=== PATIENT | male | born 1965 | race Caucasian/White ===

== ENCOUNTER 2017-03-19 07:08 | Outpatient (CLI) | payer MEDICAID ==
[2017-03-19 13:24] LABS: BASOPHILS # (AUTO) 0.1 10^3/uL (0.0-0.1); BASOPHILS % (AUTO) 0.8 %; EOSINOPHILS # (AUTO) 0.1 10^3/uL (0.0-0.7); EOSINOPHILS % (AUTO) 1.7 %; HCT - HEMATOCRIT 45.6 % (42.0-52.0); HGB - HEMOGLOBIN 15.3 g/dL (14.0-18.0); LYMPHOCYTES # (AUTO) 2.5 10^3/uL (1.5-3.5); LYMPHOCYTES % (AUTO) 33.4 %; MEAN CORPUSCULAR HEMOGLOBIN 31.2 pg (27.0-31.0); MEAN CORPUSCULAR HGB CONC 33.5 g/dL (32.0-36.0); MEAN CORPUSCULAR VOLUME 93.3 fL (80.0-94.0); MEAN PLATELET VOLUME 8.9 fL (7.4-11.4); MONOCYTES # (AUTO) 0.7 10^3/uL (0.0-1.0); MONOCYTES % (AUTO) 9.2 %; NEUTROPHILS # (AUTO) 4.1 10^3/uL (1.5-6.6); NEUTROPHILS % (AUTO) 54.9 %; NUCLEATED RED BLOOD CELLS AUTO 0.1 /100WBC; RED BLOOD COUNT 4.89 10^6/uL (4.70-6.10); RED CELL DISTRIBUTION WIDTH 14.6 % (12.0-15.0); UNCORRECTED WHITE BLOOD COUNT 7.5 x10^3/uL; WHITE BLOOD COUNT 7.5 x10^3/uL (4.8-10.8)
[2017-03-19 13:40] LABS: ALBUMIN/GLOBULIN RATIO 1.1 (1.0-2.2); BILIRUBIN,TOTAL 0.7 mg/dL (0.2-1.0); BUN - BLOOD UREA NITROGEN 11 mg/dL (6-20); CALCIUM 9.4 mg/dL (8.5-10.3); CARBON DIOXIDE - CO2 25 mmol/L (21-32); CHLORIDE 104 mmol/L (101-111); CHOL/HDL RATIO 7.5 (<5.0); CHOLESTEROL 261 mg/dL; CREATININE 0.8 mg/dL (0.6-1.2); GFR - MDRD 102 (>89); GLUCOSE 102 mg/dL (70-100); HDL CHOLESTEROL 35 mg/dL; LDL/HDL RATIO 5.1 (<3.6); POTASSIUM 4.4 mmol/L (3.5-5.0); SODIUM 137 mmol/L (135-145); TOTAL PROTEIN 8.1 g/dL (6.7-8.2); TRIGLYCERIDES 245 mg/dL; VLDL CHOLESTEROL 49 mg/dL
== END 2017-03-19 07:09 | disposition home or self-care (01) ==
LOC: LAB.N 07:08
PROVIDERS: ATTEND Nurse Practitioner Gerontology
DX: I10 Essential (primary) hypertension (principal)
CPT/HCPCS: 36415; 80053; 80061; 85025

== ENCOUNTER 2018-01-01 08:00 | Outpatient (CLI) | payer MEDICAID ==
[2018-01-01 18:48] LABS: BASOPHILS # (AUTO) 0.1 10^3/uL (0.0-0.1); BASOPHILS % (AUTO) 0.8 %; EOSINOPHILS # (AUTO) 0.2 10^3/uL (0.0-0.7); EOSINOPHILS % (AUTO) 1.9 %; HGB - HEMOGLOBIN 11.6 g/dL (14.0-18.0); LYMPHOCYTES # (AUTO) 4.4 10^3/uL (1.5-3.5); LYMPHOCYTES % (AUTO) 45.2 %; MEAN CORPUSCULAR HEMOGLOBIN 24.3 pg (27.0-31.0); MEAN CORPUSCULAR HGB CONC 32.1 g/dL (32.0-36.0); MEAN CORPUSCULAR VOLUME 75.7 fL (80.0-94.0); MEAN PLATELET VOLUME 8.7 fL (7.4-11.4); MONOCYTES # (AUTO) 0.8 10^3/uL (0.0-1.0); MONOCYTES % (AUTO) 7.9 %; NEUTROPHILS # (AUTO) 4.3 10^3/uL (1.5-6.6); NEUTROPHILS % (AUTO) 44.2 %; PLT - PLATELET COUNT 223 10^3/uL (130-450); RED BLOOD COUNT 4.77 10^6/uL (4.70-6.10); RED CELL DISTRIBUTION WIDTH 21.4 % (12.0-15.0); WHITE BLOOD COUNT 9.6 x10^3/uL (4.8-10.8)
[2018-01-01 19:00] LABS: PLATELET ESTIMATE, MANUAL NORMAL (130-450,000) (NORMAL); PLATELET MORPHOLOGY NORMAL APPEARANCE (NORMAL)
[2018-01-01 19:32] LABS: ALBUMIN 4.2 g/dL (3.2-5.5); ALBUMIN/GLOBULIN RATIO 1.4 (1.0-2.2); ALKALINE PHOSPHATASE 93 IU/L (42-121); ALT ALANINE AMINOTRANSFERASE 20 IU/L (10-60); AST ASPARTATE AMINOTRANSFERASE 24 IU/L (10-42); BILIRUBIN,TOTAL 0.2 mg/dL (0.2-1.0); BUN - BLOOD UREA NITROGEN 12 mg/dL (6-20); CARBON DIOXIDE - CO2 23 mmol/L (21-32); CHLORIDE 102 mmol/L (101-111); CHOL/HDL RATIO 10.8 (<5.0); CHOLESTEROL 280 mg/dL; CREATININE 0.7 mg/dL (0.6-1.2); GFR - MDRD 118 (>89); GLUCOSE 83 mg/dL (70-100); HDL CHOLESTEROL 26 mg/dL; SODIUM 135 mmol/L (135-145); TOTAL PROTEIN 7.2 g/dL (6.7-8.2)
== END 2018-01-01 08:01 | disposition home or self-care (01) ==
LOC: LAB.N 08:00
PROVIDERS: ATTEND Nurse Practitioner Gerontology
DX: I10 Essential (primary) hypertension (principal); E78.5 Hyperlipidemia, unspecified; Z13.9 Encounter for screening, unspecified
CPT/HCPCS: 36415; 80053; 80061; 83721; 84443; 85025

== ENCOUNTER 2021-08-28 16:06 | Inpatient (IN) | payer MEDICARE, MEDICAID ==
[2021-08-28 16:51] LABS: BASOPHILS # (AUTO) 0.1 10^3/uL (0.0-0.1); BASOPHILS % (AUTO) 0.6 %; EOSINOPHILS # (AUTO) 0.3 10^3/uL (0.0-0.7); EOSINOPHILS % (AUTO) 2.6 %; HCT - HEMATOCRIT 45.9 % (42.0-52.0); HGB - HEMOGLOBIN 13.9 g/dL (14.0-18.0); LYMPHOCYTES # (AUTO) 1.5 10^3/uL (1.5-3.5); LYMPHOCYTES % (AUTO) 13.7 %; MEAN CORPUSCULAR HEMOGLOBIN 27.9 pg (27.0-31.0); MEAN CORPUSCULAR HGB CONC 30.3 g/dL (32.0-36.0); MEAN CORPUSCULAR VOLUME 92.2 fL (80.0-94.0); MEAN PLATELET VOLUME 9.8 fL (7.4-11.4); MONOCYTES # (AUTO) 0.8 10^3/uL (0.0-1.0); MONOCYTES % (AUTO) 7.6 %; NEUTROPHILS % (AUTO) 74.7 %; PLT - PLATELET COUNT 244 10^3/uL (130-450); RED BLOOD COUNT 4.98 10^6/uL (4.70-6.10); WHITE BLOOD COUNT 10.8 x10^3/uL (4.8-10.8)
[2021-08-28] MEDS ORDERED: IPRATROPIUM/ALBUTEROL 3 ML NEB INH STA (16:52)
--- NOTE | 2021-08-28 16:54 | ED Physician Documentation ---
PD HPI DYSPNEA - Stated complaint Stated Complaint: SOA/LETHARGIC - Chief complaint Chief Complaint: Resp - History obtained from History obtained from: Patient - History of Present Illness Timing - onset: How many days ago (3) Timing - onset during: Rest Timing - details: Gradual onset Pain level max: 0 Pain level now: 0 Associated symptoms: Wheezing. No: Fever, Chest pain / discomfort, Palpitations, Diaphoresis, Bilateral edema Recently seen: Not recently seen - Additional information Additional information: 55-year-old male presents to the emergency department with several days of worsening shortness of breath. He feels like it is hard to take a deep breath. Not having any pain. No fevers. No chills. He is vaccinated against Covid. Does not have a history of lung issues. Does have a history of HIV and is on medications. Does not believe he has a history of heart failure. Does have a history of coronary artery bypass graft many years ago. He recently came here from [place] and is considering moving here. Review of Systems Constitutional: denies: Fever, Chills Respiratory: denies: Cough GI: denies: Nausea, Vomiting, Diarrhea Skin: denies: Rash Musculoskeletal: denies: Neck pain, Back pain Neurologic: denies: Headache PD PAST MEDICAL HISTORY - Past Medical History Cardiovascular: Coronary artery disease Respiratory: None Endocrine/Autoimmune: None GI: None : None HEENT: None Psych: Depression Musculoskeletal: None, Chronic back pain Derm: None - Past Surgical History Past Surgical History: Yes Ortho: Other Cardiovascular: CABG - Present Medications Home Medications: Ambulatory Orders Medication Instructions Recorded Confirmed Darunavir Ethanolate [Prezista] 800 mg PO DAILY 10/28/14 06/21/16 Oxycodone HCl [Roxicodone] 30 mg PO Q6H PRN 10/28/14 06/21/16 Aspirin 81 mg PO DAILY 11/06/14 06/21/16 Carvedilol [Coreg] 25 mg PO BID 06/21/16 06/21/16 Escitalopram Oxalate [Lexapro] 20 mg PO DAILY 06/21/16 06/21/16 Omeprazole [PriLOSEC] 20 mg PO DAILY 06/21/16 06/21/16 Ritonavir [Norvir] 100 mg PO DAILY 06/21/16 06/21/16 amLODIPine [Norvasc] 5 mg PO DAILY 06/21/16 06/21/16 oxyCODONE ER [OxyCONTIN] 60 mg PO Q8H 06/21/16 06/21/16 tiZANidine [Zanaflex] 4 mg PO Q8H PRN 06/21/16 06/21/16 Nitroglycerin [Nitrostat] 0.4 mg SL Q5MIN PRN #0 tablet 06/22/16 Pravastatin [Pravachol] 80 mg PO QPM tablet 06/22/16 - Allergies Allergies/Adverse Reactions: Allergies Allergy/AdvReac Type Severity Reaction Status Date / Time gabapentin Allergy Intermediate Hives Verified 08/28/21 16:21 nevirapine [From Viramune] Allergy Intermediate Hives Verified 08/28/21 16:21 tramadol Allergy Intermediate Rash Verified 08/28/21 16:21 ketorolac Allergy Itching Verified 08/28/21 16:21 - Social History Does the pt smoke?: Yes Smoking Status: Current every day smoker Does the pt drink ETOH?: No Does the pt have substance abuse?: No - Immunizations Immunizations are current?: Yes - POLST Patient has POLST: Yes PD ED PE NORMAL - Vitals Vital signs reviewed: Yes - General General: Alert and oriented X 3, No acute distress, Well developed/nourished - HEENT HEENT: PERRL, Moist mucous membranes - Neck Neck: Supple, no meningeal sign - Cardiac Cardiac: RRR - Respiratory Respiratory: No respiratory distress, Other (Wheezing bilaterally) - Abdomen Abdomen: Soft, Non tender, Non distended - Derm Derm: Warm and dry - Extremities Extremities: No calf tenderness / cord, Other (Trace edema bilaterally) - Neuro Neuro: Alert and oriented X 3 - Psych Psych: Normal mood, Normal affect Results - Vitals Vitals: Vital Signs - 24 hr 08/28/21 08/28/21 08/28/21 16:18 16:21 16:51 Temperature 37.0 C Heart Rate 68 72 64 Respiratory 20 27 H 27 H Rate Blood Pressure 125/74 122/65 122/85 H O2 Saturation 87 L 97 92 08/28/21 08/28/21 08/28/21 16:59 17:21 17:22 Temperature Heart Rate 62 82 81 Respiratory 22 29 H 26 H Rate Blood Pressure 123/76 123/76 O2 Saturation 87 L 92 08/28/21 08/28/2108/28/21 17:30 18:13 18:36 Temperature Heart Rate 76 70 77 Respiratory 22 20 16 Rate Blood Pressure 100/88 H 131/82 H O2 Saturation 96 95 08/28/21 08/28/21 08/28/21 18:52 19:11 19:27 Temperature 37.3 C Heart Rate 87 Respiratory 17 19 Rate Blood Pressure 128/74 O2 Saturation 88 L 94 Oxygen O2 Source Nasal cannula Oxygen Flow Rate 2 - Labs Labs: Laboratory Tests 08/28/21 08/28/21 08/28/21 16:44 16:44 16:44 WBC 10.8 RBC 4.98 Hgb 13.9 L Hct 45.9 MCV 92.2 MCH 27.9 MCHC 30.3 L RDW 19.0 H Plt Count 244 MPV 9.8 Neut # (Auto) 8.0 H Lymph # (Auto) 1.5 Kane # (Auto) 0.8 Eos # (Auto) 0.3 Baso # (Auto) 0.1 Absolute Nucleated RBC 0.00 Nucleated RBC % 0.0 Sodium 135 Potassium 3.7 Chloride 99 L Carbon Dioxide 25 Anion Gap 11.0 BUN 13 Creatinine 1.1 Estimated GFR (MDRD) 69 L Glucose 138 H Calcium 9.0 Total Bilirubin 0.7 AST 25 ALT 19 Alkaline Phosphatase 83 Troponin I High Sens 6.3 B-Natriuretic Peptide Total Protein 8.0 Albumin 3.5 Globulin 4.5 H Albumin/Globulin Ratio 0.8 L Lipase 25 Nasal Adenovirus (PCR) Nasal B. parapertussis DNA (PCR) Nasal Coronavir 229E PCR Nasal Coronavir HKU1 PCR Nasal Coronavir NL63 PCR Nasal Coronavir OC43 PCR Nasal Enterovir/Rhinovir PCR Nasal Influenza B PCR Nasal Influenza A PCR Nasal Parainfluen 1 PCR Nasal Parainfluen 2 PCR Nasal Parainfluen 3 PCR Nasal Parainfluen 4 PCR Nasal RSV (PCR) Nasal B.pertussis DNA PCR Nasal C.pneumoniae (PCR) [place] Human Metapneumo PCR Nasal M.pneumoniae (PCR) Nasal SARS-CoV-2 (PCR) 08/28/21 08/28/21 16:44 17:08 WBC RBC Hgb Hct MCV MCH MCHC RDW Plt Count MPV Neut # (Auto) Lymph # (Auto) Kane # (Auto) Eos # (Auto) Baso # (Auto) Absolute Nucleated RBC Nucleated RBC % Sodium Potassium Chloride Carbon Dioxide Anion Gap BUN Creatinine Estimated GFR (MDRD) Glucose Calcium Total Bilirubin AST ALT Alkaline Phosphatase Troponin I High Sens B-Natriuretic Peptide 274 H Total Protein Albumin Globulin Albumin/Globulin Ratio Lipase Nasal Adenovirus (PCR) NOT DETECTED Nasal B. parapertussis DNA (PCR) NOT DETECTED Nasal Coronavir 229E PCR NOT DETECTED Nasal Coronavir HKU1 PCR NOT DETECTED Nasal Coronavir NL63 PCR NOT DETECTED Nasal Coronavir OC43 PCR NOT DETECTED Nasal Enterovir/Rhinovir PCR NOT DETECTED Nasal Influenza B PCR NOT DETECTED Nasal Influenza A PCR NOT DETECTED Nasal Parainfluen 1 PCR NOT DETECTED Nasal Parainfluen 2 PCR NOT DETECTED Nasal Parainfluen 3 PCR NOT DETECTED Nasal Parainfluen 4 PCR NOT DETECTED Nasal RSV (PCR) NOT DETECTED Nasal B.pertussis DNA PCR NOT DETECTED Nasal C.pneumoniae (PCR) NOT DETECTED [place] Human Metapneumo PCR NOT DETECTED Nasal M.pneumoniae (PCR) NOT DETECTED Nasal SARS-CoV-2 (PCR) NOT DETECTED - Rads (name of study) cxr Radiology: Final report received, EMP read contemporaneously, See rad report (Bilateral interstitial pulmonary infiltrate reflects infection versus pulmonary edema. ) PD MEDICAL DECISION MAKING - ED course Complexity details: reviewed results, re-evaluated patient, considered differential, d/w patient ED course: 55-year-old male with hypoxia and wheezing. Unclear if this is infectious or cardiac related. His BNP is slightly elevated. He was given Lasix as well as Rocephin, azithromycin and Bactrim. Unlikely to be PJP pneumonia. But we will cover him for this with the Bactrim. Patient continues to require supplemental oxygen and we will place him in observation for further care and to see how he progresses. Covid test is negative. Discussed the case with Dr. Beltran, hospitalist who accepts This document was made in part using voice recognition software. While efforts are made to proofread this document, sound alike and grammatical errors may occur. Departure - Departure Disposition: ED Place in Observation Clinical Impression: Hypoxia Pulmonary edema Qualifiers: Chronicity: acute Qualified Code(s): J81.0 - Acute pulmonary edema HIV (human immunodeficiency virus infection) Qualifiers: HIV symptom status: currently asymptomatic, with history of HIV-related illness Qualified Code(s): B20 - Human immunodeficiency virus [HIV] disease Pneumonia Qualifiers: Pneumonia type: due to unspecified organism Laterality: bilateral Lung location: unspecified part of lung Qualified Code(s): J18.9 - Pneumonia, unspecified organism Condition: Stable Discharge Date/Time: 08/28/21 21:19
[2021-08-28 17:07] LABS: ALBUMIN 3.5 g/dL (3.2-5.5); ALBUMIN/GLOBULIN RATIO 0.8 (1.0-2.2); BILIRUBIN,TOTAL 0.7 mg/dL (0.2-1.0); CREATININE 1.1 mg/dL (0.6-1.2); POTASSIUM 3.7 mmol/L (3.5-5.0)
--- NOTE | 2021-08-28 17:25 | XRAY Report ---
PROCEDURE: Chest 1 View X-Ray INDICATIONS: Chest pain TECHNIQUE: One view of the chest was acquired. COMPARISON: 06/21/2016 FINDINGS: Surgical changes and devices: None. Lungs and pleura: Diffuse bilateral interstitial infiltrate noted. Total space and heart size is norm al. Midline sternotomy wires noted. Low lung volumes accentuate pulmonary interstitium and heart size . Mediastinum: Mediastinal contours appear normal. Heart size is normal. Bones and chest wall: No suspicious bony lesions. Overlying soft tissues appear unremarkable. IMPRESSION: Bilateral interstitial pulmonary infiltrate reflects infection versus pulmonary edema. Low lung volumes accentuate pulmonary interstitium and heart size. Reviewed by: Villa Thorpe MD on 08/28/2021 4:24 PM [place] Approved by: Villa Thorpe MD on 08/28/2021 4:24 PM [facility] Station ID: [id number]
[2021-08-28] MEDS ORDERED: ALBUTEROL NEB 2.5 MG/3 ML INH STA (17:51)
[2021-08-28 18:41] LABS: B. PARAPERTUSSIS- RESP PCR PAN NOT DETECTED; B. PERTUSSIS- RESP PCR PANEL NOT DETECTED; C. PNEUMONIAE- RESP PCR PANEL NOT DETECTED; CORONAVIRUS 229E-RESP PCR NOT DETECTED; CORONAVIRUS HKU1-RESP PCR NOT DETECTED; CORONAVIRUS NL63-RESP PCR NOT DETECTED; CORONAVIRUS OC43-RESP PCR NOT DETECTED; HUMAN METAPNEUMOVIRUS NOT DETECTED; INFLUENZA A- RESP PCR PANEL NOT DETECTED; INFLUENZA B - RESP PCR PANEL NOT DETECTED; M. PNEUMONIAE- RESP PCR PANEL NOT DETECTED; PARAINFLUENZA VIRUS 1 NOT DETECTED; PARAINFLUENZA VIRUS 2 NOT DETECTED; PARAINFLUENZA VIRUS 3 NOT DETECTED; PARAINFLUENZA VIRUS 4 NOT DETECTED; RHINOVIRUS/ENTEROVIRUS NOT DETECTED; RSV- RESP PCR PANEL NOT DETECTED; SARS-CoV-2 -RESP PCR PANEL NOT DETECTED
[2021-08-28] MEDS ORDERED: FUROSEMIDE 40 MG/4 ML VIAL IVP STA (18:52)
[2021-08-28] MEDS ORDERED: AZITHROMYCIN INJ 500 MG in SODIUM CHLORIDE 0.9% 250 ML IV STA (19:45)
[2021-08-28] MEDS ORDERED: cefTRIAXone 1 GM VIAL IVP STA (19:45)
[2021-08-28] MEDS ORDERED: SULFAMETH/TRIMETH DS 800/160 MG TABLET PO STA (19:45)
[2021-08-28] MEDS ORDERED: ONDANSETRON 4 MG/2 ML VIAL IVP PRN (20:00)
[2021-08-28] MEDS ORDERED: AZITHROMYCIN INJ 500 MG in SODIUM CHLORIDE 0.9% 250 ML IV ONE (20:01)
--- NOTE | 2021-08-28 20:14 | HISTORY & PHYSICAL EXAMINATION ---
Chief Complaint - Chief Complaint Chief Complaint: Short of breath History of Present Illness - Admitted From Admitted From:: ED - History Obtained From History obtained from: ED provide, records review and the pt - History of Present Illness HPI Comment/Other: This is a 55-year-old male who has lived on [facility] before, moved to [place] in 2018 and is now planning on moving back and is visiting his brother for Thanksgiving. He has a history of HIV, hypertension, hyperlipidemia, coronary disease with multiple stents done and CABG done in 2012. He flew here from [place] 1 weeka go and presents with worsening shortness of breath and fatigue over 3 days. He denies a fever. He has a non-productive cough and is now getting pleuritic anterior chest pain. He describes 2 days of new orthopnea. He is COVID vaccinated and had the booster 2 mos ago also. All his contacts are COVID vaccinated. He denies anginal pain. He does have chronic back pain which sometimes is in the mid-chest posteriorly. He denies palpitations, leg edema or syncope. He is compliant with his medications. In the ED he was found to be tachypneic and have oxygen saturation of 87% on room air and has been started on supplemental oxygen. His chest x-ray shows interstitial edema consistent with interstitial lung disease versus CHF. He received a nebulizer treatment without much improvement. Because of his positive HIV status, he has received empiric antibiotics of Zithromax, Ceftriaxone and Bactrim, to cover atypical bacteria. He has also received IV Lasix x1. He is presented to the Hospitalist team to place in Observation status for further evaluation of his shortness of breath, abnormal CXR and hypoxia. We discussed his wishes for CODE STATUS and he has a DNR form signed, which is back home in [place]; he wants to be a DNR but intubation is OK. History - Past Medical History Cardiovascular: reports: Coronary artery disease Respiratory: reports: None Neuro: reports: None Endocrine/Autoimmune: reports: Other (Hypertriglyceridemia documented here in 2014 (TG >1000)) GI: reports: None : reports: None HEENT: reports: None Psych: reports: Depression Musculoskeletal: reports: None, Chronic back pain Derm: reports: None MRSA Hx?: No - Past Surgical History Ortho: reports: Other Cardiovascular: reports: CABG - Family & Social History Family History: Mother: Alive and Well, Father: , Brother: Alive and Well, Family History Comment/Other: He is the middle child of 3 children, his younger brother in an accident. He has 1 natural child who lives in [place] and is healthy. His father is , his mother is alive but very ill, and lives in [place]. His older brother is the small engine technician of a [employer] restaurant in [place]. The patient is on disability from HIV, depression and chronic back pain. He lives with his life partner who is also his caregiver. Living arrangement: At home Living Situation: With spouse/s.o. Social History Notes: He quit smoking when he had his CABG in 2012. He drinks no alcohol. No recreational drug use history. - Substance History Use: Uses substance without health or social issues: NONE - POLST Patient has POLST: Yes POLST Status: DNR (Intubation and ventil use is OK) Meds/Allgy - Home Medications Home Medications: Ambulatory Orders Medication Instructions Recorded Confirmed Darunavir Ethanolate [Prezista] 800 mg PO DAILY 10/28/14 06/21/16 Oxycodone HCl [Roxicodone] 30 mg PO Q6H PRN 10/28/14 06/21/16 Aspirin 81 mg PO DAILY 11/06/14 06/21/16 Carvedilol [Coreg] 25 mg PO BID 06/21/16 06/21/16 Escitalopram Oxalate [Lexapro] 20 mg PO DAILY 06/21/16 06/21/16 Omeprazole [PriLOSEC] 20 mg PO DAILY 06/21/16 06/21/16 Ritonavir [Norvir] 100 mg PO DAILY 06/21/16 06/21/16 amLODIPine [Norvasc] 5 mg PO DAILY 06/21/16 06/21/16 oxyCODONE ER [OxyCONTIN] 60 mg PO Q8H 06/21/16 06/21/16 tiZANidine [Zanaflex] 4 mg PO Q8H PRN 06/21/16 06/21/16 Nitroglycerin [Nitrostat] 0.4 mg SL Q5MIN PRN #0 tablet 06/22/16 Pravastatin [Pravachol] 80 mg PO QPM tablet 06/22/16 - Allergies Allergies/Adverse Reactions: Allergies Allergy/AdvReac Type Severity Reaction Status Date / Time gabapentin Allergy Intermediate Hives Verified 08/28/21 16:21 nevirapine [From Viramune] Allergy Intermediate Hives Verified 08/28/21 16:21 tramadol Allergy Intermediate Rash Verified 08/28/21 16:21 ketorolac Allergy Itching Verified 08/28/21 16:21 Review of Systems - Constitutional Constitutional: reports: Fatigue, Malaise, Weakness - Respiratory Respiratory: reports: Cough, Orthopnea, SOB at rest, SOB with exertion, Pleuritic pain - Psychiatric Psychiatric: reports: Depression - All Other Systems All Other Systems: reports: Reviewed and negative Exam - Vital Signs Vital Signs: Vital Signs x48h Temp Pulse Resp BP Pulse Ox 08/28/21 20:03 81 20 97 08/28/21 19:27 37.3 C 19 08/28/21 19:11 87 17 128/74 94 08/28/21 18:52 88 L 08/28/21 18:36 77 16 131/82 H 95 08/28/21 18:13 70 20 08/28/21 17:30 76 22 100/88 H 96 08/28/21 17:22 81 26 H 123/76 92 08/28/21 17:21 82 29 H 123/76 87 L 08/28/21 16:59 62 22 08/28/21 16:51 64 27 H 122/85 H 92 08/28/21 16:21 72 27 H 122/65 97 08/28/21 16:18 37.0 C 68 20 125/74 87 L - Physical Exam General Appearance: positive: Mild distress (Tachypneic with speaking, even on O2 per n.c.) Eyes Bilateral: positive: EOMI ENT: positive: ENT inspection nml, No signs of dehydration Neck: positive: Nml inspection, No JVD Respiratory: positive: Rhonchi (diffuse) Cardiovascular: positive: Regular rate & rhythm Abdomen: positive: Non-tender, No distention Skin: positive: Warm, Dry Extremities: positive: Non-tender, No pedal edema Neurologic/Psychiatric: positive: Oriented x3 (Non-focal) Conclusion/Plan - Problem List (1) Hypoxia Conclusion/Plan: Etiology of his low O2 saturation is not immediately clear but he has an abnormal chest x-ray. Will give supplemental oxygen. Will start with empiric IV diuretics and Echo ordered. Follow BNP, BMP and Mg daily. We will continue with empiric antibiotics to include coverage for atypical organisms, given his HIV positive status Will obtain CTA chest to rule out PE and evaluate the lung parenchyma more>> this showed interstitial infiltrates c/w atypical or viral pneumionia. (2) Abnormal CXR Conclusion/Plan: His chest x-ray is read as having interstitial disease versus CHF. Will treat empirically with IV diuretics first since BNP is mildly elevated. Await Echo to assess for systolic versus diastolic heart failure. We obtain a chest CT for more , to rule out PE and evaluate the lung parenchyma more>> this showed interstitial infiltrates c/w atypical or viral pneumionia. He was tested for Covid in the ED and his respiratory PCR result is all negative. Will re-test for respiratory PCR via nasal swab (in case that one was not deep enough) and treat accordingly. (3) Coronary artery disease Conclusion/Plan: Will place on telemetry. We will continue with his usual aspirin and other cardiac medications once reconciled. We will recheck his fasting lipid panel, especially the triglyceride level Qualifiers: Coronary Disease-Associated Artery/Lesion type: unspecified vessel or lesion type (4) HIV (human immunodeficiency virus infection) Conclusion/Plan: We will continue with his antiviral therapy once it is reconciled Qualifiers: Qualified Code(s): B20 - Human immunodeficiency virus [HIV] disease (5) Depression Conclusion/Plan: We will continue with his home medications once reconciled (6) Back pain Conclusion/Plan: Will give his usual pain medications once they are reconciled. - Lab Results Fish Bones: 08/28/21 16:44 08/28/21 16:44 - Diagnostic Imaging Results Diagnostic Imaging Results: positive: Final report reviewed
[2021-08-28] MEDS ORDERED: IOVERSOL 320 100 ML VIAL IVP ONE ×2 (20:18→21:02)
[2021-08-28] MEDS: ACETAMINOPHEN 325 MG TABLET PO PRN (20:59)
--- NOTE | 2021-08-28 21:45 | CT Report ---
PROCEDURE: ANGIO CHEST W/WO INDICATIONS: Hypoxia, SOB, poss PE CONTRAST: IV CONTRAST: Optiray 320 ml: 80 PO CONTRAST: *NO PO CONTRAST TECHNIQUE: After the administration of intravenous contrast, 2 mm axial images were acquired from the pulmonary apices to the posterior costophrenic angles during the arterial phase. In addition, 1 mm lung kernel and 5 mm soft tissue kernel reconstructions were performed. 3-dimensional coronal oblique maximum int ensity projection (MIP) reformats, 8 mm axial MIP, and 5 mm coronal and sagittal MPR reformats were t hen performed through the thorax. For radiation dose reduction, the following was used: automated exp osure control, adjustment of mA and/or kV according to patient size. COMPARISON: Chest radiograph 08/28/2021 FINDINGS: Image quality: Mildly degraded by respiratory motion. Diagnostic information is obtained. Pulmonary arteries: Pulmonary arteries are normal in size, and demonstrate no intraluminal filling d efects to suggest central pulmonary embolism. Respiratory motion is present, and some of the smaller peripheral subsegmental pulmonary arteries are not well evaluated. Lungs and pleura: Diffuse bilateral patchy groundglass opacities are seen throughout both lungs. No p leural effusions or pneumothorax. Central and peripheral airways are patent. Mediastinum: Post surgical changes are seen from prior CABG. Coronary artery calcifications are pres ent. Heart size is mildly enlarged, without pericardial effusion. No mediastinal or hilar adenopathy . Thoracic aorta is normal in caliber and enhancement. Esophagus is normal in caliber, without hiat al hernia. Bones and chest wall: Poststernotomy changes are seen. No suspicious bony lesions. Ribs and thoracic spine appear intact throughout. No axillary or supraclavicular adenopathy. The thyroid is normal i n size. Abdomen: Visualized upper abdominal solid organs appear normal in the early arterial phase of enhanc ement. IMPRESSION: 1.No acute pulmonary embolism. 2.Diffuse bilateral patchy groundglass opacities are suspicious for pneumonia, including with viral o r atypical agents such as Covid-19. Reviewed by: Gus Flores MD on 08/28/2021 9:44 PM PST Approved by: Gus Flores MD on 08/28/2021 9:44 PM PST Station ID: [id number]
[2021-08-28 23:33] LABS: B. PARAPERTUSSIS- RESP PCR PAN NOT DETECTED; B. PERTUSSIS- RESP PCR PANEL NOT DETECTED; C. PNEUMONIAE- RESP PCR PANEL NOT DETECTED; CORONAVIRUS 229E-RESP PCR NOT DETECTED; CORONAVIRUS HKU1-RESP PCR NOT DETECTED; CORONAVIRUS NL63-RESP PCR NOT DETECTED; CORONAVIRUS OC43-RESP PCR NOT DETECTED; HUMAN METAPNEUMOVIRUS NOT DETECTED; INFLUENZA A- RESP PCR PANEL NOT DETECTED; INFLUENZA B - RESP PCR PANEL NOT DETECTED; M. PNEUMONIAE- RESP PCR PANEL NOT DETECTED; PARAINFLUENZA VIRUS 1 NOT DETECTED; PARAINFLUENZA VIRUS 2 NOT DETECTED; PARAINFLUENZA VIRUS 3 NOT DETECTED; PARAINFLUENZA VIRUS 4 NOT DETECTED; RHINOVIRUS/ENTEROVIRUS NOT DETECTED; RSV- RESP PCR PANEL NOT DETECTED; SARS-CoV-2 -RESP PCR PANEL NOT DETECTED
[2021-08-28] MEDS ORDERED: ACETAMINOPHEN/CODEINE 300 MG/30 MG TABLET PO PRN (23:45)
[2021-08-29] MEDS: SODIUM CHLORIDE FLUSH 0.9% 10 ML SYRINGE IVP SCH ×4 (00:01→23:40)
[2021-08-29] MEDS: guaiFENesin/CODEINE 5 ML UDC PO PRN ×2 (01:42→20:47)
[2021-08-29 06:15] LABS: BASOPHILS # (AUTO) 0.1 10^3/uL (0.0-0.1); BASOPHILS % (AUTO) 0.7 %; EOSINOPHILS # (AUTO) 0.3 10^3/uL (0.0-0.7); EOSINOPHILS % (AUTO) 2.1 %; HCT - HEMATOCRIT 45.2 % (42.0-52.0); HGB - HEMOGLOBIN 13.7 g/dL (14.0-18.0); LYMPHOCYTES # (AUTO) 2.7 10^3/uL (1.5-3.5); LYMPHOCYTES % (AUTO) 22.1 %; MEAN CORPUSCULAR HEMOGLOBIN 27.7 pg (27.0-31.0); MEAN CORPUSCULAR HGB CONC 30.3 g/dL (32.0-36.0); MEAN CORPUSCULAR VOLUME 91.3 fL (80.0-94.0); MEAN PLATELET VOLUME 9.9 fL (7.4-11.4); MONOCYTES # (AUTO) 1.2 10^3/uL (0.0-1.0); NEUTROPHILS # (AUTO) 7.8 10^3/uL (1.5-6.6); NEUTROPHILS % (AUTO) 64.4 %; PLT - PLATELET COUNT 250 10^3/uL (130-450); RED BLOOD COUNT 4.95 10^6/uL (4.70-6.10); RED CELL DISTRIBUTION WIDTH 19.4 % (12.0-15.0); WHITE BLOOD COUNT 12.1 x10^3/uL (4.8-10.8)
[2021-08-29 06:38] LABS: BUN - BLOOD UREA NITROGEN 13 mg/dL (6-20); CALCIUM 8.9 mg/dL (8.5-10.3); CARBON DIOXIDE - CO2 23 mmol/L (21-32); CHLORIDE 101 mmol/L (101-111); CHOL/HDL RATIO 2.8 (<5.0); CHOLESTEROL 126 mg/dL; CREATININE 0.9 mg/dL (0.6-1.2); GFR - MDRD 88 (>89); GLUCOSE 89 mg/dL (70-100); HDL CHOLESTEROL 45 mg/dL; LDL CHOLESTEROL,CALCULATED 59 mg/dL; LDL/HDL RATIO 1.3 (<3.6); MAGNESIUM 1.9 mg/dL (1.7-2.8); POTASSIUM 3.4 mmol/L (3.5-5.0); SODIUM 136 mmol/L (135-145); TRIGLYCERIDES 110 mg/dL; VLDL CHOLESTEROL 22 mg/dL
[2021-08-29] MEDS ORDERED: POTASSIUM CHLORIDE 20 MEQ TABLET PO ONE (08:04)
[2021-08-29] MEDS ORDERED: carvediloL 3.125 MG TABLET PO SCH (09:00)
[2021-08-29] MEDS ORDERED: ASPIRIN EC 81 MG TABLET PO SCH (09:00)
[2021-08-29] MEDS ORDERED: FUROSEMIDE 20 MG/2 ML VIAL IVP SCH (09:00)
[2021-08-29] MEDS ORDERED: ENOXAPARIN 40 MG/0.4 ML SYRINGE SUBQ SCH (09:00)
[2021-08-29] MEDS ORDERED: oxyCODONE 5 MG TABLET PO PRN (09:13)
[2021-08-29] MEDS: AZITHROMYCIN 250 MG TABLET PO SCH (09:43)
[2021-08-29] MEDS: SULFAMETH/TRIMETH DS 800/160 MG TABLET PO SCH ×2 (09:44→20:44)
[2021-08-29] MEDS: oxyCODONE 5 MG TABLET PO PRN ×2 (09:48→14:02)
[2021-08-29] MEDS: cefTRIAXone 2 GM in SODIUM CHLORIDE 0.9% MINIBAG 100 ML IV SCH (10:28)
--- NOTE | 2021-08-29 10:49 | PHARMACY PROGRESS NOTE ---
- Best Possible Medication History Admit Date and Time: 08/28/211999 Processed by: Pharmacy Medication History completed: Yes Patient Interview: Completed Secondary Source(s): Written medication list, Physician records, Pharmacy records (PATIENT PROVIDED MEDICATION LIST ) As the person ultimately responsible for medication therapy, providers are able to order a medication from an existing home medication list in [facility] via the "Reconcile Routine" prior to Confirmation of that medication by it support technician. Such practice is discouraged except when the physician, in their clinical judgment, deems that a medical need exists for a medication without regard to previous use.
[2021-08-29] MEDS: guaiFENesin 600 MG TABLET PO SCH ×2 (11:20→20:47)
[2021-08-29] MEDS ORDERED: NITROGLYCERIN SL 0.4 MG TABLET SL PRN (11:57)
[2021-08-29] MEDS ORDERED: DOLUTEGRAVIR SODIUM 50 MG PO SCH (11:59)
[2021-08-29] MEDS ORDERED: DARUNAVIR ETHANOLATE 600 MG PO SCH ×2 (12:10→17:00)
[2021-08-29] MEDS ORDERED: RITONAVIR 100 MG PO SCH ×2 (12:11→17:00)
[2021-08-29] MEDS: AMIODARONE 200 MG TABLET PO SCH (13:40)
[2021-08-29] MEDS: atenoloL 25 MG TABLET PO SCH (13:40)
[2021-08-29] MEDS: APIXABAN 5 MG TABLET PO SCH ×2 (13:41→20:45)
[2021-08-29] MEDS: CLOPIDOGREL 75 MG TABLET PO SCH (13:41)
--- NOTE | 2021-08-29 14:51 | PROVIDER PROGRESS NOTE ---
Assessment/Plan - Problem List (1) Respiratory failure with hypoxia Assessment/Plan: 08/29 slightly improved. 94% sats on 3 liter of O2 with RR 20. pt had 87% O2 sats on room air at the admission with tachypnea. it is likely caused by Atypical pneumonia with negative COVID-19 test. Patient also has history of HIV. We will continue Azithromycin, Rocephin, Bactrim for prevention of PCP, Continue supplemental oxygen as needed. (2) atypical pneumonia Conclusion/Plan: CTA show no PE, reveals Atypical pneumonia, does not show mucus plugs. Twice COVID-19 test are negative. Patient also has history of HIV. We will treat her pneumonia with azithromycin, Rocephin, Bactrim for prevention of PCP. add mucinex. (3) Coronary artery disease pt has history of CAD. Patient denies chest pain, serial troponin test is negative. We will resume patient home medication Plavix, Eliquis, atenolol, Lasix, imdur. continue tele and vital monitor (4) HIV (human immunodeficiency virus infection) Conclusion/Plan: Patient has a history of HIV, he report he had CD4 over 900 over couple years ago. Unfortunately our hospital cannot test CD4 We will continue with his home antiviral therapy, continue bactrim (5) Depression Conclusion/Plan: We will continue his home medications wellbutrin (6) Back pain Conclusion/Plan: pain control, continue his home Methadone as needed, (7)hypothyroidism TSh is normal, resume home synthroid (8)BPH resume home terazosin - Current Meds Current Meds: Current Medications Generic Name Dose Route Start Last Admin Trade Name Radha PRN Reason Stop Dose Admin Acetaminophen 650 mg 08/28/21 20:00 08/28/21 20:59 Acetaminophen 325 Mg Tablet PO 650 mg Q4HR PRN Administration Pain or Fever > 38C (100.4F) Amiodarone HCl 100 mg 08/29/21 12:00 08/29/21 13:40 Amiodarone 200 Mg Tablet PO 100 mg DAILY TREVER Administration Apixaban 5 mg 08/29/21 12:00 08/29/21 13:41 Apixaban 5 Mg Tablet PO 5 mg BID TREVER Administration Atenolol 50 mg 08/29/21 13:00 08/29/21 13:40 Atenolol 25 Mg Tablet PO 50 mg DAILY TREVER Administration Azithromycin 500 mg 08/29/21 09:00 08/29/21 09:43 Azithromycin 250 Mg Tablet PO 08/31/21 00:01 500 mg DAILY T[facility] Administration Clopidogrel Bisulfate 75 mg 08/29/21 12:00 08/29/21 13:41 Clopidogrel 75 Mg Tablet PO 75 mg DAILY [facility] Administration Guaifenesin 600 mg 08/29/21 11:00 08/29/21 11:20 Guaifenesin 600 Mg Tablet PO 600 mg BID TREVER Administration Guaifenesin/Codeine Phosphate 5 ml 08/28/21 23:47 08/29/21 01:42 Guaifenesin/Codeine 5 Ml Udc PO 5 ml Q6HR PRN Administration Cough Ceftriaxone Sodium 2 gm/ 100 mls @ 200 mls/hr 08/29/21 09:00 08/29/21 11:25 Sodium Chloride IV Infused DAILY TREVER Infusion Oxycodone HCl 10 mg 08/29/21 09:21 08/29/21 14:02 Oxycodone 5 Mg Tablet PO 10 mg Q4HR PRN Administration PAIN Sodium Chloride 10 ml 08/29/21 01:00 08/29/21 10:15 Sodium Chloride Flush 0.9% 10 Ml Syringe IVP 10 ml 0100,0900,1700 [facility] Administration Trimethoprim/Sulfamethoxazole 1 tab 08/29/21 09:00 08/29/21 09:44 Sulfameth/Trimeth Ds 800/160 Mg Tablet PO 1 tab BID TREVER Administration - Lab Result Fish Bone Diagrams: 08/29/21 05:11 08/29/21 05:11 - Additional Planning My Orders: My Active Orders 08/29/21 09:21 oxyCODONE [Roxicodone] 10 mg PO Q4HR PRN 08/29/21 11:00 guaiFENesin [Mucinex] 600 mg PO BID 08/29/21 11:57 Methadone [Methadone Hcl] 10 mg PO TID PRN Nitroglycerin [Nitrostat] 0.4 mg SL Q5MIN PRN methocarbamoL [Robaxin] 500 mg PO TID PRN 08/29/21 11:59 Dolutegravir Sodium [Tivicay] 50 mg PO BID 08/29/21 12:00 Amiodarone [Pacerone] 100 mg PO DAILY Apixaban [Eliquis] 5 mg PO BID Clopidogrel [Plavix] 75 mg PO DAILY 08/29/21 12:10 Darunavir Ethanolate [Prezista] 600 mg PO BIDWM 08/29/21 12:11 Ritonavir [Norvir] 100 mg PO BIDWM 08/29/21 13:00 atenoloL [Tenormin] 50 mg PO DAILY 08/29/21 17:00 Terazosin HCl [Hytrin] 4 mg PO QDDINNER 08/29/21 21:00 Atorvastatin [Lipitor] 40 mg PO QPM Topiramate [Topamax] 50 mg PO BID 08/30/21 06:00 Isosorbide Mononitrate ER [Imdur] 30 mg PO 0600 08/30/21 07:00 Levothyroxine [Synthroid] 25 mcg PO QDAC Pantoprazole [Protonix] 40 mg PO QDAC 08/30/21 09:00 FLUoxetine [PROzac] 40 mg PO DAILY Furosemide [Lasix] 40 mg PO DAILY buPROPion [Wellbutrin Xl] 300 mg PO DAILY Subjective - Subjective Patient Reports: Cough Objective Vital Signs: Vital Signs - 24 hr 08/28/21 08/28/21 08/28/21 16:18 16:21 16:51 Temperature 37.0 C Heart Rate 68 72 64 Heart Rate [ Brachial] Heart Rate [ Monitoring electrodes] Respiratory 20 27 H 27 H Rate Blood Pressure 125/74 122/65 122/85 H Blood Pressure [Left Brachial artery] Blood Pressure [Right Brachial artery] O2 Saturation 87 L 97 92 08/28/21 08/28/21 08/28/21 16:59 17:21 17:22 Temperature Heart Rate 62 82 81 Heart Rate [ Brachial] Heart Rate [ Monitoring electrodes] Respiratory 22 29 H 26 H Rate Blood Pressure 123/76 123/76 Blood Pressure [Left Brachial artery] Blood Pressure [Right Brachial artery] O2 Saturation 87 L 92 08/28/21 08/28/21 08/28/21 17:30 18:13 18:36 Temperature Heart Rate 76 70 77 Heart Rate [ Brachial] Heart Rate [ Monitoring electrodes] Respiratory 22 20 16 Rate Blood Pressure 100/88 H 131/82 H Blood Pressure [Left Brachial artery] Blood Pressure [Right Brachial artery] O2 Saturation 96 95 08/28/21 08/28/21 08/28/21 18:52 19:11 19:27 Temperature 37.3 C Heart Rate 87 Heart Rate [ Brachial] Heart Rate [ Monitoring electrodes] Respiratory 17 19 Rate Blood Pressure 128/74 Blood Pressure [Left Brachial artery] Blood Pressure [Right Brachial artery] O2 Saturation 88 L 94 08/28/21 08/28/21 08/28/21 20:03 20:13 21:00 Temperature 36.6 C 36.9 C Heart Rate 81 78 Heart Rate [ 72 Brachial] Heart Rate [ Monitoring electrodes] Respiratory 20 20 28 H Rate Blood Pressure 125/76 Blood Pressure [Left Brachial artery] Blood Pressure 123/65 [Right Brachial artery] O2 Saturation 97 95 92 08/28/21 08/29/21 08/29/21 23:52 05:00 07:40 Temperature 36.6 C 37.5 C 37.4 C Heart Rate Heart Rate [ 67 66 Brachial] Heart Rate [ 70 Monitoring electrodes] Respiratory 24 24 22 Rate Blood Pressure Blood Pressure 113/70 [Left Brachial artery] Blood Pressure 122/73 119/75 [Right Brachial artery] O2 Saturation 93 95 94 08/29/21 08/29/21 11:44 13:35 Temperature 37.3 C Heart Rate Heart Rate [ 69 Brachial] Heart Rate [ 72 Monitoring electrodes] Respiratory 20 22 Rate Blood Pressure Blood Pressure 128/87 H [Left Brachial artery] Blood Pressure 116/72 [Right Brachial artery] O2 Saturation 94 Oxygen O2 Source Nasal cannula Oxygen Flow Rate 2 I&O (Last 24 Hrs): Intake and Output Totals x24h 08/27/21 08/28/21 08/29/21 23:59 23:59 23:59 Intake Total 610 2020 Output Total 500 1300 Balance 110 720 General: Alert, Oriented x3, Cooperative, Mild distress HEENT: Atraumatic, PERRLA Neck: Supple Lymphatic: no adenopathy Neuro: Alert, Non Focal, Oriented Times 3 Cardiovascular: Regular rate, Normal S1, Normal S2 Respiratory: Chest non-tender, No respiratory distress Abdomen: Normal bowel sounds, Soft Extremities: Normal pulses - Results Results: Laboratory Results WBC 12.1 x10^3/uL (4.8-10.8) H 08/29/21 05:11 RBC 4.95 10^6/uL (4.70-6.10) 08/29/21 05:11 Hgb 13.7 g/dL (14.0-18.0) L 08/29/21 05:11 Hct 45.2 % (42.0-52.0) 08/29/21 05:11 MCV 91.3 fL (80.0-94.0) 08/29/21 05:11 MCH 27.7 pg (27.0-31.0) 08/29/21 05:11 MCHC 30.3 g/dL (32.0-36.0) L 08/29/21 05:11 RDW 19.4 % (12.0-15.0) H 08/29/21 05:11 Plt Count 250 10^3/uL (130-450) 08/29/21 05:11 MPV 9.9 fL (7.4-11.4) 08/29/21 05:11 Neut # (Auto) 7.8 10^3/uL (1.5-6.6) H 08/29/21 05:11 Lymph # (Auto) 2.7 10^3/uL (1.5-3.5) 08/29/21 05:11 [place] # (Auto) 1.2 10^3/uL (0.0-1.0) H 08/29/21 05:11 Eos # (Auto) 0.3 10^3/uL (0.0-0.7) 08/29/21 05:11 Baso # (Auto) 0.1 10^3/uL (0.0-0.1) 08/29/21 05:11 Absolute Nucleated RBC 0.00 x10^3/uL 08/29/21 05:11 Nucleated RBC % 0.0 /100WBC 08/29/21 05:11 Sodium 136 mmol/L (135-145) 08/29/21 05:11 Potassium 3.4 mmol/L (3.5-5.0) L 08/29/21 05:11 Chloride 101 mmol/L (101-111) 08/29/21 05:11 Carbon Dioxide 23 mmol/L (21-32) 08/29/21 05:11 Anion Gap 12.0 (6-13) 08/29/21 05:11 BUN 13 mg/dL (6-20) 08/29/21 05:11 Creatinine 0.9 mg/dL (0.6-1.2) 08/29/21 05:11 Estimated GFR (MDRD) 88 (>89) L 08/29/21 05:11 Glucose 89 mg/dL (70-100) 08/29/21 05:11 Calcium 8.9 mg/dL (8.5-10.3) 08/29/21 05:11 Magnesium 1.9 mg/dL (1.7-2.8) 08/29/21 05:11 Total Bilirubin 0.7 mg/dL (0.2-1.0) 08/28/21 16:44 AST 25 IU/L (10-42) 08/28/21 16:44 ALT 19 IU/L (10-60) 08/28/21 16:44 Alkaline Phosphatase 83 IU/L (42-121) 08/28/21 16:44 Troponin I High Sens 9.1 ng/L (2.3-19.7) 08/29/21 05:11 B-Natriuretic Peptide 275 pg/mL (5-100) H 08/29/21 05:11 Total Protein 8.0 g/dL (6.7-8.2) 08/28/21 16:44 Albumin 3.5 g/dL (3.2-5.5) 08/28/21 16:44 Globulin 4.5 g/dL (2.1-4.2) H 08/28/21 16:44 Albumin/Globulin Ratio 0.8 (1.0-2.2) L 08/28/21 16:44 Triglycerides 110 mg/dL (-149) 08/29/21 05:11 Cholesterol 126 mg/dL (-199) 08/29/21 05:11 LDL Cholesterol, Calc 59 mg/dL (-129) 08/29/21 05:11 VLDL Cholesterol 22 mg/dL 08/29/21 05:11 HDL Cholesterol 45 mg/dL (60-) L 08/29/21 05:11 LDL/HDL Ratio 1.3 (<3.6) 08/29/21 05:11 Cholesterol/HDL Ratio 2.8 (<5.0) 08/29/21 05:11 Lipase 25 U/L (22-51) 08/28/21 16:44 TSH 2.20 uIU/mL (0.34-5.60) 08/29/21 05:11 Nasal Adenovirus (PCR) NOT DETECTED 08/28/21 22:10 Nasal B. parapertussis DNA (PCR) NOT DETECTED 08/28/21 22:10 Nasal Coronavir 229E PCR NOT DETECTED 08/28/21 22:10 Nasal Coronavir HKU1 PCR NOT DETECTED 08/28/21 22:10 Nasal Coronavir NL63 PCR NOT DETECTED 08/28/21 22:10 Nasal Coronavir OC43 PCR NOT DETECTED 08/28/21 22:10 Nasal Enterovir/Rhinovir PCR NOT DETECTED 08/28/21 22:10 Nasal Influenza B PCR NOT DETECTED 08/28/21 22:10 Nasal Influenza A PCR NOT DETECTED 08/28/21 22:10 Nasal Parainfluen 1 PCR NOT DETECTED 08/28/21 22:10 Nasal Parainfluen 2 PCR NOT DETECTED 08/28/21 22:10 Nasal Parainfluen 3 PCR NOT DETECTED 08/28/21 22:10 Nasal Parainfluen 4 PCR NOT DETECTED 08/28/21 22:10 Nasal RSV (PCR) NOT DETECTED 08/28/21 22:10 Nasal B.pertussis DNA PCR NOT DETECTED 08/28/21 22:10 Nasal C.pneumoniae (PCR) NOT DETECTED 08/28/21 22:10 [place] Human Metapneumo PCR NOT DETECTED 08/28/21 22:10 Nasal M.pneumoniae (PCR) NOT DETECTED 08/28/21 22:10 Nasal SARS-CoV-2 (PCR) NOT DETECTED 08/28/21 22:10 ABX Reporting Has patient been on IV antibiotics over the past 48 hours?: Yes Current Medications - Current Medications Current Medications: Active Medications Acetaminophen (Acetaminophen 325 Mg Tablet) 650 mg PO Q4HR PRN PRN Reason: Pain or Fever > 38C (100.4F) Last Admin: 08/28/21 20:59 Dose: 650 mg Documented by: Amiodarone HCl (Amiodarone 200 Mg Tablet) 100 mg PO DAILY [facility] Last Admin: 08/29/21 13:40 Dose: 100 mg Documented by: Apixaban (Apixaban 5 Mg Tablet) 5 mg PO BID [facility] Last Admin: 08/29/21 13:41 Dose: 5 mg Documented by: Atenolol (Atenolol 25 Mg Tablet) 50 mg PO DAILY [facility] Last Admin: 08/29/21 13:40 Dose: 50 mg Documented by: Atorvastatin Calcium (Atorvastatin 40 Mg Tablet) 40 mg PO QPM [facility] Azithromycin (Azithromycin 250 Mg Tablet) 500 mg PO DAILY [facility] Stop: 08/31/21 00:01 Last Admin: 08/29/21 09:43 Dose: 500 mg Documented by: Bupropion HCl (Bupropion Xl 150 Mg Tablet) 300 mg PO DAILY [facility] Clopidogrel Bisulfate (Clopidogrel 75 Mg Tablet) 75 mg PO DAILY [facility] Last Admin: 08/29/21 13:41 Dose: 75 mg Documented by: Fluoxetine HCl (Fluoxetine 10 Mg Capsule) 40 mg PO DAILY [facility] Furosemide (Furosemide 40 Mg Tablet) 40 mg PO DAILY [facility] Guaifenesin (Guaifenesin 600 Mg Tablet) 600 mg PO BID [facility] Last Admin: 08/29/21 11:20 Dose: 600 mg Documented by: Guaifenesin/Codeine Phosphate (Guaifenesin/Codeine 5 Ml Udc) 5 ml PO Q6HR PRN PRN Reason: Cough Last Admin: 08/29/21 01:42 Dose: 5 ml Documented by: Ceftriaxone Sodium 2 gm/ (Sodium Chloride) 100 mls @ 200 mls/hr IV DAILY [facility] Last Infusion: 08/29/21 11:25 Dose: Infused Documented by: Isosorbide Mononitrate (Isosorbide Mononitrate Er 30 Mg Tablet) 30 mg PO 0600 [facility] Levothyroxine Sodium (]) 25 mcg PO QDAC [facility] Methadone HCl (Methadone 5 Mg Tablet) 10 mg PO TID PRN PRN Reason: PAIN Methocarbamol (Methocarbamol 500 Mg Tablet) 500 mg PO TID PRN PRN Reason: Spasms Nitroglycerin (Nitroglycerin Sl 0.4 Mg Tablet) 0.4 mg SL Q5MIN PRN PRN Reason: Chest Pain Pt Own Med ( Dolutegravir Sodium [Tivicay] 50 Mg Tablet) 50 mg PO BID [facility]REVER Pt Own Med ( Darunavir Ethanolate [Prezista] 600 Mg) 600 mg PO BIDWM [facility] Pt Own Med ( Ritonavir [Norvir] 100 Mg) 100 mg PO BIDWM [facility] Ondansetron HCl (Ondansetron 4 Mg/2 Ml Vial) 4 mg IVP Q6HR PRN PRN Reason: Nausea / Vomiting Oxycodone HCl (Oxycodone 5 Mg Tablet) 10 mg PO Q4HR PRN PRN Reason: PAIN Last Admin: 08/29/21 14:02 Dose: 10 mg Documented by: Pantoprazole Sodium (Pantoprazole 40 Mg Tablet) 40 mg PO QDAC [facility] Sodium Chloride (Sodium Chloride Flush 0.9% 10 Ml Syringe) 10 ml IVP PRN PRN PRN Reason: NEEDED PER PROVIDER ORDERS Sodium Chloride (Sodium Chloride Flush 0.9% 10 Ml Syringe) 10 ml IVP 0100,0900,1700 [facility] Last Admin: 08/29/21 10:15 Dose: 10 ml Documented by: Terazosin HCl (Terazosin 2 Mg Capsule) 4 mg PO QDDINNER [facility] Topiramate (Topiramate 25 Mg Tablet) 50 mg PO BID [facility] Trimethoprim/Sulfamethoxazole (Sulfameth/Trimeth Ds 800/160 Mg Tablet) 1 tab PO BID [facility] Last Admin: 08/29/21 09:44 Dose: 1 tab Documented by: Omeprazole [PriLOSEC] 40 mg PO DAILY 06/21/16 Ritonavir [Norvir] 100 mg PO BIDWM 06/21/16 Amiodarone [Pacerone] 100 mg PO DAILY 08/29/21 Apixaban [Eliquis] 5 mg PO BID 08/29/21 Atenolol [Tenormin] 50 mg PO DAILY 08/29/21 Benazepril HCl 10 mg PO DAILY 08/29/21 Clopidogrel [Plavix] 75 mg PO DAILY 08/29/21 Darunavir Ethanolate [Prezista] 600 mg PO BIDWM 08/29/21 Dolutegravir Sodium [Tivicay] 50 mg PO BID 08/29/21 Evolocumab [Repatha Sureclick] 1 ml SQ Q14D 08/29/21 Fluoxetine HCl [Prozac] 40 mg PO DAILY 08/29/21 Furosemide [Lasix] 40 mg PO DAILY 08/29/21 Isosorbide Mononitrate ER [Imdur] 30 mg PO 0600 08/29/21 Levothyroxine Sodium [Levothyroxine] 25 mcg PO DAILY 08/29/21 Methadone [Methadone Hcl] 10 mg PO TID PRN 08/29/21 [place]-3 Acid Ethyl Esters [Lovaza] 2 gm PO BID 08/29/21 Potassium Chloride 10 meq PO DAILY 08/29/21 Rosuvastatin Calcium [Crestor] 20 mg PO DAILY 08/29/21 Terazosin HCl [Hytrin] 4 mg PO QDDINNER 08/29/21 Topiramate [Topamax] 50 mg PO BID 08/29/21 buPROPion HCL [Bupropion Xl] 300 mg PO DAILY 08/29/21 gemfibroziL [Lopid] 600 mg PO BID 08/29/21 methocarbamoL [Methocarbamol] 500 mg PO TID PRN 08/29/21
[2021-08-29] MEDS: TERAZOSIN 2 MG CAPSULE PO SCH (15:57)
[2021-08-29] MEDS: ACETAMINOPHEN 325 MG TABLET PO PRN ×2 (15:59→20:45)
[2021-08-29] MEDS: DARUNAVIR ETHANOLATE 600 MG PO SCH (16:15)
[2021-08-29] MEDS: RITONAVIR 100 MG PO SCH (16:16)
[2021-08-29] MEDS: DOLUTEGRAVIR SODIUM 50 MG PO SCH (16:16)
[2021-08-29] MEDS: METHADONE 5 MG TABLET PO PRN (18:10)
[2021-08-29] MEDS: TOPIRAMATE 25 MG TABLET PO SCH (20:44)
[2021-08-29] MEDS: OMEGA-3 ACID ETHYL ESTERS 1 GM CAPSULE PO SCH (20:45)
[2021-08-29] MEDS: gemfibroziL 600 MG TABLET PO SCH (20:46)
[2021-08-29] MEDS: ATORVASTATIN 40 MG TABLET PO SCH (20:47)
[2021-08-29] MEDS ORDERED: ATORVASTATIN 40 MG TABLET PO SCH (21:00)
[2021-08-29] MEDS: LORazepam 0.5 MG TABLET PO PRN (23:57)
[2021-08-30] MEDS: guaiFENesin/CODEINE 5 ML UDC PO PRN ×3 (02:04→21:36)
[2021-08-30] MEDS: METHADONE 5 MG TABLET PO PRN ×2 (02:04→18:36)
[2021-08-30] MEDS ORDERED: ISOSORBIDE MONONITRATE ER 30 MG TABLET PO SCH (06:00)
[2021-08-30] MEDS: ACETAMINOPHEN 325 MG TABLET PO PRN ×3 (06:04→21:36)
[2021-08-30] MEDS: PANTOPRAZOLE 40 MG TABLET PO SCH (06:04)
[2021-08-30] MEDS: methocarbamoL 500 MG TABLET PO PRN ×2 (06:04→23:57)
[2021-08-30 06:06] LABS: BASOPHILS % (AUTO) 0.3 %; EOSINOPHILS # (AUTO) 0.4 10^3/uL (0.0-0.7); EOSINOPHILS % (AUTO) 2.9 %; HCT - HEMATOCRIT 44.7 % (42.0-52.0); HGB - HEMOGLOBIN 13.6 g/dL (14.0-18.0); LYMPHOCYTES # (AUTO) 2.2 10^3/uL (1.5-3.5); LYMPHOCYTES % (AUTO) 18.5 %; MEAN CORPUSCULAR HEMOGLOBIN 27.7 pg (27.0-31.0); MEAN CORPUSCULAR HGB CONC 30.4 g/dL (32.0-36.0); MEAN PLATELET VOLUME 9.7 fL (7.4-11.4); MONOCYTES % (AUTO) 8.7 %; NEUTROPHILS # (AUTO) 8.2 10^3/uL (1.5-6.6); NEUTROPHILS % (AUTO) 68.8 %; PLT - PLATELET COUNT 248 10^3/uL (130-450); RED BLOOD COUNT 4.91 10^6/uL (4.70-6.10)
[2021-08-30] MEDS: ISOSORBIDE MONONITRATE ER 30 MG TABLET PO SCH (06:10)
[2021-08-30 06:37] LABS: CREATININE 1.1 mg/dL (0.6-1.2); CRP - C-REACTIVE PROTEIN 22.7 mg/dL (0-1.0); POTASSIUM 3.7 mmol/L (3.5-5.0)
[2021-08-30] MEDS: DARUNAVIR ETHANOLATE 600 MG PO SCH ×2 (07:44→16:41)
[2021-08-30] MEDS: RITONAVIR 100 MG PO SCH ×2 (07:44→16:42)
[2021-08-30] MEDS: FLUoxetine 10 MG CAPSULE PO SCH (08:38)
[2021-08-30] MEDS: atenoloL 25 MG TABLET PO SCH (08:38)
[2021-08-30] MEDS: TOPIRAMATE 25 MG TABLET PO SCH ×2 (08:38→21:24)
[2021-08-30] MEDS: SULFAMETH/TRIMETH DS 800/160 MG TABLET PO SCH ×2 (08:38→21:23)
[2021-08-30] MEDS: buPROPion XL 150 MG TABLET PO SCH (08:38)
[2021-08-30] MEDS: APIXABAN 5 MG TABLET PO SCH ×2 (08:38→21:23)
[2021-08-30] MEDS: AMIODARONE 200 MG TABLET PO SCH (08:38)
[2021-08-30] MEDS: AZITHROMYCIN 250 MG TABLET PO SCH (08:38)
[2021-08-30] MEDS: SODIUM CHLORIDE FLUSH 0.9% 10 ML SYRINGE IVP SCH ×3 (08:39→23:57)
[2021-08-30] MEDS: CLOPIDOGREL 75 MG TABLET PO SCH (08:39)
[2021-08-30] MEDS: OMEGA-3 ACID ETHYL ESTERS 1 GM CAPSULE PO SCH ×2 (08:39→21:35)
[2021-08-30] MEDS: gemfibroziL 600 MG TABLET PO SCH ×2 (08:39→21:23)
[2021-08-30] MEDS: guaiFENesin 600 MG TABLET PO SCH ×2 (08:39→21:24)
[2021-08-30] MEDS: DOLUTEGRAVIR SODIUM 50 MG PO SCH ×2 (08:40→21:26)
[2021-08-30] MEDS: cefTRIAXone 2 GM in SODIUM CHLORIDE 0.9% MINIBAG 100 ML IV SCH (08:40)
[2021-08-30] MEDS: FUROSEMIDE 40 MG TABLET PO SCH (08:43)
[2021-08-30] MEDS: LORazepam 0.5 MG TABLET PO PRN ×2 (08:52→18:36)
[2021-08-30] MEDS ORDERED: FUROSEMIDE 40 MG TABLET PO SCH (09:00)
[2021-08-30] MEDS: CHOLECALCIFEROL 25 MCG TABLET PO SCH (11:19)
--- NOTE | 2021-08-30 12:18 | PROVIDER PROGRESS NOTE ---
Assessment/Plan - Problem List (1) Respiratory failure with hypoxia Assessment/Plan: 08/30 pt report he feel slight better for his breathing. Patient had 93% oxygen saturation on 3 L of oxygen, sputum culture show positive for yeast, add fluconazole. pt had normal arrange of liver enzyme. pt has hx of HIV, unknown to his CD4. Azithromycin, Rocephin, Bactrim for prevention of PCP, Continue supplemental oxygen as needed. 08/29 slightly improved. 94% sats on 3 liter of O2 with RR 20. pt had 87% O2 sats on room air at the admission with tachypnea. it is likely caused by Atypical pneumonia with negative COVID-19 test. Patient also has history of HIV. We will continue Azithromycin, Rocephin, Bactrim for prevention of PCP, Continue supplemental oxygen as needed. (2) atypical pneumonia Conclusion/Plan: 08/30 continue Azithromycin, Rocephin, Bactrim for prevention of PCP, Continue supplemental oxygen as needed. add fluconazole. supplemental oxygen as needed. CTA show no PE, reveals Atypical pneumonia, does not show mucus plugs. Twice COVID-19 test are negative. Patient also has history of HIV. We will treat her pneumonia with azithromycin, Rocephin, Bactrim for prevention of PCP. add mucinex. (3) Coronary artery disease 08/30 stable, Plavix, Eliquis, atenolol, Lasix, imdur pt has history of CAD. Patient denies chest pain, serial troponin test is negative. We will resume patient home medication Plavix, Eliquis, atenolol, Lasix, imdur. continue tele and vital monitor (4) HIV (human immunodeficiency virus infection) Conclusion/Plan: 08/30 resume home HIV meds Patient has a history of HIV, he report he had CD4 over 900 over couple years ago. Unfortunately our hospital cannot test CD4 We will continue with his home antiviral therapy, continue bactrim (5) Depression Conclusion/Plan: We will continue his home medications wellbutrin (6) Back pain Conclusion/Plan: pain control, continue his home Methadone as needed, (7)hypothyroidism TSh is normal, resume home synthroid (8)BPH resume home terazosin - Current Meds Current Meds: Current Medications Generic Name Dose Route Start Last Admin Trade Name Freq PRN Reason Stop Dose Admin Acetaminophen 650 mg 08/28/21 20:00 08/30/21 06:04 Acetaminophen 325 Mg Tablet PO 650 mg Q4HR PRN Administration Pain or Fever > 38C (100.4F) Amiodarone HCl 100 mg 08/29/21 12:00 08/30/21 08:38 Amiodarone 200 Mg Tablet PO 100 mg DAILY TREVER Administration Apixaban 5 mg 08/29/21 12:00 08/30/21 08:38 Apixaban 5 Mg Tablet PO 5 mg BID TREVER Administration Atenolol 50 mg 08/29/21 13:00 08/30/21 08:38 Atenolol 25 Mg Tablet PO 50 mg DAILY TREVER Administration Atorvastatin Calcium 40 mg 08/29/21 21:00 08/29/21 20:47 Atorvastatin 40 Mg Tablet PO 40 mg QPM TREVER Administration Azithromycin 500 mg 08/29/21 09:00 08/30/21 08:38 Azithromycin 250 Mg Tablet PO 08/31/21 00:01 500 mg DAILY TREVER Administration Bupropion HCl 300 mg 08/30/21 09:00 08/30/21 08:38 Bupropion Xl 150 Mg Tablet PO 300 mg DAILY TREVER Administration Cholecalciferol 50 mcg 08/30/21 11:00 08/30/21 11:19 Cholecalciferol 25 Mcg Tablet PO 50 mcg DAILY TREVER Administration Clopidogrel Bisulfate 75 mg 08/29/21 12:00 08/30/21 08:39 Clopidogrel 75 Mg Tablet PO 75 mg DAILY TREVER Administration Fluoxetine HCl 40 mg 08/30/21 09:00 08/30/21 08:38 Fluoxetine 10 Mg Capsule PO 40 mg DAILY TREVER Administration Furosemide 20 mg 08/30/21 09:00 08/30/21 08:43 Furosemide 40 Mg Tablet PO 20 mg DAILY TREVER Administration Gemfibrozil 600 mg 08/29/21 21:00 08/30/21 08:39 Gemfibrozil 600 Mg Tablet PO 600 mg BID TREVER Administration Guaifenesin 600 mg 08/29/21 11:00 08/30/21 08:39 Guaifenesin 600 Mg Tablet PO 600 mg BID TREVER Administration Guaifenesin/Codeine Phosphate 5 ml 08/28/21 23:47 08/30/21 02:04 Guaifenesin/Codeine 5 Ml Udc PO 5 ml Q6HR PRN Administration Cough Ceftriaxone Sodium 2 gm/ 100 mls @ 200 mls/hr 08/29/21 09:00 08/30/21 09:10 Sodium Chloride IV Infused DAILY TREVER Infusion Isosorbide Mononitrate 30 mg 08/30/21 06:00 08/30/21 06:10 Isosorbide Mononitrate Er 30 Mg Tablet PO 30 mg 0600 TREVER Administration Levothyroxine Sodium 25 mcg 08/30/21 07:00 08/30/21 06:04 ] PO 25 mcg QDAC TREVER Administration Lorazepam 0.5 mg 08/29/21 23:47 08/30/21 08:52 Lorazepam 0.5 Mg Tablet PO 0.5 mg Q8H PRN Administration Anxiety Methadone HCl 10 mg 08/29/21 11:57 08/30/21 02:04 Methadone 5 Mg Tablet PO 10 mg TID PRN Administration PAIN Methocarbamol 500 mg 08/29/21 11:57 08/30/21 06:04 Methocarbamol 500 Mg Tablet PO 500 mg TID PRN Administration Spasms Pt Own Med ( 50 mg 08/29/21 17:00 08/30/21 08:40 Dolutegravir Sodium PO 50 mg [Tivicay] 50 Mg BID TREVER Administration Tablet) Pt Own Med ( 100 mg 08/29/21 17:00 08/30/21 07:44 Ritonavir [Norvir] PO 100 mg 100 Mg) BIDWM TREVER Administration Pt Own Med ( 600 mg 08/29/21 17:00 08/30/21 07:44 Darunavir Ethanolate PO 600 mg [Prezista] 600 Mg) BIDWM TREVER Administration [id number] Ethyl Esters 2 gm 08/29/21 21:00 08/30/21 08:39 [place]-3 Acid Ethyl Esters 1 Gm Capsule PO 2 gm BID TREVER Administration Pantoprazole Sodium 40 mg 08/30/21 07:00 08/30/21 06:04 Pantoprazole 40 Mg Tablet PO 40 mg QDAC TREVER Administration Sodium Chloride 10 ml 08/29/21 01:00 08/30/21 08:39 Sodium Chloride Flush 0.9% 10 Ml Syringe IVP 10 ml 0100,0900,1700 TREVER Administration Terazosin HCl 4 mg 08/29/21 17:00 08/29/21 15:57 Terazosin 2 Mg Capsule PO 4 mg QDDINNER TREVER Administration Topiramate 50 mg 08/29/21 21:00 08/30/21 08:38 Topiramate 25 Mg Tablet PO 50 mg BID TREVER Administration Trimethoprim/Sulfamethoxazole 1 tab 08/29/21 09:00 08/30/21 08:38 Sulfameth/Trimeth Ds 800/160 Mg Tablet PO 1 tab BID TREVER Administration - Lab Result Fish Bone Diagrams: 08/30/21 05:26 08/30/21 05:26 - Additional Planning My Orders: My Active Orders 08/29/21 11:57 Methadone [Methadone Hcl] 10 mg PO TID PRN Nitroglycerin [Nitrostat] 0.4 mg SL Q5MIN PRN methocarbamoL [Robaxin] 500 mg PO TID PRN 08/29/21 12:00 Amiodarone [Pacerone] 100 mg PO DAILY Apixaban [Eliquis] 5 mg PO BID Clopidogrel [Plavix] 75 mg PO DAILY 08/29/21 13:00 atenoloL [Tenormin] 50 mg PO DAILY 08/29/21 16:44 CUL, RESPIRATORY [RM] Urgent 08/29/21 17:00 Darunavir Ethanolate [Prezista] 600 mg PO BIDWM Dolutegravir Sodium [Tivicay] 50 mg PO BID Ritonavir [Norvir] 100 mg PO BIDWM Terazosin HCl [Hytrin] 4 mg PO QDDINNER 08/29/21 18:17 Telemetry- [RC] Q4HR 08/29/21 21:00 Atorvastatin [Lipitor] 40 mg PO QPM Topiramate [Topamax] 50 mg PO BID 08/30/21 06:00 Isosorbide Mononitrate ER [Imdur] 30 mg PO 0600 08/30/21 07:00 Levothyroxine [Synthroid] 25 mcg PO QDAC Pantoprazole [Protonix] 40 mg PO QDAC 08/30/21 09:00 FLUoxetine [PROzac] 40 mg PO DAILY Furosemide [Lasix] 20 mg PO DAILY buPROPion [Wellbutrin Xl] 300 mg PO DAILY 08/30/21 10:29 Nutrition Consult [CONS] Routine 08/30/21 11:00 Cholecalciferol [Vitamin D3] 50 mcg PO DAILY 08/30/21 21:00 Multivitamin [Theragran] 1 tab PO QPM 08/31/21 05:00 BMP - BASIC METABOLIC PANEL [CHEM] DAILYLAB CBC - COMP BLD CT W/AUTO DIFF [HEME] DAILYLAB CRP - C-REACTIVE PROTEIN [CHEM] DAILYLAB 09/01/21 05:00 BMP - BASIC METABOLIC PANEL [CHEM] DAILYLAB CBC - COMP BLD CT W/AUTO DIFF [HEME] DAILYLAB CRP - C-REACTIVE PROTEIN [CHEM] DAILYLAB 09/02/21 05:00 BMP - BASIC METABOLIC PANEL [CHEM] DAILYLAB CBC - COMP BLD CT W/AUTO DIFF [HEME] DAILYLAB CRP - C-REACTIVE PROTEIN [CHEM] DAILYLAB 09/03/21 05:00 BMP - BASIC METABOLIC PANEL [CHEM] DAILYLAB CBC - COMP BLD CT W/AUTO DIFF [HEME] DAILYLAB CRP - C-REACTIVE PROTEIN [CHEM] DAILYLAB 09/04/21 05:00 BMP - BASIC METABOLIC PANEL [CHEM] DAILYLAB CBC - COMP BLD CT W/AUTO DIFF [HEME] DAILYLAB Subjective - Subjective Patient Reports: Feeling Better Objective Vital Signs: Vital Signs - 24 hr 08/29/21 08/29/21 08/29/21 13:35 16:06 20:42 Temperature 37.3 C 37.2 C Heart Rate [ Brachial] Heart Rate [ 72 65 64 Monitoring electrodes] Respiratory 22 24 24 Rate Blood Pressure 128/87 H [Left Brachial artery] Blood Pressure 118/61 111/65 [Right Brachial artery] O2 Saturation 95 92 08/29/21 08/30/21 08/30/21 23:42 05:25 07:45 Temperature 37.1 C 37.5 C 37 C Heart Rate [ 59 L 72 66 Brachial] Heart Rate [ Monitoring electrodes] Respiratory 18 20 20 Rate Blood Pressure [Left Brachial artery] Blood Pressure 109/58 L 111/71 113/62 [Right Brachial artery] O2 Saturation 92 93 95 08/30/21 08/30/21 08:09 11:22 Temperature 37.1 C Heart Rate [ 58 L Brachial] Heart Rate [ Monitoring electrodes] Respiratory 22 22 Rate Blood Pressure [Left Brachial artery] Blood Pressure 100/62 [Right Brachial artery] O2 Saturation 93 93 Oxygen O2 Source Nasal cannula Oxygen Flow Rate 2 I&O (Last 24 Hrs): Intake and Output Totals x24h 08/28/21 08/29/21 08/30/21 23:59 23:59 23:59 Intake Total 610 2740 740 Output Total 500 1600 300 Balance 110 1140 440 General: Alert, Oriented x3, Cooperative, Mild distress HEENT: Atraumatic Neck: Supple Lymphatic: no adenopathy Neuro: Alert, Non Focal, Oriented Times 3 Cardiovascular: Regular rate, Normal S1, Normal S2 Respiratory: Chest non-tender, No respiratory distress Abdomen: Normal bowel sounds, Soft Extremities: Normal pulses - Results Results: Laboratory Results WBC 12.0 x10^3/uL (4.8-10.8) H 08/30/21 05:26 RBC 4.91 10^6/uL (4.70-6.10) 08/30/21 05:26 Hgb 13.6 g/dL (14.0-18.0) L 08/30/21 05:26 Hct 44.7 % (42.0-52.0) 08/30/21 05:26 MCV 91.0 fL (80.0-94.0) 08/30/21 05:26 MCH 27.7 pg (27.0-31.0) 08/30/21 05:26 MCHC 30.4 g/dL (32.0-36.0) L 08/30/21 05:26 RDW 19.0 % (12.0-15.0) H 08/30/21 05:26 Plt Count 248 10^3/uL (130-450) 08/30/21 05:26 MPV 9.7 fL (7.4-11.4) 08/30/21 05:26 Neut # (Auto) 8.2 10^3/uL (1.5-6.6) H 08/30/21 05:26 Lymph # (Auto) 2.2 10^3/uL (1.5-3.5) 08/30/21 05:26 Shannon # (Auto) 1.0 10^3/uL (0.0-1.0) 08/30/21 05:26 Eos # (Auto) 0.4 10^3/uL (0.0-0.7) 08/30/21 05:26 Baso # (Auto) 0.0 10^3/uL (0.0-0.1) 08/30/21 05:26 Absolute Nucleated RBC 0.00 x10^3/uL 08/30/21 05:26 Nucleated RBC % 0.0 /100WBC 08/30/21 05:26 Sodium 131 mmol/L (135-145) L 08/30/21 05:26 Potassium 3.7 mmol/L (3.5-5.0) 08/30/21 05:26 Chloride 97 mmol/L (101-111) L 08/30/21 05:26 Carbon Dioxide 24 mmol/L (21-32) 08/30/21 05:26 Anion Gap 10.0 (6-13) 08/30/21 05:26 BUN 23 mg/dL (6-20) H 08/30/21 05:26 Creatinine 1.1 mg/dL (0.6-1.2) 08/30/21 05:26 Estimated GFR (MDRD) 69 (>89) L 08/30/21 05:26 Glucose 113 mg/dL (70-100) H 08/30/21 05:26 Calcium 9.0 mg/dL (8.5-10.3) 08/30/21 05:26 Magnesium 1.9 mg/dL (1.7-2.8) 08/29/21 05:11 Total Bilirubin 0.7 mg/dL (0.2-1.0) 08/28/21 16:44 AST 25 IU/L (10-42) 08/28/21 16:44 ALT 19 IU/L (10-60) 08/28/21 16:44 Alkaline Phosphatase 83 IU/L (42-121) 08/28/21 16:44 Troponin I High Sens 9.1 ng/L (2.3-19.7) 08/29/21 05:11 C-Reactive Protein 22.7 mg/dL (0-1.0) H 08/30/21 05:26 B-Natriuretic Peptide 135 pg/mL (5-100) H 08/30/21 05:26 Total Protein 8.0 g/dL (6.7-8.2) 08/28/21 16:44 Albumin 3.5 g/dL (3.2-5.5) 08/28/21 16:44 Globulin 4.5 g/dL (2.1-4.2) H 08/28/21 16:44 Albumin/Globulin Ratio 0.8 (1.0-2.2) L 08/28/21 16:44 Triglycerides 110 mg/dL (-149) 08/29/21 05:11 Cholesterol 126 mg/dL (-199) 08/29/21 05:11 LDL Cholesterol, Calc 59 mg/dL (-129) 08/29/21 05:11 VLDL Cholesterol 22 mg/dL 08/29/21 05:11 HDL Cholesterol 45 mg/dL (60-) L 08/29/21 05:11 LDL/HDL Ratio 1.3 (<3.6) 08/29/21 05:11 Cholesterol/HDL Ratio 2.8 (<5.0) 08/29/21 05:11 Lipase 25 U/L (22-51) 08/28/21 16:44 TSH 2.20 uIU/mL (0.34-5.60) 08/29/21 05:11 Nasal Adenovirus (PCR) NOT DETECTED 08/28/21 22:10 Nasal B. parapertussis DNA (PCR) NOT DETECTED 08/28/21 22:10 Nasal Coronavir 229E PCR NOT DETECTED 08/28/21 22:10 Nasal Coronavir HKU1 PCR NOT DETECTED 08/28/21 22:10 Nasal Coronavir NL63 PCR NOT DETECTED 08/28/21 22:10 Nasal Coronavir OC43 PCR NOT DETECTED 08/28/21 22:10 Nasal Enterovir/Rhinovir PCR NOT DETECTED 08/28/21 22:10 Nasal Influenza B PCR NOT DETECTED 08/28/21 22:10 Nasal Influenza A PCR NOT DETECTED 08/28/21 22:10 Nasal Parainfluen 1 PCR NOT DETECTED 08/28/21 22:10 Nasal Parainfluen 2 PCR NOT DETECTED 08/28/21 22:10 Nasal Parainfluen 3 PCR NOT DETECTED 08/28/21 22:10 Nasal Parainfluen 4 PCR NOT DETECTED 08/28/21 22:10 Nasal RSV (PCR) NOT DETECTED 08/28/21 22:10 Nasal B.pertussis DNA PCR NOT DETECTED 08/28/21 22:10 Nasal C.pneumoniae (PCR) NOT DETECTED 08/28/21 22:10 [place] Human Metapneumo PCR NOT DETECTED 08/28/21 22:10 Nasal M.pneumoniae (PCR) NOT DETECTED 08/28/21 22:10 Nasal SARS-CoV-2 (PCR) NOT DETECTED 08/28/21 22:10 ABX Reporting Has patient been on IV antibiotics over the past 48 hours?: Yes Current Medications - Current Medications Current Medications: Active Medications Acetaminophen (Acetaminophen 325 Mg Tablet) 650 mg PO Q4HR PRN PRN Reason: Pain or Fever > 38C (100.4F) Last Admin: 08/30/21 06:04 Dose: 650 mg Documented by: Amiodarone HCl (Amiodarone 200 Mg Tablet) 100 mg PO DAILY [facility] Last Admin: 08/30/21 08:38 Dose: 100 mg Documented by: Apixaban (Apixaban 5 Mg Tablet) 5 mg PO BID [facility] Last Admin: 08/30/21 08:38 Dose: 5 mg Documented by: Atenolol (Atenolol 25 Mg Tablet) 50 mg PO DAILY [facility] Last Admin: 08/30/21 08:38 Dose: 50 mg Documented by: Atorvastatin Calcium (Atorvastatin 40 Mg Tablet) 40 mg PO QPM [facility] Last Admin: 08/29/21 20:47 Dose: 40 mg Documented by: Azithromycin (Azithromycin 250 Mg Tablet) 500 mg PO DAILY [facility] Stop: 08/31/21 00:01 Last Admin: 08/30/21 08:38 Dose: 500 mg Documented by: Bupropion HCl (Bupropion Xl 150 Mg Tablet) 300 mg PO DAILY [facility] Last Admin: 08/30/21 08:38 Dose: 300 mg Documented by: Cholecalciferol (Cholecalciferol 25 Mcg Tablet) 50 mcg PO DAILY [facility] Last Admin: 08/30/21 11:19 Dose: 50 mcg Documented by: Clopidogrel Bisulfate (Clopidogrel 75 Mg Tablet) 75 mg PO DAILY [facility] Last Admin: 08/30/21 08:39 Dose: 75 mg Documented by: Fluconazole (Fluconazole 100 Mg Tablet) 100 mg PO DAILY [facility] Fluoxetine HCl (Fluoxetine 10 Mg Capsule) 40 mg PO DAILY [facility] Last Admin: 08/30/21 08:38 Dose: 40 mg Documented by: Furosemide (Furosemide 40 Mg Tablet) 20 mg PO DAILY [facility] Last Admin: 08/30/21 08:43 Dose: 20 mg Documented by: Gemfibrozil (Gemfibrozil 600 Mg Tablet) 600 mg PO BID [facility] Last Admin: 08/30/21 08:39 Dose: 600 mg Documented by: Guaifenesin (Guaifenesin 600 Mg Tablet) 600 mg PO BID [facility] Last Admin: 08/30/21 08:39 Dose: 600 mg Documented by: Guaifenesin/Codeine Phosphate (Guaifenesin/Codeine 5 Ml Udc) 5 ml PO Q6HR PRN PRN Reason: Cough Last Admin: 08/30/21 02:04 Dose: 5 ml Documented by: Ceftriaxone Sodium 2 gm/ (Sodium Chloride) 100 mls @ 200 mls/hr IV DAILY [facility] Last Infusion: 08/30/21 09:10 Dose: Infused Documented by: Isosorbide Mononitrate (Isosorbide Mononitrate Er 30 Mg Tablet) 30 mg PO 0600 [facility] Last Admin: 08/30/21 06:10 Dose: 30 mg Documented by: Levothyroxine Sodium (]) 25 mcg PO QDAC [facility] Last Admin: 08/30/21 06:04 Dose: 25 mcg Documented by: Lorazepam (Lorazepam 0.5 Mg Tablet) 0.5 mg PO Q8H PRN PRN Reason: Anxiety Last Admin: 08/30/21 08:52 Dose: 0.5 mg Documented by: Methadone HCl (Methadone 5 Mg Tablet) 10 mg PO TID PRN PRN Reason: PAIN Last Admin: 08/30/21 02:04 Dose: 10 mg Documented by: Methocarbamol (Methocarbamol 500 Mg Tablet) 500 mg PO TID PRN PRN Reason: Spasms Last Admin: 08/30/21 06:04 Dose: 500 mg Documented by: Multivitamins (Multivitamin Tablet) 1 tab PO QPM [facility] Nitroglycerin (Nitroglycerin Sl 0.4 Mg Tablet) 0.4 mg SL Q5MIN PRN PRN Reason: Chest Pain Pt Own Med ( Dolutegravir Sodium [Tivicay] 50 Mg Tablet) 50 mg PO BID [facility] Last Admin: 08/30/21 08:40 Dose: 50 mg Documented by: Pt Own Med ( Ritonavir [Norvir] 100 Mg) 100 mg PO BIDWM [facility] Last Admin: 08/30/21 07:44 Dose: 100 mg Documented by: Pt Own Med ( Darunavir Ethanolate [Prezista] 600 Mg) 600 mg PO BIDWM [facility] Last Admin: 08/30/21 07:44 Dose: 600 mg Documented by: [id number] Ethyl Esters ([place]-3 Acid Ethyl Esters 1 Gm Capsule) 2 gm PO BID [facility] Last Admin: 08/30/21 08:39 Dose: 2 gm Documented by: Ondansetron HCl (Ondansetron 4 Mg/2 Ml Vial) 4 mg IVP Q6HR PRN PRN Reason: Nausea / Vomiting Pantoprazole Sodium (Pantoprazole 40 Mg Tablet) 40 mg PO QDAC [facility] Last Admin: 08/30/21 06:04 Dose: 40 mg Documented by: Sodium Chloride (Sodium Chloride Flush 0.9% 10 Ml Syringe) 10 ml IVP PRN PRN PRN Reason: NEEDED PER PROVIDER ORDERS Sodium Chloride (Sodium Chloride Flush 0.9% 10 Ml Syringe) 10 ml IVP 0100,0900,1700 [facility] Last Admin: 08/30/21 08:39 Dose: 10 ml Documented by: Terazosin HCl (Terazosin 2 Mg Capsule) 4 mg PO QDDINNER [facility] Last Admin: 08/29/21 15:57 Dose: 4 mg Documented by: Topiramate (Topiramate 25 Mg Tablet) 50 mg PO BID [facility] Last Admin: 08/30/21 08:38 Dose: 50 mg Documented by: Trimethoprim/Sulfamethoxazole (Sulfameth/Trimeth Ds 800/160 Mg Tablet) 1 tab PO BID [facility] Last Admin: 08/30/21 08:38 Dose: 1 tab Documented by: Omeprazole [PriLOSEC] 40 mg PO DAILY 06/21/16 Ritonavir [Norvir] 100 mg PO BIDWM 06/21/16 Amiodarone [Pacerone] 100 mg PO DAILY 08/29/21 Apixaban [Eliquis] 5 mg PO BID 08/29/21 Atenolol [Tenormin] 50 mg PO DAILY 08/29/21 Benazepril HCl 10 mg PO DAILY 08/29/21 Clopidogrel [Plavix] 75 mg PO DAILY 08/29/21 Darunavir Ethanolate [Prezista] 600 mg PO BIDWM 08/29/21 Dolutegravir Sodium [Tivicay] 50 mg PO BID 08/29/21 Evolocumab [Repatha Sureclick] 1 ml SQ Q14D 08/29/21 Fluoxetine HCl [Prozac] 40 mg PO DAILY 08/29/21 Furosemide [Lasix] 40 mg PO DAILY 08/29/21 Isosorbide Mononitrate ER [Imdur] 30 mg PO 0600 08/29/21 Levothyroxine Sodium [Levothyroxine] 25 mcg PO DAILY 08/29/21 Methadone [Methadone Hcl] 10 mg PO TID PRN 08/29/21 [place]-3 Acid Ethyl Esters [Lovaza] 2 gm PO BID 08/29/21 Potassium Chloride 10 meq PO DAILY 08/29/21 Rosuvastatin Calcium [Crestor] 20 mg PO DAILY 08/29/21 Terazosin HCl [Hytrin] 4 mg PO QDDINNER 08/29/21 Topiramate [Topamax] 50 mg PO BID 08/29/21 buPROPion HCL [Bupropion Xl] 300 mg PO DAILY 08/29/21 gemfibroziL [Lopid] 600 mg PO BID 08/29/21 methocarbamoL [Methocarbamol] 500 mg PO TID PRN 08/29/21
--- NOTE | 2021-08-30 13:11 | XRAY Report ---
PROCEDURE: Chest 1 View X-Ray INDICATIONS: sob TECHNIQUE: One view of the chest was acquired. COMPARISON: August 28, 2021 FINDINGS: Surgical changes and devices: Midline sternal wires noted. Mediastinal vascular clips present. Lungs and pleura: Patchy bilateral groundglass infiltrates are stable from the prior exam. Pleural sp aces are clear. Mediastinum: Mediastinal contours appear normal. Heart size is normal. Bones and chest wall: No suspicious bony lesions. Overlying soft tissues appear unremarkable. IMPRESSION: Stable patchy bilateral pulmonary interstitial infiltrates. No pleural effusion. Reviewed by: Villa Thorpe MD on 08/30/2021 12:10 PM [facility] Approved by: Villa Thorpe MD on 08/30/2021 12:10 PM [facility] Station ID: [id number]
[2021-08-30] MEDS: FLUCONAZOLE 100 MG TABLET PO SCH (13:20)
[2021-08-30] MEDS: TERAZOSIN 2 MG CAPSULE PO SCH (16:40)
[2021-08-30] MEDS: ATORVASTATIN 40 MG TABLET PO SCH (21:23)
[2021-08-30] MEDS: MULTIVITAMIN TABLET PO SCH (21:23)
[2021-08-31] MEDS: ACETAMINOPHEN 325 MG TABLET PO PRN ×2 (04:56→17:28)
[2021-08-31] MEDS: guaiFENesin/CODEINE 5 ML UDC PO PRN ×3 (04:56→21:12)
[2021-08-31] MEDS: LORazepam 0.5 MG TABLET PO PRN ×3 (05:21→17:28)
[2021-08-31] MEDS: ISOSORBIDE MONONITRATE ER 30 MG TABLET PO SCH (05:21)
[2021-08-31] MEDS: PANTOPRAZOLE 40 MG TABLET PO SCH (06:16)
[2021-08-31 06:32] LABS: BASOPHILS # (AUTO) 0.1 10^3/uL (0.0-0.1); BASOPHILS % (AUTO) 0.6 %; EOSINOPHILS # (AUTO) 0.3 10^3/uL (0.0-0.7); EOSINOPHILS % (AUTO) 3.5 %; HCT - HEMATOCRIT 40.5 % (42.0-52.0); HGB - HEMOGLOBIN 12.4 g/dL (14.0-18.0); LYMPHOCYTES # (AUTO) 1.9 10^3/uL (1.5-3.5); LYMPHOCYTES % (AUTO) 21.4 %; MEAN CORPUSCULAR HEMOGLOBIN 27.6 pg (27.0-31.0); MEAN CORPUSCULAR HGB CONC 30.6 g/dL (32.0-36.0); MEAN CORPUSCULAR VOLUME 90.2 fL (80.0-94.0); MEAN PLATELET VOLUME 9.7 fL (7.4-11.4); MONOCYTES # (AUTO) 0.8 10^3/uL (0.0-1.0); MONOCYTES % (AUTO) 8.7 %; NEUTROPHILS # (AUTO) 5.8 10^3/uL (1.5-6.6); PLT - PLATELET COUNT 242 10^3/uL (130-450); RED BLOOD COUNT 4.49 10^6/uL (4.70-6.10); RED CELL DISTRIBUTION WIDTH 18.4 % (12.0-15.0); WHITE BLOOD COUNT 8.9 x10^3/uL (4.8-10.8)
[2021-08-31 07:03] LABS: CALCIUM 8.6 mg/dL (8.5-10.3); CRP - C-REACTIVE PROTEIN 20.2 mg/dL (0-1.0); POTASSIUM 3.5 mmol/L (3.5-5.0)
[2021-08-31] MEDS: DARUNAVIR ETHANOLATE 600 MG PO SCH ×2 (08:02→17:06)
[2021-08-31] MEDS: RITONAVIR 100 MG PO SCH ×2 (08:02→17:06)
[2021-08-31] MEDS: CHOLECALCIFEROL 25 MCG TABLET PO SCH (08:40)
[2021-08-31] MEDS: atenoloL 25 MG TABLET PO SCH (08:40)
[2021-08-31] MEDS: OMEGA-3 ACID ETHYL ESTERS 1 GM CAPSULE PO SCH ×2 (08:40→21:20)
--- NOTE | 2021-08-31 08:40 | PROVIDER PROGRESS NOTE ---
Assessment/Plan - Problem List (1) Respiratory failure with hypoxia Assessment/Plan: Secondary to pneumonia. Currently on 5 L of oxygen via nasal cannula with oxygen saturation at 95%. (2) Pneumonia Qualifiers: Pneumonia type: due to unspecified organism Laterality: bilateral Lung location: unspecified part of lung Qualified Code(s): J18.9 - Pneumonia, unspecified organism Assessment/Plan: Secondary to bacterial pneumonia. Sputum culture grew ESBL positive E. coli. And yeast. Rocephin was discontinued 08/31/2021. Meropenem 1 g every 8 hours IV initiated on 08/31/2021. Day 1/14 Diflucan 100 mg p.o. daily. Day 2/7 On Bactrim 800/160 po bid. Initiated on 08/29/21 Repeat chest x-ray on 08/31/2021 showed progression of interstitial infiltrates. Given the CT appearance there is still high suspicion for Covid pneumonia. To date the patient has tested negative for Covid on the PCR panel x2. I spoke with infectious disease Dr. Martinez at [facility] on 08/31/2021. She recommended testing Covid serology to include IgG/IgM. She also recommended Fungitell to assess for possible PCP Furthermore she recommended checking HIV viral load and CD4 count. CD4 count of less than 200 will indicate PCP The above studies as send out which have been ordered (3) HIV (human immunodeficiency virus infection) Qualifiers: Qualified Code(s): B20 - Human immunodeficiency virus [HIV] disease Assessment/Plan: On Prezista, Tivicay and Ritonavir Patient reports that his CD4 count was over 900 a couple of years ago. CD4 count and HIV viral load ordered 08/31/2021. (4) Hypothyroidism Assessment/Plan: On Synthroid 25 mcg p.o. daily AC. TSH on 08/29/2021 was 2.20 (5) BPH (benign prostatic hyperplasia) Assessment/Plan: On Terazosin 4 mg p.o. nightly (6) Depression Assessment/Plan: On Prozac 40 mg p.o. daily. (7) Coronary artery disease Qualifiers: Coronary Disease-Associated Artery/Lesion type: unspecified vessel or lesion type Assessment/Plan: On isosorbide mononitrate 30 mg p.o. every morning Lovaza 2 g p.o. twice daily Gemfibrozil 600 mg p.o. twice daily Atorvastatin 40 mg p.o. every afternoon Atenolol 50 mg p.o. daily Eliquis 5 mg p.o. twice daily (8) Back pain Assessment/Plan: Methadone 10 mg p.o. 3 times daily as needed. Tylenol 650 mg p.o. every 4 hours as needed - Current Meds Current Meds: Current Medications Generic Name Dose Route Start Last Admin Trade Name Freharoon PRN Reason Stop Dose Admin Acetaminophen 650 mg 08/28/21 20:00 08/31/21 04:56 Acetaminophen 325 Mg Tablet PO 650 mg Q4HR PRN Administration Pain or Fever > 38C (100.4F) Amiodarone HCl 100 mg 08/29/21 12:00 08/30/21 08:38 Amiodarone 200 Mg Tablet PO 100 mg DAILY TREVER Administration Apixaban 5 mg 08/29/21 12:00 08/30/21 21:23 Apixaban 5 Mg Tablet PO 5 mg BID TREVER Administration Atenolol 50 mg 08/29/21 13:00 08/30/21 08:38 Atenolol 25 Mg Tablet PO 50 mg DAILY TREVER Administration Atorvastatin Calcium 40 mg 08/29/21 21:00 08/30/21 21:23 Atorvastatin 40 Mg Tablet PO 40 mg QPM TREVER Administration Bupropion HCl 300 mg 08/30/21 09:00 08/30/21 08:38 Bupropion Xl 150 Mg Tablet PO 300 mg DAILY TREVER Administration Cholecalciferol 50 mcg 08/30/21 11:00 08/30/21 11:19 Cholecalciferol 25 Mcg Tablet PO 50 mcg DAILY TREVER Administration Clopidogrel Bisulfate 75 mg 08/29/21 12:00 08/30/21 08:39 Clopidogrel 75 Mg Tablet PO 75 mg DAILY TREVER Administration Fluconazole 100 mg 08/30/21 13:00 08/30/21 13:20 Fluconazole 100 Mg Tablet PO 100 mg DAILY TREVER Administration Fluoxetine HCl 40 mg 08/30/21 09:00 08/30/21 08:38 Fluoxetine 10 Mg Capsule PO 40 mg DAILY TREVER Administration Furosemide 20 mg 08/30/21 09:00 08/30/21 08:43 Furosemide 40 Mg Tablet PO 20 mg DAILY TREVER Administration Gemfibrozil 600 mg 08/29/21 21:00 08/30/21 21:23 Gemfibrozil 600 Mg Tablet PO 600 mg BID TREVER Administration Guaifenesin 600 mg 08/29/21 11:00 08/30/21 21:24 Guaifenesin 600 Mg Tablet PO 600 mg BID TREVER Administration Guaifenesin/Codeine Phosphate 5 ml 08/28/21 23:47 08/31/21 04:56 Guaifenesin/Codeine 5 Ml Udc PO 5 ml Q6HR PRN Administration Cough Ceftriaxone Sodium 2 gm/ 100 mls @ 200 mls/hr 08/29/21 09:00 08/30/21 09:10 Sodium Chloride IV Infused DAILY TREVER Infusion Isosorbide Mononitrate 30 mg 08/30/21 06:00 08/31/21 05:21 Isosorbide Mononitrate Er 30 Mg Tablet PO 30 mg 0600 TREVER Administration Levothyroxine Sodium 25 mcg 08/30/21 07:00 08/31/21 06:16 ] PO 25 mcg QDAC TREVER Administration Lorazepam 0.5 mg 08/29/21 23:47 08/31/21 05:28 Lorazepam 0.5 Mg Tablet PO 0.5 mg Q8H PRN Administration Anxiety Methadone HCl 10 mg 08/29/21 11:57 08/30/21 18:36 Methadone 5 Mg Tablet PO 10 mg TID PRN Administration PAIN Methocarbamol 500 mg 08/29/21 11:57 08/30/21 23:57 Methocarbamol 500 Mg Tablet PO 500 mg TID PRN Administration Spasms Multivitamins 1 tab 08/30/21 21:00 08/30/21 21:23 Multivitamin Tablet PO 1 tab QPM TREVER Administration Pt Own Med ( 50 mg 08/29/21 17:00 08/30/21 21:26 Dolutegravir Sodium PO 50 mg [Tivicay] 50 Mg BID TREVER Administration Tablet) Pt Own Med ( 100 mg 08/29/21 17:00 08/31/21 08:02 Ritonavir [Norvir] PO 100 mg 100 Mg) BIDWM TREVER Administration Pt Own Med ( 600 mg 08/29/21 17:00 08/31/21 08:02 Darunavir Ethanolate PO 600 mg [Prezista] 600 Mg) BIDWM TREVER Administration [id number] Ethyl Esters 2 gm 08/29/21 21:00 08/30/21 21:35 [place]-3 Acid Ethyl Esters 1 Gm Capsule PO 2 gm BID TREVER Administration Pantoprazole Sodium 40 mg 08/30/21 07:00 08/31/21 06:16 Pantoprazole 40 Mg Tablet PO 40 mg QDAC TREVER Administration Sodium Chloride 10 ml 08/29/21 01:00 08/30/21 23:57 Sodium Chloride Flush 0.9% 10 Ml Syringe IVP 10 ml 0100,0900,1700 TREVER Administration Terazosin HCl 4 mg 08/29/21 17:00 08/30/21 16:40 Terazosin 2 Mg Capsule PO 4 mg QDDINNER TREVER Administration Topiramate 50 mg 08/29/21 21:00 08/30/21 21:24 Topiramate 25 Mg Tablet PO 50 mg BID TREVER Administration Trimethoprim/Sulfamethoxazole 1 tab 08/29/21 09:00 08/30/21 21:23 Sulfameth/Trimeth Ds 800/160 Mg Tablet PO 1 tab BID TREVER Administration - Lab Result Fish Bone Diagrams: 09/01/21 05:29 09/01/21 05:29 Subjective - Subjective Patient Reports: Other (Patient was very dyspneic at time of exam. He requested his oxygen supply to be increased. He is currently on 5 L of oxygen via nasal cannula with an oxygen saturation of 95%. He sounds significantly rhonchorous on auscultation) Objective Vital Signs: Vital Signs - 24 hr 08/30/21 08/30/21 08/30/21 11:22 12:59 16:23 Temperature 37.1 C 36.7 C 37.3 C Heart Rate [ 58 L 59 L Brachial] Heart Rate [ 62 Monitoring electrodes] Respiratory 22 22 20 Rate Blood Pressure 107/59 L [Left Brachial artery] Blood Pressure 100/62 103/59 L [Right Brachial artery] O2 Saturation 93 90 L 95 08/30/21 08/30/21 08/31/21 21:00 23:36 04:57 Temperature 36.9 C 36.8 C 36.8 C Heart Rate [ 66 69 71 Brachial] Heart Rate [ Monitoring electrodes] Respiratory 22 18 20 Rate Blood Pressure [Left Brachial artery] Blood Pressure 118/66 115/68 109/59 L [Right Brachial artery] O2 Saturation 94 91 L 92 08/31/21 08/31/21 08/31/21 05:10 05:11 05:50 Temperature Heart Rate [ Brachial] Heart Rate [ 67 Monitoring electrodes] Respiratory 26 H 24 20 Rate Blood Pressure [Left Brachial artery] Blood Pressure [Right Brachial artery] O2 Saturation 87 L 93 94 08/31/21 08/31/21 06:23 07:25 Temperature 36.7 C Heart Rate [ 64 Brachial] Heart Rate [ Monitoring electrodes] Respiratory 19 20 Rate Blood Pressure [Left Brachial artery] Blood Pressure 109/59 L [Right Brachial artery] O2 Saturation 94 96 Oxygen O2 Source Nasal cannula Oxygen Flow Rate 2 I&O (Last 24 Hrs): Intake and Output Totals x24h 08/29/21 08/30/21 08/31/21 23:59 23:59 23:59 Intake Total 2740 2570 600 Output Total 1600 1275 650 Balance 1140 1295 -50 General: Alert, Moderate distress (respiratory) HEENT: Atraumatic, PERRLA Neck: Supple, No JVD Neuro: Alert, Non Focal, Oriented Times 3 Cardiovascular: Regular rate, No murmurs Respiratory: Chest non-tender, Rhonchi, Other (Dyspneic) Abdomen: Normal bowel sounds, Soft, No tenderness, No masses Extremities: No clubbing, No cyanosis, No edema, No tenderness/swelling Skin: No rashes, No breakdown, No significant lesion - Results Results: Laboratory Results WBC 8.9 x10^3/uL (4.8-10.8) 08/31/21 06:16 RBC 4.49 10^6/uL (4.70-6.10) L 08/31/21 06:16 Hgb 12.4 g/dL (14.0-18.0) L 08/31/21 06:16 Hct 40.5 % (42.0-52.0) L 08/31/21 06:16 MCV 90.2 fL (80.0-94.0) 08/31/21 06:16 MCH 27.6 pg (27.0-31.0) 08/31/21 06:16 MCHC 30.6 g/dL (32.0-36.0) L 08/31/21 06:16 RDW 18.4 % (12.0-15.0) H 08/31/21 06:16 Plt Count 242 10^3/uL (130-450) 08/31/21 06:16 MPV 9.7 fL (7.4-11.4) 08/31/21 06:16 Neut # (Auto) 5.8 10^3/uL (1.5-6.6) 08/31/21 06:16 Lymph # (Auto) 1.9 10^3/uL (1.5-3.5) 08/31/21 06:16 [place] # (Auto) 0.8 10^3/uL (0.0-1.0) 08/31/21 06:16 Eos # (Auto) 0.3 10^3/uL (0.0-0.7) 08/31/21 06:16 Baso # (Auto) 0.1 10^3/uL (0.0-0.1) 08/31/21 06:16 Absolute Nucleated RBC 0.00 x10^3/uL 08/31/21 06:16 Nucleated RBC % 0.0 /100WBC 08/31/21 06:16 Sodium 132 mmol/L (135-145) L 08/31/21 06:16 Potassium 3.5 mmol/L (3.5-5.0) 08/31/21 06:16 Chloride 97 mmol/L (101-111) L 08/31/21 06:16 Carbon Dioxide 24 mmol/L (21-32) 08/31/21 06:16 Anion Gap 11.0 (6-13) 08/31/21 06:16 BUN 20 mg/dL (6-20) 08/31/21 06:16 Creatinine 1.0 mg/dL (0.6-1.2) 08/31/21 06:16 Estimated GFR (MDRD) 78 (>89) L 08/31/21 06:16 Glucose 119 mg/dL (70-100) H 08/31/21 06:16 Calcium 8.6 mg/dL (8.5-10.3) 08/31/21 06:16 Magnesium 1.9 mg/dL (1.7-2.8) 08/29/21 05:11 Total Bilirubin 0.7 mg/dL (0.2-1.0) 08/28/21 16:44 AST 25 IU/L (10-42) 08/28/21 16:44 ALT 19 IU/L (10-60) 08/28/21 16:44 Alkaline Phosphatase 83 IU/L (42-121) 08/28/21 16:44 Troponin I High Sens 6.0 ng/L (2.3-19.7) 08/30/21 15:47 C-Reactive Protein 20.2 mg/dL (0-1.0) H 08/31/21 06:16 B-Natriuretic Peptide 135 pg/mL (5-100) H 08/30/21 05:26 Total Protein 8.0 g/dL (6.7-8.2) 08/28/21 16:44 Albumin 3.5 g/dL (3.2-5.5) 08/28/21 16:44 Globulin 4.5 g/dL (2.1-4.2) H 08/28/21 16:44 Albumin/Globulin Ratio 0.8 (1.0-2.2) L 08/28/21 16:44 Triglycerides 110 mg/dL (-149) 08/29/21 05:11 Cholesterol 126 mg/dL (-199) 08/29/21 05:11 LDL Cholesterol, Calc 59 mg/dL (-129) 08/29/21 05:11 VLDL Cholesterol 22 mg/dL 08/29/21 05:11 HDL Cholesterol 45 mg/dL (60-) L 08/29/21 05:11 LDL/HDL Ratio 1.3 (<3.6) 08/29/21 05:11 Cholesterol/HDL Ratio 2.8 (<5.0) 08/29/21 05:11 Lipase 25 U/L (22-51) 08/28/21 16:44 TSH 2.20 uIU/mL (0.34-5.60) 08/29/21 05:11 Nasal Adenovirus (PCR) NOT DETECTED 08/28/21 22:10 Nasal B. parapertussis DNA (PCR) NOT DETECTED 08/28/21 22:10 Nasal Coronavir 229E PCR NOT DETECTED 08/28/21 22:10 Nasal Coronavir HKU1 PCR NOT DETECTED 08/28/21 22:10 Nasal Coronavir NL63 PCR NOT DETECTED 08/28/21 22:10 Nasal Coronavir OC43 PCR NOT DETECTED 08/28/21 22:10 Nasal Enterovir/Rhinovir PCR NOT DETECTED 08/28/21 22:10 Nasal Influenza B PCR NOT DETECTED 08/28/21 22:10 Nasal Influenza A PCR NOT DETECTED 08/28/21 22:10 Nasal Parainfluen 1 PCR NOT DETECTED 08/28/21 22:10 Nasal Parainfluen 2 PCR NOT DETECTED 08/28/21 22:10 Nasal Parainfluen 3 PCR NOT DETECTED 08/28/21 22:10 Nasal Parainfluen 4 PCR NOT DETECTED 08/28/21 22:10 Nasal RSV (PCR) NOT DETECTED 08/28/21 22:10 Nasal B.pertussis DNA PCR NOT DETECTED 08/28/21 22:10 Nasal C.pneumoniae (PCR) NOT DETECTED 08/28/21 22:10 [place] Human Metapneumo PCR NOT DETECTED 08/28/21 22:10 Nasal M.pneumoniae (PCR) NOT DETECTED 08/28/21 22:10 Nasal SARS-CoV-2 (PCR) NOT DETECTED 08/28/21 22:10 ABX Reporting Has patient been on IV antibiotics over the past 48 hours?: Yes
[2021-08-31] MEDS: APIXABAN 5 MG TABLET PO SCH ×2 (08:41→21:20)
[2021-08-31] MEDS: AMIODARONE 200 MG TABLET PO SCH (08:41)
[2021-08-31] MEDS: guaiFENesin 600 MG TABLET PO SCH ×2 (08:41→21:20)
[2021-08-31] MEDS: CLOPIDOGREL 75 MG TABLET PO SCH (08:41)
[2021-08-31] MEDS: SULFAMETH/TRIMETH DS 800/160 MG TABLET PO SCH ×2 (08:41→21:20)
[2021-08-31] MEDS: SODIUM CHLORIDE FLUSH 0.9% 10 ML SYRINGE IVP SCH ×3 (08:41→21:14)
[2021-08-31] MEDS: buPROPion XL 150 MG TABLET PO SCH (08:41)
[2021-08-31] MEDS: DOLUTEGRAVIR SODIUM 50 MG PO SCH ×2 (08:42→21:20)
[2021-08-31] MEDS: TOPIRAMATE 25 MG TABLET PO SCH ×2 (08:42→21:20)
[2021-08-31] MEDS: FLUoxetine 10 MG CAPSULE PO SCH (08:42)
[2021-08-31] MEDS: gemfibroziL 600 MG TABLET PO SCH ×2 (08:42→21:20)
[2021-08-31] MEDS: FLUCONAZOLE 100 MG TABLET PO SCH (08:42)
[2021-08-31] MEDS: cefTRIAXone 2 GM in SODIUM CHLORIDE 0.9% MINIBAG 100 ML IV SCH (08:43)
[2021-08-31] MEDS: FUROSEMIDE 40 MG TABLET PO SCH (08:45)
[2021-08-31] MEDS: MEROPENEM 1 GM in SODIUM CHLORIDE 0.9% MINIBAG 100 ML IV SCH ×2 (11:55→21:13)
--- NOTE | 2021-08-31 12:11 | XRAY Report ---
PROCEDURE: Chest 1 View X-Ray INDICATIONS: dyspnea TECHNIQUE: One view of the chest was acquired. COMPARISON: 08/30/2021, 08/28/2021. Correlation is also made with chest CT, 08/28/2021. FINDINGS: Surgical changes and devices: Post CABG changes are seen. Lungs and pleura: No pleural effusions or pneumothorax. Generalized interstitial infiltrates are see n, which are overall slightly more prominent on the current study than on the prior. Low lung volumes can be seen, causing a crowded appearance to the lung markings. No pneumothorax or pleural effusions can be seen. Mediastinum: Mediastinal contours appear normal. Heart size is at the upper limits of normal. Bones and chest wall: No suspicious bony lesions. Age-appropriate degenerative changes are seen. O verlying soft tissues appear unremarkable. IMPRESSION: Progression of interstitial infiltrates. Given the CT appearance, this is highly suspicious for COVID pneumonia. Postoperative and degenerative changes are seen. Reviewed by: Arturo Langley MD on 08/31/2021 11:09 AM [facility] Approved by: Arturo Langley MD on 08/31/2021 11:09 AM [facility] Station ID: [id number]
[2021-08-31] MEDS: ALBUTEROL 1 PUFF INH PRN ×2 (12:57→18:07)
[2021-08-31] MEDS: METHADONE 5 MG TABLET PO PRN (13:38)
[2021-08-31] MEDS: TERAZOSIN 2 MG CAPSULE PO SCH (17:05)
[2021-08-31] MEDS: ATORVASTATIN 40 MG TABLET PO SCH (21:20)
[2021-08-31] MEDS: MULTIVITAMIN TABLET PO SCH (21:20)
[2021-09-01] MEDS: LORazepam 0.5 MG TABLET PO PRN ×2 (01:07→17:19)
[2021-09-01] MEDS: MEROPENEM 1 GM in SODIUM CHLORIDE 0.9% MINIBAG 100 ML IV SCH ×3 (04:33→21:02)
[2021-09-01] MEDS: guaiFENesin/CODEINE 5 ML UDC PO PRN ×2 (04:33→21:02)
[2021-09-01] MEDS: SODIUM CHLORIDE FLUSH 0.9% 10 ML SYRINGE IVP SCH ×3 (04:35→21:12)
[2021-09-01] MEDS: ACETAMINOPHEN 325 MG TABLET PO PRN ×2 (04:47→17:19)
[2021-09-01] MEDS: ISOSORBIDE MONONITRATE ER 30 MG TABLET PO SCH (05:36)
[2021-09-01] MEDS: PANTOPRAZOLE 40 MG TABLET PO SCH (05:36)
[2021-09-01 05:59] LABS: BASOPHILS % (AUTO) 0.4 %; EOSINOPHILS # (AUTO) 0.3 10^3/uL (0.0-0.7); EOSINOPHILS % (AUTO) 3.7 %; HCT - HEMATOCRIT 40.2 % (42.0-52.0); HGB - HEMOGLOBIN 12.5 g/dL (14.0-18.0); LYMPHOCYTES # (AUTO) 1.7 10^3/uL (1.5-3.5); LYMPHOCYTES % (AUTO) 19.1 %; MEAN CORPUSCULAR HEMOGLOBIN 28.1 pg (27.0-31.0); MEAN CORPUSCULAR HGB CONC 31.1 g/dL (32.0-36.0); MEAN CORPUSCULAR VOLUME 90.3 fL (80.0-94.0); MEAN PLATELET VOLUME 10.2 fL (7.4-11.4); MONOCYTES # (AUTO) 0.7 10^3/uL (0.0-1.0); MONOCYTES % (AUTO) 7.5 %; NEUTROPHILS # (AUTO) 6.2 10^3/uL (1.5-6.6); NEUTROPHILS % (AUTO) 68.5 %; PLT - PLATELET COUNT 253 10^3/uL (130-450); RED BLOOD COUNT 4.45 10^6/uL (4.70-6.10); RED CELL DISTRIBUTION WIDTH 18.4 % (12.0-15.0); WHITE BLOOD COUNT 9.1 x10^3/uL (4.8-10.8)
[2021-09-01 06:22] LABS: CALCIUM 8.6 mg/dL (8.5-10.3); CRP - C-REACTIVE PROTEIN 15.4 mg/dL (0-1.0); POTASSIUM 3.6 mmol/L (3.5-5.0)
--- NOTE | 2021-09-01 07:36 | PROVIDER PROGRESS NOTE ---
Assessment/Plan - Problem List (1) Respiratory failure with hypoxia Assessment/Plan: Secondary to pneumonia. Currently on 30% at 30L/min of oxygen via high marcelo with oxygen saturation at 95%. Patient is rhonchous. Lasix 40mg IV X1 given (2) Pneumonia Qualifiers: Pneumonia type: due to unspecified organism Laterality: bilateral Lung location: unspecified part of lung Qualified Code(s): J18.9 - Pneumonia, unspecified organism Assessment/Plan: Secondary to bacterial pneumonia. Sputum culture grew ESBL positive E. coli. And yeast. Rocephin was discontinued 08/31/2021. Meropenem 1 g every 8 hours IV initiated on 08/31/2021. Day 1/14 Diflucan 100 mg p.o. daily. Day 2/7 On Bactrim 800/160 po bid. Initiated on 08/29/21 Repeat chest x-ray on 08/31/2021 showed progression of interstitial infiltrates. Given the CT appearance there is still high suspicion for Covid pneumonia. To date the patient has tested negative for Covid on the PCR panel x2. I spoke with infectious disease Dr. Martinez at [facility] on 08/31/2021. She recommended testing Covid serology to include IgG/IgM. She also recommended Fungitell to assess for possible PCP Furthermore she recommended checking HIV viral load and CD4 count. CD4 count of less than 200 will indicate PCP The above studies as send out which have been ordered (3) HIV (human immunodeficiency virus infection) Qualifiers: Qualified Code(s): B20 - Human immunodeficiency virus [HIV] disease Assessment/Plan: On Prezista, Tivicay and Ritonavir Patient reports that his CD4 count was over 900 a couple of years ago. CD4 count and HIV viral load ordered 08/31/2021. (4) Hypothyroidism Assessment/Plan: On Synthroid 25 mcg p.o. daily AC. TSH on 08/29/2021 was 2.20 (5) BPH (benign prostatic hyperplasia) Assessment/Plan: On Terazosin 4 mg p.o. nightly (6) Depression Assessment/Plan: On Prozac 40 mg p.o. daily. (7) Coronary artery disease Qualifiers: Coronary Disease-Associated Artery/Lesion type: unspecified vessel or lesion type Assessment/Plan: On isosorbide mononitrate 30 mg p.o. every morning Lovaza 2 g p.o. twice daily Gemfibrozil 600 mg p.o. twice daily Atorvastatin 40 mg p.o. every afternoon Atenolol 50 mg p.o. daily Eliquis 5 mg p.o. twice daily (8) Back pain Assessment/Plan: Methadone 10 mg p.o. 3 times daily as needed. Tylenol 650 mg p.o. every 4 hours as needed (2) Pneumonia Qualifiers: Pneumonia type: due to unspecified organism Laterality: bilateral Lung location: unspecified part of lung Qualified Code(s): J18.9 - Pneumonia, unspecified organism (3) HIV (human immunodeficiency virus infection) Qualifiers: Qualified Code(s): B20 - Human immunodeficiency virus [HIV] disease (7) Coronary artery disease Qualifiers: Coronary Disease-Associated Artery/Lesion type: unspecified vessel or lesion type - Current Meds Current Meds: Current Medications Generic Name Dose Route Start Last Admin Trade Name Freq PRN Reason Stop Dose Admin Acetaminophen 650 mg 08/28/21 20:00 09/01/21 04:47 Acetaminophen 325 Mg Tablet PO 650 mg Q4HR PRN Administration Pain or Fever > 38C (100.4F) Albuterol 2 puffs 08/31/21 11:33 08/31/21 18:07 Albuterol 1 Puff INH 2 puffs Q4H PRN Administration Dyspnea Amiodarone HCl 100 mg 08/29/21 12:00 08/31/21 08:41 Amiodarone 200 Mg Tablet PO 100 mg DAILY TREVER Administration Apixaban 5 mg 08/29/21 12:00 08/31/21 21:20 Apixaban 5 Mg Tablet PO 5 mg BID TREVER Administration Atenolol 50 mg 08/29/21 13:00 08/31/21 08:40 Atenolol 25 Mg Tablet PO 50 mg DAILY TREVER Administration Atorvastatin Calcium 40 mg 08/29/21 21:00 08/31/21 21:20 Atorvastatin 40 Mg Tablet PO 40 mg QPM TREVER Administration Bupropion HCl 300 mg 08/30/21 09:00 08/31/21 08:41 Bupropion Xl 150 Mg Tablet PO 300 mg DAILY TREVER Administration Cholecalciferol 50 mcg 08/30/21 11:00 08/31/21 08:40 Cholecalciferol 25 Mcg Tablet PO 50 mcg DAILY TREVER Administration Clopidogrel Bisulfate 75 mg 08/29/21 12:00 08/31/21 08:41 Clopidogrel 75 Mg Tablet PO 75 mg DAILY TREVER Administration Fluconazole 100 mg 08/30/21 13:00 08/31/21 08:42 Fluconazole 100 Mg Tablet PO 09/05/21 09:01 100 mg DAILY TREVER Administration Fluoxetine HCl 40 mg 08/30/21 09:00 08/31/21 08:42 Fluoxetine 10 Mg Capsule PO 40 mg DAILY TREVER Administration Furosemide 20 mg 08/30/21 09:00 08/31/21 08:45 Furosemide 40 Mg Tablet PO 20 mg DAILY TREVER Administration Gemfibrozil 600 mg 08/29/21 21:00 08/31/21 21:20 Gemfibrozil 600 Mg Tablet PO 600 mg BID TREVER Administration Guaifenesin 600 mg 08/29/21 11:00 08/31/21 21:20 Guaifenesin 600 Mg Tablet PO 600 mg BID TREVER Administration Guaifenesin/Codeine Phosphate 5 ml 08/28/21 23:47 09/01/21 04:33 Guaifenesin/Codeine 5 Ml Udc PO 5 ml Q6HR PRN Administration Cough Meropenem 1 gm/ Sodium 100 mls @ 200 mls/hr 08/31/21 12:00 09/01/21 05:03 Chloride IV Infused Q8H TREVER Infusion Isosorbide Mononitrate 30 mg 08/30/21 06:00 09/01/21 05:36 Isosorbide Mononitrate Er 30 Mg Tablet PO 30 mg 0600 TREVER Administration Levothyroxine Sodium 25 mcg 08/30/21 07:00 09/01/21 05:36 ] PO 25 mcg QDAC TREVER Administration Lorazepam 0.5 mg 08/29/21 23:47 09/01/21 01:07 Lorazepam 0.5 Mg Tablet PO 0.5 mg Q8H PRN Administration Anxiety Methadone HCl 10 mg 08/29/21 11:57 08/31/21 13:38 Methadone 5 Mg Tablet PO 10 mg TID PRN Administration PAIN Methocarbamol 500 mg 08/29/21 11:57 08/30/21 23:57 Methocarbamol 500 Mg Tablet PO 500 mg TID PRN Administration Spasms Multivitamins 1 tab 08/30/21 21:00 08/31/21 21:20 Multivitamin Tablet PO 1 tab QPM TERVER Administration Pt Own Med ( 50 mg 08/29/21 17:00 08/31/21 21:20 Dolutegravir Sodium PO 50 mg [Tivicay] 50 Mg BID TREVER Administration Tablet) Pt Own Med ( 100 mg 08/29/21 17:00 08/31/21 17:06 Ritonavir [Norvir] PO 100 mg 100 Mg) BIDWM TREEVR Administration Pt Own Med ( 600 mg 08/29/21 17:00 08/31/21 17:06 Darunavir Ethanolate PO 600 mg [Prezista] 600 Mg) BIDWM TREVER Administration Jmuze-5-Omno Ethyl Esters 2 gm 08/29/21 21:00 08/31/21 21:20 [place]-3 Acid Ethyl Esters 1 Gm Capsule PO 2 gm BID TREVER Administration Pantoprazole Sodium 40 mg 08/30/21 07:00 09/01/21 05:36 Pantoprazole 40 Mg Tablet PO 40 mg QDAC TREVER Administration Sodium Chloride 10 ml 08/29/21 01:00 09/01/21 04:35 Sodium Chloride Flush 0.9% 10 Ml Syringe IVP 10 ml 0100,0900,1700 TREVER Administration Terazosin HCl 4 mg 08/29/21 17:00 08/31/21 17:05 Terazosin 2 Mg Capsule PO 4 mg QDDINNER TREVER Administration Topiramate 50 mg 08/29/21 21:00 08/31/21 21:20 Topiramate 25 Mg Tablet PO 50 mg BID TREVER Administration Trimethoprim/Sulfamethoxazole 1 tab 08/29/21 09:00 08/31/21 21:20 Sulfameth/Trimeth Ds 800/160 Mg Tablet PO 1 tab BID TREVER Administration - Lab Result Fish Bone Diagrams: 09/01/21 05:29 09/01/21 05:29 - Additional Planning My Orders: My Active Orders 08/31/21 11:33 Mdi: Albuterol 2 puffs INH Q4H PRN 08/31/21 11:35 Nebulizer/MDI Tx. [RC] .q4prn Resp Teach Nebulizer/MDI [RC] .ONCE 08/31/21 12:00 Meropenem [Merrem] 1 gm Sodium Chloride 0.9% Minibag [Normal Saline 0.9% Minibag] 100 ml IV Q8H 08/31/21 13:06 Miscellaneous Laboratory Order [LAB] Urgent 08/31/21 13:10 Miscellaneous Laboratory Order [LAB] Urgent 08/31/21 13:11 Miscellaneous Laboratory Order [LAB] Urgent Subjective - Subjective Patient Reports: Other (Patient reports breathing better today. Currently on 30% at 30L on high marcelo. Still very rhonchous on auscultation.) Objective Vital Signs: Vital Signs - 24 hr 08/31/21 08/31/21 08/31/21 11:53 17:00 18:08 Temperature 36.8 C 36.7 C Heart Rate 22 L Heart Rate [ 64 58 L Brachial] Heart Rate [ Monitoring electrodes] Respiratory 22 21 Rate Blood Pressure 105/55 L [Right Brachial artery] O2 Saturation 95 96 08/31/21 08/31/21 09/01/21 20:25 21:00 00:52 Temperature 36.7 C 37.1 C Heart Rate 60 Heart Rate [ 66 Brachial] Heart Rate [ 60 Monitoring electrodes] Respiratory 20 18 Rate Blood Pressure 100/62 114/60 [Right Brachial artery] O2 Saturation 95 96 09/01/21 09/01/21 04:48 07:22 Temperature 36.6 C 36.8 C Heart Rate Heart Rate [ 66 Brachial] Heart Rate [ 63 Monitoring electrodes] Respiratory 19 Rate Blood Pressure 104/70 106/63 [Right Brachial artery] O2 Saturation 95 95 Oxygen O2 Source HHFNC Oxygen Flow Rate 2 I&O (Last 24 Hrs): Intake and Output Totals x24h 08/30/21 08/31/21 09/01/21 23:59 23:59 23:59 Intake Total 2570 3560 200 Output Total 1275 2580 500 Balance 1295 980 -300 - Results Results: Laboratory Results WBC 9.1 x10^3/uL (4.8-10.8) 09/01/21 05:29 RBC 4.45 10^6/uL (4.70-6.10) L 09/01/21 05:29 Hgb 12.5 g/dL (14.0-18.0) L 09/01/21 05:29 Hct 40.2 % (42.0-52.0) L 09/01/21 05:29 MCV 90.3 fL (80.0-94.0) 09/01/21 05:29 MCH 28.1 pg (27.0-31.0) 09/01/21 05:29 MCHC 31.1 g/dL (32.0-36.0) L 09/01/21 05:29 RDW 18.4 % (12.0-15.0) H 09/01/21 05:29 Plt Count 253 10^3/uL (130-450) 09/01/21 05:29 MPV 10.2 fL (7.4-11.4) 09/01/21 05:29 Neut # (Auto) 6.2 10^3/uL (1.5-6.6) 09/01/21 05:29 Lymph # (Auto) 1.7 10^3/uL (1.5-3.5) 09/01/21 05:29 [place] # (Auto) 0.7 10^3/uL (0.0-1.0) 09/01/21 05:29 Eos # (Auto) 0.3 10^3/uL (0.0-0.7) 09/01/21 05:29 Baso # (Auto) 0.0 10^3/uL (0.0-0.1) 09/01/21 05:29 Absolute Nucleated RBC 0.00 x10^3/uL 09/01/21 05:29 Nucleated RBC % 0.0 /100WBC 09/01/21 05:29 Sodium 132 mmol/L (135-145) L 09/01/21 05:29 Potassium 3.6 mmol/L (3.5-5.0) 09/01/21 05:29 Chloride 99 mmol/L (101-111) L 09/01/21 05:29 Carbon Dioxide 24 mmol/L (21-32) 09/01/21 05:29 Anion Gap 9.0 (6-13) 09/01/21 05:29 BUN 19 mg/dL (6-20) 09/01/21 05:29 Creatinine 1.0 mg/dL (0.6-1.2) 09/01/21 05:29 Estimated GFR (MDRD) 78 (>89) L 09/01/21 05:29 Glucose 102 mg/dL (70-100) H 09/01/21 05:29 Calcium 8.6 mg/dL (8.5-10.3) 09/01/21 05:29 Magnesium 1.9 mg/dL (1.7-2.8) 08/29/21 05:11 Total Bilirubin 0.7 mg/dL (0.2-1.0) 08/28/21 16:44 AST 25 IU/L (10-42) 08/28/21 16:44 ALT 19 IU/L (10-60) 08/28/21 16:44 Alkaline Phosphatase 83 IU/L (42-121) 08/28/21 16:44 Lactate Dehydrogenase 314 IU/L (91-225) H 08/31/21 16:00 Troponin I High Sens 6.0 ng/L (2.3-19.7) 08/30/21 15:47 C-Reactive Protein 15.4 mg/dL (0-1.0) H 09/01/21 05:29 B-Natriuretic Peptide 135 pg/mL (5-100) H 08/30/21 05:26 Total Protein 8.0 g/dL (6.7-8.2) 08/28/21 16:44 Albumin 3.5 g/dL (3.2-5.5) 08/28/21 16:44 Globulin 4.5 g/dL (2.1-4.2) H 08/28/21 16:44 Albumin/Globulin Ratio 0.8 (1.0-2.2) L 08/28/21 16:44 Triglycerides 110 mg/dL (-149) 08/29/21 05:11 Cholesterol 126 mg/dL (-199) 08/29/21 05:11 LDL Cholesterol, Calc 59 mg/dL (-129) 08/29/21 05:11 VLDL Cholesterol 22 mg/dL 08/29/21 05:11 HDL Cholesterol 45 mg/dL (60-) L 08/29/21 05:11 LDL/HDL Ratio 1.3 (<3.6) 08/29/21 05:11 Cholesterol/HDL Ratio 2.8 (<5.0) 08/29/21 05:11 Lipase 25 U/L (22-51) 08/28/21 16:44 TSH 2.20 uIU/mL (0.34-5.60) 08/29/21 05:11 Nasal Adenovirus (PCR) NOT DETECTED 08/28/21 22:10 Nasal B. parapertussis DNA (PCR) NOT DETECTED 08/28/21 22:10 Nasal Coronavir 229E PCR NOT DETECTED 08/28/21 22:10 Nasal Coronavir HKU1 PCR NOT DETECTED 08/28/21 22:10 Nasal Coronavir NL63 PCR NOT DETECTED 08/28/21 22:10 Nasal Coronavir OC43 PCR NOT DETECTED 08/28/21 22:10 Nasal Enterovir/Rhinovir PCR NOT DETECTED 08/28/21 22:10 Nasal Influenza B PCR NOT DETECTED 08/28/21 22:10 Nasal Influenza A PCR NOT DETECTED 08/28/21 22:10 Nasal Parainfluen 1 PCR NOT DETECTED 08/28/21 22:10 Nasal Parainfluen 2 PCR NOT DETECTED 08/28/21 22:10 Nasal Parainfluen 3 PCR NOT DETECTED 08/28/21 22:10 Nasal Parainfluen 4 PCR NOT DETECTED 08/28/21 22:10 Nasal RSV (PCR) NOT DETECTED 08/28/21 22:10 Nasal B.pertussis DNA PCR NOT DETECTED 08/28/21 22:10 Nasal C.pneumoniae (PCR) NOT DETECTED 08/28/21 22:10 [place] Human Metapneumo PCR NOT DETECTED 08/28/21 22:10 Nasal M.pneumoniae (PCR) NOT DETECTED 08/28/21 22:10 Nasal SARS-CoV-2 (PCR) NOT DETECTED 08/28/21 22:10 Coronavirus (PCR) NEGATIVE 08/31/21 13:30 ABX Reporting Has patient been on IV antibiotics over the past 48 hours?: Yes
[2021-09-01] MEDS: RITONAVIR 100 MG PO SCH ×2 (08:16→17:23)
[2021-09-01] MEDS: DARUNAVIR ETHANOLATE 600 MG PO SCH ×2 (08:16→17:23)
[2021-09-01] MEDS: AMIODARONE 200 MG TABLET PO SCH (08:17)
[2021-09-01] MEDS: FLUCONAZOLE 100 MG TABLET PO SCH (08:17)
[2021-09-01] MEDS: FLUoxetine 10 MG CAPSULE PO SCH (08:17)
[2021-09-01] MEDS: CHOLECALCIFEROL 25 MCG TABLET PO SCH (08:17)
[2021-09-01] MEDS: buPROPion XL 150 MG TABLET PO SCH (08:17)
[2021-09-01] MEDS: TOPIRAMATE 25 MG TABLET PO SCH ×2 (08:17→21:03)
[2021-09-01] MEDS: OMEGA-3 ACID ETHYL ESTERS 1 GM CAPSULE PO SCH ×2 (08:18→21:02)
[2021-09-01] MEDS: guaiFENesin 600 MG TABLET PO SCH ×2 (08:18→21:03)
[2021-09-01] MEDS: FUROSEMIDE 40 MG TABLET PO SCH (08:18)
[2021-09-01] MEDS: APIXABAN 5 MG TABLET PO SCH ×2 (08:18→21:03)
[2021-09-01] MEDS: atenoloL 25 MG TABLET PO SCH (08:18)
[2021-09-01] MEDS: gemfibroziL 600 MG TABLET PO SCH ×2 (08:18→21:02)
[2021-09-01] MEDS: SULFAMETH/TRIMETH DS 800/160 MG TABLET PO SCH ×2 (08:19→21:03)
[2021-09-01] MEDS: DOLUTEGRAVIR SODIUM 50 MG PO SCH ×2 (08:19→21:08)
[2021-09-01] MEDS: CLOPIDOGREL 75 MG TABLET PO SCH (08:19)
[2021-09-01] MEDS ORDERED: FUROSEMIDE 40 MG/4 ML VIAL IVP STA ×2 (10:34→11:03)
[2021-09-01] MEDS: TERAZOSIN 2 MG CAPSULE PO SCH (17:23)
[2021-09-01] MEDS: MULTIVITAMIN TABLET PO SCH (21:03)
[2021-09-01] MEDS: ATORVASTATIN 40 MG TABLET PO SCH (21:03)
[2021-09-02] MEDS: LORazepam 0.5 MG TABLET PO PRN ×2 (01:52→17:28)
[2021-09-02] MEDS: ALBUTEROL 1 PUFF INH PRN (02:30)
[2021-09-02] MEDS: MEROPENEM 1 GM in SODIUM CHLORIDE 0.9% MINIBAG 100 ML IV SCH ×3 (04:38→21:39)
[2021-09-02] MEDS: SODIUM CHLORIDE FLUSH 0.9% 10 ML SYRINGE IVP SCH ×3 (04:38→21:41)
[2021-09-02] MEDS: ISOSORBIDE MONONITRATE ER 30 MG TABLET PO SCH (05:37)
[2021-09-02] MEDS: BENZOCAINE/MENTHOL LOZENGE MM PRN ×2 (05:39→09:01)
[2021-09-02] MEDS: PANTOPRAZOLE 40 MG TABLET PO SCH (05:39)
[2021-09-02] MEDS: METHADONE 5 MG TABLET PO PRN ×2 (05:45→21:50)
[2021-09-02 06:27] LABS: BASOPHILS # (AUTO) 0.1 10^3/uL (0.0-0.1); BASOPHILS % (AUTO) 0.9 %; EOSINOPHILS # (AUTO) 0.3 10^3/uL (0.0-0.7); EOSINOPHILS % (AUTO) 3.6 %; HCT - HEMATOCRIT 40.9 % (42.0-52.0); HGB - HEMOGLOBIN 12.6 g/dL (14.0-18.0); LYMPHOCYTES # (AUTO) 2.1 10^3/uL (1.5-3.5); LYMPHOCYTES % (AUTO) 28.3 %; MEAN CORPUSCULAR HEMOGLOBIN 27.7 pg (27.0-31.0); MEAN CORPUSCULAR HGB CONC 30.8 g/dL (32.0-36.0); MEAN CORPUSCULAR VOLUME 89.9 fL (80.0-94.0); MEAN PLATELET VOLUME 9.8 fL (7.4-11.4); MONOCYTES # (AUTO) 0.6 10^3/uL (0.0-1.0); MONOCYTES % (AUTO) 8.5 %; NEUTROPHILS # (AUTO) 4.3 10^3/uL (1.5-6.6); NEUTROPHILS % (AUTO) 57.9 %; PLT - PLATELET COUNT 296 10^3/uL (130-450); RED BLOOD COUNT 4.55 10^6/uL (4.70-6.10); RED CELL DISTRIBUTION WIDTH 18.6 % (12.0-15.0); WHITE BLOOD COUNT 7.4 x10^3/uL (4.8-10.8)
[2021-09-02 06:44] LABS: CALCIUM 8.6 mg/dL (8.5-10.3); CREATININE 1.2 mg/dL (0.6-1.2); CRP - C-REACTIVE PROTEIN 9.2 mg/dL (0-1.0); POTASSIUM 3.4 mmol/L (3.5-5.0)
[2021-09-02] MEDS ORDERED: POTASSIUM CHLORIDE 20 MEQ TABLET PO ONE (07:57)
[2021-09-02] MEDS: polyethylene glycoL 3350 17 GM PACKET PO SCH (07:57)
--- NOTE | 2021-09-02 07:59 | PROVIDER PROGRESS NOTE ---
Assessment/Plan - Problem List (1) Respiratory failure with hypoxia Assessment/Plan: 09/02/21 Secondary to pneumonia. Patient reported significant improvement in his respiratory status. He is currently on 2 L of oxygen via nasal cannula with oxygen saturation at 96% and respiratory rate of 18. Lasix 40mg IV X1 repeated 09/02/21 09/01/21 Secondary to pneumonia. Currently on 30% at 30L/min of oxygen via high marcelo with oxygen saturation at 95%. Patient is rhonchous. Lasix 40mg IV X1 given (2) Pneumonia Qualifiers: Pneumonia type: due to unspecified organism Laterality: bilateral Lung location: unspecified part of lung Qualified Code(s): J18.9 - Pneumonia, unspecified organism Assessment/Plan: Secondary to bacterial pneumonia. Sputum culture grew ESBL positive E. coli. And yeast. Rocephin was discontinued 08/31/2021. Meropenem 1 g every 8 hours IV initiated on 08/31/2021. Day 3/14 Diflucan 100 mg p.o. daily. Day 4/7 On Bactrim 800/160 po bid. Initiated on 08/29/21 Repeat chest x-ray on 08/31/2021 showed progression of interstitial infiltrates. Given the CT appearance there is still high suspicion for Covid pneumonia. To date the patient has tested negative for Covid on the PCR panel x2. I spoke with infectious disease Dr. Martinez at [facility] on 08/31/2021. She recommended testing Covid serology to include IgG/IgM. She also recommended Fungitell to assess for possible PCP Furthermore she recommended checking HIV viral load and CD4 count. CD4 count of less than 200 will indicate PCP The above studies as send out which have been ordered (3) HIV (human immunodeficiency virus infection) Qualifiers: Qualified Code(s): B20 - Human immunodeficiency virus [HIV] disease Assessment/Plan: On Prezista, Tivicay and Ritonavir Patient reports that his CD4 count was over 900 a couple of years ago. CD4 count and HIV viral load ordered 08/31/2021. (4) Hypothyroidism Assessment/Plan: On Synthroid 25 mcg p.o. daily AC. TSH on 08/29/2021 was 2.20 (5) BPH (benign prostatic hyperplasia) Assessment/Plan: On Terazosin 4 mg p.o. nightly (6) Depression Assessment/Plan: On Prozac 40 mg p.o. daily. (7) Coronary artery disease Qualifiers: Coronary Disease-Associated Artery/Lesion type: unspecified vessel or lesion type Assessment/Plan: On isosorbide mononitrate 30 mg p.o. every morning Lovaza 2 g p.o. twice daily Gemfibrozil 600 mg p.o. twice daily Atorvastatin 40 mg p.o. every afternoon Atenolol 50 mg p.o. daily Eliquis 5 mg p.o. twice daily (8) Back pain Assessment/Plan: Methadone 10 mg p.o. 3 times daily as needed. Tylenol 650 mg p.o. every 4 hours as needed (2) Pneumonia Qualifiers: Pneumonia type: due to unspecified organism Laterality: bilateral Lung location: unspecified part of lung Qualified Code(s): J18.9 - Pneumonia, unspecified organism (3) HIV (human immunodeficiency virus infection) Qualifiers: Qualified Code(s): B20 - Human immunodeficiency virus [HIV] disease (7) Coronary artery disease Qualifiers: Coronary Disease-Associated Artery/Lesion type: unspecified vessel or lesion type - Current Meds Current Meds: Current Medications Generic Name Dose Route Start Last Admin Trade Name Freq PRN Reason Stop Dose Admin Acetaminophen 650 mg 08/28/21 20:00 09/01/21 17:19 Acetaminophen 325 Mg Tablet PO 650 mg Q4HR PRN Administration Pain or Fever > 38C (100.4F) Albuterol 2 puffs 08/31/21 11:33 09/02/21 02:30 Albuterol 1 Puff INH 2 puffs Q4H PRN Administration Dyspnea Amiodarone HCl 100 mg 08/29/21 12:00 09/01/21 08:17 Amiodarone 200 Mg Tablet PO 100 mg DAILY TREVER Administration Apixaban 5 mg 08/29/21 12:00 09/01/21 21:03 Apixaban 5 Mg Tablet PO 5 mg BID TREVER Administration Atenolol 50 mg 08/29/21 13:00 09/01/21 08:18 Atenolol 25 Mg Tablet PO 50 mg DAILY TREVER Administration Atorvastatin Calcium 40 mg 08/29/21 21:00 09/01/21 21:03 Atorvastatin 40 Mg Tablet PO 40 mg QPM TREVER Administration Bupropion HCl 300 mg 08/30/21 09:00 09/01/21 08:17 Bupropion Xl 150 Mg Tablet PO 300 mg DAILY TREVER Administration Cholecalciferol 50 mcg 08/30/21 11:00 09/01/21 08:17 Cholecalciferol 25 Mcg Tablet PO 50 mcg DAILY TREVER Administration Clopidogrel Bisulfate 75 mg 08/29/21 12:00 09/01/21 08:19 Clopidogrel 75 Mg Tablet PO 75 mg DAILY TREVER Administration Fluconazole 100 mg 08/30/21 13:00 09/01/21 08:17 Fluconazole 100 Mg Tablet PO 09/05/21 09:01 100 mg DAILY TREVER Administration Fluoxetine HCl 40 mg 08/30/21 09:00 09/01/21 08:17 Fluoxetine 10 Mg Capsule PO 40 mg DAILY TREVER Administration Furosemide 20 mg 08/30/21 09:00 09/01/21 08:18 Furosemide 40 Mg Tablet PO 20 mg DAILY TREVER Administration Gemfibrozil 600 mg 08/29/21 21:00 09/01/21 21:02 Gemfibrozil 600 Mg Tablet PO 600 mg BID TREVER Administration Guaifenesin 600 mg 08/29/21 11:00 09/01/21 21:03 Guaifenesin 600 Mg Tablet PO 600 mg BID TREVER Administration Guaifenesin/Codeine Phosphate 5 ml 08/28/21 23:47 09/01/21 21:02 Guaifenesin/Codeine 5 Ml Udc PO 5 ml Q6HR PRN Administration Cough Meropenem 1 gm/ Sodium 100 mls @ 200 mls/hr 08/31/21 12:00 09/02/21 05:08 Chloride IV Infused Q8H TREVER Infusion Isosorbide Mononitrate 30 mg 08/30/21 06:00 09/02/21 05:37 Isosorbide Mononitrate Er 30 Mg Tablet PO 30 mg 0600 TREVER Administration Levothyroxine Sodium 25 mcg 08/30/21 07:00 09/02/21 05:39 ] PO 25 mcg QDAC TREVER Administration Lorazepam 0.5 mg 08/29/21 23:47 09/02/21 01:52 Lorazepam 0.5 Mg Tablet PO 0.5 mg Q8H PRN Administration Anxiety Methadone HCl 10 mg 08/29/21 11:57 09/02/21 05:45 Methadone 5 Mg Tablet PO 10 mg TID PRN Administration PAIN Methocarbamol 500 mg 08/29/21 11:57 08/30/21 23:57 Methocarbamol 500 Mg Tablet PO 500 mg TID PRN Administration Spasms Multivitamins 1 tab 08/30/21 21:00 09/01/21 21:03 Multivitamin Tablet PO 1 tab QPM TREVER Administration Pt Own Med ( 50 mg 08/29/21 17:00 09/01/21 21:08 Dolutegravir Sodium PO 50 mg [Tivicay] 50 Mg BID TREVER Administration Tablet) Pt Own Med ( 100 mg 08/29/21 17:00 09/01/21 17:23 Ritonavir [Norvir] PO 100 mg 100 Mg) BIDWM TREVER Administration Pt Own Med ( 600 mg 08/29/21 17:00 09/01/21 17:23 Darunavir Ethanolate PO 600 mg [Prezista] 600 Mg) BIDWM TREVER Administration Iypzg-0-Agho Ethyl Esters 2 gm 08/29/21 21:00 09/01/21 21:02 [place]-3 Acid Ethyl Esters 1 Gm Capsule PO 2 gm BID TREVER Administration Pantoprazole Sodium 40 mg 08/30/21 07:00 09/02/21 05:39 Pantoprazole 40 Mg Tablet PO 40 mg QDAC TREVER Administration Polyethylene Glycol 17 gm 09/02/21 09:00 09/02/21 07:57 Polyethylene Glycol 3350 17 Gm Packet PO Not Given DAILY TREVER Sodium Chloride 10 ml 08/29/21 01:00 09/02/21 04:38 Sodium Chloride Flush 0.9% 10 Ml Syringe IVP 10 ml 0100,0900,1700 TREVER Administration Terazosin HCl 4 mg 08/29/21 17:00 09/01/21 17:23 Terazosin 2 Mg Capsule PO 4 mg QDDINNER TREVER Administration Throat Lozenges 1 lozenge 09/02/21 04:55 09/02/21 05:39 Benzocaine/Menthol Lozenge MM 1 lozenge Q2HR PRN Administration Throat pain Topiramate 50 mg 08/29/21 21:00 09/01/21 21:03 Topiramate 25 Mg Tablet PO 50 mg BID TREVER Administration Trimethoprim/Sulfamethoxazole 1 tab 08/29/21 09:00 09/01/21 21:03 Sulfameth/Trimeth Ds 800/160 Mg Tablet PO 1 tab BID TREVER Administration - Lab Result Fish Bone Diagrams: 09/02/21 06:22 09/02/21 06:22 - Additional Planning My Orders: My Active Orders 09/02/21 07:57 Potassium Chloride [K-Dur] 40 meq PO ONCE ONE Subjective - Subjective Patient Reports: Other (Patient reports breathing much better today. Oxygen requirement decreased from high flow to 2 L of oxygen via nasal cannula with oxygen saturation at 96%. He is still rhonchorous on auscultation.) Objective Vital Signs: Vital Signs - 24 hr 09/01/21 09/01/21 09/01/21 09:04 12:43 17:00 Temperature 36.8 C 36.4 C L 37.0 C Heart Rate 66 Heart Rate [ 55 L 55 L Brachial] Heart Rate [ Monitoring electrodes] Respiratory 24 20 20 Rate Blood Pressure 108/64 103/61 [Right Brachial artery] O2 Saturation 94 97 97 09/01/21 09/02/21 09/02/21 21:00 00:40 02:30 Temperature 36.7 C 36.3 C L Heart Rate 69 Heart Rate [ 55 L Brachial] Heart Rate [ 60 Monitoring electrodes] Respiratory 16 16 20 Rate Blood Pressure 103/65 103/56 L [Right Brachial artery] O2 Saturation 96 96 09/02/21 04:51 Temperature 36.6 C Heart Rate Heart Rate [ 64 Brachial] Heart Rate [ Monitoring electrodes] Respiratory 20 Rate Blood Pressure 118/67 [Right Brachial artery] O2 Saturation 96 Oxygen O2 Source HHFNC Oxygen Flow Rate 2 I&O (Last 24 Hrs): Intake and Output Totals x24h 08/31/21 09/01/21 09/02/21 23:59 23:59 23:59 Intake Total 3560 1960 600 Output Total 2580 2450 300 Balance 980 -490 300 General: Alert, Oriented x3, Mild distress (mild resp distress) HEENT: PERRLA, EOMI Neck: Supple, No JVD Cardiovascular: Regular rate, No murmurs Respiratory: Chest non-tender, Rhonchi Abdomen: Normal bowel sounds, Soft, No tenderness, No masses Extremities: No clubbing, No edema, No tenderness/swelling Skin: No rashes, No breakdown - Results Results: Laboratory Results WBC 7.4 x10^3/uL (4.8-10.8) 09/02/21 06:22 RBC 4.55 10^6/uL (4.70-6.10) L 09/02/21 06:22 Hgb 12.6 g/dL (14.0-18.0) L 09/02/21 06:22 Hct 40.9 % (42.0-52.0) L 09/02/21 06:22 MCV 89.9 fL (80.0-94.0) 09/02/21 06:22 MCH 27.7 pg (27.0-31.0) 09/02/21 06:22 MCHC 30.8 g/dL (32.0-36.0) L 09/02/21 06:22 RDW 18.6 % (12.0-15.0) H 09/02/21 06:22 Plt Count 296 10^3/uL (130-450) 09/02/21 06:22 MPV 9.8 fL (7.4-11.4) 09/02/21 06:22 Neut # (Auto) 4.3 10^3/uL (1.5-6.6) 09/02/21 06:22 Lymph # (Auto) 2.1 10^3/uL (1.5-3.5) 09/02/21 06:22 [place] # (Auto) 0.6 10^3/uL (0.0-1.0) 09/02/21 06:22 Eos # (Auto) 0.3 10^3/uL (0.0-0.7) 09/02/21 06:22 Baso # (Auto) 0.1 10^3/uL (0.0-0.1) 09/02/21 06:22 Absolute Nucleated RBC 0.00 x10^3/uL 09/02/21 06:22 Nucleated RBC % 0.0 /100WBC 09/02/21 06:22 Sodium 132 mmol/L (135-145) L 09/02/21 06:22 Potassium 3.4 mmol/L (3.5-5.0) L 09/02/21 06:22 Chloride 99 mmol/L (101-111) L 09/02/21 06:22 Carbon Dioxide 23 mmol/L (21-32) 09/02/21 06:22 Anion Gap 10.0 (6-13) 09/02/21 06:22 BUN 19 mg/dL (6-20) 09/02/21 06:22 Creatinine 1.2 mg/dL (0.6-1.2) 09/02/21 06:22 Estimated GFR (MDRD) 63 (>89) L 09/02/21 06:22 Glucose 87 mg/dL (70-100) 09/02/21 06:22 Calcium 8.6 mg/dL (8.5-10.3) 09/02/21 06:22 Magnesium 1.9 mg/dL (1.7-2.8) 08/29/21 05:11 Total Bilirubin 0.7 mg/dL (0.2-1.0) 08/28/21 16:44 AST 25 IU/L (10-42) 08/28/21 16:44 ALT 19 IU/L (10-60) 08/28/21 16:44 Alkaline Phosphatase 83 IU/L (42-121) 08/28/21 16:44 Lactate Dehydrogenase 314 IU/L (91-225) H 08/31/21 16:00 Troponin I High Sens 6.0 ng/L (2.3-19.7) 08/30/21 15:47 C-Reactive Protein 9.2 mg/dL (0-1.0) H 09/02/21 06:22 B-Natriuretic Peptide 135 pg/mL (5-100) H 08/30/21 05:26 Total Protein 8.0 g/dL (6.7-8.2) 08/28/21 16:44 Albumin 3.5 g/dL (3.2-5.5) 08/28/21 16:44 Globulin 4.5 g/dL (2.1-4.2) H 08/28/21 16:44 Albumin/Globulin Ratio 0.8 (1.0-2.2) L 08/28/21 16:44 Triglycerides 110 mg/dL (-149) 08/29/21 05:11 Cholesterol 126 mg/dL (-199) 08/29/21 05:11 LDL Cholesterol, Calc 59 mg/dL (-129) 08/29/21 05:11 VLDL Cholesterol 22 mg/dL 08/29/21 05:11 HDL Cholesterol 45 mg/dL (60-) L 08/29/21 05:11 LDL/HDL Ratio 1.3 (<3.6) 08/29/21 05:11 Cholesterol/HDL Ratio 2.8 (<5.0) 08/29/21 05:11 Lipase 25 U/L (22-51) 08/28/21 16:44 TSH 2.20 uIU/mL (0.34-5.60) 08/29/21 05:11 Nasal Adenovirus (PCR) NOT DETECTED 08/28/21 22:10 Nasal B. parapertussis DNA (PCR) NOT DETECTED 08/28/21 22:10 Nasal Coronavir 229E PCR NOT DETECTED 08/28/21 22:10 Nasal Coronavir HKU1 PCR NOT DETECTED 08/28/21 22:10 Nasal Coronavir NL63 PCR NOT DETECTED 08/28/21 22:10 Nasal Coronavir OC43 PCR NOT DETECTED 08/28/21 22:10 Nasal Enterovir/Rhinovir PCR NOT DETECTED 08/28/21 22:10 Nasal Influenza B PCR NOT DETECTED 08/28/21 22:10 Nasal Influenza A PCR NOT DETECTED 08/28/21 22:10 Nasal Parainfluen 1 PCR NOT DETECTED 08/28/21 22:10 Nasal Parainfluen 2 PCR NOT DETECTED 08/28/21 22:10 Nasal Parainfluen 3 PCR NOT DETECTED 08/28/21 22:10 Nasal Parainfluen 4 PCR NOT DETECTED 08/28/21 22:10 Nasal RSV (PCR) NOT DETECTED 08/28/21 22:10 Nasal B.pertussis DNA PCR NOT DETECTED 08/28/21 22:10 Nasal C.pneumoniae (PCR) NOT DETECTED 08/28/21 22:10 [place] Human Metapneumo PCR NOT DETECTED 08/28/21 22:10 Nasal M.pneumoniae (PCR) NOT DETECTED 08/28/21 22:10 Nasal SARS-CoV-2 (PCR) NOT DETECTED 08/28/21 22:10 Coronavirus (PCR) NEGATIVE 08/31/21 13:30 ABX Reporting Has patient been on IV antibiotics over the past 48 hours?: Yes
[2021-09-02] MEDS: APIXABAN 5 MG TABLET PO SCH ×2 (09:01→21:42)
[2021-09-02] MEDS: buPROPion XL 150 MG TABLET PO SCH (09:01)
[2021-09-02] MEDS: CLOPIDOGREL 75 MG TABLET PO SCH (09:01)
[2021-09-02] MEDS: guaiFENesin 600 MG TABLET PO SCH ×2 (09:01→21:41)
[2021-09-02] MEDS: gemfibroziL 600 MG TABLET PO SCH ×2 (09:01→21:41)
[2021-09-02] MEDS: FUROSEMIDE 40 MG TABLET PO SCH (09:02)
[2021-09-02] MEDS: methocarbamoL 500 MG TABLET PO PRN (09:02)
[2021-09-02] MEDS: atenoloL 25 MG TABLET PO SCH (09:03)
[2021-09-02] MEDS: FLUCONAZOLE 100 MG TABLET PO SCH (09:03)
[2021-09-02] MEDS: TOPIRAMATE 25 MG TABLET PO SCH ×2 (09:03→21:41)
[2021-09-02] MEDS: SULFAMETH/TRIMETH DS 800/160 MG TABLET PO SCH ×2 (09:03→21:42)
[2021-09-02] MEDS: AMIODARONE 200 MG TABLET PO SCH (09:04)
[2021-09-02] MEDS: CHOLECALCIFEROL 25 MCG TABLET PO SCH (09:04)
[2021-09-02] MEDS: DOLUTEGRAVIR SODIUM 50 MG PO SCH ×2 (09:10→21:43)
[2021-09-02] MEDS: RITONAVIR 100 MG PO SCH ×2 (09:11→17:08)
[2021-09-02] MEDS: DARUNAVIR ETHANOLATE 600 MG PO SCH ×2 (09:12→17:08)
[2021-09-02] MEDS: guaiFENesin/CODEINE 5 ML UDC PO PRN ×2 (09:12→21:42)
[2021-09-02] MEDS: OMEGA-3 ACID ETHYL ESTERS 1 GM CAPSULE PO SCH ×2 (09:26→21:42)
[2021-09-02] MEDS: FLUoxetine 10 MG CAPSULE PO SCH (09:27)
[2021-09-02] MEDS ORDERED: FUROSEMIDE 40 MG/4 ML VIAL IVP STA (14:35)
[2021-09-02] MEDS: TERAZOSIN 2 MG CAPSULE PO SCH (17:09)
[2021-09-02] MEDS: SACCHAROMYCES BOULARDII 250 MG CAPSULE PO SCH (17:09)
[2021-09-02] MEDS: MULTIVITAMIN TABLET PO SCH (21:41)
[2021-09-02] MEDS: ATORVASTATIN 40 MG TABLET PO SCH (21:42)
[2021-09-03] MEDS: methocarbamoL 500 MG TABLET PO PRN (00:45)
[2021-09-03 05:01] LABS: BASOPHILS # (AUTO) 0.1 10^3/uL (0.0-0.1); BASOPHILS % (AUTO) 0.8 %; EOSINOPHILS # (AUTO) 0.3 10^3/uL (0.0-0.7); EOSINOPHILS % (AUTO) 3.7 %; HCT - HEMATOCRIT 43.5 % (42.0-52.0); HGB - HEMOGLOBIN 13.3 g/dL (14.0-18.0); LYMPHOCYTES # (AUTO) 2.3 10^3/uL (1.5-3.5); LYMPHOCYTES % (AUTO) 31.1 %; MEAN CORPUSCULAR HEMOGLOBIN 27.3 pg (27.0-31.0); MEAN CORPUSCULAR HGB CONC 30.6 g/dL (32.0-36.0); MEAN CORPUSCULAR VOLUME 89.3 fL (80.0-94.0); MEAN PLATELET VOLUME 9.2 fL (7.4-11.4); MONOCYTES # (AUTO) 0.5 10^3/uL (0.0-1.0); MONOCYTES % (AUTO) 6.7 %; NEUTROPHILS # (AUTO) 4.1 10^3/uL (1.5-6.6); PLT - PLATELET COUNT 311 10^3/uL (130-450); RED BLOOD COUNT 4.87 10^6/uL (4.70-6.10); RED CELL DISTRIBUTION WIDTH 18.8 % (12.0-15.0); WHITE BLOOD COUNT 7.3 x10^3/uL (4.8-10.8)
[2021-09-03] MEDS: MEROPENEM 1 GM in SODIUM CHLORIDE 0.9% MINIBAG 100 ML IV SCH ×3 (05:06→20:48)
[2021-09-03 05:18] LABS: CREATININE 1.1 mg/dL (0.6-1.2); POTASSIUM 3.8 mmol/L (3.5-5.0)
[2021-09-03] MEDS: guaiFENesin/CODEINE 5 ML UDC PO PRN (05:18)
[2021-09-03] MEDS: LORazepam 0.5 MG TABLET PO PRN ×2 (05:19→14:24)
[2021-09-03] MEDS: ISOSORBIDE MONONITRATE ER 30 MG TABLET PO SCH (05:22)
[2021-09-03] MEDS: PANTOPRAZOLE 40 MG TABLET PO SCH (05:22)
[2021-09-03] MEDS: DARUNAVIR ETHANOLATE 600 MG PO SCH ×2 (10:17→18:10)
[2021-09-03] MEDS: DOLUTEGRAVIR SODIUM 50 MG PO SCH ×2 (10:18→20:54)
[2021-09-03] MEDS: RITONAVIR 100 MG PO SCH ×2 (10:18→18:11)
[2021-09-03] MEDS: polyethylene glycoL 3350 17 GM PACKET PO SCH (10:21)
[2021-09-03] MEDS: SACCHAROMYCES BOULARDII 250 MG CAPSULE PO SCH ×2 (10:24→18:11)
[2021-09-03] MEDS: AMIODARONE 200 MG TABLET PO SCH (10:25)
[2021-09-03] MEDS: CHOLECALCIFEROL 25 MCG TABLET PO SCH (10:27)
[2021-09-03] MEDS: atenoloL 25 MG TABLET PO SCH (10:28)
[2021-09-03] MEDS: FLUCONAZOLE 100 MG TABLET PO SCH (10:28)
[2021-09-03] MEDS: TOPIRAMATE 25 MG TABLET PO SCH ×2 (10:29→20:53)
[2021-09-03] MEDS: FLUoxetine 10 MG CAPSULE PO SCH (10:29)
[2021-09-03] MEDS: FUROSEMIDE 20 MG TABLET PO SCH (10:30)
[2021-09-03] MEDS: gemfibroziL 600 MG TABLET PO SCH ×2 (10:31→20:52)
[2021-09-03] MEDS: guaiFENesin 600 MG TABLET PO SCH ×2 (10:31→20:52)
[2021-09-03] MEDS: APIXABAN 5 MG TABLET PO SCH ×2 (10:31→20:51)
[2021-09-03] MEDS: SULFAMETH/TRIMETH DS 800/160 MG TABLET PO SCH ×2 (10:31→20:52)
[2021-09-03] MEDS: CLOPIDOGREL 75 MG TABLET PO SCH (10:32)
[2021-09-03] MEDS: buPROPion XL 150 MG TABLET PO SCH (10:32)
[2021-09-03] MEDS: SODIUM CHLORIDE FLUSH 0.9% 10 ML SYRINGE IVP SCH ×2 (10:33→16:11)
[2021-09-03] MEDS: OMEGA-3 ACID ETHYL ESTERS 1 GM CAPSULE PO SCH ×2 (10:48→20:52)
[2021-09-03] MEDS: METHADONE 5 MG TABLET PO PRN ×2 (10:49→20:59)
--- NOTE | 2021-09-03 12:48 | ANESTHESIA PROCEDURE NOTE ---
Anesth Central Line Template - Central Line Central Line Preparation: Consent Obtained, Time out completed, Ultrasound used, Sterile prep and drape Central line location: Right Basilic Central line type: PICC Single Lumen Central line catheter tip site resides: Superior vena cava (SVC) Central line aftercare: Secured, Placement confirmed, No complications, Bundle checklist complete, Pt tolerated well
--- NOTE | 2021-09-03 13:02 | XRAY Report ---
PROCEDURE: Chest for Line Placement INDICATIONS: PICC line placements TECHNIQUE: One view of the chest was acquired. COMPARISON: 08/31/2021 FINDINGS: Surgical changes and devices: Median sternotomy. Right arm PICC is present, tip of which is at the ca voatrial junction. Lungs and pleura: No pleural effusions or pneumothorax. Moderate diffuse reticulonodular pulmonary o pacity, as before. Mediastinum: Mediastinal contours appear normal. Heart size is normal. Bones and chest wall: No suspicious bony lesions. Overlying soft tissues appear unremarkable. IMPRESSION: No change in moderate atypical pneumonia. Reviewed by: Osorio Santos MD on 09/03/2021 1:00 PM [facility] Approved by: Osorio Santos MD on 09/03/2021 1:00 PM [facility] Station ID: [id number]
--- NOTE | 2021-09-03 14:13 | PROVIDER PROGRESS NOTE ---
Assessment/Plan - Problem List (1) Respiratory failure with hypoxia Assessment/Plan: significant improvement in his respiratory status. pt has no acute respiratory distress. pt had 98% O2 sat on 2 liter of O2, we will try wane off O2 supplement as pt tolerated. continue IV of Meropenem, Fluconazole, Bactrim, continue home Lasix PO (2) Pneumonia significant improvement. pt has no acute respiratory distress. pt had 98% O2 sat on 2 liter of O2. pt's CRP continue to trended down, WBC is at normal arrange although pt is HIV positive for 8 yrs per pt's report. pt has been medical treated with HIV. continue IV of Meropenem, Fluconazole, Bactrim, continue home Lasix PO. pt had PICC line, per ID, will continue to have total 14 dasy IV of meropenem. (3) HIV (human immunodeficiency virus infection) CD4 count and HIV RNA load copies test are pending. Patient reports that his CD4 count was over 900 a couple of years ago. pt is On Prezista, Tivicay and Ritonavir (4) Hypothyroidism Assessment/Plan: continue Synthroid 25 mcg p.o. daily AC. TSH on 08/29/2021 was 2.20 (5) BPH (benign prostatic hyperplasia) Assessment/Plan: continue On Terazosin 4 mg p.o. nightly (6) Depression Assessment/Plan: stable, On Prozac 40 mg p.o. daily. (7) Coronary artery disease stable, continue On isosorbide mononitrate 30 mg p.o. every morning, Lovaza 2 g p.o. twice daily, Gemfibrozil 600 mg p.o. twice daily, Atorvastatin 40 mg p.o. every afternoon, Atenolol 50 mg p.o. daily and Eliquis 5 mg p.o. twice daily (8) Back pain Assessment/Plan: Methadone 10 mg p.o. 3 times daily as needed. Tylenol 650 mg p.o. every 4 hours as needed - Current Meds Current Meds: Current Medications Generic Name Dose Route Start Last Admin Trade Name Freq PRN Reason Stop Dose Admin Acetaminophen 650 mg 08/28/21 20:00 09/01/21 17:19 Acetaminophen 325 Mg Tablet PO 650 mg Q4HR PRN Administration Pain or Fever > 38C (100.4F) Albuterol 2 puffs 08/31/21 11:33 09/02/21 02:30 Albuterol 1 Puff INH 2 puffs Q4H PRN Administration Dyspnea Amiodarone HCl 100 mg 08/29/21 12:00 09/03/21 10:25 Amiodarone 200 Mg Tablet PO 100 mg DAILY TREVER Administration Apixaban 5 mg 08/29/21 12:00 09/03/21 10:31 Apixaban 5 Mg Tablet PO 5 mg BID TREVER Administration Atenolol 50 mg 08/29/21 13:00 09/03/21 10:28 Atenolol 25 Mg Tablet PO 50 mg DAILY TREVER Administration Atorvastatin Calcium 40 mg 08/29/21 21:00 09/02/21 21:42 Atorvastatin 40 Mg Tablet PO 40 mg QPM TREVER Administration Bupropion HCl 300 mg 08/30/21 09:00 09/03/21 10:32 Bupropion Xl 150 Mg Tablet PO 300 mg DAILY TREVER Administration Cholecalciferol 50 mcg 08/30/21 11:00 09/03/21 10:27 Cholecalciferol 25 Mcg Tablet PO 50 mcg DAILY TREVER Administration Clopidogrel Bisulfate 75 mg 08/29/21 12:00 09/03/21 10:32 Clopidogrel 75 Mg Tablet PO 75 mg DAILY TREVER Administration Fluconazole 100 mg 08/30/21 13:00 09/03/21 10:28 Fluconazole 100 Mg Tablet PO 09/05/21 09:01 100 mg DAILY TREVER Administration Fluoxetine HCl 40 mg 08/30/21 09:00 09/03/21 10:29 Fluoxetine 10 Mg Capsule PO 40 mg DAILY TREVER Administration Furosemide 20 mg 09/03/21 10:00 09/03/21 10:30 Furosemide 20 Mg Tablet PO 20 mg DAILY TREVER Administration Gemfibrozil 600 mg 08/29/21 21:00 09/03/21 10:31 Gemfibrozil 600 Mg Tablet PO 600 mg BID TREVER Administration Guaifenesin 600 mg 08/29/21 11:00 09/03/21 10:31 Guaifenesin 600 Mg Tablet PO 600 mg BID TREVER Administration Guaifenesin/Codeine Phosphate 5 ml 08/28/21 23:47 09/03/21 05:18 Guaifenesin/Codeine 5 Ml Udc PO 5 ml Q6HR PRN Administration Cough Meropenem 1 gm/ Sodium 100 mls @ 200 mls/hr 08/31/21 12:00 09/03/21 05:36 Chloride IV Infused Q8H TREVER Infusion Isosorbide Mononitrate 30 mg 08/30/21 06:00 09/03/21 05:22 Isosorbide Mononitrate Er 30 Mg Tablet PO 30 mg 0600 T[facility] Administration Levothyroxine Sodium 25 mcg 08/30/21 07:00 09/03/21 05:22 ] PO 25 mcg QDAC TREVER Administration Lorazepam 0.5 mg 08/29/21 23:47 09/03/21 05:19 Lorazepam 0.5 Mg Tablet PO 0.5 mg Q8H PRN Administration Anxiety Methadone HCl 10 mg 08/29/21 11:57 09/03/21 10:49 Methadone 5 Mg Tablet PO 10 mg TID PRN Administration PAIN Methocarbamol 500 mg 08/29/21 11:57 09/03/21 00:45 Methocarbamol 500 Mg Tablet PO 500 mg TID PRN Administration Spasms Multivitamins 1 tab 08/30/21 21:00 09/02/21 21:41 Multivitamin Tablet PO 1 tab QPM TREVER Administration Pt Own Med ( 50 mg 08/29/21 17:00 09/03/21 10:18 Dolutegravir Sodium PO 50 mg [Tivicay] 50 Mg BID TREVER Administration Tablet) Pt Own Med ( 100 mg 08/29/21 17:00 09/03/21 10:18 Ritonavir [Norvir] PO 100 mg 100 Mg) BIDWM TREVER Administration Pt Own Med ( 600 mg 08/29/21 17:00 09/03/21 10:17 Darunavir Ethanolate PO 600 mg [Prezista] 600 Mg) BIDWM TREVER Administration [id number] Ethyl Esters 2 gm 08/29/21 21:00 09/03/21 10:48 [place]-3 Acid Ethyl Esters 1 Gm Capsule PO 2 gm BID TREVER Administration Pantoprazole Sodium 40 mg 08/30/21 07:00 09/03/21 05:22 Pantoprazole 40 Mg Tablet PO 40 mg QDAC TRE[facility] Administration Polyethylene Glycol 17 gm 09/02/21 09:00 09/03/21 10:21 Polyethylene Glycol 3350 17 Gm Packet PO Not Given DAILY TREVER Saccharomyces Boulardii 250 mg 09/02/21 17:00 09/03/21 10:24 Saccharomyces Boulardii 250 Mg Capsule PO 250 mg BIDWM [facility]RE[facility] Administration Sodium Chloride 10 ml 08/29/21 01:00 09/03/21 10:33 Sodium Chloride Flush 0.9% 10 Ml Syringe IVP 10 ml 0100,0900,1700 TRE[facility] Administration Terazosin HCl 4 mg 08/29/21 17:00 09/02/21 17:09 Terazosin 2 Mg Capsule PO 4 mg QDDINNER [facility] Administration Throat Lozenges 1 lozenge 09/02/21 04:55 09/02/21 09:01 Benzocaine/Menthol Lozenge MM 1 lozenge Q2HR PRN Administration Throat pain Topiramate 50 mg 08/29/21 21:00 09/03/21 10:29 Topiramate 25 Mg Tablet PO 50 mg BID TREVER Administration Trimethoprim/Sulfamethoxazole 1 tab 08/29/21 09:00 09/03/21 10:31 Sulfameth/Trimeth Ds 800/160 Mg Tablet PO 1 tab BID TREVER Administration - Lab Result Fish Bone Diagrams: 09/03/21 04:50 09/03/21 04:50 - Additional Planning My Orders: My Active Orders 09/03/21 Social Work Consult [CONS] Routine 09/03/21 08:11 PICC Line Care [RC] Q7D PICC Line Insert [RC] .ONCE 09/03/21 10:00 Furosemide [Lasix] 20 mg PO DAILY 09/04/21 05:00 BMP - BASIC METABOLIC PANEL [CHEM] DAILYLAB CBC - COMP BLD CT W/AUTO DIFF [HEME] DAILYLAB Subjective - Subjective Patient Reports: Feeling Better, Resting Comfortably Objective Vital Signs: Vital Signs - 24 hr 09/02/21 09/02/21 09/03/21 16:03 21:00 00:30 Temperature 36.7 C 36.7 C 36.9 C Heart Rate [ 59 L 59 L 60 Brachial] Respiratory 18 21 16 Rate Blood Pressure 107/63 [Left Brachial artery] Blood Pressure 108/59 L 101/67 [Right Brachial artery] O2 Saturation 96 96 95 09/03/21 09/03/21 09/03/21 05:12 07:44 08:55 Temperature 36.8 C 37.1 C Heart Rate [ 57 L 58 L 62 Brachial] Respiratory 16 16 18 Rate Blood Pressure [Left Brachial artery] Blood Pressure 112/67 112/72 [Right Brachial artery] O2 Saturation 96 93 95 09/03/21 09/03/21 09/03/21 08:56 08:57 10:03 Temperature Heart Rate [ 65 66 71 Brachial] Respiratory 18 18 21 Rate Blood Pressure [Left Brachial artery] Blood Pressure [Right Brachial artery] O2 Saturation 92 91 L 09/03/21 09/03/21 12:48 13:55 Temperature 36.6 C Heart Rate [ 61 58 L Brachial] Respiratory 18 18 Rate Blood Pressure 112/72 [Left Brachial artery] Blood Pressure [Right Brachial artery] O2 Saturation 98 98 Oxygen O2 Source Nasal cannula Oxygen Flow Rate 2 I&O (Last 24 Hrs): Intake and Output Totals x24h 09/01/21 09/02/21 09/03/21 23:59 23:59 23:59 Intake Total 1960 2850 1530 Output Total 2450 2375 400 Balance -885 085 2236 General: Alert, Oriented x3, Cooperative, No acute distress HEENT: Atraumatic, PERRLA Neck: Supple Lymphatic: no adenopathy Neuro: Alert, Non Focal, Oriented Times 3 Cardiovascular: Regular rate, Normal S1, Normal S2 Respiratory: Chest non-tender, No respiratory distress Abdomen: Normal bowel sounds, Soft, No tenderness Extremities: Normal pulses - Results Results: Laboratory Results WBC 7.3 x10^3/uL (4.8-10.8) 09/03/21 04:50 RBC 4.87 10^6/uL (4.70-6.10) 09/03/21 04:50 Hgb 13.3 g/dL (14.0-18.0) L 09/03/21 04:50 Hct 43.5 % (42.0-52.0) 09/03/21 04:50 MCV 89.3 fL (80.0-94.0) 09/03/21 04:50 MCH 27.3 pg (27.0-31.0) 09/03/21 04:50 MCHC 30.6 g/dL (32.0-36.0) L 09/03/21 04:50 RDW 18.8 % (12.0-15.0) H 09/03/21 04:50 Plt Count 311 10^3/uL (130-450) 09/03/21 04:50 MPV 9.2 fL (7.4-11.4) 09/03/21 04:50 Neut # (Auto) 4.1 10^3/uL (1.5-6.6) 09/03/21 04:50 Lymph # (Auto) 2.3 10^3/uL (1.5-3.5) 09/03/21 04:50 [place] # (Auto) 0.5 10^3/uL (0.0-1.0) 09/03/21 04:50 Eos # (Auto) 0.3 10^3/uL (0.0-0.7) 09/03/21 04:50 Baso # (Auto) 0.1 10^3/uL (0.0-0.1) 09/03/21 04:50 Absolute Nucleated RBC 0.00 x10^3/uL 09/03/21 04:50 Nucleated RBC % 0.0 /100WBC 09/03/21 04:50 Sodium 134 mmol/L (135-145) L 09/03/21 04:50 Potassium 3.8 mmol/L (3.5-5.0) 09/03/21 04:50 Chloride 101 mmol/L (101-111) 09/03/21 04:50 Carbon Dioxide 23 mmol/L (21-32) 09/03/21 04:50 Anion Gap 10.0 (6-13) 09/03/21 04:50 BUN 21 mg/dL (6-20) H 09/03/21 04:50 Creatinine 1.1 mg/dL (0.6-1.2) 09/03/21 04:50 Estimated GFR (MDRD) 69 (>89) L 09/03/21 04:50 Glucose 123 mg/dL (70-100) H 09/03/21 04:50 Calcium 9.0 mg/dL (8.5-10.3) 09/03/21 04:50 Magnesium 1.9 mg/dL (1.7-2.8) 08/29/21 05:11 Total Bilirubin 0.7 mg/dL (0.2-1.0) 08/28/21 16:44 AST 25 IU/L (10-42) 08/28/21 16:44 ALT 19 IU/L (10-60) 08/28/21 16:44 Alkaline Phosphatase 83 IU/L (42-121) 08/28/21 16:44 Lactate Dehydrogenase 314 IU/L (91-225) H 08/31/21 16:00 Troponin I High Sens 6.0 ng/L (2.3-19.7) 08/30/21 15:47 C-Reactive Protein 5.0 mg/dL (0-1.0) H 09/03/21 04:50 B-Natriuretic Peptide 135 pg/mL (5-100) H 08/30/21 05:26 Total Protein 8.0 g/dL (6.7-8.2) 08/28/21 16:44 Albumin 3.5 g/dL (3.2-5.5) 08/28/21 16:44 Globulin 4.5 g/dL (2.1-4.2) H 08/28/21 16:44 Albumin/Globulin Ratio 0.8 (1.0-2.2) L 08/28/21 16:44 Triglycerides 110 mg/dL (-149) 08/29/21 05:11 Cholesterol 126 mg/dL (-199) 08/29/21 05:11 LDL Cholesterol, Calc 59 mg/dL (-129) 08/29/21 05:11 VLDL Cholesterol 22 mg/dL 08/29/21 05:11 HDL Cholesterol 45 mg/dL (60-) L 08/29/21 05:11 LDL/HDL Ratio 1.3 (<3.6) 08/29/21 05:11 Cholesterol/HDL Ratio 2.8 (<5.0) 08/29/21 05:11 Lipase 25 U/L (22-51) 08/28/21 16:44 TSH 2.20 uIU/mL (0.34-5.60) 08/29/21 05:11 Nasal Adenovirus (PCR) NOT DETECTED 08/28/21 22:10 Nasal B. parapertussis DNA (PCR) NOT DETECTED 08/28/21 22:10 Nasal Coronavir 229E PCR NOT DETECTED 08/28/21 22:10 Nasal Coronavir HKU1 PCR NOT DETECTED 08/28/21 22:10 Nasal Coronavir NL63 PCR NOT DETECTED 08/28/21 22:10 Nasal Coronavir OC43 PCR NOT DETECTED 08/28/21 22:10 Nasal Enterovir/Rhinovir PCR NOT DETECTED 08/28/21 22:10 Nasal Influenza B PCR NOT DETECTED 08/28/21 22:10 Nasal Influenza A PCR NOT DETECTED 08/28/21 22:10 Nasal Parainfluen 1 PCR NOT DETECTED 08/28/21 22:10 Nasal Parainfluen 2 PCR NOT DETECTED 08/28/21 22:10 Nasal Parainfluen 3 PCR NOT DETECTED 08/28/21 22:10 Nasal Parainfluen 4 PCR NOT DETECTED 08/28/21 22:10 Nasal RSV (PCR) NOT DETECTED 08/28/21 22:10 Nasal B.pertussis DNA PCR NOT DETECTED 08/28/21 22:10 Nasal C.pneumoniae (PCR) NOT DETECTED 08/28/21 22:10 [place] Human Metapneumo PCR NOT DETECTED 08/28/21 22:10 Nasal M.pneumoniae (PCR) NOT DETECTED 08/28/21 22:10 Nasal SARS-CoV-2 (PCR) NOT DETECTED 08/28/21 22:10 Coronavirus (PCR) NEGATIVE 08/31/21 13:30 SARS-CoV-2 IgG Ab >150.00 index (<1.00) H 08/31/21 16:00 ABX Reporting Has patient been on IV antibiotics over the past 48 hours?: Yes Current Medications - Current Medications Current Medications: Active Medications Acetaminophen (Acetaminophen 325 Mg Tablet) 650 mg PO Q4HR PRN PRN Reason: Pain or Fever > 38C (100.4F) Last Admin: 09/01/21 17:19 Dose: 650 mg Documented by: Albuterol (Albuterol 1 Puff) 2 puffs INH Q4H PRN PRN Reason: Dyspnea Last Admin: 09/02/21 02:30 Dose: 2 puffs Documented by: Amiodarone HCl (Amiodarone 200 Mg Tablet) 100 mg PO DAILY [facility] Last Admin: 09/03/21 10:25 Dose: 100 mg Documented by: Apixaban (Apixaban 5 Mg Tablet) 5 mg PO BID [facility] Last Admin: 09/03/21 10:31 Dose: 5 mg Documented by: Atenolol (Atenolol 25 Mg Tablet) 50 mg PO DAILY [facility] Last Admin: 09/03/21 10:28 Dose: 50 mg Documented by: Atorvastatin Calcium (Atorvastatin 40 Mg Tablet) 40 mg PO QPM [facility] Last Admin: 09/02/21 21:42 Dose: 40 mg Documented by: Bupropion HCl (Bupropion Xl 150 Mg Tablet) 300 mg PO DAILY [facility] Last Admin: 09/03/21 10:32 Dose: 300 mg Documented by: Cholecalciferol (Cholecalciferol 25 Mcg Tablet) 50 mcg PO DAILY [facility] Last Admin: 09/03/21 10:27 Dose: 50 mcg Documented by: Clopidogrel Bisulfate (Clopidogrel 75 Mg Tablet) 75 mg PO DAILY [facility] Last Admin: 09/03/21 10:32 Dose: 75 mg Documented by: Fluconazole (Fluconazole 100 Mg Tablet) 100 mg PO DAILY [facility] Stop: 09/05/21 09:01 Last Admin: 09/03/21 10:28 Dose: 100 mg Documented by: Fluoxetine HCl (Fluoxetine 10 Mg Capsule) 40 mg PO DAILY [facility] Last Admin: 09/03/21 10:29 Dose: 40 mg Documented by: Furosemide (Furosemide 20 Mg Tablet) 20 mg PO DAILY [facility] Last Admin: 09/03/21 10:30 Dose: 20 mg Documented by: Gemfibrozil (Gemfibrozil 600 Mg Tablet) 600 mg PO BID [facility] Last Admin: 09/03/21 10:31 Dose: 600 mg Documented by: Guaifenesin (Guaifenesin 600 Mg Tablet) 600 mg PO BID [facility] Last Admin: 09/03/21 10:31 Dose: 600 mg Documented by: Guaifenesin/Codeine Phosphate (Guaifenesin/Codeine 5 Ml Udc) 5 ml PO Q6HR PRN PRN Reason: Cough Last Admin: 09/03/21 05:18 Dose: 5 ml Documented by: Meropenem 1 gm/ Sodium (Chloride) 100 mls @ 200 mls/hr IV Q8H [facility] Last Admin: 09/03/21 14:06 Dose: 200 mls/hr Documented by: Isosorbide Mononitrate (Isosorbide Mononitrate Er 30 Mg Tablet) 30 mg PO 0600 [facility] Last Admin: 09/03/21 05:22 Dose: 30 mg Documented by: Levothyroxine Sodium (]) 25 mcg PO QDAC [facility] Last Admin: 09/03/21 05:22 Dose: 25 mcg Documented by: Lorazepam (Lorazepam 0.5 Mg Tablet) 0.5 mg PO Q8H PRN PRN Reason: Anxiety Last Admin: 09/03/21 14:24 Dose: 0.5 mg Documented by: Methadone HCl (Methadone 5 Mg Tablet) 10 mg PO TID PRN PRN Reason: PAIN Last Admin: 09/03/21 10:49 Dose: 10 mg Documented by: Methocarbamol (Methocarbamol 500 Mg Tablet) 500 mg PO TID PRN PRN Reason: Spasms Last Admin: 09/03/21 00:45 Dose: 500 mg Documented by: Multivitamins (Multivitamin Tablet) 1 tab PO QPM [facility] Last Admin: 09/02/21 21:41 Dose: 1 tab Documented by: Nitroglycerin (Nitroglycerin Sl 0.4 Mg Tablet) 0.4 mg SL Q5MIN PRN PRN Reason: Chest Pain Pt Own Med ( Dolutegravir Sodium [Tivicay] 50 Mg Tablet) 50 mg PO BID [facility] Last Admin: 09/03/21 10:18 Dose: 50 mg Documented by: Pt Own Med ( Ritonavir [Norvir] 100 Mg) 100 mg PO BIDWM [facility] Last Admin: 09/03/21 10:18 Dose: 100 mg Documented by: Pt Own Med ( Darunavir Ethanolate [Prezista] 600 Mg) 600 mg PO BIDWM [facility] Last Admin: 09/03/21 10:17 Dose: 600 mg Documented by: [id number] Ethyl Esters ([place]-3 Acid Ethyl Esters 1 Gm Capsule) 2 gm PO BID [facility] Last Admin: 09/03/21 10:48 Dose: 2 gm Documented by: Ondansetron HCl (Ondansetron 4 Mg/2 Ml Vial) 4 mg IVP Q6HR PRN PRN Reason: Nausea / Vomiting Pantoprazole Sodium (Pantoprazole 40 Mg Tablet) 40 mg PO QDAC [facility] Last Admin: 09/03/21 05:22 Dose: 40 mg Documented by: Polyethylene Glycol (Polyethylene Glycol 3350 17 Gm Packet) 17 gm PO DAILY [facility] Last Admin: 09/03/21 10:21 Dose: Not Given Documented by: Saccharomyces Boulardii (Saccharomyces Boulardii 250 Mg Capsule) 250 mg PO BIDWM [facility] Last Admin: 09/03/21 10:24 Dose: 250 mg Documented by: Sodium Chloride (Sodium Chloride Flush 0.9% 10 Ml Syringe) 10 ml IVP PRN PRN PRN Reason: NEEDED PER PROVIDER ORDERS Sodium Chloride (Sodium Chloride Flush 0.9% 10 Ml Syringe) 10 ml IVP 0100,0900,1700 [facility] Last Admin: 09/03/21 10:33 Dose: 10 ml Documented by: Terazosin HCl (Terazosin 2 Mg Capsule) 4 mg PO QDDINNER [facility] Last Admin: 09/02/21 17:09 Dose: 4 mg Documented by: Throat Lozenges (Benzocaine/Menthol Lozenge) 1 lozenge MM Q2HR PRN PRN Reason: Throat pain Last Admin: 09/02/21 09:01 Dose: 1 lozenge Documented by: Topiramate (Topiramate 25 Mg Tablet) 50 mg PO BID [facility] Last Admin: 09/03/21 10:29 Dose: 50 mg Documented by: Trimethoprim/Sulfamethoxazole (Sulfameth/Trimeth Ds 800/160 Mg Tablet) 1 tab PO BID [facility] Last Admin: 09/03/21 10:31 Dose: 1 tab Documented by: Omeprazole [PriLOSEC] 40 mg PO DAILY 06/21/16 Ritonavir [Norvir] 100 mg PO BIDWM 06/21/16 Amiodarone [Pacerone] 100 mg PO DAILY 08/29/21 Apixaban [Eliquis] 5 mg PO BID 08/29/21 Atenolol [Tenormin] 50 mg PO DAILY 08/29/21 Benazepril HCl 10 mg PO DAILY 08/29/21 Clopidogrel [Plavix] 75 mg PO DAILY 08/29/21 Darunavir Ethanolate [Prezista] 600 mg PO BIDWM 08/29/21 Dolutegravir Sodium [Tivicay] 50 mg PO BID 08/29/21 Evolocumab [Repatha Sureclick] 1 ml SQ Q14D 08/29/21 Fluoxetine HCl [Prozac] 40 mg PO DAILY 08/29/21 Furosemide [Lasix] 40 mg PO DAILY 08/29/21 Isosorbide Mononitrate ER [Imdur] 30 mg PO 0600 08/29/21 Levothyroxine Sodium [Levothyroxine] 25 mcg PO DAILY 08/29/21 Methadone [Methadone Hcl] 10 mg PO TID PRN 08/29/21 [place]-3 Acid Ethyl Esters [Lovaza] 2 gm PO BID 08/29/21 Potassium Chloride 10 meq PO DAILY 08/29/21 Rosuvastatin Calcium [Crestor] 20 mg PO DAILY 08/29/21 Terazosin HCl [Hytrin] 4 mg PO QDDINNER 08/29/21 Topiramate [Topamax] 50 mg PO BID 08/29/21 buPROPion HCL [Bupropion Xl] 300 mg PO DAILY 08/29/21 gemfibroziL [Lopid] 600 mg PO BID 08/29/21 methocarbamoL [Methocarbamol] 500 mg PO TID PRN 08/29/21
[2021-09-03] MEDS: TERAZOSIN 2 MG CAPSULE PO SCH (18:11)
[2021-09-03] MEDS: ATORVASTATIN 40 MG TABLET PO SCH (20:51)
[2021-09-03] MEDS: MULTIVITAMIN TABLET PO SCH (20:52)
[2021-09-04] MEDS: methocarbamoL 500 MG TABLET PO PRN ×2 (01:36→16:25)
[2021-09-04] MEDS: SODIUM CHLORIDE FLUSH 0.9% 10 ML SYRINGE IVP SCH ×3 (01:36→16:25)
[2021-09-04] MEDS: LORazepam 0.5 MG TABLET PO PRN ×3 (01:48→17:17)
[2021-09-04] MEDS: MEROPENEM 1 GM in SODIUM CHLORIDE 0.9% MINIBAG 100 ML IV SCH ×2 (04:33→12:36)
[2021-09-04] MEDS: SODIUM CHLORIDE FLUSH 0.9% 10 ML SYRINGE IVP PRN ×2 (04:37→12:30)
[2021-09-04] MEDS: PANTOPRAZOLE 40 MG TABLET PO SCH (05:53)
[2021-09-04] MEDS: ISOSORBIDE MONONITRATE ER 30 MG TABLET PO SCH (05:53)
[2021-09-04 06:31] LABS: BASOPHILS # (AUTO) 0.1 10^3/uL (0.0-0.1); BASOPHILS % (AUTO) 0.6 %; EOSINOPHILS # (AUTO) 0.3 10^3/uL (0.0-0.7); EOSINOPHILS % (AUTO) 3.2 %; HGB - HEMOGLOBIN 13.5 g/dL (14.0-18.0); LYMPHOCYTES # (AUTO) 2.5 10^3/uL (1.5-3.5); LYMPHOCYTES % (AUTO) 32.4 %; MEAN CORPUSCULAR HEMOGLOBIN 27.7 pg (27.0-31.0); MEAN CORPUSCULAR HGB CONC 30.7 g/dL (32.0-36.0); MEAN CORPUSCULAR VOLUME 90.2 fL (80.0-94.0); MEAN PLATELET VOLUME 9.4 fL (7.4-11.4); MONOCYTES # (AUTO) 0.8 10^3/uL (0.0-1.0); MONOCYTES % (AUTO) 10.1 %; NEUTROPHILS # (AUTO) 4.1 10^3/uL (1.5-6.6); NEUTROPHILS % (AUTO) 52.9 %; PLT - PLATELET COUNT 332 10^3/uL (130-450); RED BLOOD COUNT 4.88 10^6/uL (4.70-6.10); RED CELL DISTRIBUTION WIDTH 18.5 % (12.0-15.0); WHITE BLOOD COUNT 7.7 x10^3/uL (4.8-10.8)
[2021-09-04 06:40] LABS: CALCIUM 8.8 mg/dL (8.5-10.3); CREATININE 1.1 mg/dL (0.6-1.2); POTASSIUM 3.9 mmol/L (3.5-5.0)
[2021-09-04] MEDS: guaiFENesin 600 MG TABLET PO SCH (09:11)
[2021-09-04] MEDS: FLUCONAZOLE 100 MG TABLET PO SCH (09:11)
[2021-09-04] MEDS: SACCHAROMYCES BOULARDII 250 MG CAPSULE PO SCH ×2 (09:11→16:25)
[2021-09-04] MEDS: APIXABAN 5 MG TABLET PO SCH (09:12)
[2021-09-04] MEDS: atenoloL 25 MG TABLET PO SCH (09:12)
[2021-09-04] MEDS: FUROSEMIDE 20 MG TABLET PO SCH (09:12)
[2021-09-04] MEDS: TOPIRAMATE 25 MG TABLET PO SCH (09:12)
[2021-09-04] MEDS: AMIODARONE 200 MG TABLET PO SCH (09:12)
[2021-09-04] MEDS: CHOLECALCIFEROL 25 MCG TABLET PO SCH (09:12)
[2021-09-04] MEDS: gemfibroziL 600 MG TABLET PO SCH (09:13)
[2021-09-04] MEDS: CLOPIDOGREL 75 MG TABLET PO SCH (09:13)
[2021-09-04] MEDS: SULFAMETH/TRIMETH DS 800/160 MG TABLET PO SCH (09:13)
[2021-09-04] MEDS: FLUoxetine 10 MG CAPSULE PO SCH (09:13)
[2021-09-04] MEDS: buPROPion XL 150 MG TABLET PO SCH (09:13)
[2021-09-04] MEDS: OMEGA-3 ACID ETHYL ESTERS 1 GM CAPSULE PO SCH (09:14)
[2021-09-04] MEDS: polyethylene glycoL 3350 17 GM PACKET PO SCH (09:14)
[2021-09-04] MEDS: RITONAVIR 100 MG PO SCH ×2 (09:15→16:28)
[2021-09-04] MEDS: DARUNAVIR ETHANOLATE 600 MG PO SCH ×2 (09:16→16:27)
[2021-09-04] MEDS: DOLUTEGRAVIR SODIUM 50 MG PO SCH (12:46)
[2021-09-04] MEDS: METHADONE 5 MG TABLET PO PRN ×2 (13:18→17:16)
--- NOTE | 2021-09-04 16:21 | PROVIDER PROGRESS NOTE ---
Assessment/Plan - Problem List (1) Respiratory failure with hypoxia Assessment/Plan: 09/04 pt has no acute respiratory distress. he had stable 92-94 % O2 sat on room air. consult with licensed social worker, and plan d/c pt to hospital swing bed on tomorrow, pt is required to have another 9 days IV of Meropenem significant improvement in his respiratory status. pt has no acute respiratory distress. pt had 98% O2 sat on 2 liter of O2, we will try wane off O2 supplement as pt tolerated. continue IV of Meropenem, Fluconazole, Bactrim, continue home Lasix PO (2) Pneumonia 09/04 he had stable 92-94 % O2 sat on room air, his cough is controlled. continue antibiotics, plan to d/c to Swing bed on tomorrow. significant improvement. pt has no acute respiratory distress. pt had 98% O2 sat on 2 liter of O2. pt's CRP continue to trended down, WBC is at normal arrange although pt is HIV positive for 8 yrs per pt's report. pt has been medical treated with HIV. continue IV of Meropenem, Fluconazole, Bactrim, continue home Lasix PO. pt had PICC line, per ID, will continue to have total 14 dasy IV of meropenem. (3) HIV (human immunodeficiency virus infection) CD4 count and HIV RNA load copies test are pending. Patient reports that his CD4 count was over 900 a couple of years ago. pt is On Prezista, Tivicay and Ritonavir (4) Hypothyroidism Assessment/Plan: continue Synthroid 25 mcg p.o. daily AC. TSH on 08/29/2021 was 2.20 (5) BPH (benign prostatic hyperplasia) Assessment/Plan: continue On Terazosin 4 mg p.o. nightly (6) Depression Assessment/Plan: stable, On Prozac 40 mg p.o. daily. (7) Coronary artery disease stable, continue On isosorbide mononitrate 30 mg p.o. every morning, Lovaza 2 g p.o. twice daily, Gemfibrozil 600 mg p.o. twice daily, Atorvastatin 40 mg p.o. every afternoon, Atenolol 50 mg p.o. daily and Eliquis 5 mg p.o. twice daily (8) Back pain Assessment/Plan: Methadone 10 mg p.o. 3 times daily as needed. Tylenol 650 mg p.o. every 4 hours as needed - Current Meds Current Meds: Current Medications Generic Name Dose Route Start Last Admin Trade Name Radha PRN Reason Stop Dose Admin Acetaminophen 650 mg 08/28/21 20:00 09/01/21 17:19 Acetaminophen 325 Mg Tablet PO 650 mg Q4HR PRN Administration Pain or Fever > 38C (100.4F) Albuterol 2 puffs 08/31/21 11:33 09/02/21 02:30 Albuterol 1 Puff INH 2 puffs Q4H PRN Administration Dyspnea Amiodarone HCl 100 mg 08/29/21 12:00 09/04/21 09:12 Amiodarone 200 Mg Tablet PO 100 mg DAILY TREVER Administration Apixaban 5 mg 08/29/21 12:00 09/04/21 09:12 Apixaban 5 Mg Tablet PO 5 mg BID TREVER Administration Atenolol 50 mg 08/29/21 13:00 09/04/21 09:12 Atenolol 25 Mg Tablet PO 50 mg DAILY TREVER Administration Atorvastatin Calcium 40 mg 08/29/21 21:00 09/03/21 20:51 Atorvastatin 40 Mg Tablet PO 40 mg QPM TREVER Administration Bupropion HCl 300 mg 08/30/21 09:00 09/04/21 09:13 Bupropion Xl 150 Mg Tablet PO 300 mg DAILY TREVER Administration Cholecalciferol 50 mcg 08/30/21 11:00 09/04/21 09:12 Cholecalciferol 25 Mcg Tablet PO 50 mcg DAILY TREVER Administration Clopidogrel Bisulfate 75 mg 08/29/21 12:00 09/04/21 09:13 Clopidogrel 75 Mg Tablet PO 75 mg DAILY TREVER Administration Fluconazole 100 mg 08/30/21 13:00 09/04/21 09:11 Fluconazole 100 Mg Tablet PO 09/05/21 09:01 100 mg DAILY TREVER Administration Fluoxetine HCl 40 mg 08/30/21 09:00 09/04/21 09:13 Fluoxetine 10 Mg Capsule PO 40 mg DAILY TREVER Administration Furosemide 20 mg 09/03/21 10:00 09/04/21 09:12 Furosemide 20 Mg Tablet PO 20 mg DAILY TREVER Administration Gemfibrozil 600 mg 08/29/21 21:00 09/04/21 09:13 Gemfibrozil 600 Mg Tablet PO 600 mg BID TREVER Administration Guaifenesin 600 mg 08/29/21 11:00 09/04/21 09:11 Guaifenesin 600 Mg Tablet PO 600 mg BID TREVER Administration Guaifenesin/Codeine Phosphate 5 ml 08/28/21 23:47 09/03/21 05:18 Guaifenesin/Codeine 5 Ml Udc PO 5 ml Q6HR PRN Administration Cough Meropenem 1 gm/ Sodium 100 mls @ 200 mls/hr 08/31/21 12:00 09/04/21 13:10 Chloride IV Infused Q8H TREVER Infusion Isosorbide Mononitrate 30 mg 08/30/21 06:00 09/04/21 05:53 Isosorbide Mononitrate Er 30 Mg Tablet PO 30 mg 0600 TREVER Administration Levothyroxine Sodium 25 mcg 08/30/21 07:00 09/04/21 05:53 ] PO 25 mcg QDAC TREVER Administration Lorazepam 0.5 mg 08/29/21 23:47 09/04/21 10:26 Lorazepam 0.5 Mg Tablet PO 0.5 mg Q8H PRN Administration Anxiety Methadone HCl 10 mg 08/29/21 11:57 09/04/21 13:18 Methadone 5 Mg Tablet PO 10 mg TID PRN Administration PAIN Methocarbamol 500 mg 08/29/21 11:57 09/04/21 01:36 Methocarbamol 500 Mg Tablet PO 500 mg TID PRN Administration Spasms Multivitamins 1 tab 08/30/21 21:00 09/03/21 20:52 Multivitamin Tablet PO 1 tab QPM TREVER Administration Pt Own Med ( 50 mg 08/29/21 17:00 09/04/21 12:46 Dolutegravir Sodium PO Not Given [Tivicay] 50 Mg BID TREVER Tablet) Pt Own Med ( 100 mg 08/29/21 17:00 09/04/21 09:15 Ritonavir [Norvir] PO 100 mg 100 Mg) BIDWM TREVER Administration Pt Own Med ( 600 mg 08/29/21 17:00 09/04/21 09:16 Darunavir Ethanolate PO 600 mg [Prezista] 600 Mg) BIDWM TREVER Administration Afdee-1-Cofm Ethyl Esters 2 gm 08/29/21 21:00 09/04/21 09:14 [place]-3 Acid Ethyl Esters 1 Gm Capsule PO 2 gm BID TREVER Administration Pantoprazole Sodium 40 mg 08/30/21 07:00 09/04/21 05:53 Pantoprazole 40 Mg Tablet PO 40 mg QDAC TREVER Administration Polyethylene Glycol 17 gm 09/02/21 09:00 09/04/21 09:14 Polyethylene Glycol 3350 17 Gm Packet PO Not Given DAILY TREVER Saccharomyces Boulardii 250 mg 09/02/21 17:00 09/04/21 09:11 Saccharomyces Boulardii 250 Mg Capsule PO 250 mg BIDWM TREVER Administration Sodium Chloride 10 ml 08/28/21 20:00 09/04/21 12:30 Sodium Chloride Flush 0.9% 10 Ml Syringe IVP 10 ml PRN PRN Administration NEEDED PER PROVIDER ORDERS Sodium Chloride 10 ml 08/29/21 01:00 09/04/21 09:14 Sodium Chloride Flush 0.9% 10 Ml Syringe IVP 10 ml 0100,0900,1700 TREVER Administration Terazosin HCl 4 mg 08/29/21 17:00 09/03/21 18:11 Terazosin 2 Mg Capsule PO 4 mg QDDINNER TREVER Administration Throat Lozenges 1 lozenge 09/02/21 04:55 09/02/21 09:01 Benzocaine/Menthol Lozenge MM 1 lozenge Q2HR PRN Administration Throat pain Topiramate 50 mg 08/29/21 21:00 09/04/21 09:12 Topiramate 25 Mg Tablet PO 50 mg BID TREVER Administration Trimethoprim/Sulfamethoxazole 1 tab 08/29/21 09:00 09/04/21 09:13 Sulfameth/Trimeth Ds 800/160 Mg Tablet PO 1 tab BID TREVER Administration - Lab Result Fish Bone Diagrams: 09/04/21 06:25 09/04/21 06:25 - Additional Planning My Orders: My Active Orders 09/04/21 16:00 Vital Signs [RC] Q8HR Objective Vital Signs: Vital Signs - 24 hr 09/03/21 09/03/21 09/04/21 16:16 21:00 00:23 Temperature 36.6 C 36.7 C Heart Rate [ 61 55 L Brachial] Respiratory 20 16 Rate Blood Pressure 116/73 113/66 [Left Brachial artery] O2 Saturation 97 93 94 09/04/21 09/04/21 09/04/21 05:00 08:07 09:10 Temperature 36.5 C 36.8 C Heart Rate [ 63 63 67 Brachial] Respiratory 12 15 Rate Blood Pressure 110/59 L 102/61 122/68 [Left Brachial artery] O2 Saturation 92 92 09/04/21 09/04/21 13:00 16:06 Temperature 36.6 C 36.8 C Heart Rate [ 59 L 55 L Brachial] Respiratory 16 16 Rate Blood Pressure 105/59 L 114/64 [Left Brachial artery] O2 Saturation 93 94 Oxygen O2 Source Room air Oxygen Flow Rate 2 I&O (Last 24 Hrs): Intake and Output Totals x24h 09/02/21 09/03/21 09/04/21 23:59 23:59 23:59 Intake Total 2850 2170 1550 Output Total 2375 975 900 Balance 475 1195 650 - Results Results: Laboratory Results WBC 7.7 x10^3/uL (4.8-10.8) 09/04/21 06:25 RBC 4.88 10^6/uL (4.70-6.10) 09/04/21 06:25 Hgb 13.5 g/dL (14.0-18.0) L 09/04/21 06:25 Hct 44.0 % (42.0-52.0) 09/04/21 06:25 MCV 90.2 fL (80.0-94.0) 09/04/21 06:25 MCH 27.7 pg (27.0-31.0) 09/04/21 06:25 MCHC 30.7 g/dL (32.0-36.0) L 09/04/21 06:25 RDW 18.5 % (12.0-15.0) H 09/04/21 06:25 Plt Count 332 10^3/uL (130-450) 09/04/21 06:25 MPV 9.4 fL (7.4-11.4) 09/04/21 06:25 Neut # (Auto) 4.1 10^3/uL (1.5-6.6) 09/04/21 06:25 Lymph # (Auto) 2.5 10^3/uL (1.5-3.5) 09/04/21 06:25 [place] # (Auto) 0.8 10^3/uL (0.0-1.0) 09/04/21 06:25 Eos # (Auto) 0.3 10^3/uL (0.0-0.7) 09/04/21 06:25 Baso # (Auto) 0.1 10^3/uL (0.0-0.1) 09/04/21 06:25 Absolute Nucleated RBC 0.00 x10^3/uL 09/04/21 06:25 Nucleated RBC % 0.0 /100WBC 09/04/21 06:25 Sodium 132 mmol/L (135-145) L 09/04/21 06:25 Potassium 3.9 mmol/L (3.5-5.0) 09/04/21 06:25 Chloride 101 mmol/L (101-111) 09/04/21 06:25 Carbon Dioxide 20 mmol/L (21-32) L 09/04/21 06:25 Anion Gap 11.0 (6-13) 09/04/21 06:25 BUN 20 mg/dL (6-20) 09/04/21 06:25 Creatinine 1.1 mg/dL (0.6-1.2) 09/04/21 06:25 Estimated GFR (MDRD) 69 (>89) L 09/04/21 06:25 Glucose 113 mg/dL (70-100) H 09/04/21 06:25 Calcium 8.8 mg/dL (8.5-10.3) 09/04/21 06:25 Magnesium 1.9 mg/dL (1.7-2.8) 08/29/21 05:11 Total Bilirubin 0.7 mg/dL (0.2-1.0) 08/28/21 16:44 AST 25 IU/L (10-42) 08/28/21 16:44 ALT 19 IU/L (10-60) 08/28/21 16:44 Alkaline Phosphatase 83 IU/L (42-121) 08/28/21 16:44 Lactate Dehydrogenase 314 IU/L (91-225) H 08/31/21 16:00 Troponin I High Sens 6.0 ng/L (2.3-19.7) 08/30/21 15:47 C-Reactive Protein 5.0 mg/dL (0-1.0) H 09/03/21 04:50 B-Natriuretic Peptide 135 pg/mL (5-100) H 08/30/21 05:26 Total Protein 8.0 g/dL (6.7-8.2) 08/28/21 16:44 Albumin 3.5 g/dL (3.2-5.5) 08/28/21 16:44 Globulin 4.5 g/dL (2.1-4.2) H 08/28/21 16:44 Albumin/Globulin Ratio 0.8 (1.0-2.2) L 08/28/21 16:44 Triglycerides 110 mg/dL (-149) 08/29/21 05:11 Cholesterol 126 mg/dL (-199) 08/29/21 05:11 LDL Cholesterol, Calc 59 mg/dL (-129) 08/29/21 05:11 VLDL Cholesterol 22 mg/dL 08/29/21 05:11 HDL Cholesterol 45 mg/dL (60-) L 08/29/21 05:11 LDL/HDL Ratio 1.3 (<3.6) 08/29/21 05:11 Cholesterol/HDL Ratio 2.8 (<5.0) 08/29/21 05:11 Lipase 25 U/L (22-51) 08/28/21 16:44 TSH 2.20 uIU/mL (0.34-5.60) 08/29/21 05:11 Nasal Adenovirus (PCR) NOT DETECTED 08/28/21 22:10 Nasal B. parapertussis DNA (PCR) NOT DETECTED 08/28/21 22:10 Nasal Coronavir 229E PCR NOT DETECTED 08/28/21 22:10 Nasal Coronavir HKU1 PCR NOT DETECTED 08/28/21 22:10 Nasal Coronavir NL63 PCR NOT DETECTED 08/28/21 22:10 Nasal Coronavir OC43 PCR NOT DETECTED 08/28/21 22:10 Nasal Enterovir/Rhinovir PCR NOT DETECTED 08/28/21 22:10 Nasal Influenza B PCR NOT DETECTED 08/28/21 22:10 Nasal Influenza A PCR NOT DETECTED 08/28/21 22:10 Nasal Parainfluen 1 PCR NOT DETECTED 08/28/21 22:10 Nasal Parainfluen 2 PCR NOT DETECTED 08/28/21 22:10 Nasal Parainfluen 3 PCR NOT DETECTED 08/28/21 22:10 Nasal Parainfluen 4 PCR NOT DETECTED 08/28/21 22:10 Nasal RSV (PCR) NOT DETECTED 08/28/21 22:10 Nasal B.pertussis DNA PCR NOT DETECTED 08/28/21 22:10 Nasal C.pneumoniae (PCR) NOT DETECTED 08/28/21 22:10 [place] Human Metapneumo PCR NOT DETECTED 08/28/21 22:10 Nasal M.pneumoniae (PCR) NOT DETECTED 08/28/21 22:10 Nasal SARS-CoV-2 (PCR) NOT DETECTED 08/28/21 22:10 Coronavirus (PCR) NEGATIVE 08/31/21 13:30 SARS-CoV-2 IgG Ab >150.00 index (<1.00) H 08/31/21 16:00 Ref Lab Test Result REPORT 08/31/21 16:00 ABX Reporting Has patient been on IV antibiotics over the past 48 hours?: Yes
[2021-09-04] MEDS: ACETAMINOPHEN 325 MG TABLET PO PRN (16:25)
[2021-09-04 16:33] VITALS: BP 112/64
--- NOTE | 2021-09-04 16:35 | Discharge Plan ---
Discharge Plan Problem Reviewed?: Yes Disposition: 61 Swing Bed DC/Xfer Condition: Stable Prescriptions: Sulfamethox/Trimeth 800/160 [Bactrim Ds] 1 tab PO BID #20 tablet Fluconazole [Diflucan] 100 mg PO DAILY #10 tablet Saccharomyces Boulardii [Florastor] 250 mg PO BIDWM #20 cap Meropenem [Merrem] 1 gm IV Q8H #27 vial Diet: Regular Activity Restrictions: Activity as Tolerated Shower Restrictions: No (fall precaution) Instruction Topics: Pneumonia Health Concerns: pt may continue to finish another 9 days IV of Meropenem at Swing bed per ID recommendation. Pt's CD4 count and Fungitell test are still pending, but HIV RNA loading test is undetectable. Pt's Bactrim and fluconazole may be adjusted or hold according to CD4 count and Fungitell test result. Plan of Treatment: as the above Care Goals: stabilization and resolve/control of pt's pneumonia and shortness of breath. Assessment: explained and discussed the care plan with pt. Pt state he appreciate our help, and understood we tried to help him and agreed to stay Swing bed to finish the treatment course. No Smoking: If you smoke, Please STOP! Call for help. Follow-up with: MARIO TABOR PA-C [Primary Care Provider] -
--- NOTE | 2021-09-04 16:54 | DISCHARGE SUMMARY ---
Discharge Summary Admit Date: 08/28/21 Discharge Date: 09/04/21 Discharging Provider: Angel Guzman Primary Care Provider: not set up yet Condition at Discharge: Stable Discharge Disposition: 61 Swing Bed DC/Xfer Discharge Facility [facility]: [facility] bed [facility] - DIAGNOSES Discharge Diagnoses with Status of Each Condition: (1) Respiratory failure with hypoxia pt had stable 92-94% O2 sat on room air without acute respiratory distress. pt i s d/c to Swing bed to finish the treatment course of IV Meropenem for another 9 days. pt had PICC line now. (2) Pneumonia significant improvement. pt had stable 92-94% O2 sat on room air without acute respiratory distress, and his cough is controlled. pt had PICC line, pt will continue to have another 9 days IV of meropenem at Swing bed. CD4 count and Fugnitell test are still pending. pt may continue to have fluconazole and bactrim until we have CD4 count and Fugnitell test result, then adjust fluconazole and bactrim meds as needed. (3) HIV (human immunodeficiency virus infection) CD4 count are still pending. HIV RNA load copies are undetectable. continue pt's home Prezista, Tivicay and Ritonavir (4) Hypothyroidism TSH is normal arrange, resume home meds (5) BPH (benign prostatic hyperplasia) resume home Terazosin (6) anxiety and Depression resume home Prozac. pt present anxiety, prescribed Ativan PRN (7) Coronary artery disease stable, resume home meds isosorbide mononitrate, Lovaza, Gemfibrozil, Atorvastatin, Atenolol, Eliquis. (8) Back pain resume home meds Methadone PRN. - HPI History of Present Illness: refer from Dr. Letitia Tapia's HPI on 08/28/21 This is a 55-year-old male who has lived on [facility] before, moved to [place] in 2018 and is now planning on moving back and is visiting his brother for Thanksgiving. He has a history of HIV, hypertension, hyperlipidemia, coronary disease with multiple stents done and CABG done in 2012. He flew here from [place] 1 weeka go and presents with worsening shortness of breath and fatigue over 3 days. He denies a fever. He has a non-productive cough and is now getting pleuritic anterior chest pain. He describes 2 days of new orthopnea. He is COVID vaccinated and had the booster 2 mos ago also. All his contacts are COVID vaccinated. He denies anginal pain. He does have chronic back pain which sometimes is in the mid-chest posteriorly. He denies palpitations, leg edema or syncope. He is compliant with his medications. In the ED he was found to be tachypneic and have oxygen saturation of 87% on room air and has been started on supplemental oxygen. His chest x-ray shows interstitial edema consistent with interstitial lung disease versus CHF. He received a nebulizer treatment without much improvement. Because of his positive HIV status, he has received empiric antibiotics of Zithromax, Ceftriaxone and Bactrim, to cover atypical bacteria. He has also received IV Lasix x1. He is presented to the Hospitalist team to place in Observation status for further evaluation of his shortness of breath, abnormal CXR and hypoxia. We discussed his wishes for CODE STATUS and he has a DNR form signed, which is back home in [place]; he wants to be a DNR but intubation is OK. - HOSPITAL COURSE Hospital Course: Patient was admitted for worsening shortness of breath. CTA of the chest show no acute PE, Show diffuse bilaterally patch groundglass opacities suspicion for pneumonia including viral or Atypical agents such as COVID-19. Twice COVID-[address] was negative. Patient had COVID-19 vaccination. Initially patient was treated azithromycin, Rocephin for atypical pneumonia and bactrim for prevention of PCP. but Patient's clinical condition was not improved but worsening. Then patient needed high flow of oxygen to support his oxygen saturation. Sputum culture come back to show positive for yeast and ESBL which show only sensitivity to gentami juliane and imipenem. Another provider call ID in [facility]. patient had CD4 count, HIV RNA loading PCR, Fungitell test, Recommend patient had meropenem for 2 weeks, Patient also was prescribed fluconazole. After switched to Meropenem antibiotics, and add fluconazole, Clinically patient had a significantly improved, patient has no more acute respiratory distress, patient had 92 to 94% oxygen saturation on room air. [place] just come [place], [place] trail [place] worker was consulted to set up Swing bed for pt at our hospital. - ALLERGIES Allergies/Adverse Reactions: Allergies Allergy/AdvReac Type Severity Reaction Status Date / Time gabapentin Allergy Intermediate Hives Verified 08/28/21 16:21 nevirapine [From Viramune] Allergy Intermediate Hives Verified 08/28/21 16:21 tramadol Allergy Intermediate Rash Verified 08/28/21 16:21 ketorolac Allergy Itching Verified 08/28/21 16:21 - MEDICATIONS Home Medications: Ambulatory Orders Medication Instructions Recorded Confirmed Omeprazole [PriLOSEC] 40 mg PO DAILY 06/21/16 08/29/21 Ritonavir [Norvir] 100 mg PO BIDWM 06/21/16 08/29/21 Nitroglycerin [Nitrostat] 0.4 mg SL Q5MIN PRN #0 tablet 06/22/16 08/29/21 Amiodarone [Pacerone] 100 mg PO DAILY 08/29/21 08/29/21 Apixaban [Eliquis] 5 mg PO BID 08/29/21 08/29/21 Atenolol [Tenormin] 50 mg PO DAILY 08/29/21 08/29/21 Benazepril HCl 10 mg PO DAILY 08/29/21 08/29/21 Clopidogrel [Plavix] 75 mg PO DAILY 08/29/21 08/29/21 Darunavir Ethanolate [Prezista] 600 mg PO BIDWM 08/29/21 08/29/21 Dolutegravir Sodium [Tivicay] 50 mg PO BID 08/29/21 08/29/21 Evolocumab [Repatha Sureclick] 1 ml SQ Q14D 08/29/21 08/29/21 Fluoxetine HCl [Prozac] 40 mg PO DAILY 08/29/21 08/29/21 Furosemide [Lasix] 40 mg PO DAILY 08/29/21 08/29/21 Isosorbide Mononitrate ER [Imdur] 30 mg PO 0600 08/29/21 08/29/21 Levothyroxine Sodium 25 mcg PO DAILY 08/29/21 08/29/21 [Levothyroxine] Methadone [Methadone Hcl] 10 mg PO TID PRN 08/29/21 08/29/21 [place]-3 Acid Ethyl Esters [Lovaza] 2 gm PO BID 08/29/21 08/29/21 Potassium Chloride 10 meq PO DAILY 08/29/21 08/29/21 Rosuvastatin Calcium [Crestor] 20 mg PO DAILY 08/29/21 08/29/21 Terazosin HCl [Hytrin] 4 mg PO QDDINNER 08/29/21 08/29/21 Topiramate [Topamax] 50 mg PO BID 08/29/21 08/29/21 buPROPion HCL [Bupropion Xl] 300 mg PO DAILY 08/29/21 08/29/21 gemfibroziL [Lopid] 600 mg PO BID 08/29/21 08/29/21 methocarbamoL [Methocarbamol] 500 mg PO TID PRN 08/29/21 08/29/21 Fluconazole [Diflucan] 100 mg PO DAILY #10 tablet 09/04/21 LORazepam [Ativan] 0.5 mg PO Q8H PRN #15 tablet 09/04/21 Meropenem [Merrem] 1 gm IV Q8H #27 vial 09/04/21 Saccharomyces Boulardii [Florastor] 250 mg PO BIDWM #20 cap 09/04/21 Sulfamethox/Trimeth 800/160 1 tab PO BID #20 tablet 09/04/21 [Bactrim Ds] - PHYSICAL EXAM AT DISCHARGE General Appearance: positive: No acute distress, Alert. negative: Lethargic Eyes Bilateral: positive: Normal inspection, No lid inflammation ENT: positive: ENT inspection nml, No signs of dehydration. negative: Purulent nasal drainage Neck: positive: Nml inspection, Trachea midline. negative: Tracheal deviation Respiratory: positive: Chest non-tender, No respiratory distress. negative: Wheezes Cardiovascular: positive: Regular rate & rhythm. negative: Tachycardia, Bradycardia, Systolic murmur Peripheral Pulses: positive: 2+ Abdomen: positive: Non-tender, Nml bowel sounds, No distention. negative: Tenderness Back: positive: Nml inspection Skin: positive: Color nml, Warm, Dry. negative: Cyanosis Extremities: positive: Non-tender, Full ROM, Nml appearance Neurologic/Psychiatric: positive: Oriented x3, Motor nml, Sensation nml. negati ve: Weakness, Sensory loss, Facial droop, Slurred/abnml speech, Depressed mood/affect - LABS Result Diagrams: 09/04/21 06:25 09/04/21 06:25 - FOLLOW UP Follow Up: pt may continue to finish another 9 days IV of Meropenem at Swing bed per ID recommendation. Pt's CD4 count and Fungitell test are still pending, but HIV RNA loading test is undetectable. Pt's Bactrim and fluconazole may be adjusted or hold according to CD4 count and Fungitell test result. - TIME SPENT Time Spent in Discharge (Minutes): 30
[2021-09-04] MEDS: TERAZOSIN 2 MG CAPSULE PO SCH (17:16)
== END 2021-09-04 17:23 | disposition swing bed (61) | DRG 189 ==
LOC: ED 16:06 → MS2 20:00 → OBSVTOIN 08-29 10:27
PROVIDERS: ADMIT Internal Medicine; ATTEND Nurse Practitioner Gerontology
PROC: 02HV33Z Insertion of Infusion Device into Superior Vena Cava, Percutaneous Approach (ICD-10-PCS; principal; 2021-09-03)
DX: J18.9 Pneumonia, unspecified organism (principal); R09.02 Hypoxemia; J81.0 Acute pulmonary edema; J96.01 Acute respiratory failure with hypoxia; Z21 Asymptomatic human immunodeficiency virus [HIV] infection status; J15.5 Pneumonia due to Escherichia coli; B20 Human immunodeficiency virus [HIV] disease; E03.9 Hypothyroidism, unspecified; N40.0 Benign prostatic hyperplasia without lower urinary tract symptoms; F41.9 Anxiety disorder, unspecified; F32.9 Major depressive disorder, single episode, unspecified; I25.10 Atherosclerotic heart disease of native coronary artery without angina pectoris; Z95.1 Presence of aortocoronary bypass graft; Z95.5 Presence of coronary angioplasty implant and graft; M54.9 Dorsalgia, unspecified; G89.29 Other chronic pain; I10 Essential (primary) hypertension; E78.5 Hyperlipidemia, unspecified; Z66 Do not resuscitate; E78.1 Pure hyperglyceridemia; Z87.891 Personal history of nicotine dependence; Z79.899 Other long term (current) drug therapy; Z20.822 Contact with and (suspected) exposure to COVID-19
CPT/HCPCS: 36415; 71045; 71275; 80048; 80053; 80061; 81599; 83615; 83690; 83735; 83880; 84443; 84484; 85025; 86140; 86769; 87070; 87077; 87181; 87205; 87631; 93005; 93306; 94640; 96365; 96366; 96372; 96375; 96376; 99284; 99285; A9270; G0378; J1650; J2185; Q9967; U0004; 0202U; 83721; J8499

== ENCOUNTER 2021-09-04 14:49 | Inpatient (IN) | payer MEDICARE, MEDICAID ==
[2021-09-04] MEDS ORDERED: NITROGLYCERIN SL 0.4 MG TABLET SL PRN (18:01)
[2021-09-04] MEDS ORDERED: MEROPENEM 1 GM VIAL IV SCH (19:00)
[2021-09-04] MEDS: APIXABAN 5 MG TABLET PO SCH (21:25)
[2021-09-04] MEDS: SULFAMETH/TRIMETH DS 800/160 MG TABLET PO SCH (21:25)
[2021-09-04] MEDS: gemfibroziL 600 MG TABLET PO SCH (21:25)
[2021-09-04] MEDS: ATORVASTATIN 40 MG TABLET PO SCH (21:25)
[2021-09-04] MEDS: MEROPENEM 1 GM in SODIUM CHLORIDE 0.9% MINIBAG 100 ML IV SCH (21:30)
[2021-09-05] MEDS: LEVOTHYROXINE 25 MCG TABLET PO SCH (06:15)
[2021-09-05] MEDS: MEROPENEM 1 GM in SODIUM CHLORIDE 0.9% MINIBAG 100 ML IV SCH ×3 (06:15→21:39)
[2021-09-05] MEDS: PANTOPRAZOLE 40 MG TABLET PO SCH (06:15)
[2021-09-05] MEDS: ISOSORBIDE MONONITRATE ER 30 MG TABLET PO SCH (06:15)
--- NOTE | 2021-09-05 07:51 | PHARMACY PROGRESS NOTE ---
- Best Possible Medication History Admit Date and Time: 09/04/21 5112 Processed by: Pharmacy Medication History completed: Yes Secondary Source(s): Previous admit records As the person ultimately responsible for medication therapy, providers are able to order a medication from an existing home medication list in [facility] via the "Reconcile Routine" prior to Confirmation of that medication by collection support specialist. Such practice is discouraged except when the physician, in their clinical judgment, deems that a medical need exists for a medication without regard to previous use.
[2021-09-05] MEDS: METHADONE 5 MG TABLET PO PRN ×3 (08:06→23:19)
[2021-09-05] MEDS: methocarbamoL 500 MG TABLET PO PRN ×2 (08:06→21:41)
[2021-09-05] MEDS: PATIENT OWN MED PO SCH ×2 (08:10→17:27)
--- NOTE | 2021-09-05 08:19 | HISTORY & PHYSICAL EXAMINATION ---
Chief Complaint - Chief Complaint Chief Complaint: Cough History of Present Illness - Admitted From Admitted From:: [facility] - History Obtained From Records Reviewed: Yes History obtained from: Patient, EMR - History of Present Illness HPI Comment/Other: This is a 55-year-old male with a past medical history significant for coronary artery disease, HIV, depression who will now be admitted to our swing bed facility for IV antibiotics. He was admitted to our facility on August 28 for respiratory failure secondary to pneumonia. He underwent a CT angios showed no evidence of PE but did suggest pneumonia which is likely viral. He was tested twice for Covid and both of these were negative. He was treated empirically with ceftriaxone and azithromycin IV. He was also started on Bactrim for possible P DEISI. He had a decline in his oxygen requirements and was placed on high flow nasal cannula. Sputum culture ultimately grew ESBL and yeast. He was started on meropenem and fluconazole. Infectious disease at [facility] was contacted who recommended treating the ESBL E. coli pneumonia with meropenem for 2 weeks. The patient improved after the addition of meropenem and is now on room air. Given he requires IV antibiotics for another 9 days, he will be admitted to a swing bed facility. The patient today reports feeling well. Denies any dyspnea. Still has a cough which is now becoming productive. He feels better overall. Has no chest pain, fever, chills. History - Past Medical History Cardiovascular: reports: Coronary artery disease, Atrial fibrillation Neuro: reports: None GI: reports: None : reports: None HEENT: reports: None Psych: reports: Depression Musculoskeletal: reports: None, Chronic back pain Derm: reports: None MRSA Hx?: No - Past Surgical History Cardiovascular: reports: CABG, Coronary stent - Family & Social History Family History: Mother: Alive and Well, Father: , Brother: Alive and Well, Family History Comment/Other: Both of his parents are . His mother had a history of coronary artery disease. Living arrangement: At home Living Situation: With spouse/s.o. Social History Notes: He just moved back to [facility] 1 week ago after previously living in [place] for a few years. He denies any alcohol use. He quit smoking after a myocardial infarction in 2012. He pretty smoked on and off for 10 years and it was only a few cigarettes at a time. - Substance History Use: Uses substance without health or social issues: NONE - POLST Patient has POLST: Yes POLST Status: DNR (Intubation and ventil use is OK) Meds/Allgy - Home Medications Home Medications: Ambulatory Orders Medication Instructions Recorded Confirmed Omeprazole [PriLOSEC] 40 mg PO DAILY 06/21/16 09/05/21 Ritonavir [Norvir] 100 mg PO BIDWM 06/21/16 09/05/21 Nitroglycerin [Nitrostat] 0.4 mg SL Q5MIN PRN #0 tablet 06/22/16 09/05/21 Amiodarone [Pacerone] 100 mg PO DAILY 08/29/21 09/05/21 Apixaban [Eliquis] 5 mg PO BID 08/29/21 09/05/21 Atenolol [Tenormin] 50 mg PO DAILY 08/29/21 09/05/21 Benazepril HCl 10 mg PO DAILY 08/29/21 09/05/21 Clopidogrel [Plavix] 75 mg PO DAILY 08/29/21 09/05/21 Darunavir Ethanolate [Prezista] 600 mg PO BIDWM 08/29/21 09/05/21 Dolutegravir Sodium [Tivicay] 50 mg PO BID 08/29/21 09/05/21 Evolocumab [Repatha Sureclick] 1 ml SQ Q14D 08/29/21 09/05/21 Fluoxetine HCl [Prozac] 40 mg PO DAILY 08/29/21 09/05/21 Furosemide [Lasix] 40 mg PO DAILY 08/29/21 09/05/21 Isosorbide Mononitrate ER [Imdur] 30 mg PO 0600 08/29/21 09/05/21 Levothyroxine Sodium 25 mcg PO DAILY 08/29/21 09/05/21 [Levothyroxine] Methadone [Methadone Hcl] 10 mg PO TID PRN 08/29/21 09/05/21 [place]-3 Acid Ethyl Esters [Lovaza] 2 gm PO BID 08/29/21 09/05/21 Potassium Chloride 10 meq PO DAILY 08/29/21 09/05/21 Rosuvastatin Calcium [Crestor] 20 mg PO DAILY 08/29/21 09/05/21 Terazosin HCl [Hytrin] 4 mg PO QDDINNER 08/29/21 09/05/21 Topiramate [Topamax] 50 mg PO BID 08/29/21 09/05/21 buPROPion HCL [Bupropion Xl] 300 mg PO DAILY 08/29/21 09/05/21 gemfibroziL [Lopid] 600 mg PO BID 08/29/21 09/05/21 methocarbamoL [Methocarbamol] 500 mg PO TID PRN 08/29/21 09/05/21 Fluconazole [Diflucan] 100 mg PO DAILY #10 tablet 09/04/21 09/05/21 LORazepam [Ativan] 0.5 mg PO Q8H PRN #15 tablet 09/04/21 09/05/21 Meropenem [Merrem] 1 gm IV Q8H #27 vial 09/04/21 09/05/21 Saccharomyces Boulardii [Florastor] 250 mg PO BIDWM #20 cap 09/04/21 09/05/21 Sulfamethox/Trimeth 800/160 1 tab PO BID #20 tablet 09/04/21 09/05/21 [Bactrim Ds] - Allergies Allergies/Adverse Reactions: Allergies Allergy/AdvReac Type Severity Reaction Status Date / Time gabapentin Allergy Intermediate Hives Verified 08/28/21 16:21 nevirapine [From Viramune] Allergy Intermediate Hives Verified 08/28/21 16:21 tramadol Allergy Intermediate Rash Verified 08/28/21 16:21 ketorolac Allergy Itching Verified 08/28/21 16:21 Review of Systems - Constitutional Constitutional: denies: Fatigue, Fever, Chills - Eyes Eyes: denies: Blurred vision - Ears, Nose & Throat Ears, Nose & Throat: denies: Nasal discharge, Nasal congestion - Cardiovascular Cariovascular: denies: Chest pain, Edema, Exertional dyspnea, Decr. exercise tolerance - Respiratory Respiratory: reports: Cough, Sputum production. denies: SOB at rest, SOB with exertion - Gastrointestinal Gastrointestinal: denies: Abdominal pain, Diarrhea, Nausea, Vomiting - Genitourinary Genitourinary: denies: Dysuria, Frequency, Urgency, Hematuria - Neurological Neurological: denies: General weakness, Focal weakness, Headache, Dizziness - All Other Systems All Other Systems: reports: Reviewed and negative Prior Level of Functionality: Independent with his ADLs. Exam - Vital Signs Reviewed Vital Signs: Yes Vital Signs: Vital Signs x48h Temp Pulse Resp BP Pulse Ox 09/05/21 07:28 36.4 C L 61 16 119/64 93 - Physical Exam General Appearance: positive: No acute distress, Alert Eyes Bilateral: positive: Normal inspection, Conjunctivae nml ENT: positive: ENT inspection nml Neck: positive: Nml inspection Respiratory: positive: No respiratory distress, Rhonchi (Faint rhonci in bases.). negative: Wheezes, Rales Cardiovascular: positive: Regular rate & rhythm, No murmur. negative: Tachycardia Abdomen: positive: Non-tender, No distention. negative: Tenderness Skin: positive: Warm, Dry Extremities: positive: No pedal edema Neurologic/Psychiatric: positive: Motor nml. negative: Disoriented to person, Disoriented to place, Disoriented to time Conclusion/Plan - Problem List (1) Pneumonia due to escherichia coli (E. coli) Conclusion/Plan: This was the cause of his respiratory failure which resolved. Culture grew ESBL E. coli. He will remain on meropenem for nine more days to complete 14 days of therapy. We will obtain weekly labs while he is on IV antibiotics. We will also continue Diflucan as culture also grew yeast. Today will be the last day of this which will complete 1 week of therapy (2) HIV (human immunodeficiency virus infection) Conclusion/Plan: His viral load was not detectable. We are still awaiting his CD4 count. In the interim, we will continue Bactrim for prophylaxis until we have a CD4 count available. We will continue his home antiviral medications. (3) Coronary artery disease Conclusion/Plan: Stable. His history of stenting and CABG. We will continue his home beta- debra, Eliquis, Lipitor and Plavix. (4) Chronic pain Conclusion/Plan: Continue methadone. (5) Depression Conclusion/Plan: Stable. Continue home fluoxetine and wellbutrin. (6) Hypothyroidism Conclusion/Plan: Stable. Continue home levothyroxine. Core Measures - Anticipated LOS I expect patient to be DC'd or transferred within 96 hours.: Yes - Issues Hospital Issues and Management Plan: 55-year-old male admitted to our swing bed for continuation of IV antibiotics for ESBL E. coli pneumonia. - DVT/VTE - Prophylaxis VTE/DVT Device ordered at admit?: No VTE/DVT Prophylaxis med ordered at admit?: Yes
[2021-09-05] MEDS ORDERED: FLUoxetine 10 MG CAPSULE PO SCH (09:00)
[2021-09-05] MEDS ORDERED: FLUCONAZOLE 100 MG TABLET PO SCH (09:00)
[2021-09-05] MEDS: LORazepam 0.5 MG TABLET PO PRN ×2 (10:33→21:41)
[2021-09-05] MEDS: lisinopriL 5 MG TABLET PO SCH (10:35)
[2021-09-05] MEDS: APIXABAN 5 MG TABLET PO SCH ×2 (10:36→21:38)
[2021-09-05] MEDS: AMIODARONE 200 MG TABLET PO SCH (10:36)
[2021-09-05] MEDS: buPROPion XL 150 MG TABLET PO SCH (10:39)
[2021-09-05] MEDS: atenoloL 25 MG TABLET PO SCH (10:40)
[2021-09-05] MEDS: SULFAMETH/TRIMETH DS 800/160 MG TABLET PO SCH ×2 (10:41→21:38)
[2021-09-05] MEDS: CLOPIDOGREL 75 MG TABLET PO SCH (10:43)
[2021-09-05] MEDS: SACCHAROMYCES BOULARDII 250 MG CAPSULE PO SCH ×2 (10:43→17:25)
[2021-09-05] MEDS: FUROSEMIDE 40 MG TABLET PO SCH (10:45)
[2021-09-05] MEDS: gemfibroziL 600 MG TABLET PO SCH ×2 (10:45→21:38)
[2021-09-05] MEDS ORDERED: TERAZOSIN 2 MG CAPSULE PO SCH (17:00)
[2021-09-05] MEDS: POTASSIUM CHLORIDE 10 MEQ CAPSULE PO SCH (17:25)
[2021-09-05] MEDS: ATORVASTATIN 40 MG TABLET PO SCH (21:38)
[2021-09-06] MEDS: MEROPENEM 1 GM in SODIUM CHLORIDE 0.9% MINIBAG 100 ML IV SCH ×3 (06:32→22:52)
[2021-09-06] MEDS: methocarbamoL 500 MG TABLET PO PRN (06:35)
[2021-09-06] MEDS: ISOSORBIDE MONONITRATE ER 30 MG TABLET PO SCH (06:35)
[2021-09-06] MEDS: PANTOPRAZOLE 40 MG TABLET PO SCH (06:35)
[2021-09-06] MEDS: LORazepam 0.5 MG TABLET PO PRN ×3 (06:35→20:07)
[2021-09-06] MEDS: LEVOTHYROXINE 25 MCG TABLET PO SCH (06:35)
[2021-09-06] MEDS: CLOPIDOGREL 75 MG TABLET PO SCH (08:14)
[2021-09-06] MEDS: SACCHAROMYCES BOULARDII 250 MG CAPSULE PO SCH ×2 (08:14→17:52)
[2021-09-06] MEDS: lisinopriL 5 MG TABLET PO SCH (08:15)
[2021-09-06] MEDS: POTASSIUM CHLORIDE 10 MEQ CAPSULE PO SCH (08:15)
[2021-09-06] MEDS: buPROPion XL 150 MG TABLET PO SCH (08:17)
[2021-09-06] MEDS: AMIODARONE 200 MG TABLET PO SCH (08:17)
[2021-09-06] MEDS: gemfibroziL 600 MG TABLET PO SCH ×2 (08:18→20:06)
[2021-09-06] MEDS: FUROSEMIDE 40 MG TABLET PO SCH (08:18)
[2021-09-06] MEDS: SULFAMETH/TRIMETH DS 800/160 MG TABLET PO SCH ×2 (08:18→20:07)
[2021-09-06] MEDS: APIXABAN 5 MG TABLET PO SCH ×2 (08:19→20:06)
[2021-09-06] MEDS: atenoloL 25 MG TABLET PO SCH (08:19)
[2021-09-06] MEDS: PATIENT OWN MED PO SCH ×2 (08:19→17:49)
[2021-09-06] MEDS: FLUoxetine 10 MG CAPSULE PO SCH (08:22)
[2021-09-06] MEDS: METHADONE 5 MG TABLET PO PRN ×2 (12:14→20:07)
[2021-09-06] MEDS: ATORVASTATIN 40 MG TABLET PO SCH (20:06)
[2021-09-06] MEDS: SODIUM CHLORIDE FLUSH 0.9% 10 ML SYRINGE IVP PRN (22:52)
[2021-09-07] MEDS: methocarbamoL 500 MG TABLET PO PRN (00:05)
[2021-09-07] MEDS: PANTOPRAZOLE 40 MG TABLET PO SCH (06:54)
[2021-09-07] MEDS: MEROPENEM 1 GM in SODIUM CHLORIDE 0.9% MINIBAG 100 ML IV SCH ×3 (06:55→20:49)
[2021-09-07] MEDS: LEVOTHYROXINE 25 MCG TABLET PO SCH (06:55)
[2021-09-07] MEDS: ISOSORBIDE MONONITRATE ER 30 MG TABLET PO SCH (06:55)
[2021-09-07] MEDS: LORazepam 0.5 MG TABLET PO PRN ×2 (07:36→17:10)
[2021-09-07] MEDS: PATIENT OWN MED PO SCH ×2 (07:36→17:09)
[2021-09-07] MEDS: SACCHAROMYCES BOULARDII 250 MG CAPSULE PO SCH ×2 (07:36→17:09)
[2021-09-07] MEDS: METHADONE 5 MG TABLET PO PRN ×2 (07:37→17:10)
[2021-09-07] MEDS: atenoloL 25 MG TABLET PO SCH (10:02)
[2021-09-07] MEDS: AMIODARONE 200 MG TABLET PO SCH (10:02)
[2021-09-07] MEDS: APIXABAN 5 MG TABLET PO SCH ×2 (10:02→20:49)
[2021-09-07] MEDS: CLOPIDOGREL 75 MG TABLET PO SCH (10:03)
[2021-09-07] MEDS: buPROPion XL 150 MG TABLET PO SCH (10:03)
[2021-09-07] MEDS: FUROSEMIDE 40 MG TABLET PO SCH (10:04)
[2021-09-07] MEDS: FLUoxetine 10 MG CAPSULE PO SCH (10:04)
[2021-09-07] MEDS: lisinopriL 5 MG TABLET PO SCH (10:05)
[2021-09-07] MEDS: gemfibroziL 600 MG TABLET PO SCH ×2 (10:05→20:49)
[2021-09-07] MEDS: POTASSIUM CHLORIDE 10 MEQ CAPSULE PO SCH (10:06)
[2021-09-07] MEDS: SULFAMETH/TRIMETH DS 800/160 MG TABLET PO SCH ×2 (10:06→20:49)
[2021-09-07] MEDS: ATORVASTATIN 40 MG TABLET PO SCH (20:49)
[2021-09-07] MEDS: SODIUM CHLORIDE FLUSH 0.9% 10 ML SYRINGE IVP SCH (20:49)
[2021-09-07] MEDS: ACETAMINOPHEN 325 MG TABLET PO PRN (20:51)
[2021-09-08] MEDS: methocarbamoL 500 MG TABLET PO PRN ×3 (00:27→21:40)
[2021-09-08] MEDS: SODIUM CHLORIDE FLUSH 0.9% 10 ML SYRINGE IVP SCH ×3 (00:27→18:05)
[2021-09-08] MEDS: METHADONE 5 MG TABLET PO PRN ×3 (01:14→17:56)
[2021-09-08] MEDS: LORazepam 0.5 MG TABLET PO PRN ×3 (01:14→19:27)
[2021-09-08] MEDS: LEVOTHYROXINE 25 MCG TABLET PO SCH (05:34)
[2021-09-08] MEDS: ACETAMINOPHEN 325 MG TABLET PO PRN (05:34)
[2021-09-08] MEDS: MEROPENEM 1 GM in SODIUM CHLORIDE 0.9% MINIBAG 100 ML IV SCH ×3 (05:34→21:40)
[2021-09-08] MEDS: SODIUM CHLORIDE FLUSH 0.9% 10 ML SYRINGE IVP PRN (05:34)
[2021-09-08] MEDS: ISOSORBIDE MONONITRATE ER 30 MG TABLET PO SCH (05:34)
[2021-09-08] MEDS: PANTOPRAZOLE 40 MG TABLET PO SCH (05:34)
[2021-09-08] MEDS: PATIENT OWN MED PO SCH ×2 (10:00→18:02)
[2021-09-08] MEDS: SACCHAROMYCES BOULARDII 250 MG CAPSULE PO SCH ×2 (10:01→17:55)
[2021-09-08] MEDS: APIXABAN 5 MG TABLET PO SCH ×2 (10:02→21:40)
[2021-09-08] MEDS: AMIODARONE 200 MG TABLET PO SCH (10:02)
[2021-09-08] MEDS: atenoloL 25 MG TABLET PO SCH (10:03)
[2021-09-08] MEDS: buPROPion XL 150 MG TABLET PO SCH (10:21)
[2021-09-08] MEDS: FUROSEMIDE 40 MG TABLET PO SCH (10:21)
[2021-09-08] MEDS: FLUoxetine 10 MG CAPSULE PO SCH (10:21)
[2021-09-08] MEDS: gemfibroziL 600 MG TABLET PO SCH ×2 (10:21→21:40)
[2021-09-08] MEDS: CLOPIDOGREL 75 MG TABLET PO SCH (10:21)
[2021-09-08] MEDS: lisinopriL 5 MG TABLET PO SCH (10:22)
[2021-09-08] MEDS: SULFAMETH/TRIMETH DS 800/160 MG TABLET PO SCH ×2 (10:23→21:40)
[2021-09-08] MEDS: POTASSIUM CHLORIDE 10 MEQ CAPSULE PO SCH (10:23)
[2021-09-08] MEDS: ATORVASTATIN 40 MG TABLET PO SCH (21:40)
[2021-09-09] MEDS: METHADONE 5 MG TABLET PO PRN ×3 (00:12→18:56)
[2021-09-09] MEDS: ISOSORBIDE MONONITRATE ER 30 MG TABLET PO SCH (06:00)
[2021-09-09] MEDS: LORazepam 0.5 MG TABLET PO PRN ×3 (06:06→22:37)
[2021-09-09] MEDS: methocarbamoL 500 MG TABLET PO PRN ×2 (06:07→18:56)
[2021-09-09] MEDS: MEROPENEM 1 GM in SODIUM CHLORIDE 0.9% MINIBAG 100 ML IV SCH ×3 (06:13→22:32)
[2021-09-09] MEDS: PANTOPRAZOLE 40 MG TABLET PO SCH (06:37)
[2021-09-09] MEDS: LEVOTHYROXINE 25 MCG TABLET PO SCH (06:37)
[2021-09-09] MEDS: SODIUM CHLORIDE FLUSH 0.9% 10 ML SYRINGE IVP SCH ×3 (06:56→18:05)
[2021-09-09] MEDS: PATIENT OWN MED PO SCH ×2 (10:28→18:02)
[2021-09-09] MEDS: SACCHAROMYCES BOULARDII 250 MG CAPSULE PO SCH ×2 (10:30→18:01)
[2021-09-09] MEDS: AMIODARONE 200 MG TABLET PO SCH (10:31)
[2021-09-09] MEDS: APIXABAN 5 MG TABLET PO SCH ×2 (10:31→21:05)
[2021-09-09] MEDS: buPROPion XL 150 MG TABLET PO SCH (10:31)
[2021-09-09] MEDS: CLOPIDOGREL 75 MG TABLET PO SCH (10:32)
[2021-09-09] MEDS: FUROSEMIDE 40 MG TABLET PO SCH (10:32)
[2021-09-09] MEDS: FLUoxetine 10 MG CAPSULE PO SCH (10:32)
[2021-09-09] MEDS: atenoloL 25 MG TABLET PO SCH (10:32)
[2021-09-09] MEDS: lisinopriL 5 MG TABLET PO SCH (10:33)
[2021-09-09] MEDS: gemfibroziL 600 MG TABLET PO SCH ×2 (10:33→21:05)
[2021-09-09] MEDS: POTASSIUM CHLORIDE 10 MEQ CAPSULE PO SCH (10:33)
[2021-09-09] MEDS: SULFAMETH/TRIMETH DS 800/160 MG TABLET PO SCH ×2 (10:34→21:05)
[2021-09-09] MEDS: ATORVASTATIN 40 MG TABLET PO SCH (21:05)
[2021-09-09] MEDS: SODIUM CHLORIDE FLUSH 0.9% 10 ML SYRINGE IVP PRN (23:17)
[2021-09-10] MEDS: METHADONE 5 MG TABLET PO PRN ×3 (02:01→21:26)
[2021-09-10] MEDS: methocarbamoL 500 MG TABLET PO PRN ×2 (02:02→10:30)
[2021-09-10] MEDS: LORazepam 0.5 MG TABLET PO PRN ×3 (05:31→21:27)
[2021-09-10] MEDS: MEROPENEM 1 GM in SODIUM CHLORIDE 0.9% MINIBAG 100 ML IV SCH ×3 (05:31→21:25)
[2021-09-10] MEDS: ISOSORBIDE MONONITRATE ER 30 MG TABLET PO SCH (05:32)
[2021-09-10] MEDS: LEVOTHYROXINE 25 MCG TABLET PO SCH (06:26)
[2021-09-10] MEDS: PANTOPRAZOLE 40 MG TABLET PO SCH (06:26)
[2021-09-10] MEDS: SODIUM CHLORIDE FLUSH 0.9% 10 ML SYRINGE IVP SCH ×3 (07:29→17:20)
[2021-09-10] MEDS: SACCHAROMYCES BOULARDII 250 MG CAPSULE PO SCH ×2 (10:33→17:19)
[2021-09-10] MEDS: AMIODARONE 200 MG TABLET PO SCH (10:33)
[2021-09-10] MEDS: APIXABAN 5 MG TABLET PO SCH (10:34)
[2021-09-10] MEDS: atenoloL 25 MG TABLET PO SCH (10:35)
[2021-09-10] MEDS: CLOPIDOGREL 75 MG TABLET PO SCH (10:35)
[2021-09-10] MEDS: buPROPion XL 150 MG TABLET PO SCH (10:35)
[2021-09-10] MEDS: FLUoxetine 10 MG CAPSULE PO SCH (10:35)
[2021-09-10] MEDS: gemfibroziL 600 MG TABLET PO SCH ×2 (10:36→21:27)
[2021-09-10] MEDS: POTASSIUM CHLORIDE 10 MEQ CAPSULE PO SCH (10:36)
[2021-09-10] MEDS: lisinopriL 5 MG TABLET PO SCH (10:36)
[2021-09-10] MEDS: FUROSEMIDE 40 MG TABLET PO SCH (10:36)
[2021-09-10] MEDS: SULFAMETH/TRIMETH DS 800/160 MG TABLET PO SCH ×2 (10:37→21:27)
[2021-09-10] MEDS: PATIENT OWN MED PO SCH ×2 (10:38→17:19)
[2021-09-10] MEDS: ACETAMINOPHEN 325 MG TABLET PO PRN (13:49)
[2021-09-11] MEDS: SODIUM CHLORIDE FLUSH 0.9% 10 ML SYRINGE IVP SCH ×3 (01:19→17:47)
[2021-09-11] MEDS: METHADONE 5 MG TABLET PO PRN ×2 (05:00→20:31)
[2021-09-11] MEDS: MEROPENEM 1 GM in SODIUM CHLORIDE 0.9% MINIBAG 100 ML IV SCH ×3 (06:41→21:41)
[2021-09-11] MEDS: ISOSORBIDE MONONITRATE ER 30 MG TABLET PO SCH (06:42)
[2021-09-11] MEDS: PANTOPRAZOLE 40 MG TABLET PO SCH (06:42)
[2021-09-11] MEDS: LEVOTHYROXINE 25 MCG TABLET PO SCH (06:42)
[2021-09-11] MEDS: LORazepam 0.5 MG TABLET PO PRN ×2 (06:49→15:01)
[2021-09-11] MEDS: FUROSEMIDE 40 MG TABLET PO SCH (09:39)
[2021-09-11] MEDS: AMIODARONE 200 MG TABLET PO SCH (09:39)
[2021-09-11] MEDS: APIXABAN 5 MG TABLET PO SCH ×2 (09:40→20:32)
[2021-09-11] MEDS: buPROPion XL 150 MG TABLET PO SCH (09:40)
[2021-09-11] MEDS: atenoloL 25 MG TABLET PO SCH (09:40)
[2021-09-11] MEDS: FLUoxetine 10 MG CAPSULE PO SCH (09:41)
[2021-09-11] MEDS: POTASSIUM CHLORIDE 10 MEQ CAPSULE PO SCH (09:41)
[2021-09-11] MEDS: SULFAMETH/TRIMETH DS 800/160 MG TABLET PO SCH ×2 (09:41→20:32)
[2021-09-11] MEDS: CLOPIDOGREL 75 MG TABLET PO SCH (09:41)
[2021-09-11] MEDS: SACCHAROMYCES BOULARDII 250 MG CAPSULE PO SCH ×2 (09:42→17:46)
[2021-09-11] MEDS: gemfibroziL 600 MG TABLET PO SCH ×2 (09:42→20:31)
[2021-09-11] MEDS: lisinopriL 5 MG TABLET PO SCH (09:42)
[2021-09-11] MEDS: PATIENT OWN MED PO SCH ×2 (09:44→17:47)
[2021-09-11] MEDS: SODIUM CHLORIDE FLUSH 0.9% 10 ML SYRINGE IVP PRN ×2 (13:24→21:42)
--- NOTE | 2021-09-11 15:25 | PROVIDER PROGRESS NOTE ---
Assessment/Plan - Problem List (1) Pneumonia due to escherichia coli (E. coli) Assessment/Plan: He is on IV antibiotics for ESBL-producing E. coli in the sputum. This is due to continue through 09-14-21. Continue with good respiratory toilet. (2) HIV (human immunodeficiency virus infection) Conclusion/Plan: His viral load was not detectable. His CD4 count is Low at 29%, thus we are continuing Bactrim for prophylaxis. And we are continuing his home antiviral medications. (3) Coronary artery disease Conclusion/Plan: Stable. He has history of stenting and CABG. We are continuing his home beta- debra, Eliquis, Lipitor and Plavix. (4) Chronic pain Conclusion/Plan: Continue methadone. (5) Depression Conclusion/Plan: Stable. Continue home fluoxetine and wellbutrin. (6) Hypothyroidism Conclusion/Plan: Stable. Continue home levothyroxine. - Current Meds Current Meds: Current Medications Generic Name Dose Route Start Last Admin Trade Name Freq PRN Reason Stop Dose Admin Acetaminophen 650 mg 09/04/21 18:01 09/10/21 13:49 Acetaminophen 325 Mg Tablet PO 650 mg Q4HR PRN Administration Pain 1 to 4 Amiodarone HCl 100 mg 09/05/21 09:00 09/11/21 09:39 Amiodarone 200 Mg Tablet PO 100 mg DAILY TREVER Administration Apixaban 5 mg 09/04/21 21:00 09/11/21 09:40 Apixaban 5 Mg Tablet PO 5 mg BID TREVER Administration Atenolol 50 mg 09/05/21 09:00 09/11/21 09:40 Atenolol 25 Mg Tablet PO 50 mg DAILY TREVER Administration Atorvastatin Calcium 40 mg 09/04/21 21:00 09/09/21 21:05 Atorvastatin 40 Mg Tablet PO 40 mg QPM TREVER Administration Bupropion HCl 300 mg 09/05/21 09:00 09/11/21 09:40 Bupropion Xl 150 Mg Tablet PO 300 mg DAILY TREVER Administration Clopidogrel Bisulfate 75 mg 09/05/21 09:00 09/11/21 09:41 Clopidogrel 75 Mg Tablet PO 75 mg DAILY TREVER Administration Fluoxetine HCl 40 mg 09/06/21 09:00 09/11/21 09:41 Fluoxetine 10 Mg Capsule PO 40 mg DAILY TREVER Administration Furosemide 40 mg 09/05/21 09:00 09/11/21 09:39 Furosemide 40 Mg Tablet PO 40 mg DAILY TREVER Administration Gemfibrozil 600 mg 09/04/21 21:00 09/11/21 09:42 Gemfibrozil 600 Mg Tablet PO 600 mg BID TREVER Administration Meropenem 1 gm/ Sodium 100 mls @ 200 mls/hr 09/04/21 22:00 09/11/21 14:00 Chloride IV 09/14/21 06:29 Infused TID TREVER Infusion Isosorbide Mononitrate 30 mg 09/05/21 06:00 09/11/21 06:42 Isosorbide Mononitrate Er 30 Mg Tablet PO 30 mg 0600 TREVER Administration Levothyroxine Sodium 25 mcg 09/05/21 07:00 09/11/21 06:42 Levothyroxine 25 Mcg Tablet PO 25 mcg QDAC TREVER Administration Lisinopril 10 mg 09/05/21 09:00 09/11/21 09:42 Lisinopril 5 Mg Tablet PO 10 mg DAILY TREVER Administration Lorazepam 0.5 mg 09/04/21 18:01 09/11/21 15:01 Lorazepam 0.5 Mg Tablet PO 0.5 mg Q8H PRN Administration Anxiety Methadone HCl 10 mg 09/04/21 18:01 09/11/21 05:00 Methadone 5 Mg Tablet PO 10 mg TID PRN Administration PAIN Methocarbamol 500 mg 09/04/21 18:01 09/10/21 10:30 Methocarbamol 500 Mg Tablet PO 500 mg TID PRN Administration Spasms Pantoprazole Sodium 40 mg 09/05/21 07:00 09/11/21 06:42 Pantoprazole 40 Mg Tablet PO 40 mg QDAC TREVER Administration Darunavir Ethanolate 1 each 09/05/21 08:00 09/11/21 09:43 [Prezista] 600 Mg PO 1 each Tablet BIDWM TREVER Administration Dolutegravir Sodium 1 each 09/04/21 21:00 09/11/21 13:26 [Tivicay] 50 Mg PO 1 each Tablet BID TREVER Administration Patient Own Medication 1 each 09/05/21 08:00 09/11/21 09:44 Patient Own Med PO 1 each BIDWM TREVER Administration Potassium Chloride 10 meq 09/05/21 09:00 09/11/21 09:41 Potassium Chloride 10 Meq Capsule PO 10 meq DAILY TREVER Administration Saccharomyces Boulardii 250 mg 09/05/21 08:00 09/11/21 09:42 Saccharomyces Boulardii 250 Mg Capsule PO 250 mg BIDWM TREVER Administration Sodium Chloride 10 ml 09/06/21 18:35 09/11/21 13:24 Sodium Chloride Flush 0.9% 10 Ml Syringe IVP 10 ml PRN PRN Administration Per Line Care protocol Sodium Chloride 10 ml 09/07/21 17:00 09/11/21 09:43 Sodium Chloride Flush 0.9% 10 Ml Syringe IVP 10 ml 0100,0900,1700 TREVER Administration Trimethoprim/Sulfamethoxazole 1 tab 09/04/21 21:00 09/11/21 09:41 Sulfameth/Trimeth Ds 800/160 Mg Tablet PO 1 tab BID TREVER Administration Subjective - Subjective Patient Reports: Feeling Better (since admitted, with no SOB, but is still coughing. Has more energy.) Objective Vital Signs: Vital Signs - 24 hr 09/10/21 09/11/21 09/11/21 15:36 07:58 09:40 Temperature 36.9 C 37 C Heart Rate [ 68 70 78 Brachial] Respiratory 20 18 Rate Blood Pressure 108/59 L 111/65 114/66 [Left Brachial artery] O2 Saturation 94 92 Oxygen O2 Source Room air I&O (Last 24 Hrs): Intake and Output Totals x24h 09/09/21 09/10/21 09/11/21 23:59 23:59 23:59 Intake Total 3540 2230 1380 Output Total 2025 1200 2050 Balance 1515 1030 -670 General: Alert, Oriented x3 HEENT: Mucous membr. moist/pink, Other (Nasal congestion) Neuro: Alert, Non Focal Cardiovascular: Regular rate, No murmurs Respiratory: Rales (Bilateral course rales posteriorly) Abdomen: Normal bowel sounds, Soft Extremities: No edema
[2021-09-11] MEDS: ATORVASTATIN 40 MG TABLET PO SCH (20:32)
[2021-09-11] MEDS: methocarbamoL 500 MG TABLET PO PRN (21:41)
[2021-09-12] MEDS: SODIUM CHLORIDE FLUSH 0.9% 10 ML SYRINGE IVP SCH ×4 (01:00→23:46)
[2021-09-12] MEDS: METHADONE 5 MG TABLET PO PRN ×4 (02:32→23:43)
[2021-09-12] MEDS: SODIUM CHLORIDE FLUSH 0.9% 10 ML SYRINGE IVP PRN ×2 (06:12→20:33)
[2021-09-12] MEDS: MEROPENEM 1 GM in SODIUM CHLORIDE 0.9% MINIBAG 100 ML IV SCH ×3 (06:12→20:32)
[2021-09-12] MEDS: PANTOPRAZOLE 40 MG TABLET PO SCH (06:16)
[2021-09-12] MEDS: ISOSORBIDE MONONITRATE ER 30 MG TABLET PO SCH (06:17)
[2021-09-12] MEDS: LEVOTHYROXINE 25 MCG TABLET PO SCH (06:17)
[2021-09-12] MEDS: LORazepam 0.5 MG TABLET PO PRN ×3 (06:20→23:43)
[2021-09-12] MEDS: lisinopriL 5 MG TABLET PO SCH (10:30)
[2021-09-12] MEDS: SACCHAROMYCES BOULARDII 250 MG CAPSULE PO SCH ×2 (10:30→16:10)
[2021-09-12] MEDS: FLUoxetine 10 MG CAPSULE PO SCH (10:30)
[2021-09-12] MEDS: FUROSEMIDE 40 MG TABLET PO SCH (10:30)
[2021-09-12] MEDS: SULFAMETH/TRIMETH DS 800/160 MG TABLET PO SCH ×2 (10:30→20:28)
[2021-09-12] MEDS: AMIODARONE 200 MG TABLET PO SCH (10:30)
[2021-09-12] MEDS: APIXABAN 5 MG TABLET PO SCH ×2 (10:30→20:28)
[2021-09-12] MEDS: CLOPIDOGREL 75 MG TABLET PO SCH (10:30)
[2021-09-12] MEDS: atenoloL 25 MG TABLET PO SCH (10:31)
[2021-09-12] MEDS: gemfibroziL 600 MG TABLET PO SCH ×2 (10:31→20:28)
[2021-09-12] MEDS: POTASSIUM CHLORIDE 10 MEQ CAPSULE PO SCH (10:31)
[2021-09-12] MEDS: methocarbamoL 500 MG TABLET PO PRN ×2 (10:31→20:26)
[2021-09-12] MEDS: buPROPion XL 150 MG TABLET PO SCH ×2 (10:33→10:51)
[2021-09-12] MEDS: PATIENT OWN MED PO SCH ×2 (10:33→16:12)
[2021-09-12] MEDS: ACETAMINOPHEN 325 MG TABLET PO PRN ×2 (14:47→20:27)
[2021-09-12] MEDS: ATORVASTATIN 40 MG TABLET PO SCH (20:28)
[2021-09-13] MEDS: PANTOPRAZOLE 40 MG TABLET PO SCH (06:21)
[2021-09-13] MEDS: LEVOTHYROXINE 25 MCG TABLET PO SCH (06:21)
[2021-09-13] MEDS: ISOSORBIDE MONONITRATE ER 30 MG TABLET PO SCH (06:21)
[2021-09-13] MEDS: MEROPENEM 1 GM in SODIUM CHLORIDE 0.9% MINIBAG 100 ML IV SCH ×3 (06:22→21:45)
[2021-09-13] MEDS: METHADONE 5 MG TABLET PO PRN ×3 (06:22→18:21)
[2021-09-13] MEDS: SODIUM CHLORIDE FLUSH 0.9% 10 ML SYRINGE IVP PRN (06:23)
[2021-09-13] MEDS: SACCHAROMYCES BOULARDII 250 MG CAPSULE PO SCH ×2 (10:01→17:30)
[2021-09-13] MEDS: POTASSIUM CHLORIDE 10 MEQ CAPSULE PO SCH (10:01)
[2021-09-13] MEDS: FLUoxetine 10 MG CAPSULE PO SCH (10:01)
[2021-09-13] MEDS: gemfibroziL 600 MG TABLET PO SCH ×2 (10:01→21:48)
[2021-09-13] MEDS: methocarbamoL 500 MG TABLET PO PRN ×2 (10:02→17:30)
[2021-09-13] MEDS: lisinopriL 5 MG TABLET PO SCH (10:02)
[2021-09-13] MEDS: CLOPIDOGREL 75 MG TABLET PO SCH (10:02)
[2021-09-13] MEDS: atenoloL 25 MG TABLET PO SCH (10:02)
[2021-09-13] MEDS: ACETAMINOPHEN 325 MG TABLET PO PRN ×2 (10:03→17:31)
[2021-09-13] MEDS: APIXABAN 5 MG TABLET PO SCH ×2 (10:03→21:48)
[2021-09-13] MEDS: FUROSEMIDE 40 MG TABLET PO SCH (10:03)
[2021-09-13] MEDS: SULFAMETH/TRIMETH DS 800/160 MG TABLET PO SCH ×2 (10:03→21:48)
[2021-09-13] MEDS: AMIODARONE 200 MG TABLET PO SCH (10:03)
[2021-09-13] MEDS: SODIUM CHLORIDE FLUSH 0.9% 10 ML SYRINGE IVP SCH ×2 (10:04→16:22)
[2021-09-13] MEDS: PATIENT OWN MED PO SCH ×2 (10:08→17:33)
[2021-09-13] MEDS: LORazepam 0.5 MG TABLET PO PRN ×2 (10:20→18:22)
[2021-09-13] MEDS: ATORVASTATIN 40 MG TABLET PO SCH (21:48)
[2021-09-13] MEDS ORDERED: guaiFENesin/DEXTROMETHORPHAN 10 ML UDC PO PRN (22:19)
[2021-09-14] MEDS: SODIUM CHLORIDE FLUSH 0.9% 10 ML SYRINGE IVP SCH ×2 (02:26→08:53)
[2021-09-14] MEDS: METHADONE 5 MG TABLET PO PRN ×2 (04:15→12:06)
[2021-09-14] MEDS: LORazepam 0.5 MG TABLET PO PRN (04:15)
[2021-09-14] MEDS: ISOSORBIDE MONONITRATE ER 30 MG TABLET PO SCH (05:42)
[2021-09-14] MEDS: MEROPENEM 1 GM in SODIUM CHLORIDE 0.9% MINIBAG 100 ML IV SCH (05:42)
[2021-09-14] MEDS: LEVOTHYROXINE 25 MCG TABLET PO SCH (05:42)
[2021-09-14] MEDS: PANTOPRAZOLE 40 MG TABLET PO SCH (05:42)
--- NOTE | 2021-09-14 07:54 | DISCHARGE SUMMARY ---
Discharge Summary Admit Date: 09/05/21 Discharge Date: 09/14/21 Discharging Provider: Dr Letitia Beltran Primary Care Provider: Dr Román Matta Code Status: Attempt Resuscitation Condition at Discharge: Stable Discharge Disposition: 01 Home, Self Care - [facility] History of Present Illness: From the admission H&P of Dr Tramaine Johnson: This is a 55-year-old male with a past medical history significant for coronary artery disease, HIV, depression who will now be admitted to our swing bed facility for IV antibiotics. He was admitted to our facility on August 28 for respiratory failure secondary to pneumonia. He underwent a CT angios showed no evidence of PE but did suggest pneumonia which is likely viral. He was tested twice for Covid and both of these were negative. He was treated empirically with ceftriaxone and azithromycin IV. He was also started on Bactrim for possible P DEISI. He had a decline in his oxygen requirements and was placed on high flow nasal cannula. Sputum culture ultimately grew ESBL and yeast. He was started on meropenem and fluconazole. Infectious disease at [facility] was contacted who recommended treating the ESBL E. coli pneumonia with meropenem for 2 weeks. The patient improved after the addition of meropenem and is now on room air. Given he requires IV antibiotics for another 9 days, he will be admitted to a swing bed facility. The patient today reports feeling well. Denies any dyspnea. Still has a cough which is now becoming productive. He feels better overall. Has no chest pain, fever, chills. - HOSPITAL COURSE Hospital Course: (1) Pneumonia due to escherichia coli (E. coli) After hospitalization here for pneumonia, he was admitted to "Swing Bed" status (SNF of [facility]) to complete a 2-week total course of iv Meropenem to treat the ESBL-producing strain of E. coli bacteria in sputum. He also received Flagyl for yeast growing in the sputum and was on Bactrim for PCP prophylaxis. His supplemental oxygen needs decreased to room air. On the day of discharge, a Covid test was negative (done for informing his caregiver). He should have a follow-up appointment with the Walk-In Clinic in about a week, and with his new Primary Care Provider (Dr Matta) on October 31, 2021. (2) CHF exacerbation On the day of discharge, his exam revealed bilateral rales. His O2 saturation was 89% on room air. Chest x-ray was done and showed persistent interstitial infiltrates versus interstitial fluid consistent with CHF. He was given a dose of Lasix 20 mg IV and had diuresis. His O2 saturation improved to 92% on room air with no desaturations with walking. He was told to use Lasix at double the dose for the next 2 days after discharge, then resume 40 mg daily and to continue all his other usual cardiac medications after discharge. (3) HIV (human immunodeficiency virus infection) His viral load was not detectable. His CD4 count came back Low at 29%, thus we continued Bactrim for prophylaxis, but the total CD4 count was 490, therefore he was not discharged on Bactrim. We also did continue his 3 home antiviral medications. (4) Coronary artery disease He has history of coronary stenting and CABG. We continued his home beta-bloc ker, Amiodarone, Eliquis, Lipitor and Plavix. (5) Chronic pain We continued his methadone. (6) Depression Stable. We continued his home fluoxetine and wellbutrin. (7) Hypothyroidism Stable. We continued his home levothyroxine. - ALLERGIES Allergies/Adverse Reactions: Allergies Allergy/AdvReac Type Severity Reaction Status Date / Time gabapentin Allergy Intermediate Hives Verified 08/28/21 16:21 nevirapine [From Viramune] Allergy Intermediate Hives Verified 08/28/21 16:21 tramadol Allergy Intermediate Rash Verified 08/28/21 16:21 ketorolac Allergy Itching Verified 08/28/21 16:21 - MEDICATIONS Home Medications: Ambulatory Orders Medication Instructions Recorded Confirmed Omeprazole [PriLOSEC] 40 mg PO DAILY 06/21/16 09/05/21 Ritonavir [Norvir] 100 mg PO BIDWM 06/21/16 09/05/21 Nitroglycerin [Nitrostat] 0.4 mg SL Q5MIN PRN #0 tablet 06/22/16 09/05/21 Amiodarone [Pacerone] 100 mg PO DAILY 08/29/21 09/05/21 Apixaban [Eliquis] 5 mg PO BID 08/29/21 09/05/21 Atenolol [Tenormin] 50 mg PO DAILY 08/29/21 09/05/21 Benazepril HCl 10 mg PO DAILY 08/29/21 09/05/21 Clopidogrel [Plavix] 75 mg PO DAILY 08/29/21 09/05/21 Darunavir Ethanolate [Prezista] 600 mg PO BIDWM 08/29/21 09/05/21 Dolutegravir Sodium [Tivicay] 50 mg PO BID 08/29/21 09/05/21 Evolocumab [Repatha Sureclick] 1 ml SQ Q14D 08/29/21 09/05/21 Fluoxetine HCl [Prozac] 40 mg PO DAILY 08/29/21 09/05/21 Furosemide [Lasix] 40 mg PO DAILY 08/29/21 09/05/21 Isosorbide Mononitrate ER [Imdur] 30 mg PO 0600 08/29/21 09/05/21 Levothyroxine Sodium 25 mcg PO DAILY 08/29/21 09/05/21 [Levothyroxine] Methadone [Methadone Hcl] 10 mg PO TID PRN 08/29/21 09/05/21 [place]-3 Acid Ethyl Esters [Lovaza] 2 gm PO BID 08/29/21 09/05/21 Potassium Chloride 10 meq PO DAILY 08/29/21 09/05/21 Rosuvastatin Calcium [Crestor] 20 mg PO DAILY 08/29/21 09/05/21 Terazosin HCl [Hytrin] 4 mg PO QDDINNER 08/29/21 09/05/21 Topiramate [Topamax] 50 mg PO BID 08/29/21 09/05/21 buPROPion HCL [Bupropion Xl] 300 mg PO DAILY 08/29/21 09/05/21 gemfibroziL [Lopid] 600 mg PO BID 08/29/21 09/05/21 methocarbamoL [Methocarbamol] 500 mg PO TID PRN 08/29/21 09/05/21 Fluconazole [Diflucan] 100 mg PO DAILY #10 tablet 09/04/21 09/05/21 LORazepam [Ativan] 0.5 mg PO Q8H PRN #15 tablet 09/04/21 09/05/21 Meropenem [Merrem] 1 gm IV Q8H #27 vial 09/04/21 09/05/21 Saccharomyces Boulardii [Florastor] 250 mg PO BIDWM #20 cap 09/04/21 09/05/21 Sulfamethox/Trimeth 800/160 1 tab PO BID #20 tablet 09/04/21 09/05/21 [Bactrim Ds] Acetaminophen [Tylenol] 650 mg PO Q4HR PRN tablet 09/14/21 guaiFENesin/DEXTROMETHORPHAN 10 ml PO Q6HR PRN 09/14/21 [Robitussin Dm] - PHYSICAL EXAM AT DISCHARGE General Appearance: positive: No acute distress, Alert Eyes Bilateral: positive: Normal inspection, EOMI ENT: positive: ENT inspection nml, No signs of dehydration Neck: positive: Nml inspection, Thyroid nml, No JVD Respiratory: positive: Rales Cardiovascular: positive: Regular rate & rhythm, No murmur Abdomen: positive: Non-tender, Nml bowel sounds, No distention Skin: positive: Warm, Dry Extremities: positive: Non-tender, No pedal edema Neurologic/Psychiatric: positive: Oriented x3 (Non-focal) - FOLLOW UP Follow Up: Plan for patient to be seen in walk-in clinic in 1 week and then to establish with a new PCP (Dr. Matta) on October 31, 2021. - TIME SPENT Time Spent in Discharge (Minutes): 60
--- NOTE | 2021-09-14 07:55 | Discharge Plan ---
Discharge Plan Problem Reviewed?: Yes Disposition: Home, Self Care Condition: Stable Diet: Cardiac Activity Restrictions: Activity as Tolerated Shower Restrictions: No Driving Restrictions: No Instruction Topics: Pneumonia Dc Health Concerns: After you were hospitalized here for pneumonia, you were then in "Swing Bed" status of [facility] (the equivalent of a [facility] Facility), to complete 9 more days of IV antibiotics. You received a 2-week total course of iv Meropenem to treat a strain of E. coli bacteria, which was found growing in your sputum. You also received Flagyl for yeast growing in the sputum, and you were getting Bactrim for potential Pneumocystis pneumonia, because of your HIV status. Your CD4 count reveals that you do not have full- blown AIDS. You are being discharged today and advised to resume all your pre-hospital medications. To treat the fluid in the lungs (congestive heart failure), please take your Furosemide (Lasix) 40 mg dose, by taking 2 tablets in the morning for the next 2 days and then go back to the usual 1 tabler a day dose. All your other medications can remain the same. You were tested for needing oxygen and you do not. Please have a follow-up appointment with the walk-in clinic in about a week, and with your new Primary Care Provider (Dr Matta) on October 31, 2021 (all these details were reviewed with you by our discharge nurse). Plan of Treatment: As above. Care Goals: Improvement in symptoms and stabilization of the goals. Assessment: The patient understands and is agreeable with the plan. Additional Instructions or Follow Up instructions: If you have new or worsening symptoms before seeing your PCP, go to an Urgent Care/Walk-in clinic or come to the ER. Follow-Up Care: [facility] - CHF Classes (You qualify to attend the congestive heart failure classes here, a referral was sent and staff will call you.) No Smoking: If you smoke, Please STOP! Call for help. Follow-up with: Román Matta MD [Credentialed Staff Provider] -
[2021-09-14] MEDS: FLUoxetine 10 MG CAPSULE PO SCH (08:51)
[2021-09-14] MEDS: gemfibroziL 600 MG TABLET PO SCH (08:51)
[2021-09-14] MEDS: buPROPion XL 150 MG TABLET PO SCH (08:51)
[2021-09-14] MEDS: SULFAMETH/TRIMETH DS 800/160 MG TABLET PO SCH (08:51)
[2021-09-14] MEDS: CLOPIDOGREL 75 MG TABLET PO SCH (08:52)
[2021-09-14] MEDS: POTASSIUM CHLORIDE 10 MEQ CAPSULE PO SCH (08:52)
[2021-09-14] MEDS: SACCHAROMYCES BOULARDII 250 MG CAPSULE PO SCH (08:52)
[2021-09-14] MEDS: APIXABAN 5 MG TABLET PO SCH (08:52)
[2021-09-14] MEDS: PATIENT OWN MED PO SCH (08:56)
--- NOTE | 2021-09-14 09:18 | XRAY Report ---
PROCEDURE: Chest 1 View X-Ray INDICATIONS: Bilateral velcro rales TECHNIQUE: One view of the chest was acquired. COMPARISON: 09/03/21, 08/31/21, 08/30/21, 06/22/16. FINDINGS: Surgical changes and devices: Right upper extremity PICC line stable in position. Postsurgical change s are redemonstrated in the mediastinum. Lungs and pleura: There are persistent patchy indistinct bilateral airspace opacities with a periphe ral and basilar predominance. There is also persistent pulmonary edema. Findings are similar to the p rior study but slightly decreased from the 08/31 study. No pleural effusions or pneumothorax. Mediastinum: Mediastinal contours appear unchanged. Heart size is normal. Bones and chest wall: No suspicious bony lesions. Overlying soft tissues appear unremarkable. IMPRESSION: 1. Persistent bilateral indistinct airspace opacities with a peripheral and basilar predominance cons istent with atypical pneumonia. Findings are similar to the prior study. 2. Persistent pulmonary edema also appears similar to the prior exam and decreased compared to previo us recent studies. Reviewed by: Jose Vasques MD on 09/14/2021 8:17 AM [facility] Approved by: Jose Vasques MD on 09/14/2021 8:17 AM [facility] Station ID: [id number]
[2021-09-14] MEDS: FUROSEMIDE 40 MG TABLET PO SCH (09:47)
[2021-09-14] MEDS: atenoloL 25 MG TABLET PO SCH (09:47)
[2021-09-14] MEDS: AMIODARONE 200 MG TABLET PO SCH (09:47)
[2021-09-14] MEDS: lisinopriL 5 MG TABLET PO SCH (09:47)
[2021-09-14 10:04] LABS: B. PARAPERTUSSIS- RESP PCR PAN NOT DETECTED; B. PERTUSSIS- RESP PCR PANEL NOT DETECTED; C. PNEUMONIAE- RESP PCR PANEL NOT DETECTED; CORONAVIRUS 229E-RESP PCR NOT DETECTED; CORONAVIRUS HKU1-RESP PCR NOT DETECTED; CORONAVIRUS NL63-RESP PCR NOT DETECTED; CORONAVIRUS OC43-RESP PCR NOT DETECTED; HUMAN METAPNEUMOVIRUS NOT DETECTED; INFLUENZA A- RESP PCR PANEL NOT DETECTED; INFLUENZA B - RESP PCR PANEL NOT DETECTED; M. PNEUMONIAE- RESP PCR PANEL NOT DETECTED; PARAINFLUENZA VIRUS 1 NOT DETECTED; PARAINFLUENZA VIRUS 2 NOT DETECTED; PARAINFLUENZA VIRUS 3 NOT DETECTED; PARAINFLUENZA VIRUS 4 NOT DETECTED; RHINOVIRUS/ENTEROVIRUS NOT DETECTED; RSV- RESP PCR PANEL NOT DETECTED; SARS-CoV-2 -RESP PCR PANEL NOT DETECTED
[2021-09-14] MEDS ORDERED: FUROSEMIDE 20 MG/2 ML VIAL IVP STA (10:21)
[2021-09-14] MEDS: SODIUM CHLORIDE FLUSH 0.9% 10 ML SYRINGE IVP PRN (10:35)
[2021-09-14 11:52] VITALS: BP 126/86
== END 2021-09-14 14:10 | disposition home or self-care (01) | DRG 976 ==
LOC: MS2 17:25
PROVIDERS: ADMIT Internal Medicine; ATTEND Internal Medicine
DX: J15.5 Pneumonia due to Escherichia coli (principal); B20 Human immunodeficiency virus [HIV] disease; Z20.822 Contact with and (suspected) exposure to COVID-19; I11.0 Hypertensive heart disease with heart failure; I50.9 Heart failure, unspecified; I25.10 Atherosclerotic heart disease of native coronary artery without angina pectoris; Z95.1 Presence of aortocoronary bypass graft; G89.29 Other chronic pain; F32.A Depression, unspecified; E03.9 Hypothyroidism, unspecified; Z95.5 Presence of coronary angioplasty implant and graft; Z87.891 Personal history of nicotine dependence; Z66 Do not resuscitate; Z79.891 Long term (current) use of opiate analgesic; Z79.899 Other long term (current) drug therapy
CPT/HCPCS: 0202U; 94761; J8499

== ENCOUNTER 2021-09-24 16:01 | Outpatient (CLI) | payer MEDICARE, MEDICAID ==
--- NOTE | 2021-09-24 16:51 | XRAY Report ---
PROCEDURE: Chest 2 View X-Ray INDICATIONS: PNEUMONIA TECHNIQUE: 2 views of the chest. COMPARISON: Chest radiographs 09/14/2021 and 09/03/2021. FINDINGS: Surgical changes and devices: Prior right PICC has been removed. Sternotomy wires and mediastinal cl ips are again seen. Lungs and pleura: Diffuse bilateral interstitial prominence appears mildly decreased in severity when compared to the radiographs from 09/14/2021. No pleural effusion or pneumothorax. Mediastinum: Mediastinal contours are normal. Heart size is normal. Bones and chest wall: No suspicious bony abnormalities. Soft tissues appear unremarkable. IMPRESSION: Mildly decreased bilateral pulmonary opacities. Reviewed by: Gus Flores MD on 09/24/2021 4:49 PM PST Approved by: Gsu Flores MD on 09/24/2021 4:49 PM PST Station ID: [id number]
== END 2021-09-24 23:59 | disposition home or self-care (01) ==
LOC: DI.N 16:01
PROVIDERS: ATTEND Family Medicine
DX: J18.9 Pneumonia, unspecified organism (principal)

== ENCOUNTER 2021-09-24 18:40 | Inpatient (IN) | payer MEDICARE, MEDICAID ==
[2021-09-24 19:34] LABS: BASOPHILS # (AUTO) 0.1 10^3/uL (0.0-0.1); EOSINOPHILS # (AUTO) 0.2 10^3/uL (0.0-0.7); EOSINOPHILS % (AUTO) 2.1 %; HCT - HEMATOCRIT 45.3 % (42.0-52.0); HGB - HEMOGLOBIN 14.2 g/dL (14.0-18.0); LYMPHOCYTES # (AUTO) 2.4 10^3/uL (1.5-3.5); LYMPHOCYTES % (AUTO) 27.9 %; MEAN CORPUSCULAR HEMOGLOBIN 27.7 pg (27.0-31.0); MEAN CORPUSCULAR HGB CONC 31.3 g/dL (32.0-36.0); MEAN CORPUSCULAR VOLUME 88.3 fL (80.0-94.0); MEAN PLATELET VOLUME 9.4 fL (7.4-11.4); MONOCYTES # (AUTO) 1.2 10^3/uL (0.0-1.0); MONOCYTES % (AUTO) 13.4 %; NEUTROPHILS # (AUTO) 4.8 10^3/uL (1.5-6.6); NEUTROPHILS % (AUTO) 55.1 %; PLT - PLATELET COUNT 206 10^3/uL (130-450); RED BLOOD COUNT 5.13 10^6/uL (4.70-6.10); RED CELL DISTRIBUTION WIDTH 17.5 % (12.0-15.0); WHITE BLOOD COUNT 8.8 x10^3/uL (4.8-10.8)
[2021-09-24 19:39] LABS: ALBUMIN 3.2 g/dL (3.2-5.5); ALBUMIN/GLOBULIN RATIO 0.7 (1.0-2.2); BILIRUBIN,TOTAL 0.5 mg/dL (0.2-1.0); CREATININE 1.1 mg/dL (0.6-1.2); POTASSIUM 3.4 mmol/L (3.5-5.0); TOTAL PROTEIN 7.6 g/dL (6.7-8.2)
--- NOTE | 2021-09-24 19:44 | ED Physician Documentation ---
PD HPI DYSPNEA - Stated complaint Stated Complaint: SOA - Chief complaint Chief Complaint: Resp - History obtained from History obtained from: Patient - History of Present Illness Timing - onset: Today (this morning) Timing - details: Gradual onset Pain level now: 0 Improved by: Rest Worsened by: Exertion, Coughing Associated symptoms: Cough. No: Fever, Hemoptysis, Chest pain / discomfort, Bilateral edema, Unilateral edema Similar symptoms before: Diagnosis (pnemonia) Recently seen: Admitted - Additional information Additional information: admitted to [facility] for pneumonia 08/29, transitioned to swing bed 09/04 and discharged 09/14. sputum culture yielded yeast as well as ESBL-producing E.Coli which was sensitive to carbopenems (imipenem, ertapenem). He says he began to have recurrence of dyspnea this morning that worsened during the course of the day. he was evaluated in outpatient setting and was advised to come to ED for further evaluation, noted to be hypoxic in the outpatient evaluation. Patient is COVID vaccinated. Denies fever. He is HIV positive Review of Systems Constitutional: reports: Fatigue. denies: Fever, Chills, Sweats Cardiac: reports: Reviewed and negative Respiratory: reports: Dyspnea, Cough. denies: Hemoptysis, Wheezing GI: reports: Reviewed and negative : reports: Reviewed and negative Skin: reports: Reviewed and negative Musculoskeletal: reports: Reviewed and negative Neurologic: reports: Reviewed and negative Immunocompromised: reports: HIV/AIDS PD PAST MEDICAL HISTORY - Past Medical History Cardiovascular: Coronary artery disease, Atrial fibrillation Respiratory: Pneumonia Neuro: None Endocrine/Autoimmune: Other GI: None : None HEENT: None Psych: Depression Musculoskeletal: None, Chronic back pain Derm: None - Past Surgical History Past Surgical History: Yes Ortho: Other Cardiovascular: CABG, Coronary stent - Present Medications Home Medications: Ambulatory Orders Medication Instructions Recorded Confirmed Omeprazole [PriLOSEC] 40 mg PO DAILY 06/21/16 09/05/21 Ritonavir [Norvir] 100 mg PO BIDWM 06/21/16 09/05/21 Nitroglycerin [Nitrostat] 0.4 mg SL Q5MIN PRN #0 tablet 06/22/16 09/05/21 Amiodarone [Pacerone] 100 mg PO DAILY 08/29/21 09/05/21 Apixaban [Eliquis] 5 mg PO BID 08/29/21 09/05/21 Atenolol [Tenormin] 50 mg PO DAILY 08/29/21 09/05/21 Benazepril HCl 10 mg PO DAILY 08/29/21 09/05/21 Clopidogrel [Plavix] 75 mg PO DAILY 08/29/21 09/05/21 Darunavir Ethanolate [Prezista] 600 mg PO BIDWM 08/29/21 09/05/21 Dolutegravir Sodium [Tivicay] 50 mg PO BID 08/29/21 09/05/21 Evolocumab [Repatha Sureclick] 1 ml SQ Q14D 08/29/21 09/05/21 Fluoxetine HCl [Prozac] 40 mg PO DAILY 08/29/21 09/05/21 Furosemide [Lasix] 40 mg PO DAILY 08/29/21 09/05/21 Isosorbide Mononitrate ER [Imdur] 30 mg PO 0600 08/29/21 09/05/21 Levothyroxine Sodium 25 mcg PO DAILY 08/29/21 09/05/21 [Levothyroxine] Methadone [Methadone Hcl] 10 mg PO TID PRN 08/29/21 09/05/21 [place]-3 Acid Ethyl Esters [Lovaza] 2 gm PO BID 08/29/21 09/05/21 Potassium Chloride 10 meq PO DAILY 08/29/21 09/05/21 Rosuvastatin Calcium [Crestor] 20 mg PO DAILY 08/29/21 09/05/21 Terazosin HCl [Hytrin] 4 mg PO QDDINNER 08/29/21 09/05/21 Topiramate [Topamax] 50 mg PO BID 08/29/21 09/05/21 buPROPion HCL [Bupropion Xl] 300 mg PO DAILY 08/29/21 09/05/21 gemfibroziL [Lopid] 600 mg PO BID 08/29/21 09/05/21 methocarbamoL [Methocarbamol] 500 mg PO TID PRN 08/29/21 09/05/21 Fluconazole [Diflucan] 100 mg PO DAILY #10 tablet 09/04/21 09/05/21 LORazepam [Ativan] 0.5 mg PO Q8H PRN #15 tablet 09/04/21 09/05/21 Meropenem [Merrem] 1 gm IV Q8H #27 vial 09/04/21 09/05/21 Saccharomyces Boulardii [Florastor] 250 mg PO BIDWM #20 cap 09/04/21 09/05/21 Sulfamethox/Trimeth 800/160 1 tab PO BID #20 tablet 09/04/21 09/05/21 [Bactrim Ds] Acetaminophen [Tylenol] 650 mg PO Q4HR PRN tablet 09/14/21 guaiFENesin/DEXTROMETHORPHAN 10 ml PO Q6HR PRN 09/14/21 [Robitussin Dm] - Allergies Allergies/Adverse Reactions: Allergies Allergy/AdvReac Type Severity Reaction Status Date / Time gabapentin Allergy Intermediate Hives Verified 09/24/21 18:47 nevirapine [From Viramune] Allergy Intermediate Hives Verified 09/24/21 18:47 tramadol Allergy Intermediate Rash Verified 09/24/21 18:47 ketorolac Allergy Itching Verified 09/24/21 18:47 - Social History Does the pt smoke?: Yes Smoking Status: Current every day smoker Does the pt drink ETOH?: No Does the pt have substance abuse?: No - Immunizations Immunizations are current?: Yes - POLST Patient has POLST: Yes POLST Status: DNR (Intubation and ventil use is OK) PD ED PE NORMAL - Vitals Vital signs reviewed: Yes - General General: Alert and oriented X 3, No acute distress, Well developed/nourished - HEENT HEENT: Moist mucous membranes - Neck Neck: Supple, no meningeal sign - Cardiac Cardiac: RRR, No murmur - Respiratory Respiratory: No respiratory distress - Abdomen Abdomen: Soft, Non tender - Derm Derm: Normal color, Warm and dry - Extremities Extremities: No edema PD ED PE EXPANDED - Respiratory Respiratory: Rhonchi (bilaterally), Rales Results - Vitals Vitals: Vital Signs - 24 hr 09/24/21 09/24/21 09/24/21 18:47 18:58 19:30 Temperature 36.9 C 36.9 C Heart Rate 83 86 70 Respiratory 24 24 18 Rate Blood Pressure 137/72 H 137/72 H 122/68 O2 Saturation 86 L 86 L 98 09/24/21 09/24/21 09/24/21 20:00 20:30 21:00 Temperature Heart Rate 68 66 78 Respiratory 18 16 19 Rate Blood Pressure 117/74 126/63 114/75 O2 Saturation 91 L 94 92 09/24/21 09/24/21 09/24/21 21:30 22:00 22:30 Temperature Heart Rate 67 61 62 Respiratory 16 17 15 Rate Blood Pressure 125/88 H 117/73 114/79 O2 Saturation 93 96 96 09/24/21 09/25/21 09/25/21 23:00 00:01 01:30 Temperature Heart Rate 67 63 58 L Respiratory 22 18 16 Rate Blood Pressure 122/80 127/80 127/59 L O2 Saturation 97 95 94 09/25/21 09/25/21 09/25/21 02:00 02:30 03:29 Temperature Heart Rate 57 L 68 58 L Respiratory 12 23 17 Rate Blood Pressure 112/74 127/82 H 124/83 H O2 Saturation 93 92 93 09/25/21 09/25/21 09/25/21 03:30 04:00 04:24 Temperature 36.4 C L Heart Rate 57 L 69 56 L Respiratory 15 19 18 Rate Blood Pressure 112/57 L 116/81 H 116/81 H O2 Saturation 94 91 L 96 09/25/21 09/25/21 09/25/21 04:30 05:31 05:46 Temperature Heart Rate 63 58 L Respiratory 13 16 16 Rate Blood Pressure 121/71 132/83 H O2 Saturation 95 92 09/25/21 09/25/21 09/25/21 06:00 08:26 10:45 Temperature 36.4 C L Heart Rate 55 L 60 55 L Respiratory 11 L 27 H 15 Rate Blood Pressure 136/62 H 123/79 121/81 H O2 Saturation 93 94 95 Oxygen O2 Source Room air Oxygen Flow Rate 2 - EKG (time done) No standard instances Rate: Rate (enter#) (70) Rhythm: NSR Markesan: LAD Ischemia: Normal ST segments Other comments: Other comments (PVCs) - Labs Labs: Laboratory Tests 09/24/21 09/24/21 09/24/21 19:00 19:00 19:00 WBC 8.8 RBC 5.13 Hgb 14.2 Hct 45.3 MCV 88.3 MCH 27.7 MCHC 31.3 L RDW 17.5 H Plt Count 206 MPV 9.4 Neut # (Auto) 4.8 Lymph # (Auto) 2.4 Story # (Auto) 1.2 H Eos # (Auto) 0.2 Baso # (Auto) 0.1 Absolute Nucleated RBC 0.00 Nucleated RBC % 0.0 PT 15.3 H INR 1.4 H Sodium 132 L Potassium 3.4 L Chloride 97 L Carbon Dioxide 23 Anion Gap 12.0 BUN 23 H Creatinine 1.1 Estimated GFR (MDRD) 69 L Glucose 112 H Lactic Acid Calcium 9.0 Magnesium Total Bilirubin 0.5 AST 27 ALT 19 Alkaline Phosphatase 103 Troponin I High Sens C-Reactive Protein B-Natriuretic Peptide Total Protein 7.6 Albumin 3.2 Globulin 4.4 H Albumin/Globulin Ratio 0.7 L Lipase 23 Urine Color Urine Clarity Urine pH Ur Specific Triangle Urine Protein Urine Glucose (UA) Urine Ketones Urine Occult Blood Urine Nitrite Urine Bilirubin Urine Urobilinogen Ur Leukocyte Esterase Ur Microscopic Review Urine Culture Comments Nasal Adenovirus (PCR) Nasal B. parapertussis DNA (PCR) Nasal Coronavir 229E PCR Nasal Coronavir HKU1 PCR Nasal Coronavir NL63 PCR Nasal Coronavir OC43 PCR Nasal Enterovir/Rhinovir PCR Nasal Influenza B PCR Nasal Influenza A PCR Nasal Parainfluen 1 PCR Nasal Parainfluen 2 PCR Nasal Parainfluen 3 PCR Nasal Parainfluen 4 PCR Nasal RSV (PCR) Nasal B.pertussis DNA PCR Nasal C.pneumoniae (PCR) [place] Human Metapneumo PCR Nasal M.pneumoniae (PCR) Nasal SARS-CoV-2 (PCR) 09/24/21 09/24/21 09/24/21 19:00 19:00 19:00 WBC RBC Hgb Hct MCV MCH MCHC RDW Plt Count MPV Neut # (Auto) Lymph # (Auto) Story # (Auto) Eos # (Auto) Baso # (Auto) Absolute Nucleated RBC Nucleated RBC % PT INR Sodium Potassium Chloride Carbon Dioxide Anion Gap BUN Creatinine Estimated GFR (MDRD) Glucose Lactic Acid 1.8 Calcium Magnesium Total Bilirubin AST ALT Alkaline Phosphatase Troponin I High Sens 5.9 C-Reactive Protein B-Natriuretic Peptide 179 H Total Protein Albumin Globulin Albumin/Globulin Ratio Lipase Urine Color Urine Clarity Urine pH Ur Specific Triangle Urine Protein Urine Glucose (UA) Urine Ketones Urine Occult Blood Urine Nitrite Urine Bilirubin Urine Urobilinogen Ur Leukocyte Esterase Ur Microscopic Review Urine Culture Comments Nasal Adenovirus (PCR) Nasal B. parapertussis DNA (PCR) Nasal Coronavir 229E PCR Nasal Coronavir HKU1 PCR Nasal Coronavir NL63 PCR Nasal Coronavir OC43 PCR Nasal Enterovir/Rhinovir PCR Nasal Influenza B PCR Nasal Influenza A PCR Nasal Parainfluen 1 PCR Nasal Parainfluen 2 PCR Nasal Parainfluen 3 PCR Nasal Parainfluen 4 PCR Nasal RSV (PCR) Nasal B.pertussis DNA PCR Nasal C.pneumoniae (PCR) [place] Human Metapneumo PCR Nasal M.pneumoniae (PCR) Nasal SARS-CoV-2 (PCR) 09/24/21 09/25/21 09/25/21 21:13 00:10 02:16 WBC 7.6 RBC 4.87 Hgb 13.3 L Hct 42.1 MCV 86.4 MCH 27.3 MCHC 31.6 L RDW 17.7 H Plt Count 175 MPV 9.3 Neut # (Auto) 3.9 Lymph # (Auto) 2.2 Story # (Auto) 1.1 H Eos # (Auto) 0.2 Baso # (Auto) 0.1 Absolute Nucleated RBC 0.00 Nucleated RBC % 0.0 PT INR Sodium Potassium Chloride Carbon Dioxide Anion Gap BUN Creatinine Estimated GFR (MDRD) Glucose Lactic Acid Calcium Magnesium Total Bilirubin AST ALT Alkaline Phosphatase Troponin I High Sens C-Reactive Protein B-Natriuretic Peptide Total Protein Albumin Globulin Albumin/Globulin Ratio Lipase Urine Color YELLOW Urine Clarity CLEAR Urine pH 6.5 Ur Specific Triangle 1.020 Urine Protein NEGATIVE Urine Glucose (UA) NEGATIVE Urine Ketones NEGATIVE Urine Occult Blood NEGATIVE Urine Nitrite NEGATIVE Urine Bilirubin NEGATIVE Urine Urobilinogen 0.2 (NORMAL) Ur Leukocyte Esterase NEGATIVE Ur Microscopic Review NOT INDICATED Urine Culture Comments NOT INDICATED Nasal Adenovirus (PCR) NOT DETECTED Nasal B. parapertussis DNA (PCR) NOT DETECTED Nasal Coronavir 229E PCR NOT DETECTED Nasal Coronavir HKU1 PCR NOT DETECTED Nasal Coronavir NL63 PCR NOT DETECTED Nasal Coronavir OC43 PCR NOT DETECTED Nasal Enterovir/Rhinovir PCR NOT DETECTED Nasal Influenza B PCR NOT DETECTED Nasal Influenza A PCR NOT DETECTED Nasal Parainfluen 1 PCR NOT DETECTED Nasal Parainfluen 2 PCR NOT DETECTED Nasal Parainfluen 3 PCR NOT DETECTED Nasal Parainfluen 4 PCR NOT DETECTED Nasal RSV (PCR) NOT DETECTED Nasal B.pertussis DNA PCR NOT DETECTED Nasal C.pneumoniae (PCR) NOT DETECTED [place] Human Metapneumo PCR NOT DETECTED Nasal M.pneumoniae (PCR) NOT DETECTED Nasal SARS-CoV-2 (PCR) NOT DETECTED 12/15/21 12/15/21 12/15/21 02:16 05:36 05:36 WBC 8.0 RBC 4.92 Hgb 13.6 L Hct 42.7 MCV 86.8 MCH 27.6 MCHC 31.9 L RDW 17.6 H Plt Count 177 MPV 9.4 Neut # (Auto) 4.3 Lymph # (Auto) 2.3 Story # (Auto) 1.1 H Eos # (Auto) 0.2 Baso # (Auto) 0.1 Absolute Nucleated RBC 0.00 Nucleated RBC % 0.0 PT INR Sodium 136 134 L Potassium 3.6 3.7 Chloride 101 100 L Carbon Dioxide 24 24 Anion Gap 11.0 10.0 BUN 20 18 Creatinine 0.9 0.8 Estimated GFR (MDRD) 88 L 100 Glucose 81 85 Lactic Acid Calcium 8.9 8.8 Magnesium 1.9 1.9 Total Bilirubin AST ALT Alkaline Phosphatase Troponin I High Sens C-Reactive Protein 6.1 H 6.4 H B-Natriuretic Peptide Total Protein Albumin Globulin Albumin/Globulin Ratio Lipase Urine Color Urine Clarity Urine pH Ur Specific Triangle Urine Protein Urine Glucose (UA) Urine Ketones Urine Occult Blood Urine Nitrite Urine Bilirubin Urine Urobilinogen Ur Leukocyte Esterase Ur Microscopic Review Urine Culture Comments Nasal Adenovirus (PCR) Nasal B. parapertussis DNA (PCR) Nasal Coronavir 229E PCR Nasal Coronavir HKU1 PCR Nasal Coronavir NL63 PCR Nasal Coronavir OC43 PCR Nasal Enterovir/Rhinovir PCR Nasal Influenza B PCR Nasal Influenza A PCR Nasal Parainfluen 1 PCR Nasal Parainfluen 2 PCR Nasal Parainfluen 3 PCR Nasal Parainfluen 4 PCR Nasal RSV (PCR) Nasal B.pertussis DNA PCR Nasal C.pneumoniae (PCR) [place] Human Metapneumo PCR Nasal M.pneumoniae (PCR) Nasal SARS-CoV-2 (PCR) - Rads (name of study) chest xray Radiology: Prelim report reviewed, See rad report PD MEDICAL DECISION MAKING - ED course Complexity details: reviewed old records, reviewed results, re-evaluated patient, considered differential, d/w patient ED course: hypoxia on room air (86% on arrival), improves to lower 90s with 2 liters NC. On my initial H+P, he is already on 2 liters NC and I turned this off and proceeded with HPI/ROS, but had to restart the NC oxygen at 2 liters due to desaturation to 87% within 1-2 minutes of turning off the oxygen (increasing dyspnea noted as his pulse ox dropped). CXR again demonstrates bilateral interstitial and airspace infiltrates compatible with pulmonary edema or bilateral pneumonia. He is given IV meropenem and accepted by hospitalist to [facility], but held in ED overnight pending bed availability Departure - Departure Disposition: ED Place in Observation Clinical Impression: Pneumonia Qualifiers: Pneumonia type: due to unspecified organism Laterality: bilateral Lung location: unspecified part of lung Qualified Code(s): J18.9 - Pneumonia, unspecified organism Condition: Stable
[2021-09-24 19:53] LABS: INR 1.4 (0.8-1.2); PT - PROTHROMBIN TIME 15.3 secs (9.9-12.6)
--- NOTE | 2021-09-24 20:28 | XRAY Report ---
PROCEDURE: Chest 1 View X-Ray INDICATIONS: Chest Pain TECHNIQUE: One view of the chest was acquired. COMPARISON: Chest x-ray 2 views, 09/24/2021 FINDINGS: Surgical changes and devices: Sternotomy and CABG. Lungs and pleura: Bilateral interstitial and airspace infiltrates consistent with edema or bilateral pneumonia. No pleural effusions or pneumothorax. Mediastinum: Mediastinal contours appear normal. Heart size is normal. Bones and chest wall: No suspicious bony lesions. Overlying soft tissues appear unremarkable. IMPRESSION: Bilateral interstitial and airspace infiltrates compatible with pulmonary edema or bilateral pneumoni a. Reviewed by: Kendrick Mireles MD on 09/24/2021 8:26 PM PST Approved by: Kendrick Mireles MD on 09/24/2021 8:26 PM PST Station ID: [id number]
[2021-09-24] MEDS ORDERED: MEROPENEM 1 GM in SODIUM CHLORIDE 0.9% MINIBAG 100 ML IV STA (20:33)
[2021-09-24 22:18] LABS: B. PARAPERTUSSIS- RESP PCR PAN NOT DETECTED; B. PERTUSSIS- RESP PCR PANEL NOT DETECTED; C. PNEUMONIAE- RESP PCR PANEL NOT DETECTED; CORONAVIRUS 229E-RESP PCR NOT DETECTED; CORONAVIRUS HKU1-RESP PCR NOT DETECTED; CORONAVIRUS NL63-RESP PCR NOT DETECTED; CORONAVIRUS OC43-RESP PCR NOT DETECTED; HUMAN METAPNEUMOVIRUS NOT DETECTED; INFLUENZA A- RESP PCR PANEL NOT DETECTED; INFLUENZA B - RESP PCR PANEL NOT DETECTED; M. PNEUMONIAE- RESP PCR PANEL NOT DETECTED; PARAINFLUENZA VIRUS 1 NOT DETECTED; PARAINFLUENZA VIRUS 2 NOT DETECTED; PARAINFLUENZA VIRUS 3 NOT DETECTED; PARAINFLUENZA VIRUS 4 NOT DETECTED; RHINOVIRUS/ENTEROVIRUS NOT DETECTED; RSV- RESP PCR PANEL NOT DETECTED; SARS-CoV-2 -RESP PCR PANEL NOT DETECTED
[2021-09-24] MEDS ORDERED: SODIUM CHLORIDE FLUSH 0.9% 10 ML SYRINGE IVP PRN (22:19)
[2021-09-24] MEDS ORDERED: ONDANSETRON 4 MG/2 ML VIAL IVP PRN (22:19)
[2021-09-24] MEDS ORDERED: ACETAMINOPHEN 325 MG TABLET PO PRN (22:19)
--- NOTE | 2021-09-24 22:53 | HISTORY & PHYSICAL EXAMINATION ---
Chief Complaint - Chief Complaint Chief Complaint: dyspnea, and sent in by Dr Meek for oxygen desaturation History of Present Illness - Admitted From Admitted From:: ED - History Obtained From History obtained from: ED provider and the patient - History of Present Illness HPI Comment/Other: This is a 55-year-old male with a history of HIV on 3 antiviral agents, he has a history of coronary disease with CABG in the past and takes Plavix and nitrates. He has a history of Hypothyroidism on replacement, prior A. fib and is on Atenolol, Amiodarone and Eliquis. The patient was admitted here about 4 weeks ago with dyspnea on exertion and found to have bilateral interstitial infiltrates, was Covid negative. An Echo done during that admission showed normal LVEF and stable valve function and PA pressure. He was started on empiric antibiotics. His sputum culture grew yeast and also ESBL-producing E. coli. He was started on Bactrim DS empirically, Fluconazole and also put on Meropenem (for the ESBL-E coli) via PICC line and was discharged into the [facility] ([facility]) to complete a course of IV Meropenem and was then discharged home. He was Covid negative on day of discharge from [facility]. Also, at the time of discharge, he did have coarse rales and had mild hypoxia. He received IV diuretic on the day of discharge and was told to double his usual Lasix dose for several days then resume the previous dose. Patient went to see Dr. Meek today for a scheduled walk-in clinic visit, 1 week after the hospitalization (before his first PCP appointment with Dr Matta, which is arranged for 10/31/21) and complained of shortness of breath, was found to be desaturating and a chest x-ray was done that showed minimally improved bilateral interstitial infiltrates. Patient was advised to come to the ED. He complains of continued shortness of breath. His exam is significant for tachypnea, coarse bilateral rales and desaturation of 86% on room air and he appears dyspneic when speaking. He is compliant with his medications. He is again testing Covid negative. He will be placed in Observation status for diuretic treatment, supplemental oxygen treatment, and to resume Bactrim DS for possible PCP pneumonia and to start steroids for managing possible interstitial lung disease. Amiodarone will be stopped as it could be contributing to this lung disease. History - Past Medical History Cardiovascular: reports: Coronary artery disease, Atrial fibrillation Respiratory: reports: Pneumonia Neuro: reports: None Endocrine/Autoimmune: reports: Other GI: reports: None : reports: None HEENT: reports: None Psych: reports: Depression Musculoskeletal: reports: None, Chronic back pain Derm: reports: None MRSA Hx?: No - Past Surgical History Ortho: reports: Other Cardiovascular: reports: CABG, Coronary stent - Family & Social History Family History: Mother: Alive and Well, Father: , Brother: Alive and Well, Family History Comment/Other: Both of his parents are . His mother had a history of coronary artery disease. Living arrangement: At home Living Situation: With spouse/s.o. Social History Notes: He recently moved back to [facility] after previously living in [place] for a few years. He denies any alcohol use. He quit smoking after a myocardial infarction in 2012. - Substance History Use: Uses substance without health or social issues: NONE - POLST Patient has POLST: Yes POLST Status: DNR (Intubation and ventil use is OK) Meds/Allgy - Home Medications Home Medications: Ambulatory Orders Medication Instructions Recorded Confirmed Omeprazole [PriLOSEC] 40 mg PO DAILY 06/21/16 09/05/21 Ritonavir [Norvir] 100 mg PO BIDWM 06/21/16 09/05/21 Nitroglycerin [Nitrostat] 0.4 mg SL Q5MIN PRN #0 tablet 06/22/16 09/05/21 Amiodarone [Pacerone] 100 mg PO DAILY 08/29/21 09/05/21 Apixaban [Eliquis] 5 mg PO BID 08/29/21 09/05/21 Atenolol [Tenormin] 50 mg PO DAILY 08/29/21 09/05/21 Benazepril HCl 10 mg PO DAILY 08/29/21 09/05/21 Clopidogrel [Plavix] 75 mg PO DAILY 08/29/21 09/05/21 Darunavir Ethanolate [Prezista] 600 mg PO BIDWM 08/29/21 09/05/21 Dolutegravir Sodium [Tivicay] 50 mg PO BID 08/29/21 09/05/21 Evolocumab [Repatha Sureclick] 1 ml SQ Q14D 08/29/21 09/05/21 Fluoxetine HCl [Prozac] 40 mg PO DAILY 08/29/21 09/05/21 Furosemide [Lasix] 40 mg PO DAILY 08/29/21 09/05/21 Isosorbide Mononitrate ER [Imdur] 30 mg PO 0600 08/29/21 09/05/21 Levothyroxine Sodium 25 mcg PO DAILY 08/29/21 09/05/21 [Levothyroxine] Methadone [Methadone Hcl] 10 mg PO TID PRN 08/29/21 09/05/21 [place]-3 Acid Ethyl Esters [Lovaza] 2 gm PO BID 08/29/21 09/05/21 Potassium Chloride 10 meq PO DAILY 08/29/21 09/05/21 Rosuvastatin Calcium [Crestor] 20 mg PO DAILY 08/29/21 09/05/21 Terazosin HCl [Hytrin] 4 mg PO QDDINNER 08/29/21 09/05/21 Topiramate [Topamax] 50 mg PO BID 08/29/21 09/05/21 buPROPion HCL [Bupropion Xl] 300 mg PO DAILY 08/29/21 09/05/21 gemfibroziL [Lopid] 600 mg PO BID 08/29/21 09/05/21 methocarbamoL [Methocarbamol] 500 mg PO TID PRN 08/29/21 09/05/21 Fluconazole [Diflucan] 100 mg PO DAILY #10 tablet 09/04/21 09/05/21 LORazepam [Ativan] 0.5 mg PO Q8H PRN #15 tablet 09/04/21 09/05/21 Meropenem [Merrem] 1 gm IV Q8H #27 vial 09/04/21 09/05/21 Saccharomyces Boulardii [Florastor] 250 mg PO BIDWM #20 cap 09/04/21 09/05/21 Sulfamethox/Trimeth 800/160 1 tab PO BID #20 tablet 09/04/21 09/05/21 [Bactrim Ds] Acetaminophen [Tylenol] 650 mg PO Q4HR PRN tablet 09/14/21 guaiFENesin/DEXTROMETHORPHAN 10 ml PO Q6HR PRN 09/14/21 [Robitussin Dm] - Allergies Allergies/Adverse Reactions: Allergies Allergy/AdvReac Type Severity Reaction Status Date / Time gabapentin Allergy Intermediate Hives Verified 09/24/21 18:47 nevirapine [From Viramune] Allergy Intermediate Hives Verified 09/24/21 18:47 tramadol Allergy Intermediate Rash Verified 09/24/21 18:47 ketorolac Allergy Itching Verified 09/24/21 18:47 Review of Systems - Constitutional Constitutional: reports: Weakness - Respiratory Respiratory: reports: SOB at rest, SOB with exertion - All Other Systems All Other Systems: reports: Reviewed and negative Exam - Vital Signs Vital Signs: Vital Signs x48h Temp Pulse Resp BP Pulse Ox 09/24/21 22:00 61 17 117/73 96 09/24/21 21:30 67 16 125/88 H 93 09/24/21 21:00 78 19 114/75 92 09/24/21 20:30 66 16 126/63 94 09/24/21 20:00 68 18 117/74 91 L 09/24/21 19:30 70 18 122/68 98 09/24/21 18:58 36.9 C 86 24 137/72 H 86 L 09/24/21 18:47 36.9 C 83 24 137/72 H 86 L - Physical Exam General Appearance: positive: Alert, Mild distress (Tachypneic) Eyes Bilateral: positive: Normal inspection ENT: positive: No signs of dehydration Neck: positive: Nml inspection, No JVD Respiratory: positive: Rales (Course rales) Cardiovascular: positive: Regular rate & rhythm Abdomen: positive: Non-tender, No distention Skin: positive: Warm, Dry Extremities: positive: No pedal edema Neurologic/Psychiatric: positive: Oriented x3 (Non-focal) Conclusion/Plan - Problem List (1) Respiratory failure with hypoxia Conclusion/Plan: Will place in Observation status and treat for possible pulmonary edema versus ILD and give supplemental oxygen. Will try to wean oxygen versus discharge on new home oxygen with a walking desat study. Qualifiers: Chronicity: acute Qualified Code(s): J96.01 - Acute respiratory failure with hypoxia (2) Abnormal CXR Conclusion/Plan: The chest x-ray has been read repeatedly as having interstitial infiltrates, consistent with either pulmonary edema versus interstitial pneumonia. When he had the CT chest a few weeks ago at the last recent admission, this specifically described "groundglass" interstitial changes. Will treat with diuretics empirically using Lasix 20 mg iv bid, will continue his Potassium and follow BNP and Mg daily. Will order a sputum culture. We will also start empiric treatment of interstitial lung disease using Bactrim DS (in HIV patients), plus start high dose Prednisone 40 mg po bid (as per Up-to-Date). He has completed a course of iv Meropenem for the ESBL-producing E. coli, and this will not be restarted He will need referral to pulmonary for possible bronchoscopy and further lung work-up and then follow-up, but he will need a referral from his PCP, who he has not yet started to see until 10/31/21. Because Amiodarone could be adding to his lung disease, it will be discontinued. (3) HIV (human immunodeficiency virus infection) Conclusion/Plan: Because of this HIV history, we will resume treatment empirically for Pneumocyst is pneumonia using Bactrim DS 1 p.o. twice daily. We will continue with his usual 3 antivirus treatments (patient's own meds can be used, after the list is reconciled by pharmacy). (4) Hypothyroidism Conclusion/Plan: Continue the patient's home dose of thyroid replacement medicine (5) Afib Conclusion/Plan: His Atenolol and Eliquis will be continued. He is in sinus rhythm this admission and was in sinus during his last admission. The Amiodarone was maintaining sinus rhythm. Because Amiodarone could be the cause of his lung disease, it will be stopped however. Amiodarone's half-life is many days therefore there is will still be a serum affect for many days. (6) Coronary artery disease Conclusion/Plan: Will conit ue with the patient's usual cardiac medications in order cardiac diet. (7) Chronic pain Conclusion/Plan: We will continue with his usual pain management meds and protocol (8) Depression Conclusion/Plan: We will continue with his usual home medications for this - Lab Results Fish Bones: 09/24/21 19:00 09/24/21 19:00
[2021-09-25] MEDS: SULFAMETH/TRIMETH DS 800/160 MG TABLET PO SCH ×3 (00:11→20:44)
[2021-09-25] MEDS: APIXABAN 5 MG TABLET PO SCH ×3 (00:11→20:41)
[2021-09-25 00:26] LABS: BILIRUBIN,URINE NEGATIVE (NEGATIVE); GLUCOSE, URINE (UA) NEGATIVE (NEGATIVE); KETONES,URINE (UA) NEGATIVE (NEGATIVE); LEUKOCYTE ESTERASE, URINE NEGATIVE (NEGATIVE); NITRITE,URINE NEGATIVE (NEGATIVE); OCCULT BLOOD,URINE NEGATIVE (NEGATIVE); PH,URINE 6.5 PH (5.0-7.5); PROTEIN,URINE NEGATIVE (NEGATIVE); UROBILINOGEN,URINE 0.2 (NORMAL) E.U./dL (NORMAL)
[2021-09-25 00:28] LABS: CLARITY,URINE CLEAR (CLEAR)
[2021-09-25] MEDS: SODIUM CHLORIDE FLUSH 0.9% 10 ML SYRINGE IVP SCH ×3 (01:14→17:05)
[2021-09-25 02:23] LABS: BASOPHILS # (AUTO) 0.1 10^3/uL (0.0-0.1); BASOPHILS % (AUTO) 1.1 %; EOSINOPHILS # (AUTO) 0.2 10^3/uL (0.0-0.7); EOSINOPHILS % (AUTO) 3.2 %; HCT - HEMATOCRIT 42.1 % (42.0-52.0); HGB - HEMOGLOBIN 13.3 g/dL (14.0-18.0); LYMPHOCYTES # (AUTO) 2.2 10^3/uL (1.5-3.5); LYMPHOCYTES % (AUTO) 28.8 %; MEAN CORPUSCULAR HEMOGLOBIN 27.3 pg (27.0-31.0); MEAN CORPUSCULAR HGB CONC 31.6 g/dL (32.0-36.0); MEAN CORPUSCULAR VOLUME 86.4 fL (80.0-94.0); MEAN PLATELET VOLUME 9.3 fL (7.4-11.4); MONOCYTES # (AUTO) 1.1 10^3/uL (0.0-1.0); MONOCYTES % (AUTO) 15.1 %; NEUTROPHILS # (AUTO) 3.9 10^3/uL (1.5-6.6); NEUTROPHILS % (AUTO) 51.3 %; PLT - PLATELET COUNT 175 10^3/uL (130-450); RED BLOOD COUNT 4.87 10^6/uL (4.70-6.10); RED CELL DISTRIBUTION WIDTH 17.7 % (12.0-15.0); WHITE BLOOD COUNT 7.6 x10^3/uL (4.8-10.8)
[2021-09-25 02:41] LABS: CALCIUM 8.9 mg/dL (8.5-10.3); CREATININE 0.9 mg/dL (0.6-1.2); CRP - C-REACTIVE PROTEIN 6.1 mg/dL (0-1.0); MAGNESIUM 1.9 mg/dL (1.7-2.8); POTASSIUM 3.6 mmol/L (3.5-5.0)
[2021-09-25 05:48] LABS: BASOPHILS # (AUTO) 0.1 10^3/uL (0.0-0.1); EOSINOPHILS # (AUTO) 0.2 10^3/uL (0.0-0.7); EOSINOPHILS % (AUTO) 2.9 %; HCT - HEMATOCRIT 42.7 % (42.0-52.0); HGB - HEMOGLOBIN 13.6 g/dL (14.0-18.0); LYMPHOCYTES # (AUTO) 2.3 10^3/uL (1.5-3.5); LYMPHOCYTES % (AUTO) 28.6 %; MEAN CORPUSCULAR HEMOGLOBIN 27.6 pg (27.0-31.0); MEAN CORPUSCULAR HGB CONC 31.9 g/dL (32.0-36.0); MEAN CORPUSCULAR VOLUME 86.8 fL (80.0-94.0); MEAN PLATELET VOLUME 9.4 fL (7.4-11.4); MONOCYTES # (AUTO) 1.1 10^3/uL (0.0-1.0); MONOCYTES % (AUTO) 13.2 %; NEUTROPHILS # (AUTO) 4.3 10^3/uL (1.5-6.6); PLT - PLATELET COUNT 177 10^3/uL (130-450); RED BLOOD COUNT 4.92 10^6/uL (4.70-6.10); RED CELL DISTRIBUTION WIDTH 17.6 % (12.0-15.0)
[2021-09-25 06:00] LABS: CALCIUM 8.8 mg/dL (8.5-10.3); CREATININE 0.8 mg/dL (0.6-1.2); CRP - C-REACTIVE PROTEIN 6.4 mg/dL (0-1.0); MAGNESIUM 1.9 mg/dL (1.7-2.8); POTASSIUM 3.7 mmol/L (3.5-5.0)
[2021-09-25] MEDS: LEVOTHYROXINE 25 MCG TABLET PO SCH (08:30)
[2021-09-25] MEDS: PANTOPRAZOLE 40 MG TABLET PO SCH (08:30)
[2021-09-25] MEDS: buPROPion XL 150 MG TABLET PO SCH (08:32)
[2021-09-25] MEDS: atenoloL 25 MG TABLET PO SCH (08:32)
[2021-09-25] MEDS: FLUoxetine 10 MG CAPSULE PO SCH (08:33)
[2021-09-25] MEDS: CLOPIDOGREL 75 MG TABLET PO SCH (08:33)
[2021-09-25] MEDS: POTASSIUM CHLORIDE 10 MEQ CAPSULE PO SCH (08:34)
[2021-09-25] MEDS: METHADONE 5 MG TABLET PO PRN ×2 (08:35→17:13)
--- NOTE | 2021-09-25 08:51 | PROVIDER PROGRESS NOTE ---
Assessment/Plan - Problem List (1) Respiratory failure with hypoxia Qualifiers: Chronicity: acute Qualified Code(s): J96.01 - Acute respiratory failure with hypoxia Assessment/Plan: Etiology undetermined. Differential Includes interstitial lung disease, possibly related to amiodarone and/or pulmonary edema. Patient was given Lasix IV in the ED. We will increase patient's home dose of Lasix from 40 mg to 40 mg p.o. twice daily. Prednisone 20 mg p.o. daily ordered. Patient had completed treatment because for pneumonia secondary to ESBL produc ing E. coli. He was on meropenem for 14 days. Currently patient is afebrile and does not have an elevated white count. Suspicion for infection is low. Will not start any new antibiotic. However we will continue Bactrim DS prophylactically. Will refer patient to pulmonary in the outpatient setting (2) Afib Assessment/Plan: On atenolol and Eliquis. Amiodarone was held because of potential to contribute to his lung disease. (3) HIV (human immunodeficiency virus infection) Assessment/Plan: We will continue patient's antiretrovirals. This include ritonavir, dolutegravir and darunavir During last admission patient's T-cell count was 490 (4) Chronic pain Assessment/Plan: Continue patient's methadone (5) Depression Assessment/Plan: On Prozac 40 mg p.o. daily (6) Hypothyroidism Assessment/Plan: On Synthroid 25 mcg p.o. daily AC (7) Coronary artery disease Assessment/Plan: On Plavix 75 mg p.o. daily, Atorvastatin 40 mg p.o. every afternoon, atenolol 50 mg p.o. daily and Eliquis 5 mg p.o. twice daily - Current Meds Current Meds: Current Medications Generic Name Dose Route Start Last Admin Trade Name Freq PRN Reason Stop Dose Admin Acetaminophen 650 mg 09/24/21 22:19 09/25/21 08:35 Acetaminophen 325 Mg Tablet PO 650 mg Q4HR PRN Administration Pain or Fever > 38C (100.4F) Amiodarone HCl 100 mg 09/25/21 09:00 09/25/21 08:31 Amiodarone 200 Mg Tablet PO 100 mg DAILY TREVER Administration Apixaban 5 mg 09/24/21 23:00 09/25/21 08:31 Apixaban 5 Mg Tablet PO 5 mg BID TREVER Administration Atenolol 50 mg 09/25/21 09:00 09/25/21 08:32 Atenolol 25 Mg Tablet PO 50 mg DAILY TREVER Administration Bupropion HCl 300 mg 09/25/21 09:00 09/25/21 08:32 Bupropion Xl 150 Mg Tablet PO 300 mg DAILY TREVER Administration Clopidogrel Bisulfate 75 mg 09/25/21 09:00 09/25/21 08:33 Clopidogrel 75 Mg Tablet PO 75 mg DAILY TREVER Administration Fluoxetine HCl 40 mg 09/25/21 09:00 09/25/21 08:33 Fluoxetine 10 Mg Capsule PO 40 mg DAILY TREVER Administration Levothyroxine Sodium 25 mcg 09/25/21 07:00 09/25/21 08:30 Levothyroxine 25 Mcg Tablet PO 25 mcg QDAC TREVER Administration Methadone HCl 10 mg 09/24/21 22:30 09/25/21 08:35 Methadone 5 Mg Tablet PO 10 mg TID PRN Administration PAIN Pantoprazole Sodium 40 mg 09/25/21 07:00 09/25/21 08:30 Pantoprazole 40 Mg Tablet PO 40 mg QDAC TREVER Administration Potassium Chloride 20 meq 09/25/21 09:00 09/25/21 08:34 Potassium Chloride 10 Meq Capsule PO 20 meq DAILY TREVER Administration Sodium Chloride 10 ml 09/25/21 01:00 09/25/21 08:40 Sodium Chloride Flush 0.9% 10 Ml Syringe IVP 10 ml 0100,0900,1700 TREVER Administration Trimethoprim/Sulfamethoxazole 1 tab 09/24/21 23:00 09/25/21 08:34 Sulfameth/Trimeth Ds 800/160 Mg Tablet PO 1 tab BID TREVER Administration - Lab Result Fish Bone Diagrams: 09/25/21 05:36 09/25/21 05:36 Subjective - Subjective Patient Reports: Other (Patient was resting comfortably in bed at time of exam. He appeared very exhausted. Had crackles on auscultation of lung. Denied chest pain. No lower extremity edema.) Objective Vital Signs: Vital Signs - 24 hr 09/24/21 09/24/21 09/24/21 18:47 18:58 19:30 Temperature 36.9 C 36.9 C Heart Rate 83 86 70 Respiratory 24 24 18 Rate Blood Pressure 137/72 H 137/72 H 122/68 O2 Saturation 86 L 86 L 98 09/24/21 09/24/21 09/24/21 20:00 20:30 21:00 Temperature Heart Rate 68 66 78 Respiratory 18 16 19 Rate Blood Pressure 117/74 126/63 114/75 O2 Saturation 91 L 94 92 09/24/21 09/24/21 09/24/21 21:30 22:00 22:30 Temperature Heart Rate 67 61 62 Respiratory 16 17 15 Rate Blood Pressure 125/88 H 117/73 114/79 O2 Saturation 93 96 96 09/24/21 09/25/21 09/25/21 23:00 00:01 01:30 Temperature Heart Rate 67 63 58 L Respiratory 22 18 16 Rate Blood Pressure 122/80 127/80 127/59 L O2 Saturation 97 95 94 09/25/21 09/25/21 09/25/21 02:00 02:30 03:29 Temperature Heart Rate 57 L 68 58 L Respiratory 12 23 17 Rate Blood Pressure 112/74 127/82 H 124/83 H O2 Saturation 93 92 93 09/25/21 09/25/21 09/25/21 03:30 04:00 04:24 Temperature 36.4 C L Heart Rate 57 L 69 56 L Respiratory 15 19 18 Rate Blood Pressure 112/57 L 116/81 H 116/81 H O2 Saturation 94 91 L 96 09/25/21 09/25/21 09/25/21 04:30 05:31 05:46 Temperature Heart Rate 63 58 L Respiratory 13 16 16 Rate Blood Pressure 121/71 132/83 H O2 Saturation 95 92 09/25/21 09/25/21 06:00 08:26 Temperature 36.4 C L Heart Rate 55 L 60 Respiratory 11 L 27 H Rate Blood Pressure 136/62 H 123/79 O2 Saturation 93 94 Oxygen O2 Source Nasal cannula Oxygen Flow Rate 2 I&O (Last 24 Hrs): Intake and Output Totals x24h 09/23/21 09/24/21 09/25/21 23:59 23:59 23:59 Intake Total 100 Output Total 800 Balance 100 -800 General: Alert, Oriented x3, No acute distress, Other (Weak/ fatigue) HEENT: PERRLA, EOMI Neck: Supple, No JVD Neuro: Alert, Non Focal, Oriented Times 3 Cardiovascular: Regular rate, No murmurs Respiratory: Chest non-tender, Other (Mild to moderate crackles, Mild respiratory distress) Abdomen: Normal bowel sounds, Soft, No tenderness, No masses Extremities: No clubbing, No cyanosis, No edema, No tenderness/swelling Skin: No rashes, No breakdown, No significant lesion - Results Results: Laboratory Results WBC 8.0 x10^3/uL (4.8-10.8) 09/25/21 05:36 RBC 4.92 10^6/uL (4.70-6.10) 09/25/21 05:36 Hgb 13.6 g/dL (14.0-18.0) L 09/25/21 05:36 Hct 42.7 % (42.0-52.0) 09/25/21 05:36 MCV 86.8 fL (80.0-94.0) 09/25/21 05:36 MCH 27.6 pg (27.0-31.0) 09/25/21 05:36 MCHC 31.9 g/dL (32.0-36.0) L 09/25/21 05:36 RDW 17.6 % (12.0-15.0) H 09/25/21 05:36 Plt Count 177 10^3/uL (130-450) 09/25/21 05:36 MPV 9.4 fL (7.4-11.4) 09/25/21 05:36 Neut # (Auto) 4.3 10^3/uL (1.5-6.6) 09/25/21 05:36 Lymph # (Auto) 2.3 10^3/uL (1.5-3.5) 09/25/21 05:36 [place] # (Auto) 1.1 10^3/uL (0.0-1.0) H 09/25/21 05:36 Eos # (Auto) 0.2 10^3/uL (0.0-0.7) 09/25/21 05:36 Baso # (Auto) 0.1 10^3/uL (0.0-0.1) 09/25/21 05:36 Absolute Nucleated RBC 0.00 x10^3/uL 09/25/21 05:36 Nucleated RBC % 0.0 /100WBC 09/25/21 05:36 PT 15.3 secs (9.9-12.6) H 09/24/21 19:00 INR 1.4 (0.8-1.2) H 09/24/21 19:00 Sodium 134 mmol/L (135-145) L 09/25/21 05:36 Potassium 3.7 mmol/L (3.5-5.0) 09/25/21 05:36 Chloride 100 mmol/L (101-111) L 09/25/21 05:36 Carbon Dioxide 24 mmol/L (21-32) 09/25/21 05:36 Anion Gap 10.0 (6-13) 09/25/21 05:36 BUN 18 mg/dL (6-20) 09/25/21 05:36 Creatinine 0.8 mg/dL (0.6-1.2) 09/25/21 05:36 Estimated GFR (MDRD) 100 (>89) 09/25/21 05:36 Glucose 85 mg/dL (70-100) 09/25/21 05:36 Lactic Acid 1.8 mmol/L (0.5-2.2) 09/24/21 19:00 Calcium 8.8 mg/dL (8.5-10.3) 09/25/21 05:36 Magnesium 1.9 mg/dL (1.7-2.8) 09/25/21 05:36 Total Bilirubin 0.5 mg/dL (0.2-1.0) 09/24/21 19:00 AST 27 IU/L (10-42) 09/24/21 19:00 ALT 19 IU/L (10-60) 09/24/21 19:00 Alkaline Phosphatase 103 IU/L (42-121) 09/24/21 19:00 Troponin I High Sens 5.9 ng/L (2.3-19.7) 09/24/21 19:00 C-Reactive Protein 6.4 mg/dL (0-1.0) H 09/25/21 05:36 B-Natriuretic Peptide 179 pg/mL (5-100) H 09/24/21 19:00 Total Protein 7.6 g/dL (6.7-8.2) 09/24/21 19:00 Albumin 3.2 g/dL (3.2-5.5) 09/24/21 19:00 Globulin 4.4 g/dL (2.1-4.2) H 09/24/21 19:00 Albumin/Globulin Ratio 0.7 (1.0-2.2) L 09/24/21 19:00 Lipase 23 U/L (22-51) 09/24/21 19:00 Urine Color YELLOW 09/25/21 00:10 Urine Clarity CLEAR (CLEAR) 09/25/21 00:10 Urine pH 6.5 PH (5.0-7.5) 09/25/21 00:10 Ur Specific [place] 1.020 (1.002-1.030) 09/25/21 00:10 Urine Protein NEGATIVE mg/dL (NEGATIVE) 09/25/21 00:10 Urine Glucose (UA) NEGATIVE mg/dL (NEGATIVE) 09/25/21 00:10 Urine Ketones NEGATIVE mg/dL (NEGATIVE) 09/25/21 00:10 Urine Occult Blood NEGATIVE (NEGATIVE) 09/25/21 00:10 Urine Nitrite NEGATIVE (NEGATIVE) 09/25/21 00:10 Urine Bilirubin NEGATIVE (NEGATIVE) 09/25/21 00:10 Urine Urobilinogen 0.2 (NORMAL) E.U./dL (NORMAL) 09/25/21 00:10 Ur Leukocyte Esterase NEGATIVE (NEGATIVE) 09/25/21 00:10 Ur Microscopic Review NOT INDICATED 09/25/21 00:10 Urine Culture Comments NOT INDICATED 09/25/21 00:10 Nasal Adenovirus (PCR) NOT DETECTED 09/24/21 21:13 Nasal B. parapertussis DNA (PCR) NOT DETECTED 09/24/21 21:13 Nasal Coronavir 229E PCR NOT DETECTED 09/24/21 21:13 Nasal Coronavir HKU1 PCR NOT DETECTED 09/24/21 21:13 Nasal Coronavir NL63 PCR NOT DETECTED 09/24/21 21:13 Nasal Coronavir OC43 PCR NOT DETECTED 09/24/21 21:13 Nasal Enterovir/Rhinovir PCR NOT DETECTED 09/24/21 21:13 Nasal Influenza B PCR NOT DETECTED 09/24/21 21:13 Nasal Influenza A PCR NOT DETECTED 09/24/21 21:13 Nasal Parainfluen 1 PCR NOT DETECTED 09/24/21 21:13 Nasal Parainfluen 2 PCR NOT DETECTED 09/24/21 21:13 Nasal Parainfluen 3 PCR NOT DETECTED 09/24/21 21:13 Nasal Parainfluen 4 PCR NOT DETECTED 09/24/21 21:13 Nasal RSV (PCR) NOT DETECTED 09/24/21 21:13 Nasal B.pertussis DNA PCR NOT DETECTED 09/24/21 21:13 Nasal C.pneumoniae (PCR) NOT DETECTED 09/24/21 21:13 [place] Human Metapneumo PCR NOT DETECTED 09/24/21 21:13 Nasal M.pneumoniae (PCR) NOT DETECTED 09/24/21 21:13 Nasal SARS-CoV-2 (PCR) NOT DETECTED 09/24/21 21:13 - Procedures Procedures: Procedures INSERTION OF INFUSION DEV INTO SUP VENA CAVA, PERC APPROACH (08/29/21) ABX Reporting Has patient been on IV antibiotics over the past 48 hours?: No
[2021-09-25] MEDS ORDERED: AMIODARONE 200 MG TABLET PO SCH (09:00)
[2021-09-25] MEDS ORDERED: predniSONE 20 MG TABLET PO SCH ×2 (12:30→21:00)
[2021-09-25] MEDS: ACETAMINOPHEN 325 MG TABLET PO PRN ×2 (12:57→20:44)
[2021-09-25] MEDS: LORazepam 0.5 MG TABLET PO PRN (14:05)
[2021-09-25] MEDS ORDERED: NITROGLYCERIN SL 0.4 MG TABLET SL PRN (15:59)
--- NOTE | 2021-09-25 16:22 | PHARMACY PROGRESS NOTE ---
- Best Possible Medication History Admit Date and Time: 09/25/21 1518 Processed by: Pharmacy Medication History completed: Yes Patient Interview: Completed (PATIENT ABLE TO CONFIRM HOME MEDICATIONS) As the person ultimately responsible for medication therapy, providers are able to order a medication from an existing home medication list in [facility] via the "Reconcile Routine" prior to Confirmation of that medication by sales support coordinator. Such practice is discouraged except when the physician, in their clinical judgment, deems that a medical need exists for a medication without regard to previous use.
[2021-09-25] MEDS ORDERED: TERAZOSIN 2 MG CAPSULE PO SCH (17:00)
[2021-09-25] MEDS: FUROSEMIDE 40 MG TABLET PO SCH (17:03)
[2021-09-25] MEDS: DARUNAVIR ETHANOLATE 600 MG PO SCH (17:04)
[2021-09-25] MEDS: RITONAVIR 100 MG PO SCH (17:05)
[2021-09-25] MEDS: ATORVASTATIN 40 MG TABLET PO SCH (20:41)
[2021-09-25] MEDS: OMEGA-3 ACID ETHYL ESTERS 1 GM CAPSULE PO SCH (20:43)
[2021-09-25] MEDS: gemfibroziL 600 MG TABLET PO SCH (20:43)
[2021-09-25] MEDS: DOLUTEGRAVIR SODIUM 50 MG PO SCH (20:43)
[2021-09-25] MEDS: methocarbamoL 500 MG TABLET PO PRN (20:44)
[2021-09-25] MEDS: TOPIRAMATE 25 MG TABLET PO SCH (20:44)
[2021-09-26] MEDS: ACETAMINOPHEN 325 MG TABLET PO PRN ×2 (00:23→18:59)
[2021-09-26] MEDS: LORazepam 0.5 MG TABLET PO PRN ×3 (00:23→18:59)
[2021-09-26] MEDS: SODIUM CHLORIDE FLUSH 0.9% 10 ML SYRINGE IVP SCH ×3 (06:04→17:12)
[2021-09-26] MEDS: ISOSORBIDE MONONITRATE ER 30 MG TABLET PO SCH (06:35)
[2021-09-26] MEDS: PANTOPRAZOLE 40 MG TABLET PO SCH (06:35)
[2021-09-26] MEDS: FUROSEMIDE 40 MG TABLET PO SCH ×2 (06:35→14:46)
[2021-09-26] MEDS: LEVOTHYROXINE 25 MCG TABLET PO SCH (06:35)
--- NOTE | 2021-09-26 07:35 | PROVIDER PROGRESS NOTE ---
Assessment/Plan - Problem List (1) Respiratory failure with hypoxia Qualifiers: Chronicity: acute Qualified Code(s): J96.01 - Acute respiratory failure with hypoxia Assessment/Plan: Etiology undetermined. Differential Includes interstitial lung disease, possibly related to amiodarone and/or pulmonary edema. Patient was given Lasix IV in the ED. On Lasix 40 mg p.o. twice daily. Prednisone 40 mg p.o. daily Patient encouraged to ambulate today. Will assess his oxygen need with activity Anticipate discharge tomorrow Patient had completed treatment for pneumonia secondary to ESBL producing E. coli. He was on meropenem for 14 days. Currently patient is afebrile and does not have an elevated white count. Suspicion for infection is low. Will not start any new antibiotic. However we will continue Bactrim DS prophylactically. Will refer patient to pulmonary in the outpatient setting (2) Afib Assessment/Plan: On atenolol and Eliquis. Amiodarone was held because of potential to contribute to his lung disease. (3) HIV (human immunodeficiency virus infection) Assessment/Plan: On ritonavir, dolutegravir and darunavir During last admission patient's T-cell count was 490 (4) Chronic pain Assessment/Plan: On methadone (5) Depression Assessment/Plan: On Prozac 40 mg p.o. daily (6) Hypothyroidism Assessment/Plan: On Synthroid 25 mcg p.o. daily AC (7) Coronary artery disease Assessment/Plan: On Plavix 75 mg p.o. daily, Atorvastatin 40 mg p.o. every afternoon, atenolol 50 mg p.o. daily and Eliquis 5 mg p.o. twice daily - Current Meds Current Meds: Current Medications Generic Name Dose Route Start Last Admin Trade Name Freq PRN Reason Stop Dose Admin Acetaminophen 650 mg 09/24/21 22:30 09/26/21 00:23 Acetaminophen 325 Mg Tablet PO 650 mg Q4HR PRN Administration Pain 1 to 4 Apixaban 5 mg 09/24/21 23:00 09/25/21 20:41 Apixaban 5 Mg Tablet PO 5 mg BID TREVER Administration Atenolol 50 mg 09/25/21 09:00 09/25/21 08:32 Atenolol 25 Mg Tablet PO 50 mg DAILY TREVER Administration Atorvastatin Calcium 40 mg 09/25/21 21:00 09/25/21 20:41 Atorvastatin 40 Mg Tablet PO 40 mg QPM TREVER Administration Bupropion HCl 300 mg 09/25/21 09:00 09/25/21 08:32 Bupropion Xl 150 Mg Tablet PO 300 mg DAILY TREVER Administration Clopidogrel Bisulfate 75 mg 09/25/21 09:00 09/25/21 08:33 Clopidogrel 75 Mg Tablet PO 75 mg DAILY TREVER Administration Fluoxetine HCl 40 mg 09/25/21 09:00 09/25/21 08:33 Fluoxetine 10 Mg Capsule PO 40 mg DAILY TREVER Administration Furosemide 40 mg 09/25/21 17:00 09/26/21 06:35 Furosemide 40 Mg Tablet PO 40 mg BIDDIURETIC TREVER Administration Gemfibrozil 600 mg 09/25/21 21:00 09/25/21 20:43 Gemfibrozil 600 Mg Tablet PO 600 mg BID TREVER Administration Isosorbide Mononitrate 30 mg 09/26/21 06:00 09/26/21 06:35 Isosorbide Mononitrate Er 30 Mg Tablet PO 30 mg 0600 TREVER Administration Levothyroxine Sodium 25 mcg 09/25/21 07:00 09/26/21 06:35 Levothyroxine 25 Mcg Tablet PO 25 mcg QDAC TREVER Administration Lorazepam 0.5 mg 09/24/21 22:30 09/26/21 00:23 Lorazepam 0.5 Mg Tablet PO 0.5 mg Q8H PRN Administration Anxiety Methadone HCl 10 mg 09/24/21 22:30 09/25/21 17:13 Methadone 5 Mg Tablet PO 10 mg TID PRN Administration PAIN Methocarbamol 500 mg 09/25/21 15:59 09/25/21 20:44 Methocarbamol 500 Mg Tablet PO 500 mg TID PRN Administration Spasms Pt Own Med ( 600 mg 09/25/21 17:00 09/25/21 17:04 Darunavir Ethanolate PO 600 mg [Prezista] 600 Mg BIDWM TREVER Administration Tablet) Pt Own Med ( 50 mg 09/25/21 21:00 09/25/21 20:43 Dolutegravir Sodium PO 50 mg [Tivicay] 50 Mg BID TREVER Administration Tablet) Pt Own Med ( 100 mg 09/25/21 17:00 09/25/21 17:05 Ritonavir [Norvir] PO 100 mg 100 Mg Capsule) BIDWM TREVER Administration [id number] Ethyl Esters 2 gm 09/25/21 21:00 09/25/21 20:43 [place]-3 Acid Ethyl Esters 1 Gm Capsule PO 2 gm BID TREVER Administration Pantoprazole Sodium 40 mg 09/25/21 07:00 09/26/21 06:35 Pantoprazole 40 Mg Tablet PO 40 mg QDAC TREVER Administration Potassium Chloride 20 meq 09/25/21 09:00 09/25/21 08:34 Potassium Chloride 10 Meq Capsule PO 20 meq DAILY TREVER Administration Sodium Chloride 10 ml 09/25/21 01:00 09/26/21 06:04 Sodium Chloride Flush 0.9% 10 Ml Syringe IVP 10 ml 0100,0900,1700 TREVER Administration Terazosin HCl 4 mg 09/25/21 17:00 09/25/21 17:08 Terazosin 2 Mg Capsule PO 4 mg QDDINNER TREVER Administration Topiramate 50 mg 09/25/21 21:00 09/25/21 20:44 Topiramate 25 Mg Tablet PO 50 mg BID TREVER Administration Trimethoprim/Sulfamethoxazole 1 tab 09/24/21 23:00 09/25/21 20:44 Sulfameth/Trimeth Ds 800/160 Mg Tablet PO 1 tab BID TREVER Administration - Lab Result Fish Bone Diagrams: 09/26/21 07:58 09/25/21 05:36 - Additional Planning My Orders: My Active Orders 09/25/21 15:59 Nitroglycerin [Nitrostat] 0.4 mg SL Q5MIN PRN methocarbamoL [Robaxin] 500 mg PO TID PRN 09/25/21 17:00 Darunavir Ethanolate [Prezista] 600 mg PO BIDWM Furosemide [Lasix] 40 mg PO BIDDIURETIC Ritonavir [Norvir] 100 mg PO BIDWM Terazosin HCl [Hytrin] 4 mg PO QDDINNER 09/25/21 21:00 Atorvastatin [Lipitor] 40 mg PO QPM Dolutegravir Sodium [Tivicay] 50 mg PO BID [place]-3 Acid Ethyl Esters [Lovaza] 2 gm PO BID Topiramate [Topamax] 50 mg PO BID gemfibroziL [Lopid] 600 mg PO BID 09/26/21 06:00 Isosorbide Mononitrate ER [Imdur] 30 mg PO 0600 09/26/21 07:32 BMP - BASIC METABOLIC PANEL [CHEM] Routine CBC - COMP BLD CT W/AUTO DIFF [HEME] Routine 09/26/21 09:00 lisinopriL [Zestril] 10 mg PO DAILY 09/27/21 05:00 BMP - BASIC METABOLIC PANEL [CHEM] DAILYLAB CBC - COMP BLD CT W/AUTO DIFF [HEME] DAILYLAB 09/28/21 05:00 BMP - BASIC METABOLIC PANEL [CHEM] DAILYLAB CBC - COMP BLD CT W/AUTO DIFF [HEME] DAILYLAB 09/29/21 05:00 BMP - BASIC METABOLIC PANEL [CHEM] DAILYLAB CBC - COMP BLD CT W/AUTO DIFF [HEME] DAILYLAB Subjective - Subjective Patient Reports: Other (Patient reports that his breathing is better today than the previous day. However he still appeared tired/weak. He was on 2 L of oxygen with oxygen saturation at 93%. He is rhonchorous on auscultation.) Objective Vital Signs: Vital Signs - 24 hr 09/25/21 09/25/21 09/25/21 08:26 10:45 14:06 Temperature 36.4 C L 37 C Heart Rate 60 55 L 55 L Heart Rate [ Brachial] Respiratory 27 H 15 27 H Rate Blood Pressure 123/79 121/81 H 102/48 L Blood Pressure [Left Brachial artery] Blood Pressure [Right Brachial artery] O2 Saturation 94 95 96 09/25/21 09/25/21 09/26/21 16:00 20:38 00:10 Temperature 36.5 C 36.6 C 36.9 C Heart Rate Heart Rate [ 66 59 L 64 Brachial] Respiratory 20 18 18 Rate Blood Pressure Blood Pressure 94/56 L 108/64 [Left Brachial artery] Blood Pressure 121/72 [Right Brachial artery] O2 Saturation 93 94 93 09/26/21 05:26 Temperature 36.6 C Heart Rate Heart Rate [ 62 Brachial] Respiratory 18 Rate Blood Pressure Blood Pressure 111/65 [Left Brachial artery] Blood Pressure [Right Brachial artery] O2 Saturation 92 Oxygen O2 Source Nasal cannula Oxygen Flow Rate 2 I&O (Last 24 Hrs): Intake and Output Totals x24h 09/24/21 09/25/21 09/26/21 23:59 23:59 23:59 Intake Total 624 034 0933 Output Total 1325 750 Balance 100 -775 385 Comments/Notes: General: Alert, Oriented x3, No acute distress, Other (Weak/ fatigue) HEENT: PERRLA, EOMI Neck: Supple, No JVD Neuro: Alert, Non Focal, Oriented Times 3 Cardiovascular: Regular rate, No murmurs Respiratory: Chest non-tender, Other (Mild crackles (improved), Mild respiratory distress) Abdomen: Normal bowel sounds, Soft, No tenderness, No masses Extremities: No clubbing, No cyanosis, No edema, No tenderness/swelling Skin: No rashes, No breakdown, No significant lesion - Results Results: Laboratory Results WBC 8.0 x10^3/uL (4.8-10.8) 09/25/21 05:36 RBC 4.92 10^6/uL (4.70-6.10) 09/25/21 05:36 Hgb 13.6 g/dL (14.0-18.0) L 09/25/21 05:36 Hct 42.7 % (42.0-52.0) 09/25/21 05:36 MCV 86.8 fL (80.0-94.0) 09/25/21 05:36 MCH 27.6 pg (27.0-31.0) 09/25/21 05:36 MCHC 31.9 g/dL (32.0-36.0) L 09/25/21 05:36 RDW 17.6 % (12.0-15.0) H 09/25/21 05:36 Plt Count 177 10^3/uL (130-450) 09/25/21 05:36 MPV 9.4 fL (7.4-11.4) 09/25/21 05:36 Neut # (Auto) 4.3 10^3/uL (1.5-6.6) 09/25/21 05:36 Lymph # (Auto) 2.3 10^3/uL (1.5-3.5) 09/25/21 05:36 [place] # (Auto) 1.1 10^3/uL (0.0-1.0) H 09/25/21 05:36 Eos # (Auto) 0.2 10^3/uL (0.0-0.7) 09/25/21 05:36 Baso # (Auto) 0.1 10^3/uL (0.0-0.1) 09/25/21 05:36 Absolute Nucleated RBC 0.00 x10^3/uL 09/25/21 05:36 Nucleated RBC % 0.0 /100WBC 09/25/21 05:36 PT 15.3 secs (9.9-12.6) H 09/24/21 19:00 INR 1.4 (0.8-1.2) H 09/24/21 19:00 Sodium 134 mmol/L (135-145) L 09/25/21 05:36 Potassium 3.7 mmol/L (3.5-5.0) 09/25/21 05:36 Chloride 100 mmol/L (101-111) L 09/25/21 05:36 Carbon Dioxide 24 mmol/L (21-32) 09/25/21 05:36 Anion Gap 10.0 (6-13) 09/25/21 05:36 BUN 18 mg/dL (6-20) 09/25/21 05:36 Creatinine 0.8 mg/dL (0.6-1.2) 09/25/21 05:36 Estimated GFR (MDRD) 100 (>89) 09/25/21 05:36 Glucose 85 mg/dL (70-100) 09/25/21 05:36 Lactic Acid 1.8 mmol/L (0.5-2.2) 09/24/21 19:00 Calcium 8.8 mg/dL (8.5-10.3) 09/25/21 05:36 Magnesium 1.9 mg/dL (1.7-2.8) 09/25/21 05:36 Total Bilirubin 0.5 mg/dL (0.2-1.0) 09/24/21 19:00 AST 27 IU/L (10-42) 09/24/21 19:00 ALT 19 IU/L (10-60) 09/24/21 19:00 Alkaline Phosphatase 103 IU/L (42-121) 09/24/21 19:00 Troponin I High Sens 5.9 ng/L (2.3-19.7) 09/24/21 19:00 C-Reactive Protein 6.4 mg/dL (0-1.0) H 09/25/21 05:36 B-Natriuretic Peptide 179 pg/mL (5-100) H 09/24/21 19:00 Total Protein 7.6 g/dL (6.7-8.2) 09/24/21 19:00 Albumin 3.2 g/dL (3.2-5.5) 09/24/21 19:00 Globulin 4.4 g/dL (2.1-4.2) H 09/24/21 19:00 Albumin/Globulin Ratio 0.7 (1.0-2.2) L 09/24/21 19:00 Lipase 23 U/L (22-51) 09/24/21 19:00 Urine Color YELLOW 09/25/21 00:10 Urine Clarity CLEAR (CLEAR) 09/25/21 00:10 Urine pH 6.5 PH (5.0-7.5) 09/25/21 00:10 Ur Specific [place] 1.020 (1.002-1.030) 09/25/21 00:10 Urine Protein NEGATIVE mg/dL (NEGATIVE) 09/25/21 00:10 Urine Glucose (UA) NEGATIVE mg/dL (NEGATIVE) 09/25/21 00:10 Urine Ketones NEGATIVE mg/dL (NEGATIVE) 09/25/21 00:10 Urine Occult Blood NEGATIVE (NEGATIVE) 09/25/21 00:10 Urine Nitrite NEGATIVE (NEGATIVE) 09/25/21 00:10 Urine Bilirubin NEGATIVE (NEGATIVE) 09/25/21 00:10 Urine Urobilinogen 0.2 (NORMAL) E.U./dL (NORMAL) 09/25/21 00:10 Ur Leukocyte Esterase NEGATIVE (NEGATIVE) 09/25/21 00:10 Ur Microscopic Review NOT INDICATED 09/25/21 00:10 Urine Culture Comments NOT INDICATED 09/25/21 00:10 Nasal Adenovirus (PCR) NOT DETECTED 09/24/21 21:13 Nasal B. parapertussis DNA (PCR) NOT DETECTED 09/24/21 21:13 Nasal Coronavir 229E PCR NOT DETECTED 09/24/21 21:13 Nasal Coronavir HKU1 PCR NOT DETECTED 09/24/21 21:13 Nasal Coronavir NL63 PCR NOT DETECTED 09/24/21 21:13 Nasal Coronavir OC43 PCR NOT DETECTED 09/24/21 21:13 Nasal Enterovir/Rhinovir PCR NOT DETECTED 09/24/21 21:13 Nasal Influenza B PCR NOT DETECTED 09/24/21 21:13 Nasal Influenza A PCR NOT DETECTED 09/24/21 21:13 Nasal Parainfluen 1 PCR NOT DETECTED 09/24/21 21:13 Nasal Parainfluen 2 PCR NOT DETECTED 09/24/21 21:13 Nasal Parainfluen 3 PCR NOT DETECTED 09/24/21 21:13 Nasal Parainfluen 4 PCR NOT DETECTED 09/24/21 21:13 Nasal RSV (PCR) NOT DETECTED 09/24/21 21:13 Nasal B.pertussis DNA PCR NOT DETECTED 09/24/21 21:13 Nasal C.pneumoniae (PCR) NOT DETECTED 09/24/21 21:13 [place] Human Metapneumo PCR NOT DETECTED 09/24/21 21:13 Nasal M.pneumoniae (PCR) NOT DETECTED 09/24/21 21:13 Nasal SARS-CoV-2 (PCR) NOT DETECTED 09/24/21 21:13 - Procedures Procedures: Procedures INSERTION OF INFUSION DEV INTO SUP VENA CAVA, PERC APPROACH (08/29/21) ABX Reporting Has patient been on IV antibiotics over the past 48 hours?: No
[2021-09-26 09:10] LABS: HCT - HEMATOCRIT 41.1 % (42.0-52.0); HGB - HEMOGLOBIN 12.9 g/dL (14.0-18.0); MEAN CORPUSCULAR HEMOGLOBIN 27.6 pg (27.0-31.0); MEAN CORPUSCULAR HGB CONC 31.4 g/dL (32.0-36.0); RED BLOOD COUNT 4.67 10^6/uL (4.70-6.10); RED CELL DISTRIBUTION WIDTH 17.8 % (12.0-15.0); WHITE BLOOD COUNT 9.7 x10^3/uL (4.8-10.8)
[2021-09-26 09:11] LABS: BASOPHILS % (AUTO) 0.4 %; EOSINOPHILS # (AUTO) 0.1 10^3/uL (0.0-0.7); EOSINOPHILS % (AUTO) 0.8 %; LYMPHOCYTES # (AUTO) 2.3 10^3/uL (1.5-3.5); LYMPHOCYTES % (AUTO) 23.7 %; MEAN PLATELET VOLUME 9.9 fL (7.4-11.4); MONOCYTES # (AUTO) 0.9 10^3/uL (0.0-1.0); MONOCYTES % (AUTO) 9.2 %; NEUTROPHILS # (AUTO) 6.4 10^3/uL (1.5-6.6); NEUTROPHILS % (AUTO) 65.5 %; PLT - PLATELET COUNT 181 10^3/uL (130-450)
[2021-09-26] MEDS: buPROPion XL 150 MG TABLET PO SCH (09:18)
[2021-09-26] MEDS: TOPIRAMATE 25 MG TABLET PO SCH ×2 (09:19→21:01)
[2021-09-26] MEDS: FLUoxetine 10 MG CAPSULE PO SCH (09:20)
[2021-09-26] MEDS: CLOPIDOGREL 75 MG TABLET PO SCH (09:21)
[2021-09-26] MEDS: APIXABAN 5 MG TABLET PO SCH ×2 (09:21→21:00)
[2021-09-26] MEDS: SULFAMETH/TRIMETH DS 800/160 MG TABLET PO SCH ×2 (09:21→21:01)
[2021-09-26] MEDS: POTASSIUM CHLORIDE 10 MEQ CAPSULE PO SCH (09:21)
[2021-09-26] MEDS: gemfibroziL 600 MG TABLET PO SCH ×2 (09:22→21:01)
[2021-09-26] MEDS: predniSONE 20 MG TABLET PO SCH (09:22)
[2021-09-26] MEDS: DARUNAVIR ETHANOLATE 600 MG PO SCH ×2 (09:23→17:11)
[2021-09-26] MEDS: DOLUTEGRAVIR SODIUM 50 MG PO SCH ×2 (09:24→21:00)
[2021-09-26] MEDS: RITONAVIR 100 MG PO SCH ×2 (09:25→17:12)
[2021-09-26] MEDS: polyethylene glycoL 3350 17 GM PACKET PO SCH (09:28)
[2021-09-26] MEDS: OMEGA-3 ACID ETHYL ESTERS 1 GM CAPSULE PO SCH ×2 (09:30→21:01)
[2021-09-26] MEDS: atenoloL 25 MG TABLET PO SCH (10:26)
[2021-09-26] MEDS: lisinopriL 5 MG TABLET PO SCH (10:26)
[2021-09-26 13:04] LABS: CREATININE 0.9 mg/dL (0.6-1.2); POTASSIUM 3.4 mmol/L (3.5-5.0)
[2021-09-26 13:05] LABS: CALCIUM 8.8 mg/dL (8.5-10.3)
[2021-09-26] MEDS: CHOLECALCIFEROL 25 MCG TABLET PO SCH (17:11)
[2021-09-26] MEDS: LACTOBACILLUS RHAMNOSUS GG CAPSULE PO SCH (17:12)
[2021-09-26] MEDS: methocarbamoL 500 MG TABLET PO PRN (19:00)
[2021-09-26] MEDS: ATORVASTATIN 40 MG TABLET PO SCH (21:00)
[2021-09-26] MEDS: METHADONE 5 MG TABLET PO PRN (21:02)
[2021-09-27] MEDS: methocarbamoL 500 MG TABLET PO PRN (03:20)
[2021-09-27] MEDS: ACETAMINOPHEN 325 MG TABLET PO PRN (03:20)
[2021-09-27] MEDS: LORazepam 0.5 MG TABLET PO PRN ×2 (03:20→22:16)
[2021-09-27] MEDS: SODIUM CHLORIDE FLUSH 0.9% 10 ML SYRINGE IVP SCH ×3 (03:25→18:42)
[2021-09-27] MEDS: FUROSEMIDE 40 MG TABLET PO SCH (05:42)
[2021-09-27] MEDS: LEVOTHYROXINE 25 MCG TABLET PO SCH (05:42)
[2021-09-27] MEDS: PANTOPRAZOLE 40 MG TABLET PO SCH (05:43)
[2021-09-27] MEDS: METHADONE 5 MG TABLET PO PRN ×2 (05:43→22:15)
[2021-09-27 06:30] LABS: BASOPHILS % (AUTO) 0.3 %; EOSINOPHILS % (AUTO) 0.2 %; HCT - HEMATOCRIT 41.4 % (42.0-52.0); HGB - HEMOGLOBIN 13.1 g/dL (14.0-18.0); LYMPHOCYTES # (AUTO) 2.2 10^3/uL (1.5-3.5); LYMPHOCYTES % (AUTO) 20.7 %; MEAN CORPUSCULAR HEMOGLOBIN 27.7 pg (27.0-31.0); MEAN CORPUSCULAR HGB CONC 31.6 g/dL (32.0-36.0); MEAN CORPUSCULAR VOLUME 87.5 fL (80.0-94.0); MEAN PLATELET VOLUME 9.9 fL (7.4-11.4); MONOCYTES # (AUTO) 1.1 10^3/uL (0.0-1.0); MONOCYTES % (AUTO) 10.2 %; NEUTROPHILS # (AUTO) 7.1 10^3/uL (1.5-6.6); NEUTROPHILS % (AUTO) 68.3 %; PLT - PLATELET COUNT 187 10^3/uL (130-450); RED BLOOD COUNT 4.73 10^6/uL (4.70-6.10); WHITE BLOOD COUNT 10.5 x10^3/uL (4.8-10.8)
[2021-09-27 06:40] LABS: CALCIUM 8.6 mg/dL (8.5-10.3); POTASSIUM 3.5 mmol/L (3.5-5.0)
--- NOTE | 2021-09-27 07:37 | PROVIDER PROGRESS NOTE ---
Assessment/Plan - Problem List (1) Respiratory failure with hypoxia Qualifiers: Chronicity: acute Qualified Code(s): J96.01 - Acute respiratory failure with hypoxia Assessment/Plan: Etiology undetermined. Differential Includes interstitial lung disease, possibly related to amiodarone and/or pulmonary edema. Patient was given Lasix IV in the ED. On Lasix 40 mg p.o. twice daily. Prednisone 40 mg p.o. daily On desaturation study today patient required 6 L of oxygen via nasal cannula to keep his oxygen saturation greater than 90%. Chest x-ray showed no significant change from previous chest x-ray done 3 days ago. A reported diffuse bilateral interstitial and airspace opacities. Patient encouraged to ambulate today. Will reassess his oxygen need with activity tomorrow 09/28/21 Anticipate discharge tomorrow Patient had completed treatment for pneumonia secondary to ESBL producing E. coli. He was on meropenem for 14 days. Currently patient is afebrile and does not have an elevated white count. Suspicion for infection is low. Will not start any new antibiotic. However we will continue Bactrim DS prophylactically. Patient has an appointment scheduled with his primary care physician on 10/01/2021. It is expected that his primary care physician Dr. Matta will refer him to pulmonary as soon as possible. (2) Afib Assessment/Plan: On atenolol and Eliquis. Amiodarone was held because of potential to contribute to his lung disease. (3) HIV (human immunodeficiency virus infection) Assessment/Plan: On ritonavir, dolutegravir and darunavir During last admission patient's T-cell count was 490 (4) Chronic pain Assessment/Plan: On methadone (5) Depression Assessment/Plan: On Prozac 40 mg p.o. daily (6) Hypothyroidism Assessment/Plan: On Synthroid 25 mcg p.o. daily AC (7) Coronary artery disease Assessment/Plan: On Plavix 75 mg p.o. daily, Atorvastatin 40 mg p.o. every afternoon, atenolol 50 mg p.o. daily and Eliquis 5 mg p.o. twice daily - Current Meds Current Meds: Current Medications Generic Name Dose Route Start Last Admin Trade Name Freq PRN Reason Stop Dose Admin Acetaminophen 650 mg 09/24/21 22:30 09/27/21 03:20 Acetaminophen 325 Mg Tablet PO 650 mg Q4HR PRN Administration Pain 1 to 4 Apixaban 5 mg 09/24/21 23:00 09/26/21 21:00 Apixaban 5 Mg Tablet PO 5 mg BID TREVER Administration Atenolol 50 mg 09/25/21 09:00 09/26/21 10:26 Atenolol 25 Mg Tablet PO 50 mg DAILY TREVER Administration Atorvastatin Calcium 40 mg 09/25/21 21:00 09/26/21 21:00 Atorvastatin 40 Mg Tablet PO 40 mg QPM TREVER Administration Bupropion HCl 300 mg 09/25/21 09:00 09/26/21 09:18 Bupropion Xl 150 Mg Tablet PO 300 mg DAILY TREVER Administration Cholecalciferol 50 mcg 09/26/21 17:00 09/26/21 17:11 Cholecalciferol 25 Mcg Tablet PO 50 mcg DAILY TREVER Administration Clopidogrel Bisulfate 75 mg 09/25/21 09:00 09/26/21 09:21 Clopidogrel 75 Mg Tablet PO 75 mg DAILY TREVER Administration Fluoxetine HCl 40 mg 09/25/21 09:00 09/26/21 09:20 Fluoxetine 10 Mg Capsule PO 40 mg DAILY TREVER Administration Furosemide 40 mg 09/25/21 17:00 09/27/21 05:42 Furosemide 40 Mg Tablet PO 40 mg BIDDIURETIC TREVER Administration Gemfibrozil 600 mg 09/25/21 21:00 09/26/21 21:01 Gemfibrozil 600 Mg Tablet PO 600 mg BID TREVER Administration Isosorbide Mononitrate 30 mg 09/26/21 06:00 09/26/21 06:35 Isosorbide Mononitrate Er 30 Mg Tablet PO 30 mg 0600 TREVER Administration Lactobacillus Rhamnosus 1 cap 09/26/21 17:00 09/26/21 17:12 Lactobacillus Rhamnosus Gg Capsule PO 1 cap DAILY TREVER Administration Levothyroxine Sodium 25 mcg 09/25/21 07:00 09/27/21 05:42 Levothyroxine 25 Mcg Tablet PO 25 mcg QDAC TREVER Administration Lisinopril 10 mg 09/26/21 09:00 09/26/21 10:26 Lisinopril 5 Mg Tablet PO 10 mg DAILY TREVER Administration Lorazepam 0.5 mg 09/24/21 22:30 09/27/21 03:20 Lorazepam 0.5 Mg Tablet PO 0.5 mg Q8H PRN Administration Anxiety Methadone HCl 10 mg 09/24/21 22:30 09/27/21 05:43 Methadone 5 Mg Tablet PO 10 mg TID PRN Administration PAIN Methocarbamol 500 mg 09/25/21 15:59 09/27/21 03:20 Methocarbamol 500 Mg Tablet PO 500 mg TID PRN Administration Spasms Pt Own Med ( 600 mg 09/25/21 17:00 09/26/21 17:11 Darunavir Ethanolate PO 600 mg [Prezista] 600 Mg BIDWM TREVER Administration Tablet) Pt Own Med ( 50 mg 09/25/21 21:00 09/26/21 21:00 Dolutegravir Sodium PO 50 mg [Tivicay] 50 Mg BID TREVER Administration Tablet) Pt Own Med ( 100 mg 09/25/21 17:00 09/26/21 17:12 Ritonavir [Norvir] PO 100 mg 100 Mg Capsule) BIDWM TREVER Administration Sqkep-1-Cumt Ethyl Esters 2 gm 09/25/21 21:00 09/26/21 21:01 [place]-3 Acid Ethyl Esters 1 Gm Capsule PO 2 gm BID TREVER Administration Pantoprazole Sodium 40 mg 09/25/21 07:00 09/27/21 05:43 Pantoprazole 40 Mg Tablet PO 40 mg QDAC TREVER Administration Polyethylene Glycol 17 gm 09/26/21 09:00 09/26/21 09:28 Polyethylene Glycol 3350 17 Gm Packet PO 17 gm DAILY TREVER Administration Potassium Chloride 20 meq 09/25/21 09:00 09/26/21 09:21 Potassium Chloride 10 Meq Capsule PO 20 meq DAILY TREVER Administration Prednisone 40 mg 09/26/21 09:00 09/26/21 09:22 Prednisone 20 Mg Tablet PO 40 mg DAILY TREVER Administration Sodium Chloride 10 ml 09/25/21 01:00 09/27/21 03:25 Sodium Chloride Flush 0.9% 10 Ml Syringe IVP 10 ml 0100,0900,1700 TREVER Administration Topiramate 50 mg 09/25/21 21:00 09/26/21 21:01 Topiramate 25 Mg Tablet PO 50 mg BID TREVER Administration Trimethoprim/Sulfamethoxazole 1 tab 09/24/21 23:00 09/26/21 21:01 Sulfameth/Trimeth Ds 800/160 Mg Tablet PO 1 tab BID TREVER Administration - Lab Result Fish Bone Diagrams: 09/27/21 05:47 09/27/21 05:47 - Additional Planning My Orders: My Active Orders 09/26/21 09:00 lisinopriL [Zestril] 10 mg PO DAILY 09/26/21 16:56 Telemetry- [RC] Q4HR 09/26/21 17:00 Cholecalciferol [Vitamin D3] 50 mcg PO DAILY Lactobacillus Rhamnosus GG [Culturelle] 1 cap PO DAILY 09/27/21 07:34 Chest 1 View X-Ray [XR] Stat 09/28/21 05:00 BMP - BASIC METABOLIC PANEL [CHEM] DAILYLAB CBC - COMP BLD CT W/AUTO DIFF [HEME] DAILYLAB 09/29/21 05:00 BMP - BASIC METABOLIC PANEL [CHEM] DAILYLAB CBC - COMP BLD CT W/AUTO DIFF [HEME] DAILYLAB Subjective - Subjective Patient Reports: Other (Patient reports Feeling better. However on oxygen desaturation study today he required 6 L of oxygen to keep his oxygen saturation greater than 90 while ambulating. Dry cough. He is mildly rhonchorous on auscultation.) Objective Vital Signs: Vital Signs - 24 hr 09/26/21 09/26/21 09/26/21 07:50 10:29 14:25 Temperature 36.3 C L Heart Rate [ 62 69 61 Brachial] Respiratory 18 Rate Blood Pressure 104/48 L 89/51 L [Left Brachial artery] Blood Pressure 93/53 L [Right Brachial artery] O2 Saturation 93 09/26/21 09/26/21 09/26/21 14:42 16:00 19:37 Temperature 37.1 C 36.7 C Heart Rate [ 72 62 63 Brachial] Respiratory 16 20 Rate Blood Pressure 98/55 L 93/59 L [Left Brachial artery] Blood Pressure 104/57 L [Right Brachial artery] O2 Saturation 92 92 09/27/21 09/27/21 09/27/21 00:00 05:33 07:34 Temperature 36.7 C 36.4 C L 36.5 C Heart Rate [ 79 64 62 Brachial] Respiratory 20 16 18 Rate Blood Pressure [Left Brachial artery] Blood Pressure 106/64 104/65 100/55 L [Right Brachial artery] O2 Saturation 92 96 92 Oxygen O2 Source Nasal cannula Oxygen Flow Rate 2 I&O (Last 24 Hrs): Intake and Output Totals x24h 09/25/21 09/26/21 09/27/21 23:59 23:59 23:59 Intake Total 550 2975 945 Output Total 1325 3120 750 Balance -775 825 195 Comments/Notes: General: Alert, Oriented x3, No acute distress, Other (Weak/ fatigue) HEENT: PERRLA, EOMI Neck: Supple, No JVD Neuro: Alert, Non Focal, Oriented Times 3 Cardiovascular: Regular rate, No murmurs Respiratory: Chest non-tender, Other (Mild crackles (improved), Mild respiratory distress) Abdomen: Normal bowel sounds, Soft, No tenderness, No masses Extremities: No clubbing, No cyanosis, No edema, No tenderness/swelling Skin: No rashes, No breakdown, No significant lesion - Results Results: Laboratory Results WBC 10.5 x10^3/uL (4.8-10.8) 09/27/21 05:47 RBC 4.73 10^6/uL (4.70-6.10) 09/27/21 05:47 Hgb 13.1 g/dL (14.0-18.0) L 09/27/21 05:47 Hct 41.4 % (42.0-52.0) L 09/27/21 05:47 MCV 87.5 fL (80.0-94.0) 09/27/21 05:47 MCH 27.7 pg (27.0-31.0) 09/27/21 05:47 MCHC 31.6 g/dL (32.0-36.0) L 09/27/21 05:47 RDW 18.0 % (12.0-15.0) H 09/27/21 05:47 Plt Count 187 10^3/uL (130-450) 09/27/21 05:47 MPV 9.9 fL (7.4-11.4) 09/27/21 05:47 Neut # (Auto) 7.1 10^3/uL (1.5-6.6) H 09/27/21 05:47 Lymph # (Auto) 2.2 10^3/uL (1.5-3.5) 09/27/21 05:47 [place] # (Auto) 1.1 10^3/uL (0.0-1.0) H 09/27/21 05:47 Eos # (Auto) 0.0 10^3/uL (0.0-0.7) 09/27/21 05:47 Baso # (Auto) 0.0 10^3/uL (0.0-0.1) 09/27/21 05:47 Absolute Nucleated RBC 0.00 x10^3/uL 09/27/21 05:47 Nucleated RBC % 0.0 /100WBC 09/27/21 05:47 PT 15.3 secs (9.9-12.6) H 09/24/21 19:00 INR 1.4 (0.8-1.2) H 09/24/21 19:00 Sodium 132 mmol/L (135-145) L 09/27/21 05:47 Potassium 3.5 mmol/L (3.5-5.0) 09/27/21 05:47 Chloride 98 mmol/L (101-111) L 09/27/21 05:47 Carbon Dioxide 23 mmol/L (21-32) 09/27/21 05:47 Anion Gap 11.0 (6-13) 09/27/21 05:47 BUN 19 mg/dL (6-20) 09/27/21 05:47 Creatinine 1.0 mg/dL (0.6-1.2) 09/27/21 05:47 Estimated GFR (MDRD) 78 (>89) L 09/27/21 05:47 Glucose 114 mg/dL (70-100) H 09/27/21 05:47 Lactic Acid 1.8 mmol/L (0.5-2.2) 09/24/21 19:00 Calcium 8.6 mg/dL (8.5-10.3) 09/27/21 05:47 Magnesium 1.9 mg/dL (1.7-2.8) 09/25/21 05:36 Total Bilirubin 0.5 mg/dL (0.2-1.0) 09/24/21 19:00 AST 27 IU/L (10-42) 09/24/21 19:00 ALT 19 IU/L (10-60) 09/24/21 19:00 Alkaline Phosphatase 103 IU/L (42-121) 09/24/21 19:00 Troponin I High Sens 5.9 ng/L (2.3-19.7) 09/24/21 19:00 C-Reactive Protein 6.4 mg/dL (0-1.0) H 09/25/21 05:36 B-Natriuretic Peptide 179 pg/mL (5-100) H 09/24/21 19:00 Total Protein 7.6 g/dL (6.7-8.2) 09/24/21 19:00 Albumin 3.2 g/dL (3.2-5.5) 09/24/21 19:00 Globulin 4.4 g/dL (2.1-4.2) H 09/24/21 19:00 Albumin/Globulin Ratio 0.7 (1.0-2.2) L 09/24/21 19:00 Lipase 23 U/L (22-51) 09/24/21 19:00 Urine Color YELLOW 09/25/21 00:10 Urine Clarity CLEAR (CLEAR) 09/25/21 00:10 Urine pH 6.5 PH (5.0-7.5) 09/25/21 00:10 Ur Specific [place] 1.020 (1.002-1.030) 09/25/21 00:10 Urine Protein NEGATIVE mg/dL (NEGATIVE) 09/25/21 00:10 Urine Glucose (UA) NEGATIVE mg/dL (NEGATIVE) 09/25/21 00:10 Urine Ketones NEGATIVE mg/dL (NEGATIVE) 09/25/21 00:10 Urine Occult Blood NEGATIVE (NEGATIVE) 09/25/21 00:10 Urine Nitrite NEGATIVE (NEGATIVE) 09/25/21 00:10 Urine Bilirubin NEGATIVE (NEGATIVE) 09/25/21 00:10 Urine Urobilinogen 0.2 (NORMAL) E.U./dL (NORMAL) 09/25/21 00:10 Ur Leukocyte Esterase NEGATIVE (NEGATIVE) 09/25/21 00:10 Ur Microscopic Review NOT INDICATED 09/25/21 00:10 Urine Culture Comments NOT INDICATED 09/25/21 00:10 Nasal Adenovirus (PCR) NOT DETECTED 09/24/21 21:13 Nasal B. parapertussis DNA (PCR) NOT DETECTED 09/24/21 21:13 Nasal Coronavir 229E PCR NOT DETECTED 09/24/21 21:13 Nasal Coronavir HKU1 PCR NOT DETECTED 09/24/21 21:13 Nasal Coronavir NL63 PCR NOT DETECTED 09/24/21 21:13 Nasal Coronavir OC43 PCR NOT DETECTED 09/24/21 21:13 Nasal Enterovir/Rhinovir PCR NOT DETECTED 09/24/21 21:13 Nasal Influenza B PCR NOT DETECTED 09/24/21 21:13 Nasal Influenza A PCR NOT DETECTED 09/24/21 21:13 Nasal Parainfluen 1 PCR NOT DETECTED 09/24/21 21:13 Nasal Parainfluen 2 PCR NOT DETECTED 09/24/21 21:13 Nasal Parainfluen 3 PCR NOT DETECTED 09/24/21 21:13 Nasal Parainfluen 4 PCR NOT DETECTED 09/24/21 21:13 Nasal RSV (PCR) NOT DETECTED 09/24/21 21:13 Nasal B.pertussis DNA PCR NOT DETECTED 09/24/21 21:13 Nasal C.pneumoniae (PCR) NOT DETECTED 09/24/21 21:13 [place] Human Metapneumo PCR NOT DETECTED 09/24/21 21:13 Nasal M.pneumoniae (PCR) NOT DETECTED 09/24/21 21:13 Nasal SARS-CoV-2 (PCR) NOT DETECTED 09/24/21 21:13 - Procedures Procedures: Procedures INSERTION OF INFUSION DEV INTO SUP VENA CAVA, PERC APPROACH (08/29/21) ABX Reporting Has patient been on IV antibiotics over the past 48 hours?: No
--- NOTE | 2021-09-27 08:27 | XRAY Report ---
PROCEDURE: Chest 1 View X-Ray INDICATIONS: dyspnea, hypoxia TECHNIQUE: One view of the chest was acquired. COMPARISON: 09/24/2021 FINDINGS: Surgical changes and devices: None. Lungs and pleura: No pleural effusions or pneumothorax. Diffusely increased interstitial and airspac e infiltrates are not significantly changed from the prior study. Mediastinum: Mediastinal contours appear normal. Heart size is normal. Bones and chest wall: No suspicious bony lesions. Overlying soft tissues appear unremarkable. IMPRESSION: Diffuse bilateral interstitial and airspace opacities are not significantly changed from 09/24/2021. Findings may represent pulmonary edema or infection. Reviewed by: Jermaine Espitia MD on 09/27/2021 8:26 AM PST Approved by: Jermaine Espitia MD on 09/27/2021 8:26 AM PST Station ID: [id number]
[2021-09-27] MEDS: polyethylene glycoL 3350 17 GM PACKET PO SCH (08:46)
[2021-09-27] MEDS: TOPIRAMATE 25 MG TABLET PO SCH ×2 (08:48→22:15)
[2021-09-27] MEDS: CHOLECALCIFEROL 25 MCG TABLET PO SCH (08:48)
[2021-09-27] MEDS: OMEGA-3 ACID ETHYL ESTERS 1 GM CAPSULE PO SCH ×2 (08:48→22:17)
[2021-09-27] MEDS: predniSONE 20 MG TABLET PO SCH (08:49)
[2021-09-27] MEDS: buPROPion XL 150 MG TABLET PO SCH (08:49)
[2021-09-27] MEDS: gemfibroziL 600 MG TABLET PO SCH ×2 (08:49→22:16)
[2021-09-27] MEDS: APIXABAN 5 MG TABLET PO SCH ×2 (08:50→22:15)
[2021-09-27] MEDS: LACTOBACILLUS RHAMNOSUS GG CAPSULE PO SCH (08:50)
[2021-09-27] MEDS: CLOPIDOGREL 75 MG TABLET PO SCH (08:51)
[2021-09-27] MEDS: atenoloL 25 MG TABLET PO SCH (08:51)
[2021-09-27] MEDS: FLUoxetine 10 MG CAPSULE PO SCH (08:51)
[2021-09-27] MEDS: SULFAMETH/TRIMETH DS 800/160 MG TABLET PO SCH ×2 (08:52→22:15)
[2021-09-27] MEDS: POTASSIUM CHLORIDE 10 MEQ CAPSULE PO SCH (08:52)
[2021-09-27] MEDS: ISOSORBIDE MONONITRATE ER 30 MG TABLET PO SCH (08:53)
[2021-09-27] MEDS: RITONAVIR 100 MG PO SCH ×2 (08:54→18:42)
[2021-09-27] MEDS: DOLUTEGRAVIR SODIUM 50 MG PO SCH ×2 (08:54→22:16)
[2021-09-27] MEDS: lisinopriL 5 MG TABLET PO SCH (08:55)
[2021-09-27] MEDS: DARUNAVIR ETHANOLATE 600 MG PO SCH ×2 (08:55→18:42)
[2021-09-27] MEDS: guaiFENesin 600 MG TABLET PO SCH ×2 (14:57→22:16)
[2021-09-27] MEDS: ATORVASTATIN 40 MG TABLET PO SCH (22:16)
[2021-09-28] MEDS: SODIUM CHLORIDE FLUSH 0.9% 10 ML SYRINGE IVP SCH ×2 (01:58→09:01)
[2021-09-28 06:22] LABS: BASOPHILS % (AUTO) 0.3 %; EOSINOPHILS % (AUTO) 0.2 %; HCT - HEMATOCRIT 41.8 % (42.0-52.0); HGB - HEMOGLOBIN 13.4 g/dL (14.0-18.0); LYMPHOCYTES # (AUTO) 2.8 10^3/uL (1.5-3.5); LYMPHOCYTES % (AUTO) 22.8 %; MEAN CORPUSCULAR HEMOGLOBIN 28.2 pg (27.0-31.0); MEAN CORPUSCULAR HGB CONC 32.1 g/dL (32.0-36.0); MEAN PLATELET VOLUME 9.4 fL (7.4-11.4); MONOCYTES # (AUTO) 1.3 10^3/uL (0.0-1.0); MONOCYTES % (AUTO) 10.1 %; NEUTROPHILS # (AUTO) 8.2 10^3/uL (1.5-6.6); NEUTROPHILS % (AUTO) 66.1 %; PLT - PLATELET COUNT 201 10^3/uL (130-450); RED BLOOD COUNT 4.75 10^6/uL (4.70-6.10); RED CELL DISTRIBUTION WIDTH 18.2 % (12.0-15.0); WHITE BLOOD COUNT 12.4 x10^3/uL (4.8-10.8)
[2021-09-28 06:32] LABS: CALCIUM 8.9 mg/dL (8.5-10.3); POTASSIUM 3.9 mmol/L (3.5-5.0)
[2021-09-28] MEDS: ISOSORBIDE MONONITRATE ER 30 MG TABLET PO SCH (06:34)
[2021-09-28] MEDS: LEVOTHYROXINE 25 MCG TABLET PO SCH (06:35)
[2021-09-28] MEDS: methocarbamoL 500 MG TABLET PO PRN (06:35)
[2021-09-28] MEDS: PANTOPRAZOLE 40 MG TABLET PO SCH (06:35)
[2021-09-28] MEDS: METHADONE 5 MG TABLET PO PRN (06:35)
--- NOTE | 2021-09-28 07:33 | PROVIDER PROGRESS NOTE ---
Assessment/Plan - Problem List (1) Respiratory failure with hypoxia Qualifiers: Chronicity: acute Qualified Code(s): J96.01 - Acute respiratory failure with hypoxia - Current Meds Current Meds: Current Medications Generic Name Dose Route Start Last Admin Trade Name Freq PRN Reason Stop Dose Admin Acetaminophen 650 mg 09/24/21 22:30 09/27/21 03:20 Acetaminophen 325 Mg Tablet PO 650 mg Q4HR PRN Administration Pain 1 to 4 Apixaban 5 mg 09/24/21 23:00 09/27/21 22:15 Apixaban 5 Mg Tablet PO 5 mg BID TREVER Administration Atenolol 50 mg 09/25/21 09:00 09/27/21 08:51 Atenolol 25 Mg Tablet PO 50 mg DAILY TREVER Administration Atorvastatin Calcium 40 mg 09/25/21 21:00 09/27/21 22:16 Atorvastatin 40 Mg Tablet PO 40 mg QPM TREVER Administration Bupropion HCl 300 mg 09/25/21 09:00 09/27/21 08:49 Bupropion Xl 150 Mg Tablet PO 300 mg DAILY TREVER Administration Cholecalciferol 50 mcg 09/26/21 17:00 09/27/21 08:48 Cholecalciferol 25 Mcg Tablet PO 50 mcg DAILY TREVER Administration Clopidogrel Bisulfate 75 mg 09/25/21 09:00 09/27/21 08:51 Clopidogrel 75 Mg Tablet PO 75 mg DAILY TREVER Administration Fluoxetine HCl 40 mg 09/25/21 09:00 09/27/21 08:51 Fluoxetine 10 Mg Capsule PO 40 mg DAILY TREVER Administration Gemfibrozil 600 mg 09/25/21 21:00 09/27/21 22:16 Gemfibrozil 600 Mg Tablet PO 600 mg BID TREVER Administration Guaifenesin 600 mg 09/27/21 14:00 09/27/21 22:16 Guaifenesin 600 Mg Tablet PO 600 mg BID TREVER Administration Isosorbide Mononitrate 30 mg 09/26/21 06:00 09/28/21 06:34 Isosorbide Mononitrate Er 30 Mg Tablet PO 30 mg 0600 TREVER Administration Lactobacillus Rhamnosus 1 cap 09/26/21 17:00 09/27/21 08:50 Lactobacillus Rhamnosus Gg Capsule PO 1 cap DAILY TREVER Administration Levothyroxine Sodium 25 mcg 09/25/21 07:00 09/28/21 06:35 Levothyroxine 25 Mcg Tablet PO 25 mcg QDAC TREVER Administration Lisinopril 10 mg 09/26/21 09:00 09/27/21 08:55 Lisinopril 5 Mg Tablet PO 10 mg DAILY TREVER Administration Lorazepam 0.5 mg 09/24/21 22:30 09/27/21 22:16 Lorazepam 0.5 Mg Tablet PO 0.5 mg Q8H PRN Administration Anxiety Methadone HCl 10 mg 09/24/21 22:30 09/28/21 06:35 Methadone 5 Mg Tablet PO 10 mg TID PRN Administration PAIN Methocarbamol 500 mg 09/25/21 15:59 09/28/21 06:35 Methocarbamol 500 Mg Tablet PO 500 mg TID PRN Administration Spasms Pt Own Med ( 600 mg 09/25/21 17:00 09/27/21 18:42 Darunavir Ethanolate PO 600 mg [Prezista] 600 Mg BIDWM TREVER Administration Tablet) Pt Own Med ( 50 mg 09/25/21 21:00 09/27/21 22:16 Dolutegravir Sodium PO 50 mg [Tivicay] 50 Mg BID TREVER Administration Tablet) Pt Own Med ( 100 mg 09/25/21 17:00 09/27/21 18:42 Ritonavir [Norvir] PO 100 mg 100 Mg Capsule) BIDWM TREVER Administration Bfyqw-2-Wxyd Ethyl Esters 2 gm 09/25/21 21:00 09/27/21 22:17 [place]-3 Acid Ethyl Esters 1 Gm Capsule PO 2 gm BID TREVER Administration Pantoprazole Sodium 40 mg 09/25/21 07:00 09/28/21 06:35 Pantoprazole 40 Mg Tablet PO 40 mg QDAC TREVER Administration Polyethylene Glycol 17 gm 09/26/21 09:00 09/27/21 08:46 Polyethylene Glycol 3350 17 Gm Packet PO 17 gm DAILY TREVER Administration Potassium Chloride 20 meq 09/25/21 09:00 09/27/21 08:52 Potassium Chloride 10 Meq Capsule PO 20 meq DAILY TREVER Administration Prednisone 40 mg 09/26/21 09:00 09/27/21 08:49 Prednisone 20 Mg Tablet PO 40 mg DAILY TREVER Administration Sodium Chloride 10 ml 09/25/21 01:00 09/28/21 01:58 Sodium Chloride Flush 0.9% 10 Ml Syringe IVP 10 ml 0100,0900,1700 TREVER Administration Topiramate 50 mg 09/25/21 21:00 09/27/21 22:15 Topiramate 25 Mg Tablet PO 50 mg BID TREVER Administration Trimethoprim/Sulfamethoxazole 1 tab 09/24/21 23:00 09/27/21 22:15 Sulfameth/Trimeth Ds 800/160 Mg Tablet PO 1 tab BID TREVER Administration - Lab Result Fish Bone Diagrams: 09/28/21 06:03 09/28/21 06:03 - Additional Planning My Orders: My Active Orders 09/27/21 10:48 Oxygen Desat. Study w/Exercise [RC] .ONCE 09/27/21 14:00 guaiFENesin [Mucinex] 600 mg PO BID 09/28/21 09:00 Furosemide [Lasix] 40 mg PO DAILY 09/29/21 05:00 BMP - BASIC METABOLIC PANEL [CHEM] DAILYLAB CBC - COMP BLD CT W/AUTO DIFF [HEME] DAILYLAB Objective Vital Signs: Vital Signs - 24 hr 09/27/21 09/27/21 09/27/21 07:34 11:17 15:53 Temperature 36.5 C 36.7 C 36.5 C Heart Rate [ 62 62 66 Brachial] Respiratory 18 22 20 Rate Blood Pressure 103/60 [Left Brachial artery] Blood Pressure 100/55 L 103/60 [Right Brachial artery] O2 Saturation 92 93 93 09/27/21 09/28/21 09/28/21 21:24 00:57 06:34 Temperature 36.6 C 36.7 C 36.5 C Heart Rate [ 65 65 72 Brachial] Respiratory 20 19 18 Rate Blood Pressure 107/66 [Left Brachial artery] Blood Pressure 120/70 121/69 [Right Brachial artery] O2 Saturation 94 93 90 L Oxygen O2 Source Nasal cannula Oxygen Flow Rate 2 I&O (Last 24 Hrs): Intake and Output Totals x24h 09/26/21 09/27/21 09/28/21 23:59 23:59 23:59 Intake Total 3075 2235 1040 Output Total 2250 2350 1300 Balance 823 -902 -883 - Results Results: Laboratory Results WBC 12.4 x10^3/uL (4.8-10.8) H 09/28/21 06:03 RBC 4.75 10^6/uL (4.70-6.10) 09/28/21 06:03 Hgb 13.4 g/dL (14.0-18.0) L 09/28/21 06:03 Hct 41.8 % (42.0-52.0) L 09/28/21 06:03 MCV 88.0 fL (80.0-94.0) 09/28/21 06:03 MCH 28.2 pg (27.0-31.0) 09/28/21 06:03 MCHC 32.1 g/dL (32.0-36.0) 09/28/21 06:03 RDW 18.2 % (12.0-15.0) H 09/28/21 06:03 Plt Count 201 10^3/uL (130-450) 09/28/21 06:03 MPV 9.4 fL (7.4-11.4) 09/28/21 06:03 Neut # (Auto) 8.2 10^3/uL (1.5-6.6) H 09/28/21 06:03 Lymph # (Auto) 2.8 10^3/uL (1.5-3.5) 09/28/21 06:03 [place] # (Auto) 1.3 10^3/uL (0.0-1.0) H 09/28/21 06:03 Eos # (Auto) 0.0 10^3/uL (0.0-0.7) 09/28/21 06:03 Baso # (Auto) 0.0 10^3/uL (0.0-0.1) 09/28/21 06:03 Absolute Nucleated RBC 0.00 x10^3/uL 09/28/21 06:03 Nucleated RBC % 0.0 /100WBC 09/28/21 06:03 PT 15.3 secs (9.9-12.6) H 09/24/21 19:00 INR 1.4 (0.8-1.2) H 09/24/21 19:00 Sodium 132 mmol/L (135-145) L 09/28/21 06:03 Potassium 3.9 mmol/L (3.5-5.0) 09/28/21 06:03 Chloride 99 mmol/L (101-111) L 09/28/21 06:03 Carbon Dioxide 23 mmol/L (21-32) 09/28/21 06:03 Anion Gap 10.0 (6-13) 09/28/21 06:03 BUN 18 mg/dL (6-20) 09/28/21 06:03 Creatinine 1.0 mg/dL (0.6-1.2) 09/28/21 06:03 Estimated GFR (MDRD) 78 (>89) L 09/28/21 06:03 Glucose 86 mg/dL (70-100) 09/28/21 06:03 Lactic Acid 1.8 mmol/L (0.5-2.2) 09/24/21 19:00 Calcium 8.9 mg/dL (8.5-10.3) 09/28/21 06:03 Magnesium 1.9 mg/dL (1.7-2.8) 09/25/21 05:36 Total Bilirubin 0.5 mg/dL (0.2-1.0) 09/24/21 19:00 AST 27 IU/L (10-42) 09/24/21 19:00 ALT 19 IU/L (10-60) 09/24/21 19:00 Alkaline Phosphatase 103 IU/L (42-121) 09/24/21 19:00 Troponin I High Sens 5.9 ng/L (2.3-19.7) 09/24/21 19:00 C-Reactive Protein 6.4 mg/dL (0-1.0) H 09/25/21 05:36 B-Natriuretic Peptide 179 pg/mL (5-100) H 09/24/21 19:00 Total Protein 7.6 g/dL (6.7-8.2) 09/24/21 19:00 Albumin 3.2 g/dL (3.2-5.5) 09/24/21 19:00 Globulin 4.4 g/dL (2.1-4.2) H 09/24/21 19:00 Albumin/Globulin Ratio 0.7 (1.0-2.2) L 09/24/21 19:00 Lipase 23 U/L (22-51) 09/24/21 19:00 Urine Color YELLOW 09/25/21 00:10 Urine Clarity CLEAR (CLEAR) 09/25/21 00:10 Urine pH 6.5 PH (5.0-7.5) 09/25/21 00:10 Ur Specific [place] 1.020 (1.002-1.030) 09/25/21 00:10 Urine Protein NEGATIVE mg/dL (NEGATIVE) 09/25/21 00:10 Urine Glucose (UA) NEGATIVE mg/dL (NEGATIVE) 09/25/21 00:10 Urine Ketones NEGATIVE mg/dL (NEGATIVE) 09/25/21 00:10 Urine Occult Blood NEGATIVE (NEGATIVE) 09/25/21 00:10 Urine Nitrite NEGATIVE (NEGATIVE) 09/25/21 00:10 Urine Bilirubin NEGATIVE (NEGATIVE) 09/25/21 00:10 Urine Urobilinogen 0.2 (NORMAL) E.U./dL (NORMAL) 09/25/21 00:10 Ur Leukocyte Esterase NEGATIVE (NEGATIVE) 09/25/21 00:10 Ur Microscopic Review NOT INDICATED 09/25/21 00:10 Urine Culture Comments NOT INDICATED 09/25/21 00:10 Nasal Adenovirus (PCR) NOT DETECTED 09/24/21 21:13 Nasal B. parapertussis DNA (PCR) NOT DETECTED 09/24/21 21:13 Nasal Coronavir 229E PCR NOT DETECTED 09/24/21 21:13 Nasal Coronavir HKU1 PCR NOT DETECTED 09/24/21 21:13 Nasal Coronavir NL63 PCR NOT DETECTED 09/24/21 21:13 Nasal Coronavir OC43 PCR NOT DETECTED 09/24/21 21:13 Nasal Enterovir/Rhinovir PCR NOT DETECTED 09/24/21 21:13 Nasal Influenza B PCR NOT DETECTED 09/24/21 21:13 Nasal Influenza A PCR NOT DETECTED 09/24/21 21:13 Nasal Parainfluen 1 PCR NOT DETECTED 09/24/21 21:13 Nasal Parainfluen 2 PCR NOT DETECTED 09/24/21 21:13 Nasal Parainfluen 3 PCR NOT DETECTED 09/24/21 21:13 Nasal Parainfluen 4 PCR NOT DETECTED 09/24/21 21:13 Nasal RSV (PCR) NOT DETECTED 09/24/21 21:13 Nasal B.pertussis DNA PCR NOT DETECTED 09/24/21 21:13 Nasal C.pneumoniae (PCR) NOT DETECTED 09/24/21 21:13 [place] Human Metapneumo PCR NOT DETECTED 09/24/21 21:13 Nasal M.pneumoniae (PCR) NOT DETECTED 09/24/21 21:13 Nasal SARS-CoV-2 (PCR) NOT DETECTED 09/24/21 21:13 - Procedures Procedures: Procedures INSERTION OF INFUSION DEV INTO SUP VENA CAVA, PERC APPROACH (08/29/21)
[2021-09-28] MEDS: POTASSIUM CHLORIDE 10 MEQ CAPSULE PO SCH (08:51)
[2021-09-28] MEDS: buPROPion XL 150 MG TABLET PO SCH (08:51)
[2021-09-28] MEDS: LACTOBACILLUS RHAMNOSUS GG CAPSULE PO SCH (08:52)
[2021-09-28] MEDS: guaiFENesin 600 MG TABLET PO SCH (08:52)
[2021-09-28] MEDS: gemfibroziL 600 MG TABLET PO SCH (08:52)
[2021-09-28] MEDS: APIXABAN 5 MG TABLET PO SCH (08:52)
[2021-09-28] MEDS: TOPIRAMATE 25 MG TABLET PO SCH (08:54)
[2021-09-28] MEDS: predniSONE 20 MG TABLET PO SCH (08:54)
[2021-09-28] MEDS: CLOPIDOGREL 75 MG TABLET PO SCH (08:54)
[2021-09-28] MEDS: CHOLECALCIFEROL 25 MCG TABLET PO SCH (08:54)
[2021-09-28] MEDS: SULFAMETH/TRIMETH DS 800/160 MG TABLET PO SCH (08:54)
[2021-09-28] MEDS: lisinopriL 5 MG TABLET PO SCH (08:55)
[2021-09-28] MEDS: atenoloL 25 MG TABLET PO SCH (08:55)
[2021-09-28] MEDS: FLUoxetine 10 MG CAPSULE PO SCH (08:55)
[2021-09-28] MEDS ORDERED: FUROSEMIDE 40 MG TABLET PO SCH (09:00)
[2021-09-28] MEDS: polyethylene glycoL 3350 17 GM PACKET PO SCH (09:01)
[2021-09-28] MEDS: LORazepam 0.5 MG TABLET PO PRN (09:09)
[2021-09-28] MEDS: OMEGA-3 ACID ETHYL ESTERS 1 GM CAPSULE PO SCH (09:09)
[2021-09-28] MEDS: ACETAMINOPHEN 325 MG TABLET PO PRN (09:09)
[2021-09-28] MEDS: RITONAVIR 100 MG PO SCH (09:15)
[2021-09-28] MEDS: DOLUTEGRAVIR SODIUM 50 MG PO SCH (09:16)
[2021-09-28] MEDS: DARUNAVIR ETHANOLATE 600 MG PO SCH (09:16)
--- NOTE | 2021-09-28 10:51 | DISCHARGE SUMMARY ---
Discharge Summary Admit Date: 09/24/21 Discharge Date: 09/28/21 Discharging Provider: Edd Ferguson Primary Care Provider: Dr Matta Code Status: Do Not Attempt Resuscitation Condition at Discharge: Stable Discharge Disposition: 01 Home, Self Care - DIAGNOSES Admission Diagnoses: Respiratory failure with hypoxia Abnormal chest x-ray HIV Hypothyroidism Atrial fibrillation Coronary artery disease Chronic pain Depression Discharge Diagnoses with Status of Each Condition: Respiratory failure with hypoxia: Acute. Possibly 2/2 Pulmonary Edema vs Interstitial Lung Disease. Discharged on Supplemental Oxygen, Prednisone X1 more week and to follow up with Primary care physician and pulmonary Abnormal chest x-ray: No significant change HIV: Chronic. Stable. Continue home medications. Last T cell level was 490 Hypothyroidism: Chronic. Stable. Continue home medication Atrial fibrillation: Chronic. Stable. Continue home medication. However amiodarone discontinue to to possible effect on lungs Coronary artery disease: Chronic. Stable. Continue home medication Chronic pain: Chronic. Stable. Continue home medication Depression: Chronic. Stable. Continue home medication - HPI History of Present Illness: This is a 55-year-old male with a history of HIV on 3 antiviral agents, he has a history of coronary disease with CABG in the past and takes Plavix and nitrates. He has a history of Hypothyroidism on replacement, prior A. fib and is on Atenolol, Amiodarone and Eliquis. The patient was admitted here about 4 weeks ago with dyspnea on exertion and found to have bilateral interstitial infiltrates, was Covid negative. An Echo done during that admission showed normal LVEF and stable valve function and PA pressure. He was started on empiric antibiotics. His sputum culture grew yeast and also ESBL-producing E. coli. He was started on Bactrim DS empirically, Fluconazole and also put on Meropenem (for the ESBL-E coli) via PICC line and was discharged into the [facility] ([facility]) to complete a course of IV Meropenem and was then discharged home. He was Covid negative on day of discharge from Swing bed. Also, at the time of discharge, he did have coarse rales and had mild hypoxia. He received IV diuretic on the day of discharge and was told to double his usual Lasix dose for several days then resume the previous dose. Patient went to see Dr. Meek today for a scheduled walk-in clinic visit, 1 week after the hospitalization (before his first PCP appointment with Dr Matta, which is arranged for 10/31/21) and complained of shortness of breath, was found to be desaturating and a chest x-ray was done that showed minimally improved bilateral interstitial infiltrates. Patient was advised to come to the ED. He complains of continued shortness of breath. His exam is significant for tachypnea, coarse bilateral rales and desaturation of 86% on room air and he a ppears dyspneic when speaking. He is compliant with his medications. He is again testing Covid negative. He will be placed in Observation status for diuretic treatment, supplemental oxygen treatment, and to resume Bactrim DS for possible PCP pneumonia and to start steroids for managing possible interstitial lung disease. Amiodarone will be stopped as it could be contributing to this lung disease. - HOSPITAL COURSE Hospital Course: Differential for chest x-ray findings included pulmonary edema versus interstitial lung disease. Patient was placed on Lasix 40 mg IV twice daily. He was also placed on supplemental oxygen. By the day of discharge patient had an oxygen desaturation study done. On room air at rest oxygen saturation fell to 81% within seconds. On 3 L/min via nasal cannula at rest oxygen saturation was 88%. On 4 L at rest oxygen saturation was 92%. On 4 L with ambulation oxygen saturation was 88%. Patient was prescribed/ordered home oxygen at 4 L to 6 L/min to treat respiratory failure with hypoxia. The patient was afebrile throughout his hospital stay. Blood cultures drawn were negative for any growth x4 days. White count remained normal His amiodarone was discontinued due to concern for its effects on his lungs. At discharge patient was placed back on Lasix 40 mg p.o. daily. He was also prescribed prednisone 40 mg p.o. daily x7 days at discharge. He had been on prednisone 40 mg p.o. daily for 3 days during his hospital stay. He is to follow-up with his primary care physician Dr. Matta on 10/01/2021. Is expected that Dr. Matta will do pulmonary referral for the patient. Patient was continued on Bactrim DS 1 tablet p.o. twice daily x10 days for prophylaxis upon discharge. Patient was tested for COVID-19 during the last visit and this current visit and his tests have been negative to date. Except for the above-mentioned patient's hospital stay was largely unremarkable. - ALLERGIES Allergies/Adverse Reactions: Allergies Allergy/AdvReac Type Severity Reaction Status Date / Time gabapentin Allergy Intermediate Hives Verified 09/24/21 18:47 nevirapine [From Viramune] Allergy Intermediate Hives Verified 09/24/21 18:47 tramadol Allergy Intermediate Rash Verified 09/24/21 18:47 ketorolac Allergy Itching Verified 09/24/21 18:47 - MEDICATIONS Home Medications: Ambulatory Orders Medication Instructions Recorded Confirmed Omeprazole [PriLOSEC] 40 mg PO DAILY 06/21/16 09/25/21 Ritonavir [Norvir] 100 mg PO BIDWM 06/21/16 09/25/21 Nitroglycerin [Nitrostat] 0.4 mg SL Q5MIN PRN #0 tablet 06/22/16 09/25/21 Apixaban [Eliquis] 5 mg PO BID 08/29/21 09/25/21 Atenolol [Tenormin] 50 mg PO DAILY 08/29/21 09/25/21 Benazepril HCl 10 mg PO DAILY 08/29/21 09/25/21 Clopidogrel [Plavix] 75 mg PO DAILY 08/29/21 09/25/21 Darunavir Ethanolate [Prezista] 600 mg PO BIDWM 08/29/21 09/25/21 Dolutegravir Sodium [Tivicay] 50 mg PO BID 08/29/21 09/25/21 Fluoxetine HCl [Prozac] 40 mg PO DAILY 08/29/21 09/25/21 Furosemide [Lasix] 40 mg PO DAILY 08/29/21 09/25/21 Isosorbide Mononitrate ER [Imdur] 30 mg PO 0600 08/29/21 09/25/21 Levothyroxine Sodium 50 mcg PO DAILY 08/29/21 09/25/21 [Levothyroxine] Methadone [Methadone Hcl] 10 mg PO TID PRN 08/29/21 09/25/21 [place]-3 Acid Ethyl Esters [Lovaza] 2 gm PO BID 08/29/21 09/25/21 Potassium Chloride 10 meq PO DAILY 08/29/21 09/25/21 Rosuvastatin Calcium [Crestor] 20 mg PO DAILY 08/29/21 09/25/21 Topiramate [Topamax] 50 mg PO BID 08/29/21 09/25/21 buPROPion HCL [Bupropion Xl] 300 mg PO DAILY 08/29/21 09/25/21 gemfibroziL [Lopid] 600 mg PO BID 08/29/21 09/25/21 methocarbamoL [Methocarbamol] 500 mg PO TID PRN 08/29/21 09/25/21 LORazepam [Ativan] 0.5 mg PO Q8H PRN #15 tablet 09/04/21 09/25/21 Acetaminophen [Tylenol] 650 mg PO Q4HR PRN tablet 09/14/21 09/25/21 Sulfamethox/Trimeth 800/160 1 tab PO BID #20 tablet 09/28/21 [Bactrim Ds] predniSONE [Deltasone] 40 mg PO DAILY 7 Days #14 tablet 09/28/21 - PHYSICAL EXAM AT DISCHARGE General Appearance: positive: Alert, Mild distress Eyes Bilateral: positive: PERRL, EOMI ENT: positive: No signs of dehydration Neck: positive: No JVD, Trachea midline Respiratory: positive: Chest non-tender, Other (Mild crackles on lung bases) Cardiovascular: positive: Regular rate & rhythm, No murmur Abdomen: positive: Non-tender, No organomegaly, Nml bowel sounds, No distention. negative: Guarding, Rebound Back: positive: Nml inspection Skin: positive: Color nml, No rash, Warm, Dry Extremities: positive: Non-tender, Full ROM, Nml appearance, No pedal edema Neurologic/Psychiatric: positive: Oriented x3, Mood/affect nml - LABS Result Diagrams: 09/28/21 06:03 09/28/21 06:03 - TIME SPENT Time Spent in Discharge (Minutes): 20
--- NOTE | 2021-09-28 10:57 | Discharge Plan ---
Discharge Plan Problem Reviewed?: Yes Disposition: Home, Self Care Condition: Stable Prescriptions: Sulfamethox/Trimeth 800/160 [Bactrim Ds] 1 tab PO BID #20 tablet predniSONE [Deltasone] 40 mg PO DAILY 7 Days #14 tablet Diet: Cardiac Activity Restrictions: Activity as Tolerated Health Concerns: Admitted on 09/24/2021 with difficulty in breathing. Chest x-ray done raised the possibility of pulmonary edema versus pneumonia. Your COVID-19 test was negative. Your oxygen saturation was 86% on room air and you have required between 2 and 6 L of oxygen to maintain your oxygen saturation greater than 90% at various levels of rest and activity. Throughout your hospital stay you have been afebrile, white blood cell count has been normal and blood cultures have been negative so far. You were recently discharged from the hospital to 1 week prior to this admission. During that time you were diagnosed with pneumonia secondary to ESBL E. coli for which you were treated with meropenem for 2 weeks. At that time your COVID-19 test was also negative. During this hospital stay your Lasix dose was doubled to 40 mg twice daily in the IV form. You were also prescribed prednisone 40 mg p.o. daily. Prednisone 40 mg p.o. daily will be continued for 1 week upon discharge. We would also continue your Bactrim DS for 10 days prophylactically. For concern about interstitial lung disease you wear placed on the prednisone above and your amiodarone was discontinued for its potential to contribute to your respiratory problem. You were discharged home with supplemental oxygen to use anywhere between 2 and 6 L of oxygen to keep your oxygen saturation greater than 90%. You have an appointment coming up with your primary care physician Dr. Matta on 09/30/2021. You have been advised to keep the appointment to which you have agreed. It is expected that Dr. Matta would do a pulmonary referral as soon as possible. If your breathing worsens after discharge and before seeing Dr. Matta did not hesitate to return to the emergency department for evaluation. The above was explained to you you expressed understanding and are in agreement No Smoking: If you smoke, Please STOP! Call for help.
[2021-09-28 11:58] VITALS: BP 105/63
== END 2021-09-28 12:30 | disposition home or self-care (01) | DRG 189 ==
LOC: ED 18:40 → UNDOADMOB 22:01 → OBS 22:01 → MS2 09-25 15:18 → OBSVTOIN 09-25 19:41
PROVIDERS: ADMIT Internal Medicine; ATTEND Internal Medicine
DX: J18.9 Pneumonia, unspecified organism (principal); J96.01 Acute respiratory failure with hypoxia; J84.9 Interstitial pulmonary disease, unspecified; I25.2 Old myocardial infarction; I25.10 Atherosclerotic heart disease of native coronary artery without angina pectoris; I48.91 Unspecified atrial fibrillation; E03.9 Hypothyroidism, unspecified; G89.29 Other chronic pain; M54.9 Dorsalgia, unspecified; Z20.822 Contact with and (suspected) exposure to COVID-19; F32.A Depression, unspecified; Z21 Asymptomatic human immunodeficiency virus [HIV] infection status; Z66 Do not resuscitate; Z79.01 Long term (current) use of anticoagulants; Z79.02 Long term (current) use of antithrombotics/antiplatelets; Z79.890 Hormone replacement therapy; Z79.899 Other long term (current) drug therapy; Z87.891 Personal history of nicotine dependence; Z95.1 Presence of aortocoronary bypass graft; Z95.5 Presence of coronary angioplasty implant and graft
CPT/HCPCS: 36415; 71045; 80048; 80053; 81003; 83605; 83690; 83735; 83880; 84484; 85025; 85610; 86140; 87040; 87631; 93005; 94761; 96365; 99284; 99285; A9270; J2185; J7512; 0202U; 81001; 87086; J8499

== ENCOUNTER 2021-12-20 21:17 | Outpatient (CLI) | payer MEDICARE, MEDICAID | END 2021-12-20 21:18 | disposition short-term general hospital (02) | LOC: EMS 21:17 | DX: R06.09 Other forms of dyspnea (principal); R07.89 Other chest pain | CPT/HCPCS: A0425; A0427 ==

== ENCOUNTER 2022-03-01 14:19 | Outpatient (CLI) | payer MEDICARE, MEDICAID | END 2022-03-01 14:20 | disposition short-term general hospital (02) | LOC: EMS 14:19 | DX: R07.89 Other chest pain (principal); R68.84 Jaw pain; M54.2 Cervicalgia; R06.89 Other abnormalities of breathing; R00.0 Tachycardia, unspecified; R23.1 Pallor | CPT/HCPCS: A0425; A0427 ==

== ENCOUNTER 2022-04-14 17:14 | Emergency (ER) | payer MEDICARE, MEDICAID ==
--- NOTE | 2022-04-14 17:47 | XRAY Report ---
PROCEDURE: Chest 2 View X-Ray INDICATIONS: dyspnea s/p lung biopsy TECHNIQUE: 2 view(s) of the chest. COMPARISON: 09/27/2021 FINDINGS: Surgical changes and devices: Median sternotomy.. Lungs and pleura: No pleural effusions or pneumothorax. Bilateral increased interstitial prominence, improved compared to the prior x-ray on 09/27/2021. There is a pleural density in the right upper lo be laterally. Mediastinum: Mediastinal contours are normal. Heart size is normal. Bones and chest wall: No suspicious bony abnormalities. Soft tissues appear unremarkable. IMPRESSION: 1. Right upper lobe pleural density measuring approximately 4 x 2 cm. 2. Bilateral increased interstitial prominence, improved compared to 09/27/2021. Reviewed by: Braxton Alvarez on 04/14/2022 4:46 PM [place] Approved by: Braxton Alvarez on 04/14/2022 4:46 PM AN[place] Station ID: [id number]
--- NOTE | 2022-04-14 17:59 | ED Physician Documentation ---
History of Present Illness - Stated complaint Stated Complaint: POST OP COMPLICATION - Chief complaint Chief Complaint: Resp - History obtained from History obtained from: Patient - History of Present Illness Timing: How many days ago (9) Pain level max: 8 Pain level now: 8 - Additonal information Additional information: Patient is a 56-year-old male who had a lung biopsy approximately 9 days ago at [facility] for fibrosis of the lungs. He is HIV positive. He states that since the biopsy he has had increasing abdominal pain, mainly lower abdomen, right lower quadrant. Nothing seems to make it better. Worse with movement and palpation. No fevers. No chills. No diarrhea or constipation. He states the pain is worse with deep breathing as well. He is not feeling short of breath currently. Review of Systems Ten Systems: 10 systems reviewed and negative Constitutional: denies: Fever, Chills Ears: denies: Ear pain Nose: denies: Rhinorrhea / runny nose, Congestion GI: denies: Vomiting, Diarrhea Skin: denies: Rash Musculoskeletal: denies: Neck pain, Back pain Neurologic: denies: Headache PD PAST MEDICAL HISTORY - Past Medical History Cardiovascular: Hypertension, Coronary artery disease, Atrial fibrillation Respiratory: Pneumonia Neuro: None Endocrine/Autoimmune: Other GI: None : None HEENT: None Psych: Depression Musculoskeletal: None, Chronic back pain Derm: None - Past Surgical History Past Surgical History: Yes Ortho: Other Cardiovascular: CABG, Coronary stent - Present Medications Home Medications: Ambulatory Orders Medication Instructions Recorded Confirmed Omeprazole [PriLOSEC] 40 mg PO DAILY 06/21/16 09/25/21 Ritonavir [Norvir] 100 mg PO BIDWM 06/21/16 09/25/21 Nitroglycerin [Nitrostat] 0.4 mg SL Q5MIN PRN #0 tablet 06/22/16 09/25/21 Apixaban [Eliquis] 5 mg PO BID 08/29/21 09/25/21 Atenolol [Tenormin] 50 mg PO DAILY 08/29/21 09/25/21 Benazepril HCl 10 mg PO DAILY 08/29/21 09/25/21 Clopidogrel [Plavix] 75 mg PO DAILY 08/29/21 09/25/21 Darunavir Ethanolate [Prezista] 600 mg PO BIDWM 08/29/21 09/25/21 Dolutegravir Sodium [Tivicay] 50 mg PO BID 08/29/21 09/25/21 Fluoxetine HCl [Prozac] 40 mg PO DAILY 08/29/21 09/25/21 Furosemide [Lasix] 40 mg PO DAILY 08/29/21 09/25/21 Isosorbide Mononitrate ER [Imdur] 30 mg PO 0600 08/29/21 09/25/21 Levothyroxine Sodium 50 mcg PO DAILY 08/29/21 09/25/21 [Levothyroxine] Methadone [Methadone Hcl] 10 mg PO TID PRN 08/29/21 09/25/21 [place]-3 Acid Ethyl Esters [Lovaza] 2 gm PO BID 08/29/21 09/25/21 Potassium Chloride 10 meq PO DAILY 08/29/21 09/25/21 Rosuvastatin Calcium [Crestor] 20 mg PO DAILY 08/29/21 09/25/21 Topiramate [Topamax] 50 mg PO BID 08/29/21 09/25/21 buPROPion HCL [Bupropion Xl] 300 mg PO DAILY 08/29/21 09/25/21 gemfibroziL [Lopid] 600 mg PO BID 08/29/21 09/25/21 methocarbamoL [Methocarbamol] 500 mg PO TID PRN 08/29/21 09/25/21 LORazepam [Ativan] 0.5 mg PO Q8H PRN #15 tablet 09/04/21 09/25/21 Acetaminophen [Tylenol] 650 mg PO Q4HR PRN tablet 09/14/21 09/25/21 Sulfamethox/Trimeth 800/160 1 tab PO BID #20 tablet 09/28/21 [Bactrim Ds] predniSONE [Deltasone] 40 mg PO DAILY 7 Days #14 tablet 09/28/21 - Allergies Allergies/Adverse Reactions: Allergies Allergy/AdvReac Type Severity Reaction Status Date / Time gabapentin Allergy Intermediate Hives Verified 04/14/22 17:19 nevirapine [From Viramune] Allergy Intermediate Hives Verified 04/14/22 17:19 tramadol Allergy Intermediate Rash Verified 04/14/22 17:19 ketorolac Allergy Itching Verified 04/14/22 17:19 - Social History Does the pt smoke?: Yes Smoking Status: Former smoker Does the pt drink ETOH?: No Does the pt have substance abuse?: No - Immunizations Immunizations are current?: Yes - POLST Patient has POLST: Yes POLST Status: DNR (Intubation and ventil use is OK) PD ED PE NORMAL - Vitals Vital signs reviewed: Yes - General General: Alert and oriented X 3, No acute distress - HEENT HEENT: Moist mucous membranes - Neck Neck: Supple, no meningeal sign - Cardiac Cardiac: RRR, Strong equal pulses - Respiratory Respiratory: No respiratory distress, Clear bilaterally - Abdomen Abdomen: Soft, Non distended, Other (Mild diffuse tenderness to palpation. No peritoneal signs.) - Back Back: No CVA TTP, No spinal TTP - Derm Derm: Warm and dry, Other (Biopsy incisions are clean dry and intact.) - Extremities Extremities: No edema, No calf tenderness / cord - Neuro Neuro: Alert and oriented X 3 - Psych Psych: Normal mood, Normal affect Results - Vitals Vitals: Vital Signs - 24 hr 04/14/22 04/14/22 04/14/22 17:19 17:22 19:20 Temperature 37.0 C 37 C Heart Rate 91 91 83 Respiratory 23 23 16 Rate Blood Pressure 169/97 H 169/97 H 140/76 H O2 Saturation 98 98 97 04/14/22 04/14/22 20:16 20:20 Temperature 37 C Heart Rate 73 73 Respiratory 18 18 Rate Blood Pressure 137/90 H 137/90 H O2 Saturation 96 96 Oxygen O2 Source Room air - Labs Labs: Laboratory Tests 04/14/22 04/14/22 18:03 18:03 WBC 6.7 RBC 4.15 L Hgb 13.1 L Hct 40.5 L MCV 97.6 H MCH 31.6 H MCHC 32.3 RDW 12.3 Plt Count 203 MPV 9.8 Neut # (Auto) 3.1 Lymph # (Auto) 2.5 Lewis # (Auto) 0.7 Eos # (Auto) 0.3 Baso # (Auto) 0.0 Absolute Nucleated RBC 0.00 Nucleated RBC % 0.0 Sodium 138 Potassium 4.0 Chloride 105 Carbon Dioxide 26 Anion Gap 7.0 BUN 16 Creatinine 0.8 Estimated GFR (MDRD) 100 Glucose 95 Calcium 9.0 Total Bilirubin 0.5 AST 16 ALT 17 Alkaline Phosphatase 81 Total Protein 7.2 Albumin 3.3 Globulin 3.9 Albumin/Globulin Ratio 0.8 L Lipase 26 - Rads (name of study) CT abdomen pelvis Radiology: Final report received, EMP read contemporaneously, See rad report Chest x-ray Radiology: Final report received, EMP read contemporaneously, See rad report PD MEDICAL DECISION MAKING - ED course Complexity details: reviewed results, re-evaluated patient, considered differential, d/w patient, d/w family ED course: 56-year-old male with lower abdominal pain for the last 9 days. There is a linear metallic density in the right lower quadrant, this appears to be in the colon. Patient does relate that he had polyps removed from a recent colonoscopy. He states that he was told there would be metallic clips. There is no evidence of perforation. There is no abscess. No acute findings on chest x-ray. No evidence of pneumothorax. Pain well controlled. We will have him follow-up with his doctor tomorrow as scheduled. Patient counseled regarding signs and symptoms for which I believe and urgent re-evaluation would be necessary. Patient with good understanding of and agreement to plan and is comfortable going home at this time This document was made in part using voice recognition software. While efforts are made to proofread this document, sound alike and grammatical errors may occur. IMPRESSION: 1. Right upper lobe pleural density measuring approximately 4 x 2 cm. 2. Bilateral increased interstitial prominence, improved compared to 09/27/2021. IMPRESSION: 1. Normal appendix. No bowel obstruction or abnormal bowel wall thickening. Linear metallic density seen in right lower quadrant possibly within proximal ascending colon suggest clinical correlation. No abscess collection. No free fluid of free air. 2. Suggestion of interstitial pleuritic fibrosis and right worse than left bilateral basilar small infiltrate/atelectasis. No pleural effusion or pneumothorax. Cardiomegaly, no pericardial effusion. 3. Post fusion changes in lower lumbar spine. Departure - Departure Disposition: 01 Home, Self Care Clinical Impression: Abdominal pain Qualifiers: Abdominal location: lower abdomen, unspecified Qualified Code(s): R10.30 - Lower abdominal pain, unspecified Condition: Good Instructions: ED Abdominal Pain Unkn Cause Male Follow-Up: Provider,Other [Primary Care Provider] - Comments: Please follow-up with your doctor for further care. Your x-ray and CT scans do not show any acute abnormalities today. There is a metallic density in the colon in the right lower quadrant, this appears consistent with a clip from a polyp removal. These will normally fall off on pass on their own. Please return if you worsen. IMPRESSION: 1. Normal appendix. No bowel obstruction or abnormal bowel wall thickening. Linear metallic density seen in right lower quadrant possibly within proximal ascending colon suggest clinical correlation. No abscess collection. No free fluid of free air. 2. Suggestion of interstitial pleuritic fibrosis and right worse than left bilateral basilar small infiltrate/atelectasis. No pleural effusion or pneumothorax. Cardiomegaly, no pericardial effusion. 3. Post fusion changes in lower lumbar spine. Discharge Date/Time: 04/14/22 20:21
[2022-04-14 18:08] LABS: BASOPHILS % (AUTO) 0.6 %; EOSINOPHILS # (AUTO) 0.3 10^3/uL (0.0-0.7); EOSINOPHILS % (AUTO) 3.8 %; HCT - HEMATOCRIT 40.5 % (42.0-52.0); HGB - HEMOGLOBIN 13.1 g/dL (14.0-18.0); LYMPHOCYTES # (AUTO) 2.5 10^3/uL (1.5-3.5); MEAN CORPUSCULAR HEMOGLOBIN 31.6 pg (27.0-31.0); MEAN CORPUSCULAR HGB CONC 32.3 g/dL (32.0-36.0); MEAN CORPUSCULAR VOLUME 97.6 fL (80.0-94.0); MEAN PLATELET VOLUME 9.8 fL (7.4-11.4); MONOCYTES # (AUTO) 0.7 10^3/uL (0.0-1.0); MONOCYTES % (AUTO) 10.2 %; NEUTROPHILS # (AUTO) 3.1 10^3/uL (1.5-6.6); NEUTROPHILS % (AUTO) 46.8 %; PLT - PLATELET COUNT 203 10^3/uL (130-450); RED BLOOD COUNT 4.15 10^6/uL (4.70-6.10); RED CELL DISTRIBUTION WIDTH 12.3 % (12.0-15.0); WHITE BLOOD COUNT 6.7 x10^3/uL (4.8-10.8)
[2022-04-14 18:20] LABS: ALBUMIN 3.3 g/dL (3.2-5.5); ALBUMIN/GLOBULIN RATIO 0.8 (1.0-2.2); BILIRUBIN,TOTAL 0.5 mg/dL (0.2-1.0); CREATININE 0.8 mg/dL (0.6-1.2); TOTAL PROTEIN 7.2 g/dL (6.7-8.2)
[2022-04-14] MEDS ORDERED: MORPHINE 2 MG/ML CARPUJECT IVP STA (18:33)
[2022-04-14] MEDS ORDERED: iohexoL-300 100 ML VIAL ONE (18:59)
[2022-04-14] MEDS ORDERED: iohexoL-300 100 ML VIAL IVP ONE (19:04)
[2022-04-14] MEDS ORDERED: KETOROLAC 30 MG/ML VIAL IVP STA ×2 (19:18→20:12)
--- NOTE | 2022-04-14 19:26 | CT Report ---
PROCEDURE: Abdomen/Pelvis W INDICATIONS: RLQ abd pain s/p lung biopsy 10 days ago CONTRAST: IV CONTRAST: Isovue 300 ml: 100 PO CONTRAST: *NO PO CONTRAST TECHNIQUE: After the administration of IV contrast, 5 mm thick sections acquired from the diaphragms to the symp hysis. 5 mm thick coronal and sagittal reformats were acquired. For radiation dose reduction, the f ollowing was used: automated exposure control, adjustment of mA and/or kV according to patient size. COMPARISON: None. FINDINGS: Image quality: Excellent. ABDOMEN: Lung bases: Median sternotomy wires are seen. Heart size is enlarged, no pericardial effusion. Modera te atherosclerotic disease is noted. Hazy airspace opacities are noted in bilateral lower lung gill more prominent at right lung base. There is also suggestion of interstitial pulmonary fibrosis. Solid organs: Liver and spleen are normal in size and enhancement. Hepatic steatosis is seen . Gallb ladder is within normal limits. Biliary system is non dilated. Pancreas enhances normally. No adre nal nodules. Kidneys demonstrate normal size and enhancement, without hydronephrosis. Peritoneum and bowel: There is a linear metallic densities seen within right lower quadrant possibly within the proximal ascending colon series 3 image 61. Mild fecal stasis throughout the colon is seen . Appendix is visualized and is within normal limits. No abnormal bowel wall thickening or mesenteric fat stranding. No free fluid of free air. Nodes and vessels: No retroperitoneal or mesenteric adenopathy by size criteria. Aorta and inferior vena cava are normal in size. Mild atherosclerotic calcifications in the abdominal aorta is seen. Miscellaneous: No ventral hernias. PELVIS: Genitourinary: Bladder wall thickness is normal. Miscellaneous: No inguinal hernias or adenopathy. Bones: No suspicious bony lesions. No vertebral body compression fractures. Post fusion changes ar e noted in lower lumbar spine at L4-5 level. IMPRESSION: 1. Normal appendix. No bowel obstruction or abnormal bowel wall thickening. Linear metallic density s een in right lower quadrant possibly within proximal ascending colon suggest clinical correlation. No abscess collection. No free fluid of free air. 2. Suggestion of interstitial pleuritic fibrosis and right worse than left bilateral basilar small in filtrate/atelectasis. No pleural effusion or pneumothorax. Cardiomegaly, no pericardial effusion. 3. Post fusion changes in lower lumbar spine. Reviewed by: Adolph Flores MD on 04/14/2022 7:24 PM PDT Approved by: Adolph Flores MD on 04/14/2022 7:24 PM PDT Station ID: [id number]
[2022-04-14 20:16] VITALS: BP 137/90
== END 2022-04-14 20:21 | disposition home or self-care (01) ==
LOC: ED 17:14
DX: R10.31 Right lower quadrant pain (principal); Z21 Asymptomatic human immunodeficiency virus [HIV] infection status; Z87.891 Personal history of nicotine dependence; Z66 Do not resuscitate
CPT/HCPCS: 36415; 71046; 74177; 80053; 83690; 85025; 96374; 96375; 96376; 99284; Q9967

== ENCOUNTER 2022-05-03 20:16 | Emergency (ER) | payer MEDICARE, MEDICAID ==
[2022-05-03 20:52] LABS: BASOPHILS # (AUTO) 0.1 10^3/uL (0.0-0.1); EOSINOPHILS % (AUTO) 0.3 %; HCT - HEMATOCRIT 43.4 % (42.0-52.0); LYMPHOCYTES # (AUTO) 2.6 10^3/uL (1.5-3.5); MEAN CORPUSCULAR HEMOGLOBIN 31.2 pg (27.0-31.0); MEAN CORPUSCULAR HGB CONC 32.3 g/dL (32.0-36.0); MEAN CORPUSCULAR VOLUME 96.7 fL (80.0-94.0); MEAN PLATELET VOLUME 10.1 fL (7.4-11.4); MONOCYTES # (AUTO) 0.8 10^3/uL (0.0-1.0); MONOCYTES % (AUTO) 7.8 %; NEUTROPHILS # (AUTO) 6.7 10^3/uL (1.5-6.6); NEUTROPHILS % (AUTO) 65.6 %; PLT - PLATELET COUNT 300 10^3/uL (130-450); RED BLOOD COUNT 4.49 10^6/uL (4.70-6.10); RED CELL DISTRIBUTION WIDTH 13.1 % (12.0-15.0); WHITE BLOOD COUNT 10.2 x10^3/uL (4.8-10.8)
[2022-05-03 20:53] LABS: VBG PH 7.397 (7.31-7.41)
[2022-05-03 20:54] LABS: VBG BASE EXCESS -4.8 mmol/L (-2 - +2); VBG HCO3 18.8 mmol/L (23-28); VBG PCO2 31.3 mmHg (41-51); VBG PO2 76.7 mmHg (25-47); VBG TOTAL CO2 19.8 mmol/L (24-29)
--- NOTE | 2022-05-03 21:01 | XRAY Report ---
PROCEDURE: Chest 1 View X-Ray INDICATIONS: Chest Pain TECHNIQUE: One view of the chest was acquired. COMPARISON: 04/14/2022 FINDINGS: Surgical changes and devices: Sternotomy wires, presumed prior CABG.. Lungs and pleura: No pleural effusions or left-sided pneumothorax but there does appear to be a smal l to moderate right-sided pneumothorax measuring up to 3.6 cm in maximal thickness in addition there is what appears to be right mid and lower lung pneumonia. This pattern was not present on the compari son study 04/14/2022 Mediastinum: Mediastinal contours appear normal. Heart size is normal. Bones and chest wall: No suspicious bony lesions. Overlying soft tissues appear unremarkable. IMPRESSION: New small to moderate right-sided pneumothorax, with superimposed right mid and lower lung pneumonia. Prior CABG. Reviewed by: Vijay Blount MD on 05/03/2022 8:59 PM PDT Approved by: Vijay Blount MD on 05/03/2022 8:59 PM PDT Station ID: [id number]
--- NOTE | 2022-05-03 21:06 | ED Physician Documentation ---
PD HPI CHEST PAIN - Stated complaint Stated Complaint: CHEST PX - History obtained from History obtained from: Patient - History of Present Illness Timing - onset: How many hours ago (1) Timing - onset during: Light activity Timing - details: Abrupt onset Pain level now: 8 Quality: Pain Location: Substernal Radiation: Left upper extremity (left shoulder) Improved by: Rest Worsened by: Exertion Associated symptoms: Shortness of air Similar symptoms before: Diagnosis (patient says symptoms feel similar to when he had NE (requiring stents) in 2019) Recently seen: Clinic (right chest lung biopsies performed end of March 2022) - Additional information Additional information: c/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 He took SLNTG at home with mild improvement. Patient's PMHx includes HIV , paroxysmal atrial fibrillation, CAD with CABD and stents, hypothyroidism. He had a right lung biopsy one month ago; per patient's description, it sounds like this was due to persistent abnormalities on xrays despite courses of antibiotics. Per patient, no conclusive diagnosis was achieved with the biopsies. Review of Systems Constitutional: reports: Fatigue. denies: Fever, Chills, Sweats Eyes: reports: Reviewed and negative Ears: reports: Reviewed and negative Nose: reports: Reviewed and negative Cardiac: reports: Chest pain / pressure. denies: Palpitations, Pedal edema, Calf pain Respiratory: reports: Dyspnea. denies: Cough, Hemoptysis, Wheezing GI: reports: Reviewed and negative : denies: Dysuria, Frequency Skin: reports: Reviewed and negative Musculoskeletal: reports: Reviewed and negative Neurologic: reports: Reviewed and negative PD PAST MEDICAL HISTORY - Past Medical History Cardiovascular: Hypertension, Coronary artery disease, Atrial fibrillation Respiratory: Pneumonia Neuro: None Endocrine/Autoimmune: Other GI: None : None HEENT: None Psych: Depression Musculoskeletal: None, Chronic back pain Derm: None - Past Surgical History Past Surgical History: Yes Ortho: Other Cardiovascular: CABG, Coronary stent - Present Medications Home Medications: Ambulatory Orders Medication Instructions Recorded Confirmed Omeprazole [PriLOSEC] 40 mg PO DAILY 06/21/16 09/25/21 Ritonavir [Norvir] 100 mg PO BIDWM 06/21/16 09/25/21 Nitroglycerin [Nitrostat] 0.4 mg SL Q5MIN PRN #0 tablet 06/22/16 09/25/21 Apixaban [Eliquis] 5 mg PO BID 08/29/21 09/25/21 Atenolol [Tenormin] 50 mg PO DAILY 08/29/21 09/25/21 Benazepril HCl 10 mg PO DAILY 08/29/21 09/25/21 Clopidogrel [Plavix] 75 mg PO DAILY 08/29/21 09/25/21 Darunavir Ethanolate [Prezista] 600 mg PO BIDWM 08/29/21 09/25/21 Dolutegravir Sodium [Tivicay] 50 mg PO BID 08/29/21 09/25/21 Fluoxetine HCl [Prozac] 40 mg PO DAILY 08/29/21 09/25/21 Furosemide [Lasix] 40 mg PO DAILY 08/29/21 09/25/21 Isosorbide Mononitrate ER [Imdur] 30 mg PO 0600 08/29/21 09/25/21 Levothyroxine Sodium 50 mcg PO DAILY 08/29/21 09/25/21 [Levothyroxine] Methadone [Methadone Hcl] 10 mg PO TID PRN 08/29/21 09/25/21 [place]-3 Acid Ethyl Esters [Lovaza] 2 gm PO BID 08/29/21 09/25/21 Potassium Chloride 10 meq PO DAILY 08/29/21 09/25/21 Rosuvastatin Calcium [Crestor] 20 mg PO DAILY 08/29/21 09/25/21 Topiramate [Topamax] 50 mg PO BID 08/29/21 09/25/21 buPROPion HCL [Bupropion Xl] 300 mg PO DAILY 08/29/21 09/25/21 gemfibroziL [Lopid] 600 mg PO BID 08/29/21 09/25/21 methocarbamoL [Methocarbamol] 500 mg PO TID PRN 08/29/21 09/25/21 LORazepam [Ativan] 0.5 mg PO Q8H PRN #15 tablet 09/04/21 09/25/21 Acetaminophen [Tylenol] 650 mg PO Q4HR PRN tablet 09/14/21 09/25/21 Sulfamethox/Trimeth 800/160 1 tab PO BID #20 tablet 09/28/21 [Bactrim Ds] predniSONE [Deltasone] 40 mg PO DAILY 7 Days #14 tablet 09/28/21 - Allergies Allergies/Adverse Reactions: Allergies Allergy/AdvReac Type Severity Reaction Status Date / Time gabapentin Allergy Intermediate Hives Verified 04/14/22 17:19 nevirapine [From Viramune] Allergy Intermediate Hives Verified 04/14/22 17:19 tramadol Allergy Intermediate Rash Verified 04/14/22 17:19 ketorolac Allergy Itching Verified 04/14/22 17:19 - Social History Does the pt smoke?: Yes Smoking Status: Former smoker Does the pt drink ETOH?: No Does the pt have substance abuse?: No - Immunizations Immunizations are current?: Yes - POLST Patient has POLST: Yes POLST Status: DNR (Intubation and ventil use is OK) PD ED PE NORMAL - Vitals Vital signs reviewed: Yes - General General: Alert and oriented X 3, Well developed/nourished, Other (appears uncomfortable and mildly apprehensive) - HEENT HEENT: Moist mucous membranes - Neck Neck: Supple, no meningeal sign - Cardiac Cardiac: RRR, No murmur - Respiratory Respiratory: No respiratory distress, Other (absent breath sounds right apex) - Abdomen Abdomen: Soft, Non tender - Derm Derm: Normal color, Warm and dry - Extremities Extremities: No edema - Neuro Neuro: Alert and oriented X 3 Results - Vitals Vitals: Vital Signs - 24 hr 05/03/22 05/03/22 05/03/22 20:52 22:25 23:06 Temperature 37.4 C Heart Rate 82 115 H 100 Respiratory 20 28 H 21 Rate Blood Pressure 156/100 H 181/107 H 139/95 H O2 Saturation 98 97 96 05/04/22 05/04/22 05/04/22 01:00 03:00 05:00 Temperature Heart Rate 87 66 59 L Respiratory 17 16 18 Rate Blood Pressure 149/103 H 178/102 H 155/101 H O2 Saturation 96 95 18 L 05/04/22 07:00 Temperature Heart Rate 69 Respiratory 22 Rate Blood Pressure 157/98 H O2 Saturation 97 Oxygen O2 Source Room air - EKG (time done) No standard instances Rate: Rate (enter#) (96) Rhythm: NSR [place]: Normal Ischemia: Q waves (V1, V2), T wave inversion (V2, V3 and flat V4-V6, I, aVL) - Labs Labs: Laboratory Tests 05/03/22 05/03/22 05/03/22 20:42 20:42 20:42 WBC 10.2 RBC 4.49 L Hgb 14.0 Hct 43.4 MCV 96.7 H MCH 31.2 H MCHC 32.3 RDW 13.1 Plt Count 300 MPV 10.1 Neut # (Auto) 6.7 H Lymph # (Auto) 2.6 Barry # (Auto) 0.8 Eos # (Auto) 0.0 Baso # (Auto) 0.1 Absolute Nucleated RBC 0.00 Nucleated RBC % 0.0 VBG pH VBG pCO2 VBG pO2 VBG HCO3 VBG Total CO2 VBG O2 Saturation VBG Base Excess Sodium 139 Potassium 4.1 Chloride 109 Carbon Dioxide 23 Anion Gap 7.0 BUN 18 Creatinine 0.8 Estimated GFR (MDRD) 100 Glucose 118 H Lactic Acid Calcium 9.2 Total Bilirubin 0.4 AST 15 ALT 13 Alkaline Phosphatase 91 Lactate Dehydrogenase Troponin I High Sens 8.2 Total Protein 7.5 Albumin 3.8 Globulin 3.7 Albumin/Globulin Ratio 1.0 Lipase 30 Nasal Adenovirus (PCR) Nasal B. parapertussis DNA (PCR) Nasal Coronavir 229E PCR Nasal Coronavir HKU1 PCR Nasal Coronavir NL63 PCR Nasal Coronavir OC43 PCR Nasal Enterovir/Rhinovir PCR Nasal Influenza B PCR Nasal Influenza A PCR Nasal Parainfluen 1 PCR Nasal Parainfluen 2 PCR Nasal Parainfluen 3 PCR Nasal Parainfluen 4 PCR Nasal RSV (PCR) Nasal B.pertussis DNA PCR Nasal C.pneumoniae (PCR) [place] Human Metapneumo PCR Nasal M.pneumoniae (PCR) Nasal SARS-CoV-2 (PCR) 05/03/22 05/03/22 05/03/22 20:42 20:42 21:13 WBC RBC Hgb Hct MCV MCH MCHC RDW Plt Count MPV Neut # (Auto) Lymph # (Auto) [place] # (Auto) Eos # (Auto) Baso # (Auto) Absolute Nucleated RBC Nucleated RBC % VBG pH 7.397 VBG pCO2 31.3 L VBG pO2 76.7 H VBG HCO3 18.8 L VBG Total CO2 19.8 L VBG O2 Saturation 95.0 H VBG Base Excess -4.8 L Sodium Potassium Chloride Carbon Dioxide Anion Gap BUN Creatinine Estimated GFR (MDRD) Glucose Lactic Acid Calcium Total Bilirubin AST ALT Alkaline Phosphatase Lactate Dehydrogenase 144 Troponin I High Sens Total Protein Albumin Globulin Albumin/Globulin Ratio Lipase Nasal Adenovirus (PCR) NOT DETECTED Nasal B. parapertussis DNA (PCR) NOT DETECTED Nasal Coronavir 229E PCR NOT DETECTED Nasal Coronavir HKU1 PCR NOT DETECTED Nasal Coronavir NL63 PCR NOT DETECTED Nasal Coronavir OC43 PCR NOT DETECTED Nasal Enterovir/Rhinovir PCR NOT DETECTED Nasal Influenza B PCR NOT DETECTED Nasal Influenza A PCR NOT DETECTED Nasal Parainfluen 1 PCR NOT DETECTED Nasal Parainfluen 2 PCR NOT DETECTED Nasal Parainfluen 3 PCR NOT DETECTED Nasal Parainfluen 4 PCR NOT DETECTED Nasal RSV (PCR) NOT DETECTED Nasal B.pertussis DNA PCR NOT DETECTED Nasal C.pneumoniae (PCR) NOT DETECTED [place] Human Metapneumo PCR NOT DETECTED Nasal M.pneumoniae (PCR) NOT DETECTED Nasal SARS-CoV-2 (PCR) NOT DETECTED 05/03/22 22:43 WBC RBC Hgb Hct MCV MCH MCHC RDW Plt Count MPV Neut # (Auto) Lymph # (Auto) [place] # (Auto) Eos # (Auto) Baso # (Auto) Absolute Nucleated RBC Nucleated RBC % VBG pH VBG pCO2 VBG pO2 VBG HCO3 VBG Total CO2 VBG O2 Saturation VBG Base Excess Sodium Potassium Chloride Carbon Dioxide Anion Gap BUN Creatinine Estimated GFR (MDRD) Glucose Lactic Acid 1.4 Calcium Total Bilirubin AST ALT Alkaline Phosphatase Lactate Dehydrogenase Troponin I High Sens Total Protein Albumin Globulin Albumin/Globulin Ratio Lipase Nasal Adenovirus (PCR) Nasal B. parapertussis DNA (PCR) Nasal Coronavir 229E PCR Nasal Coronavir HKU1 PCR Nasal Coronavir NL63 PCR Nasal Coronavir OC43 PCR Nasal Enterovir/Rhinovir PCR Nasal Influenza B PCR Nasal Influenza A PCR Nasal Parainfluen 1 PCR Nasal Parainfluen 2 PCR Nasal Parainfluen 3 PCR Nasal Parainfluen 4 PCR Nasal RSV (PCR) Nasal B.pertussis DNA PCR Nasal C.pneumoniae (PCR) [place] Human Metapneumo PCR Nasal M.pneumoniae (PCR) Nasal SARS-CoV-2 (PCR) - Rads (name of study) chest xray Radiology: Prelim report reviewed, See rad report repeat chest xray (post chest tube) Radiology: Prelim report reviewed, See rad report PD MEDICAL DECISION MAKING - ED course Complexity details: reviewed old records, reviewed results, re-evaluated patient, considered differential, d/w patient ED course: c/o chest pain and dyspnea, 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 Found to have right pneumothorax. Radiologist's reading also includes "superimposed right mid and lower lung pneumonia". Right thoracostomy tube inserted by Dr. Nuñez. There is no surgeon throughout the weekend at [facility], and thus hospitalist unwilling to accept patient to hospitalist service, as chest tube management is undertaken by surgical service. There are no beds available at any surrounding hospitals. Amongst hospitals that were contacted were [facility], [facility], [place], [facility] (I did speak with [facility] transfer center and presented the case to transfer center coordinator, but eventually heard back that no beds were available at [facility] or [facility]). I discussed the details of the case with [facility] coordinator but as of the end of my shift have not heard back. Care of patient turned over to oncoming ED physician at end of my shift pending disposition. Patient is given Rocephin, zithromax, and bactrim to cover potential pneumonia. His blood test results are without concerning findings, including a normal hs- cTn, lactate, LDH, WBC. Departure - Departure Disposition: 02 Transfer Acute Care Hosp Clinical Impression: Pneumonia Qualifiers: Pneumonia type: due to unspecified organism Laterality: right Lung location: unspecified part of lung Qualified Code(s): J18.9 - Pneumonia, unspecified organism Pneumothorax Qualifiers: Pneumothorax type: unspecified pneumothorax Qualified Code(s): J93.9 - Pneumothorax, unspecified Condition: Stable
[2022-05-03 21:09] LABS: ALBUMIN 3.8 g/dL (3.2-5.5); BILIRUBIN,TOTAL 0.4 mg/dL (0.2-1.0); CALCIUM 9.2 mg/dL (8.5-10.3); CREATININE 0.8 mg/dL (0.6-1.2); POTASSIUM 4.1 mmol/L (3.5-5.0); TOTAL PROTEIN 7.5 g/dL (6.7-8.2)
[2022-05-03] MEDS ORDERED: LIDOCAINE 1%-EPI 1:100000 20 ML MDV SUBQ STA (21:25)
[2022-05-03] MEDS ORDERED: KETAMINE 500 MG/10 ML VIAL IVP STA (21:25)
--- NOTE | 2022-05-03 21:53 | ED Physician Documentation ---
History of Present Illness - Stated complaint Stated Complaint: CHEST PX - Chief complaint Chief Complaint: Cardiac - Additonal information Additional information: Please see Dr. Brambila's H&P for complete details of the case. I put in a right- sided chest tube. PD PAST MEDICAL HISTORY - Past Medical History Cardiovascular: Hypertension, Coronary artery disease, Atrial fibrillation Respiratory: Pneumonia Neuro: None Endocrine/Autoimmune: Other GI: None : None HEENT: None Psych: Depression Musculoskeletal: None, Chronic back pain Derm: None - Past Surgical History Past Surgical History: Yes Ortho: Other Cardiovascular: CABG, Coronary stent - Present Medications Home Medications: Ambulatory Orders Medication Instructions Recorded Confirmed Omeprazole [PriLOSEC] 40 mg PO DAILY 06/21/16 09/25/21 Ritonavir [Norvir] 100 mg PO BIDWM 06/21/16 09/25/21 Nitroglycerin [Nitrostat] 0.4 mg SL Q5MIN PRN #0 tablet 06/22/16 09/25/21 Apixaban [Eliquis] 5 mg PO BID 08/29/21 09/25/21 Atenolol [Tenormin] 50 mg PO DAILY 08/29/21 09/25/21 Benazepril HCl 10 mg PO DAILY 08/29/21 09/25/21 Clopidogrel [Plavix] 75 mg PO DAILY 08/29/21 09/25/21 Darunavir Ethanolate [Prezista] 600 mg PO BIDWM 08/29/21 09/25/21 Dolutegravir Sodium [Tivicay] 50 mg PO BID 08/29/21 09/25/21 Fluoxetine HCl [Prozac] 40 mg PO DAILY 08/29/21 09/25/21 Furosemide [Lasix] 40 mg PO DAILY 08/29/21 09/25/21 Isosorbide Mononitrate ER [Imdur] 30 mg PO 0600 08/29/21 09/25/21 Levothyroxine Sodium 50 mcg PO DAILY 08/29/21 09/25/21 [Levothyroxine] Methadone [Methadone Hcl] 10 mg PO TID PRN 08/29/21 09/25/21 [place]-3 Acid Ethyl Esters [Lovaza] 2 gm PO BID 08/29/21 09/25/21 Potassium Chloride 10 meq PO DAILY 08/29/21 09/25/21 Rosuvastatin Calcium [Crestor] 20 mg PO DAILY 08/29/21 09/25/21 Topiramate [Topamax] 50 mg PO BID 08/29/21 09/25/21 buPROPion HCL [Bupropion Xl] 300 mg PO DAILY 08/29/21 09/25/21 gemfibroziL [Lopid] 600 mg PO BID 08/29/21 09/25/21 methocarbamoL [Methocarbamol] 500 mg PO TID PRN 08/29/21 09/25/21 LORazepam [Ativan] 0.5 mg PO Q8H PRN #15 tablet 09/04/21 09/25/21 Acetaminophen [Tylenol] 650 mg PO Q4HR PRN tablet 09/14/21 09/25/21 Sulfamethox/Trimeth 800/160 1 tab PO BID #20 tablet 09/28/21 [Bactrim Ds] predniSONE [Deltasone] 40 mg PO DAILY 7 Days #14 tablet 09/28/21 - Allergies Allergies/Adverse Reactions: Allergies Allergy/AdvReac Type Severity Reaction Status Date / Time gabapentin Allergy Intermediate Hives Verified 04/14/22 17:19 nevirapine [From Viramune] Allergy Intermediate Hives Verified 04/14/22 17:19 tramadol Allergy Intermediate Rash Verified 04/14/22 17:19 ketorolac Allergy Itching Verified 04/14/22 17:19 - Social History Does the pt smoke?: Yes Smoking Status: Former smoker Does the pt drink ETOH?: No Does the pt have substance abuse?: No - Immunizations Immunizations are current?: Yes - POLST Patient has POLST: Yes POLST Status: DNR (Intubation and ventil use is OK) Results - Vitals Vitals: Vital Signs - 24 hr 05/03/22 20:52 Temperature 37.4 C Heart Rate 82 Respiratory 20 Rate Blood Pressure 156/100 H O2 Saturation 98 Oxygen O2 Source Room air - Labs Labs: Laboratory Tests 05/03/22 05/03/22 05/03/22 20:42 20:42 20:42 WBC 10.2 RBC 4.49 L Hgb 14.0 Hct 43.4 MCV 96.7 H MCH 31.2 H MCHC 32.3 RDW 13.1 Plt Count 300 MPV 10.1 Neut # (Auto) 6.7 H Lymph # (Auto) 2.6 [place] # (Auto) 0.8 Eos # (Auto) 0.0 Baso # (Auto) 0.1 Absolute Nucleated RBC 0.00 Nucleated RBC % 0.0 VBG pH VBG pCO2 VBG pO2 VBG HCO3 VBG Total CO2 VBG O2 Saturation VBG Base Excess Sodium 139 Potassium 4.1 Chloride 109 Carbon Dioxide 23 Anion Gap 7.0 BUN 18 Creatinine 0.8 Estimated GFR (MDRD) 100 Glucose 118 H Calcium 9.2 Total Bilirubin 0.4 AST 15 ALT 13 Alkaline Phosphatase 91 Troponin I High Sens 8.2 Total Protein 7.5 Albumin 3.8 Globulin 3.7 Albumin/Globulin Ratio 1.0 Lipase 30 05/03/22 20:42 WBC RBC Hgb Hct MCV MCH MCHC RDW Plt Count MPV Neut # (Auto) Lymph # (Auto) [place] # (Auto) Eos # (Auto) Baso # (Auto) Absolute Nucleated RBC Nucleated RBC % VBG pH 7.397 VBG pCO2 31.3 L VBG pO2 76.7 H VBG HCO3 18.8 L VBG Total CO2 19.8 L VBG O2 Saturation 95.0 H VBG Base Excess -4.8 L Sodium Potassium Chloride Carbon Dioxide Anion Gap BUN Creatinine Estimated GFR (MDRD) Glucose Calcium Total Bilirubin AST ALT Alkaline Phosphatase Troponin I High Sens Total Protein Albumin Globulin Albumin/Globulin Ratio Lipase Procedures - Chest Tube (location) right 4th middle axillary line Chest tube preparation: Consent obtained, Time out completed, Sterile prep and drape Chest tube anesthesia: Lidocaine, Other (sedation w ketamine) Chest tube size: 24 Chest tube return: Air, Blood (5ml) Chest tube after care: Sutured, Confirmed with xray, Pt tolerated well - Procedural sedation Sedation prep: Informed consent, Time out completed, ASA 3 - severe disease Sedation Medications: ketamine (150mg IVP) Mallampati classification: I Patient status during sedation: Responds to tactile Sedation recovery: Recovered uneventfully, Slow recovery, Back to baseline Time in sedation (Minutes): 15 PD MEDICAL DECISION MAKING - ED course ED course: I was only involved in the case for procedural sedation and chest tube placement which went well and the post line chest x-ray shows only minimal residual pneumothorax to me with an apically placed chest tube.
[2022-05-03] MEDS ORDERED: cefTRIAXone 1 GM in SODIUM CHLORIDE 0.9% MINIBAG 100 ML IV STA (21:55)
[2022-05-03] MEDS ORDERED: AZITHROMYCIN INJ 500 MG in SODIUM CHLORIDE 0.9% 250 ML IV STA (21:55)
[2022-05-03] MEDS ORDERED: HYDROmorphone 1 MG/ML CARPUJECT IVP STA ×2 (22:04→22:31)
[2022-05-03 22:18] LABS: B. PARAPERTUSSIS- RESP PCR PAN NOT DETECTED; B. PERTUSSIS- RESP PCR PANEL NOT DETECTED; C. PNEUMONIAE- RESP PCR PANEL NOT DETECTED; CORONAVIRUS 229E-RESP PCR NOT DETECTED; CORONAVIRUS HKU1-RESP PCR NOT DETECTED; CORONAVIRUS NL63-RESP PCR NOT DETECTED; CORONAVIRUS OC43-RESP PCR NOT DETECTED; HUMAN METAPNEUMOVIRUS NOT DETECTED; INFLUENZA A- RESP PCR PANEL NOT DETECTED; INFLUENZA B - RESP PCR PANEL NOT DETECTED; M. PNEUMONIAE- RESP PCR PANEL NOT DETECTED; PARAINFLUENZA VIRUS 1 NOT DETECTED; PARAINFLUENZA VIRUS 2 NOT DETECTED; PARAINFLUENZA VIRUS 3 NOT DETECTED; PARAINFLUENZA VIRUS 4 NOT DETECTED; RHINOVIRUS/ENTEROVIRUS NOT DETECTED; RSV- RESP PCR PANEL NOT DETECTED; SARS-CoV-2 -RESP PCR PANEL NOT DETECTED
[2022-05-03] MEDS ORDERED: cefTRIAXone 1 GM VIAL ONE (22:21)
[2022-05-03] MEDS: HYDROmorphone 1 MG/ML CARPUJECT IVP PRN (23:08)
--- NOTE | 2022-05-03 23:18 | XRAY Report ---
PROCEDURE: Chest for Line Placement INDICATIONS: chest tube TECHNIQUE: One view of the chest was acquired. COMPARISON: Chest plain film same day. FINDINGS: Surgical changes and devices: Sternotomy wires, presumed prior CABG. Chest tube has been placed thelma ersing medially and then cephalad. Lungs and pleura: No pleural effusions and there has been almost complete resolution of the right si ded lateral pneumothorax. Lungs are improved in aeration with a lesser concern for presence of pneum onia at the right mid and lower lung.. Mediastinum: Mediastinal contours appear normal. Heart size is normal. Bones and chest wall: No suspicious bony lesions. Overlying soft tissues appear unremarkable. IMPRESSION: Significant interval improvement in right lateral pneumothorax after chest tube placement. Minimal re sidual pneumothorax now present. Reviewed by: Vijay Blount MD on 05/03/2022 11:17 PM PDT Approved by: Vijay Blount MD on 05/03/2022 11:17 PM PDT Station ID: [id number]
[2022-05-04] MEDS ORDERED: HYDROmorphone 1 MG/ML CARPUJECT IVP STA ×3 (00:04→08:42)
[2022-05-04] MEDS: HYDROmorphone 1 MG/ML CARPUJECT IVP PRN ×4 (01:45→11:00)
[2022-05-04] MEDS ORDERED: oxyCODONE 5 MG TABLET PO STA (08:42)
[2022-05-04] MEDS ORDERED: KETOROLAC 15 MG/ML VIAL IVP STA (08:42)
[2022-05-04] MEDS ORDERED: PANTOPRAZOLE 40 MG TABLET PO STA (08:47)
[2022-05-04] MEDS ORDERED: ONDANSETRON 4 MG/2 ML VIAL IVP PRN (08:47)
[2022-05-04] MEDS ORDERED: SERTRALINE 25 MG TABLET PO SCH (09:00)
[2022-05-04] MEDS ORDERED: METOPROLOL TARTRATE 50 MG TABLET PO SCH (09:00)
[2022-05-04] MEDS ORDERED: NON FORMULARY MED PO SCH (09:00)
--- NOTE | 2022-05-04 10:22 | XRAY Report ---
PROCEDURE: Chest 1 View X-Ray INDICATIONS: interval eval PTX TECHNIQUE: One view of the chest was acquired. COMPARISON: 05/03/2022, 04/14/2022 FINDINGS: Surgical changes and devices: A right-sided chest tube is seen. Post CABG changes are seen. Lungs and pleura: The previously seen right-sided pneumothorax is no longer seen. No pleural effusions. Lungs are clear. Mediastinum: Mediastinal contours appear normal. Heart size is normal. Bones and chest wall: No suspicious bony lesions. Age-appropriate degenerative changes are seen. R ight-sided soft tissue gas is seen. IMPRESSION: Right-sided chest tube, with interval resolution of the previously seen pneumothorax. Postoperative and degenerative changes are seen. Reviewed by: Arturo Langley MD on 05/04/2022 9:21 AM [place] Approved by: Arturo Langley MD on 05/04/2022 9:21 AM [place] Station ID: [id number]
[2022-05-04 11:03] VITALS: BP 96/69
--- NOTE | 2022-05-04 11:04 | ED Physician Documentation ---
ED Addendum - Addendum Addendum: 05/04/22 11:01 The patient has remained stable with good saturations and vital signs after change of shift. He did require repeated pain medication dosages. He typically is on oral pain medicine regularly as well as multiple other medicines. I talked with him about which medicines are most essential and I ordered his several normal medications and allowed for him taking his antiviral medications orally. He remains stable here. Repeat chest x-ray still showed some mild minimal residual pneumothorax. We are unable to treat the patient here with no surgical on-call available. Hospitalist would not able or felt acute confident in managing the chest tube without surgical backup. We look for available hospitals. [facility] did have beds available. I talked to the hospitalist Dr. Casanova as well as their clinical tech. With the consensus that this is perhaps a slightly more complicated than mild spontaneous pneumo and that surgery or pulmonology is often involved for care, it was seeming appropriate to transfer the patient to a higher level of service and Dr. Casanova accepted.
[2022-05-05 16:07] LABS: % CD 4 POS. LYMPH. 27.1 % (30.8-58.5)
== END 2022-05-04 12:49 | disposition short-term general hospital (02) ==
LOC: ED 20:16
DX: J93.9 Pneumothorax, unspecified (principal); J18.9 Pneumonia, unspecified organism; B20 Human immunodeficiency virus [HIV] disease; I10 Essential (primary) hypertension; I25.10 Atherosclerotic heart disease of native coronary artery without angina pectoris; Z95.1 Presence of aortocoronary bypass graft; Z95.5 Presence of coronary angioplasty implant and graft; I25.2 Old myocardial infarction; I48.0 Paroxysmal atrial fibrillation; E03.9 Hypothyroidism, unspecified; Z79.01 Long term (current) use of anticoagulants; Z87.891 Personal history of nicotine dependence; Z66 Do not resuscitate; Z20.822 Contact with and (suspected) exposure to COVID-19
CPT/HCPCS: 32551; 36415; 71045; 80053; 82803; 83605; 83615; 83690; 84484; 85025; 86361; 87040; 87633; 93005; 96365; 96366; 96368; 96375; 96376; 99152; 99284; 99285; A9270; J1170

== ENCOUNTER 2022-05-04 12:43 | Outpatient (CLI) | payer MEDICARE, MEDICAID | END 2022-05-04 12:44 | disposition short-term general hospital (02) | LOC: EMS 12:43 | PROVIDERS: ATTEND Emergency Medicine | DX: J93.83 Other pneumothorax (principal); J18.9 Pneumonia, unspecified organism | CPT/HCPCS: A0425; A0426 ==

== ENCOUNTER 2023-01-24 16:00 | Outpatient (CLI) | payer MEDICARE, MEDICAID | END 2023-01-24 23:59 | disposition short-term general hospital (02) | LOC: EMS 16:00 | DX: R07.89 Other chest pain (principal) | CPT/HCPCS: A0425; A0427 ==